=== PATIENT | female | born 1990 | race Caucasian/White ===

== ENCOUNTER 2017-08-14 15:15 | Emergency (ER) | payer OTHER ==
[~2017-08-14] VITALS: Ht 152.4 cm; Wt 95.2 kg
--- OUTSIDE RECORDS SUMMARY | ~2017-08-14 | XMS ---
Demographics + + + | Address | [address] | | | [place] [address] | + + + | Preferred Language | Unknown | + + + | Marital Status | Unknown | + + + | Lutheran Affiliation | Unknown | + + + | Race | Unknown | + + + | Ethnic Group | Unknown | + + + Author + + + | Author | [facility] | + + + | Organization | [facility] | + + + | Address | [address] | | | [place] [address] | + + + | Phone | | + + + Care Team Providers + + + + | Care Printing And Stamping Supervisor Name | Role | Phone | + + + + Unavailable | Unavailable | + + + + PROBLEMS +---------+ + + +--------+ + + | Type | Condition | ICD9-CM | [id number] | Onset | Condition | SNOMED | | | | Code | Code | Dates | Status | Code | +---------+ + + +--------+ + + | Problem | Loss of | R40.20 | | | Active | [id number] | | | consciousn | | | | | | | | ess | | | | | | +---------+ + + +--------+ + + | Problem | Injury of | S59.901A | | | Active | | | | right | | | | | | | | elbow | | | | | | +---------+ + + +--------+ + + ALLERGIES Unknown Allergies SOCIAL HISTORY No smoking Hx information available PLAN OF CARE + +---------+ | Activity | Details | + +---------+ +---+ | | +---+ + + + | Follow Up | prn Reason:null | + + + VITAL SIGNS MEDICATIONS + + +--------+ +--------+ + +--------+ | Medicati | Instruct | Dosage | Frequenc | Start | End Date | Duration | Status | | on | ions | | y | Date | | | | + + +--------+ +--------+ + +--------+ | Depo | | | | | | | Active | | Provera | | | | | | | | | IM | | | | | | | | + + +--------+ +--------+ + +--------+ RESULTS No Results PROCEDURES + + + + + | Procedure | Date Ordered | Related Diagnosis | Body Site | + + + + + | missed apptointment | April 13, 2017 | | | | charge | | | | + + + + + IMMUNIZATIONS No Known Immunizations"
--- OUTSIDE RECORDS SUMMARY | ~2017-08-14 | XMS ---
Demographics + + + | Address | [address] | | | [place] [address] | + + + | Preferred Language | Unknown | + + + | Marital Status | Unknown | + + + | Orthodoxy Affiliation | Unknown | + + + | Race | Unknown | + + + | Ethnic Group | Unknown | + + + Author + + + | Author | [facility] | + + + | Organization | [facility] | + + + | Address | [address] | | | [place] [address] | + + + | Phone | | + + + Care Team Providers + + + + | Care Sheet Rock Installation Helper Name | Role | Phone | + + + + Unavailable | Unavailable | + + + + PROBLEMS +---------+ + + +--------+ + + | Type | Condition | ICD9-CM | [id number] | Onset | Condition | SNOMED | | | | Code | Code | Dates | Status | Code | +---------+ + + +--------+ + + | Problem | Loss of | R40.20 | | | Active | [id number] | | | consciousn | | | [...] smoking Hx information available PLAN OF CARE VITAL SIGNS MEDICATIONS Unknown Medications RESULTS No Results PROCEDURES No Known procedures IMMUNIZATIONS No Known Immunizations"
--- OUTSIDE RECORDS SUMMARY | ~2017-08-14 | XMS ---
Demographics + + + | Address | [address] | | | [place] [address] | + + + | Preferred Language | Unknown | + + + | Marital Status | Unknown | + + + | Advent Affiliation | Unknown | + + + | Race | Unknown | + + + | Ethnic Group | Unknown | + + + Author + + + | Author | [facility] | + + + | Organization | [facility] | + + + | Address | [address] | | | [place] [address] | + + + | Phone | | + + + Care Team Providers + + + + | Care Photoengraving Finisher Name | Role | Phone | + + + + Unavailable | Unavailable | + + + + PROBLEMS + + + + + + + + | Type | Condition | ICD9-CM | [id number] | Onset | Condition | SNOMED | | | | Code | Code | Dates | Status | Code | + + + + + + + + | Problem | Loss of | R40.20 | | | Active | [id number] | | | consciousn | | | | | | | | ess | | | | | | + + + + + + + + | Problem | Injury of | S59.901A | | | Active | | | | right | | | | | | | | elbow | | | | | | + + + + + + + + | Assessment | Contact | | Z77.21 | 18 March, | Active | [phone] | | | with and | | | 2016 | | [address] | | | (suspected | | | | | | | | ) exposure | | | | | | | | to | | | | | | | | potentiall | | | | | | | | y | | | | | | | | hazardous | | | | | | | | body | | | | | | | | fluids | | | | | | + + + + + + + + | Assessment | History of | Z77.21 | | March, | Active | [id number] | | | exposure | | | 2016 | | [id number] | | | to | | | | | | | | hazardous | | | | | | | | bodily | | | | | | | | fluids | | | | | | + + + + + + + + ALLERGIES + + + + +---------+ | Substance | Reaction | Event Type | Date | Status | + + + + +---------+ | N.K.D.A. | Unknown | Non Drug | March, | Unknown | | | | Allergy | | | + + + + +---------+ SOCIAL HISTORY No smoking Hx information available PLAN OF CARE + +---------+ | Activity | Details | + +---------+ +---+ | | +---+ + + + | Pending Test | HIV screen | + + + | Pending Test | Hepatitis A,B,C Panel | + + + | | prn,Reason: | + + + VITAL SIGNS + + + + | Height | 61 in | 2017-03-31 | + + + + | Weight | 221.6 lbs | 2017-03-31 | + + + + | BMI | 41.87 kg/m2 | 2017-03-31 | + + + + | Temperature | 97.9 degrees Fahrenheit | 2017-03-31 | + + + + | Heart Rate | 80 /min | 2017-03-31 | + + + + | Blood pressure systolic | 126 mm Hg | 2017-03-31 | + + + + | Blood pressure diastolic | 69 mm Hg | 2017-03-31 | + + + + MEDICATIONS + [...] | + + + + + | Est Level II | March 31, 2017 | | | | Limited | | | | + + + + + IMMUNIZATIONS No Known Immunizations"
[~2017-08-14 15:15] MED LIST: ALKA-SELTZER P1 EAC4 PO; AMOXICILLIN500 M1 PO; AMOXICILLIN500 MG PO; AUGMENTIN 500-500 MG PO; AZITHROMYCIN250 MG PO; CILOXAN5 ML OD; CYCLOBENZAPRINE5 MG PO; DEPO-PROVE400 MG/1 M IM; FLONASE ALLERG9.9 ML NS; GUAIATUSSIN AC10 ML PO; MELOXICAM15 MG PO; NORCO 5-325 TA1 EACH PO; ONDANSETRON HCL4 MG PO; PEPCID COMPLET1 EACH PO; PHENERGAN25 MG/1 M1 PR; PREDNISONE20 MG PO; PRENACARE TABL1 EACH PO; PROMETHAZINE HC25 M1 PO; PROMETHAZINE HC25 MG PR; ROBITUSSIN COU118 ML PO; SUDOGEST30 MG PO; ZITHROMAX250 MG PO
[2017-08-14] MEDS ORDERED: CYCLOBENZAPRINE10 MG PO (18:22)
== END 2017-08-14 18:40 | disposition home or self-care (01) ==
LOC: ED 15:15
DX: S73.102A Unspecified sprain of left hip, initial encounter (principal); W01.0XXA Fall on same level from slipping, tripping and stumbling without subsequent striking against object, initial encounter
CPT/HCPCS: 72170; 99283

== ENCOUNTER 2018-08-05 00:53 | Emergency (ER) | payer OTHER ==
[~2018-08-05] VITALS: Ht 152.4 cm; Wt 95.2 kg
--- OUTSIDE RECORDS SUMMARY | ~2018-08-05 | XMS ---
Demographics + + + | Address | [address] | | | [place] [address] | + + + | Preferred Language | Unknown | + + + | Marital Status | Unknown | + + + | Mu-Ism Affiliation | Unknown | + + + | Race | Unknown | + + + | Ethnic Group | Unknown | + + + Author + + + | Author | [facility] | + + + | Organization | [facility] | + + + | Address | [address] | | | [place] [address] | + + + | Phone | | + + + Care Team Providers + + + + | Care Telecommunications Linesworker Name | Role | Phone | + + + + Unavailable | Unavailable | + + + + PROBLEMS +---------+ + + +--------+ + + | Type | Condition | ICD9-CM | [id number] | Onset | Condition | SNOMED | | | | Code | Code | Dates | Status | Code | +---------+ + + +--------+ + + | Problem | Loss of | R40.20 | | | Active | [id number] | | | consciousn | | | | | | | | ess | | | | | | +---------+ + + +--------+ + + | Problem | Injury of | S59.901A | | | Active | | | | right | | | | | | | | elbow | | | | | | +---------+ + + +--------+ + + ALLERGIES No Known Allergies SOCIAL HISTORY Never Assessed PLAN OF CARE + +---------+ | Activity | Details | + +---------+ +---+ | | +---+ + + + | Follow Up | prn Reason:null | + + + VITAL SIGNS + + + + | Height | 61 in | 2017-07-13 | + + + + | Weight | 217 lbs | 2017-07-13 | + + + + | BMI | 41.00 kg/m2 | 2017-07-13 | + + + + | Temperature | 98.2 degrees Fahrenheit | 2017-07-13 | + + + + | Heart Rate | 72 /min | 2017-07-13 | + + + + | Blood pressure systolic | 119 mm Hg | 2017-07-13 | + + + + | Blood pressure diastolic | 85 mm Hg | 2017-07-13 | + + + + MEDICATIONS + + +--------+ +--------+ + +--------+ [...] +--------+ RESULTS No Results PROCEDURES + + +--------+ + | Procedure | Date Ordered | Result | Body Site | + + +--------+ + | SHAVE TRUNK, ARMS, | Jul 13, 2017 | | | | LEGS <0.5 CM | | | | + + +--------+ + IMMUNIZATIONS No Known Immunizations MEDICAL (GENERAL) HISTORY + + +------+ | Type | Description | Date | + + +------+ | Medical History | lactose intolerant | | + + +------+ | Medical History | intestinal pocketing (seeds | | | | & nuts) | | + + +------+ | Medical History | dysmenorrhea | | + + +------+"
--- OUTSIDE RECORDS SUMMARY | ~2018-08-05 | XMS | Clinical Summary ---
Demographics + + + | Address | [address] | | | [place] [address] | + + + | Home Phone | | + + + | Preferred Language | Unknown | + + + | Marital Status | Single | + + + | Muslim Affiliation | Unknown | + + + | Race | Unknown | + + + | Ethnic Group | Unknown | + + + Author + + + | Author | [facility] | | | and [place] | + + + | Organization | [facility] | | | and [place] [...] Team Providers + +------+ + | Care Trauma Nurse Name | Role | Phone | [...] + + | MODA | MODA | [id number] | PPO | [phone] [address] [address] | | | [place] | | | [phone] | [place] [address] | | | [place] | | | [...] | 1989 | [phone] | [place] [address] | | | de[place]a | | | [phone] | | + +--------+ +--------+ + +"
--- OUTSIDE RECORDS SUMMARY | ~2018-08-05 | XMS | Clinical Summary ---
Demographics + + + | Address | [address] | | | [place] [address] | + + + | Home Phone | | + + + | Preferred Language | Unknown | + + + | Marital Status | Single | + + + | Gnosticist Affiliation | Unknown | + + + | Race | Unknown | + + + | Ethnic Group | Unknown | + + + Author + + + | Author | [facility] | | | and [place] | + + + | Organization | [facility] | | | and [place] | [...] Team Providers + +------+ + | Care Passenger Service Agent Name | Role | Phone | + [...] + + | MODA | MODA | [id number] | PPO | [phone] [address] [address] | | | [place] | | | [phone] | [place] [address] | | | [place] | | | [...] | 1989 | [phone] | [place] [address] | | | debora | | | [phone] | | + +--------+ +--------+ + +"
[~2018-08-05 00:53] MED LIST changes: +CYCLOBENZAPRINE10 MG PO
[2018-08-05] MEDS ORDERED: BACTRIM DS TAB1 EACH PO (01:24)
[2018-08-05] MEDS ORDERED: SUDOGEST60 MG PO (01:26)
[2018-08-05] MEDS ORDERED: DEXAMETHASONE4 MG PO (01:26)
[2018-08-05] MEDS ORDERED: BUSPIRONE HCL5 MG PO (01:27)
[2018-08-05] MEDS ORDERED: BUSPIRONE HCL7.5 MG PO (01:27)
[2018-08-05] MEDS ORDERED: ZOFRAN ODT4 MG PO (02:14)
[2018-08-05] MEDS ORDERED: PERCOCET 5-3251 EACH PO (02:14)
== END 2018-08-05 03:15 | disposition home or self-care (01) ==
LOC: ED 00:53
DX: G89.18 Other acute postprocedural pain (principal); Z79.899 Other long term (current) drug therapy
CPT/HCPCS: 96372; 99283; J1170; J3410

== ENCOUNTER 2018-08-13 21:22 | Emergency (ER) | payer OTHER ==
[~2018-08-13] VITALS: Ht 152.4 cm; Wt 97.1 kg
--- OUTSIDE RECORDS SUMMARY | ~2018-08-13 | XMS | Clinical Summary ---
Demographics + + + | Address | [address] | | | [place] [address] | + + + | Home Phone | | + + + | Preferred Language | Unknown | + + + | Marital Status | Single | + + + | Congregation Affiliation | Unknown | + + + | Race | Unknown | + + + | Ethnic Group | Unknown | + + + Author + + + | Author | [facility] | | | and [place] | + + + | Organization | [facility] [place] | | | and [place] | + + + | Address | Unknown | + + + | Phone | Unavailable | + + + Support + + +---------+ + | Name | Relationship | Address | Phone | + + +---------+ + | Darien Chin ECON | Unknown | | + + +---------+ + Care Team Providers + +------+ + | Care Label Cutter Name | Role | Phone | + +------+ + | No, Physician | PP | Unavailable | + +------+ + Allergies No Known Allergies Current Medications + + +--------+---------+------+------+-------+ | Prescription | Sig. | Disp. | Refills | Star | End | Statu | | | | | | t | Date | s | | | | | | Date | | | + + +--------+---------+------+------+-------+ | | One tablet twice | 20 | 0 | 02/0 | | Activ | | amoxicillin-clavulan | daily for 10 days | tablet | | 6/20 | | e | | ate (AUGMENTIN) | | | | 16 | | | | 875-125 mg per | | | | | | | | tabletIndications: | | | | | | | | Purulent rhinitis | | | | | | | + + +--------+---------+------+------+-------+ Active Problems No known active problems Social History + +-------+ +--------+------+ | Tobacco Use | Types | Packs/Day | Years | Date | | | | | Used | | + +-------+ +--------+------+ | Never Smoker | | | | | + +-------+ +--------+------+ + + + | Sex Assigned at | Date Recorded | | | | + + + | Not on file | | + + + Last Filed Vital Signs + + + + | Vital Sign | Reading | Time Taken | + + + + | Blood Pressure | 132/70 | 12/20/20151528 PST | + + + + | Pulse | 88 | 12/20/20151528 PST | + + + + | Temperature | 36.3 C (97.4 F) | 12/20/20151528 PST | + + + + | Respiratory Rate | 18 | 12/20/20151528 PST | + + + + | Oxygen Saturation | 98% | 12/20/20151528 PST | + + + + | Inhaled Oxygen | - | - | | Concentration | | | + + + + | Weight | 95.8 kg (211 lb 3.2 | 12/20/20151528 PST | | | oz) | | + + + + | Height | 152.4 cm (5') | 12/20/20151528 PST | + + + + | Body Mass Index | 41.25 | 12/20/20151528 PST | + + + + Plan of Treatment + + + + + | Health Maintenance | Due Date | Last Done | Comments | + + + + + | Vaccine: HPV (1 of 3 | | | | | - Female 3-dose | 3 | | | | series) | | | | + + + + + | Vaccine: | | | | | Dtap/Tdap/Td (1 - | 1 | | | | Tdap) | | | | + + + + + | Cervical Cancer | | | | | Screening (Pap) | 3 | | | + + + + + | Vaccine: Influenza | | | | | (#1) | 8 | | | + + + + + Results Not on filefrom Last 3 Months Insurance +-------+--------+ +------+ + + | Payer | Benefi | Subscriber | Type | Phone | Address | | | t Plan | ID | | | | | | / | | | | | | | Group | | | | | +-------+--------+ +------+ + + | MODA | MODA | [id number] | PPO | [phone] | [address] [address] | | | [place] | | | [phone] | [place] [address] | | | [place] | | | | | | | [place] | | | | | +-------+--------+ +------+ + + + +--------+ +--------+ + + | Guarantor Name | Accoun | Relation to | Date | Phone | Billing Address | | | t Type | Patient | of | | | | | | | | | | + +--------+ +--------+ + + | JACKI MOLINA | Person | Self | [birth year] | Home: | [address] | | | al/Fam | | 1989 | [phone] | [place] [address] | | | debora | | | [phone] | | + +--------+ +--------+ + +"
--- OUTSIDE RECORDS SUMMARY | ~2018-08-13 | XMS | Clinical Summary ---
Demographics + + + | Address | [address] | | | [place] [address] | + + + | Home Phone [...] | [facility] | | | and [place] [...] Team Providers + +------+ + | Care Real Time Trader Name | Role | Phone | + [...] + + | MODA | MODA | [id number] | PPO | [phone] | [address] [address] | | | [place] | | | [phone] | [place] [address] | | | [place] | | | [...] | 1989 | [phone] | [place] [address] | | | debora | | | [phone] | | + +--------+ +--------+ + +"
[~2018-08-13 21:22] MED LIST changes: +BACTRIM DS TAB1 EACH PO; +BUSPIRONE HCL5 MG PO; +BUSPIRONE HCL7.5 MG PO; +DEXAMETHASONE4 MG PO; +PERCOCET 5-3251 EACH PO; +SUDOGEST60 MG PO; +ZOFRAN ODT4 MG PO
--- OUTSIDE RECORDS SUMMARY | 2018-08-13 21:26 | XMS ---
PreManage Notification: GERI BLAKE Security Synthetic Staple Extruder Events No recent Security Events currently on file CRITERIA MET - [facility] - 2 Visits in 30 Days CARE PROVIDERS There are no care providers on record at this time. Abdelrahman has no Care Guidelines for this patient. Chanda VISIT COUNT (12 MO.) [address] [facility] [address] TOTAL 3 NOTE: Visits indicate total known visits. ED/C VISIT TRACKING (12 MO.) 08/13/2018 21:22 [facility] [address] TYPE: Emergency COMPLAINT: - MEDICATION REACTION 08/05/2018 00:53 [facility] [place] TYPE: Emergency COMPLAINT: - POST OP ISSUE/PAIN DIAGNOSES: - Other acute postprocedural pain - Other terminal superintendent (current) drug therapy 08/14/2017 15:17 [facility] [place] TYPE: Emergency COMPLAINT: - FALL/L HIP/LOW BACK PAIN DIAGNOSES: - Unspecified sprain of left hip, initial encounter - Fall on same level from slipping, tripping and stumbling without subsequent striking against object, initial encounter - Pain in left hip INPATIENT VISIT TRACKING (12 MO.) No inpatient visits to display in this time frame [id number]
[2018-08-13] MEDS ORDERED: BENADRYL25 MG PO (21:35)
== END 2018-08-13 21:50 | disposition home or self-care (01) ==
LOC: ED 21:22
DX: L27.0 Generalized skin eruption due to drugs and medicaments taken internally (principal); T37.0X5A Adverse effect of sulfonamides, initial encounter; Z79.899 Other long term (current) drug therapy
CPT/HCPCS: 99282; J7512

== ENCOUNTER 2019-07-30 22:14 | Emergency (ER) | payer OTHER ==
[~2019-07-30] VITALS: Ht 152.4 cm; Wt 208.0 kg
[~2019-07-30 22:14] MED LIST changes: +ALLEGRA ALLERG180 MG PO; +BENADRYL25 MG PO; +CYMBALTA30 MG PO; +DOXYCYCLINE HY100 MG PO; +EPIN0.3P IM; +GUAIFEN-CODEINE10 ML PO; +PAXIL10 MG PO
--- OUTSIDE RECORDS SUMMARY | 2019-07-30 22:16 | XMS ---
PreManage Notification: GERI BLAKE Security Refractory Products Supervisor Events No recent Security Events currently on file CRITERIA MET - [facility] - 2 Visits in 30 Days CARE PROVIDERS NATALYA FLETCHER MD Otolaryngology 08/14/2018-Current PHONE: Unknown Abdelrahman has no Care Guidelines for this patient. Chanda VISIT COUNT (12 MO.) 5 [facility] TOTAL 5 NOTE: Visits indicate total known visits. ED/C VISIT TRACKING (12 MO.) 07/30/2019 22:15 [facility] [place] TYPE: Emergency COMPLAINT: - ALLERGIC REACTION 07/09/2019 13:33 [facility] [place] TYPE: Emergency COMPLAINT: - SORE THROAT DIAGNOSES: - Acute pharyngitis, unspecified - Other penitentiary (current) drug therapy - Allergy status to sulfonamides status - Personal history of nicotine dependence - Acute upper respiratory infection, unspecified 10/27/2018 12:37 [facility] [place] TYPE: Emergency COMPLAINT: - SINUS INFECTION DIAGNOSES: - Other penitentiary (current) drug therapy - Cough - Acute pharyngitis, unspecified - Personal history of nicotine dependence - Chronic sinusitis, unspecified - Allergy status to sulfonamides status 08/13/2018 21:22 [facility] [place] TYPE: Emergency COMPLAINT: - MEDICATION REACTION DIAGNOSES: - Adverse effect of sulfonamides, initial encounter - Other 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
== END 2019-07-31 00:22 | disposition home or self-care (01) ==
LOC: ED 22:14
DX: T65.891A Toxic effect of other specified substances, accidental (unintentional), initial encounter (principal); Z87.891 Personal history of nicotine dependence; Z88.2 Allergy status to sulfonamides; Z79.899 Other long term (current) drug therapy
CPT/HCPCS: 94640; 96361; 96374; 99283-25; J1200; J7030

== ENCOUNTER 2019-09-18 13:00 | Emergency (ER) | payer OTHER ==
[~2019-09-18] VITALS: Ht 152.4 cm; Wt 94.3 kg
--- OUTSIDE RECORDS SUMMARY | ~2019-09-18 | XMS | Clinical Summary ---
Demographics + + + | Address | [address] | | | [place] [address] | + + + | Home Phone | | + + + | Preferred Language | Unknown | + + + | Marital Status | Single | + + + | Yazidi Affiliation | Unknown | + + + | Race | Unknown | + + + | Ethnic Group | Unknown | + + + Author + + + | Author | [facility] [place] | | | and [place] | + + + | Organization | [facility] [place] | | | and [place] | [...] Team Providers + +------+ + | Care Finishing Supervisor Plastic Sheets Name | Role | Phone | + +------+ + | No, Physician | PCP | Unavailable | + +------+ + Allergies No Known Allergies Medications + + + +---------+------+------+-------+ | Medication | Sig | Dispensed | Refills | Star | End | Statu | | | | | | t | Date | s | | | | | | Date | | | + + + +---------+------+------+-------+ | | One tablet twice | 20 [...] | | | | + + + +---------+------+------+-------+ Active Problems No known active problems Social [...] on file | | + + + + + + + | Job Start Date | Occupation | Industry | + + + + | Not on file | Not on file | Not on file | + + + + + + + + | Travel History | Travel Start | Travel End | + + + + + + | No recent travel history available. | + + Last Filed Vital Signs + + + + | Vital Sign | Reading | Time Taken | + + + + | Blood Pressure | 132/70 | 12/20/2015 1529 PST | + + + + | [...] | Height | 152.4 cm (5') | 12/20/20159 PST | + + + + | [...] | | | | | (#1) | 9 | | | + + + + + Results Not on filefrom Last 3 Months Insurance +-------+--------+ +--------+ + +------+ | Payer | Benefi | Subscriber | Effect | Phone | Address | Type | | | t Plan | ID | lorna | | | | | | / | | Dates | | | | | | Group | | | | | | +-------+--------+ +--------+ + +------+ | MODA | MODA | [id number] | 11/14/19 | [phone] | [address] | PPO | | | [place] | | 14-Pre | 9 | [phone] | | | | [place] | | sent | | [place], | | | | [place] | | | | [place] [address] | | +-------+--------+ +--------+ + +------+ + +--------+ +--------+ + + | Guarantor Name | Accoun | Relation to | Date | Phone | Billing Address | | | t Type | Patient | of | | | | | | | | | | + +--------+ +--------+ + + | Jacki Molina | Person | Self | [birth year] | [address] | | | al/Renan | | 1990 | [phone] | [place] [address] | | | debora | | | 7 (Home) | | + +--------+ +--------+ + + Advance Directives Patient has advance care planning documents on file. For more information, please contact:[facility] [place] [address]"
--- OUTSIDE RECORDS SUMMARY | ~2019-09-18 | XMS | Clinical Summary ---
Demographics + + + | Address | [address] | | | [place] [address] | + + + | Home Phone | | + + + | Preferred Language | Unknown | + + + | Marital Status | Single | + + + | Rastafari Affiliation | Unknown | + + + | Race | Unknown | + + + | Ethnic Group | Unknown | + + + Author + + + | Author | [facility] | | | and [place] | + + + | Organization | [facility] | | | and [...] Team Providers + +------+ + | Care Customer Service Advisor Name | Role | Phone | + [...] + +------+ | MODA | MODA | [id number] | 11/14/19 | [phone] | [address] | PPO | | | [place] | | 14-Pre | 9 | [address] | | | | [place] | | sent | | [place], | | | | [place] | | | | [place] [address] | | +-------+--------+ +--------+ + +------+ + [...] | | al/Renan | | 1990 | [phone] | [place] [address] | | | debora | | | 7 (Home) | | + +--------+ +--------+ + + Advance Directives Patient has advance care planning documents on file. For more information, please contact:[facility] [place] [address]"
[2019-09-18] MEDS ORDERED: MONTELUKAST SOD10 MG PO (13:15)
[2019-09-18] MEDS ORDERED: DULOXETINE HCL60 MG PO (13:16)
--- NOTE | 2019-09-18 20:24 | EKG ---
[facility] [address] [place], [place] [address] Signed Normal sinus rhythm with sinus arrhythmia Normal ECG No previous ECGs available Confirmed by KALEN BECERRA DO ([id number]) on 09/18/2019 8:24:28 PM Electronically Signed By: KALEN BECERRA DO 09/18/192023 PATIENT NAME: GERI BLAKE Electrocardiogram DATE OF : [birth year] PHYSICIAN: KALEN BECERRA DO REPORT #: [id number] REPORT IS CONFIDENTIAL AND NOT TO BE RELEASED WITHOUT AUTHORIZATION
== END 2019-09-18 16:25 | disposition home or self-care (01) ==
LOC: ED 13:00
DX: R55 Syncope and collapse (principal); F32.9 Major depressive disorder, single episode, unspecified; F41.9 Anxiety disorder, unspecified; Z87.891 Personal history of nicotine dependence; Z88.2 Allergy status to sulfonamides; Z79.899 Other long term (current) drug therapy
CPT/HCPCS: 36415; 71045; 80053; 83735; 84484; 84703; 85025; 93005; 93010; 99284-25

== ENCOUNTER 2019-09-22 18:06 | Emergency (ER) | payer OTHER ==
[~2019-09-22] VITALS: Ht 152.4 cm; Wt 93.4 kg
--- OUTSIDE RECORDS SUMMARY | ~2019-09-22 | XMS | Clinical Summary ---
Demographics + + + | Address | [address] | | | [place] [address] | + + + | Home Phone | | + + + | Preferred Language | Unknown | + + + | Marital Status | Single | + + + | Presybeterian Affiliation | Unknown | + + + | Race | Unknown | + + + | Ethnic Group | Unknown | + + + Author + + + | Author | [facility] | | | and [place] | + + + | Organization | [facility] | | | and [place] [...] Team Providers + +------+ + | Care Building Rental Superintendent Name | Role | Phone | + [...] + +------+ | MODA | MODA | [id number] | 11/14/19 | [phone] | [address] | [address] | | | [employer] | | 14-Pre | 9 | [phone] | | | | [place] | | sent | | [place], | | | | [place] | | | | [place] [address] | | +-------+--------+ +--------+ + +------+ + [...] | | al/Renan | | 1990 | [phone] | [place] [address] | | | debora | | | 7 (Home) | | + +--------+ +--------+ + + Advance Directives Patient has advance care planning documents on file. For more information, please contact:Melissa [facility] [place] [address]"
--- OUTSIDE RECORDS SUMMARY | ~2019-09-22 | XMS | Clinical Summary ---
Demographics + + + | Address | [address] | | | [place] [address] | + + + | Home Phone | | + + + | Preferred Language | Unknown | + + + | Marital Status | Single | + + + | Hinduism Affiliation | Unknown | + + + | Race | Unknown | + + + | Ethnic Group | Unknown | + + + Author + + + | Author | [facility] | | | and [place] | + + + | Organization | [facility] | | | and [place] [...] + +------+ + | Care Lay Out Worker Name | Role | Phone | + [...] + +------+ | MODA | MODA | [id number] | 11/14/19 | [phone] | [address] | PPO | | | [employer] | | 14-Pre | 9 | [phone] | | | | [place] | | sent | | [place], | | | | [place] | | | | [place] [address] | | +-------+--------+ +--------+ + +------+ + [...] | | al/Renan | | 1990 | [phone] | [place] [address] | | | debora | | | 7 (Home) | | + +--------+ +--------+ + + Advance Directives Patient has advance care planning documents on file. For more information, please contact:Melissa [facility] [place] [address]"
[~2019-09-22 18:06] MED LIST changes: +DULOXETINE HCL60 MG PO; +MONTELUKAST SOD10 MG PO
--- OUTSIDE RECORDS SUMMARY | 2019-09-22 18:10 | XMS ---
PreManage Notification: GERI BLAKE Security Education And Training Manager Events No recent Security Events currently on file CRITERIA MET - [facility] - 2 Visits in 30 Days CARE PROVIDERS NATALYA FLETCHER MD Otolaryngology 08/14/2018-Current PHONE: Unknown Abdelrahman has no Care Guidelines for this patient. Chanda VISIT COUNT (12 MO.) 5 [facility] TOTAL 5 NOTE: Visits indicate total known visits. ED/UCC VISIT TRACKING (12 MO.) 09/22/2019 18:07 [facility] [place] TYPE: Emergency COMPLAINT: - LOSS OF CONSCIOUSNESS 09/18/2019 13:01 [facility] [place] TYPE: Emergency COMPLAINT: - ALOC,FATIGUE DIAGNOSES: - Personal history of nicotine dependence - Syncope and collapse - Major depressive disorder, single episode, unspecified - Anxiety disorder, unspecified - Other terminal superintendent (current) drug therapy - Other fatigue - Allergy status to sulfonamides status 07/30/2019 22:15 [facility] [place] TYPE: Emergency COMPLAINT: - ALLERGIC REACTION DIAGNOSES: - Ot adverse food reactions, not elsewhere classified, init - Personal history of nicotine dependence - Other fdc (current) drug therapy - Toxic effect of substances, accidental (unintentional), init - Allergy status to sulfonamides status 07/09/2019 13:33 [facility] [place] TYPE: Emergency COMPLAINT: - SORE THROAT DIAGNOSES: - Acute pharyngitis, unspecified - Other terminal superintendent (current) drug therapy - Allergy status to sulfonamides status - Personal history of nicotine dependence - Acute upper respiratory infection, unspecified 10/27/2018 12:37 [facility] [place] TYPE: Emergency COMPLAINT: - SINUS INFECTION DIAGNOSES: - Other fdc (current) drug therapy - Cough - Acute pharyngitis, unspecified - Personal history of nicotine dependence - Chronic sinusitis, unspecified - Allergy status to sulfonamides status INPATIENT VISIT TRACKING (12 MO.) No inpatient visits to display in this time frame [id number]
--- NOTE | 2019-09-23 07:54 | EKG ---
[facility] [address] [place] [address] Signed Normal sinus rhythm Normal ECG When compared with ECG of 18-SEP-2019 13:17, No significant change was found Confirmed by MARY CAIN MD ([id number]) on 09/23/2019 7:54:33 AM Electronically Signed By: MARY CAIN MD 09/23/19 0754 PATIENT NAME: GERI BLAKE KATELINSelvin Electrocardiogram DATE OF : [birth year] PHYSICIAN: MARY CAIN MD REPORT #: [id number] REPORT IS CONFIDENTIAL AND NOT TO BE RELEASED WITHOUT AUTHORIZATION
== END 2019-09-22 23:54 | disposition home or self-care (01) ==
LOC: ED 18:06
DX: R55 Syncope and collapse (principal); R51 Headache; F32.9 Major depressive disorder, single episode, unspecified; Z88.2 Allergy status to sulfonamides; Z79.899 Other long term (current) drug therapy
CPT/HCPCS: 62270; 70450; 80053; 82945; 83735; 84157; 84484; 84703; 85025; 85032; 89051; 93005; 93010; 99284-25

== ENCOUNTER 2020-06-07 03:25 | Emergency (ER) | payer OTHER ==
[~2020-06-07] VITALS: Ht 152.4 cm; Wt 99.8 kg
--- OUTSIDE RECORDS SUMMARY | ~2020-06-07 | XMS | Encounter Summary ---
Demographics + + + | Address | [address] | | | [place] [address] | + + + | Home Phone | | + + + | Preferred Language | Unknown | + + + | Marital Status | Single | + + + | Baptism Affiliation | Unknown | + + + | Race | Unknown | + + + | Ethnic Group | Unknown | + + + Author + + + | Author | [facility] | | | and [place] | + + + | Organization | [facility] | | | and [place] | + + + | Address | Unknown | + + + | Phone | Unavailable | + + + Support + + +---------+ + | Name | Relationship | Address | Phone | + + +---------+ + | Darien Giuseppe | ECON | Unknown | | + + +---------+ + Care Team Providers + +------+ + | Care Rotoformer Backtender Name | Role | Phone | + +------+ + | Boni Rosales | PCP | | + +------+ + Encounter Details +--------+ + + + + | Date | Type | Department | Care Team | Description | +--------+ + + + + | 02/06/ | Hospital | [facility] | Pam Kidd | Recurrent syncope; | | 2019 | Encounter | HOSPITAL RES[facility]IRATORY | MD [address] | Seizure disorder | | | | THERAPY [address] | [place]GELIC [place]CK[place] | ([facility]) | | | | [address] [place], [place] | [place], [place] [address] | | | | | [address] | [phone] | | | | | [phone] | | | +--------+ + + + [...] + + documented as of this encounter Medications at Time of Discharge [...] + + | busPIRone (BUSPAR) | Take 15 mg by mouth | | 0 | 10/27/20 | | | 7.5 MG tablet | Twice daily as | | | 19 | 0 | | | needed. | | | | | + + + +---------+ + + | DULoxetine | Take 60 mg by mouth | | 0 | 11/23/19 | | | (CYMBALTA) [address] | Daily. | | | 20 | 0 | | capsule | | | | | | + + + +---------+ + + | levETIRAcetam | Take 500 mg by mouth | | 0 | 01/17/20 | | | (KEPPRA) 500 mg | 2 times daily. | | | 20 | 0 | | tablet | | | | | | + + + +---------+ + + documented as of this encounter Progress Notes Eric Mckenzie RRT - 02/07/2020 10:30 AM PDTAwake and drowsy EEG performed, patient kimberly ated study well. docum ented in this encounter Procedure Notes Pam Kidd MD - 02/07/2020 10:30 AM PDTAssociated Order(s): EEG AWAKE OR DROWSY R OUTINEPre-Procedure Diagnose(s): Recurrent syncope; Seizure disorder (HCC)Name:Jacki avitia :1990 DATE OF SERVICE: 02/07/2020 STUDY: ELECTROENCEPHALOGRAM INTRODUCTION: This is a digital EEG recording with a record length of 20 minutes. The pat ieelías is a 29 y.o. year-old female with recurrent syncope. BACKGROUND RHYTHM: The patient has a well defined background pattern of 10-11 hz. This ac tivity is more prominent posteriorly, symmetrical, and synchronous. It attenuates with eye opening and returns with eye closing. Drowsiness is appreciated by the attenuation and slow ing of the patient's background activities. ABNORMAL POTENTIALS: No focal slow waves or epileptiform discharges are seen. HYPERVENTILATION/PHOTIC STIMULATION: Hyperventilation and photic stimulation were without significant effect. IMPRESSION: Normal awake and drowsy EEG. However, if seizures are strongly suspected clin ically, a repeat EEG with prolonged sleep recording is recommended. Thank you for the opportunity to participate in the care of this patient. Pam Kidd MD02/07/202011:21 AM documented in thi s encounter Plan of Treatment +--------+---------+ + + + | Date | Type | Specialty | Care Team | Description | +--------+---------+ + + + | 11/11/ | Office | Neurology | Dixie Lockhart NP | | 2019 | Visit | | [address] | | | | | | [place] | | | | | | [address] | | | | | | [phone] | | | | | | | | +--------+---------+ + + + documented as of this encounter Procedures + +--------+ + + + | Procedure Name | Priori | Date/Time | Associated Diagnosis | Comments | | | ty | | | | + +--------+ + + + | EEG AWAKE OR DROWSY | Routin | 02/07/2020 | Recurrent syncope | Results for this | | ROUTINE | e | 10:30 AM | Seizure disorder | procedure are in the | | | | PDT | ([facility]) | results section. | + +--------+ + + + documented in this encounter Results EEG awake or drowsy routine (02/07/2020 10:30 AM PDT) + + + | Narrative | Performed At | + + + | Pam Kidd MD 02/07/2020 11:22 AM Name:Jacki Alba | | | Jesse :1990 DATE OF SERVICE: 02/07/2020 | | | STUDY: ELECTROENCEPHALOGRAM INTRODUCTION: This is a | | | digital EEG recording with a record length of 20 minutes. The | | | patient is a 29 y.o. year-old female with recurrent syncope. | | | BACKGROUND RHYTHM: The patient has a well defined background | | | pattern of 10-11 hz. This activity is more prominent posteriorly, | | | symmetrical, and synchronous. It attenuates with eye opening and | | | returns with eye closing. Drowsiness is appreciated by the | | | attenuation and slowing of the patient's background activities. | | | ABNORMAL POTENTIALS: No focal slow waves or epileptiform | | | discharges are seen. HYPERVENTILATION/PHOTIC STIMULATION: | | | Hyperventilation and photic stimulation were without significant | | | effect. IMPRESSION: Normal awake and drowsy EEG. However, if | | | seizures are strongly suspected clinically, a repeat EEG with | | | prolonged sleep recording is recommended. Thank you for the | | | opportunity to participate in the care of this patient. | | | Pam Kidd, 311:21 AM Electronically signed | | + + + documented in this encounter Visit Diagnoses + + | Diagnosis | + + | Recurrent syncope | + + | Seizure disorder (HCC) Unspecified epilepsy without mention of intractable epilepsy | + + documented in this encounter"
--- OUTSIDE RECORDS SUMMARY | ~2020-06-07 | XMS | Encounter Summary ---
Demographics + + + | Address | [address] | | | [place] [address] | + + + | Home Phone | | + + + | Preferred Language | Unknown | + + + | Marital Status | Single | + + + | Taoist Affiliation | Unknown | + + + | Race | Unknown | + + + | Ethnic Group | Unknown | + + + Author + + + | Author | [facility] | | | and [place] | + + + | Organization | [facility] | | | [...] Team Providers + +------+ + | Care Paraplanner Name | Role | Phone | + +------+ + | Boni Rosales | PCP | | + +------+ + Reason for Visit + + + | Reason | Comments | + + + | Follow-up | seizures | + + + Encounter Details +--------+---------+ + + + | Date | Type | Department | Care Team | Description | +--------+---------+ + + + | 05/07/ | Office | [facility] | Dixie Lockhart NP | Seizure disorder | | 2020 | Visit | HOSPITAL NEUROLOGY | [address] | (HCC) (Primary Dx); | | | | CLINIC [address] | [place] | ESR raised; Right | | | | DR [address] [place], | [address] | hip pain | | | | [place] [address] | [phone] | | | | | [phone] | | | +--------+---------+ + + + [...] + + + | Blood Pressure | 110/72 | 05/07/2020 10:39 AM | | | | | PDT | | + + + + + | Pulse | 91 | 05/07/2020 10:39 AM | | | | | PDT | | + + + + + | Temperature | 37.1 C (98.8 F) | 05/07/2020 10:39 AM | | | | | PDT | | + + + + + | Respiratory Rate | 16 | 05/07/2020 10:39 AM | | | | | PDT | | + + + + + | Oxygen Saturation | 98% | 05/07/2020 10:39 AM | | | | | PDT | | + + + + + | Inhaled Oxygen | - | - | | | Concentration | | | | + + + + + | Weight | 99.3 kg (219 lb) | 05/07/2020 10:39 AM | | | | | PDT | | + + + + + | Height | 152.4 cm (5') | 05/07/2020 10:39 AM | | | | | PDT | | + + + + + | Body Mass Index | 42.77 | 05/07/2020 10:39 AM | | | | | PDT | | + + + + + documented in this encounter Patient Instructions Patient Instructions Dixie Lockhart NP - 05/07/2020 10:[address] days after y our last seizure. We will call with your Keppra levels. We will call to schedule your 6 month follow-up. Call if you have a seizure prior to your follow-up. documented in this encounter Progress Notes Dixie Lockhart NP - 05/07/2020 10:30 AM PDTFormatting of this note might be different from th e original. NEUROLOGY FOLLOW UP OFFICE VISIT Patient: Jacki Molina Medical Record: [id number] Date of Services: 05/07/2020 Referring Doctor: Boni Rosales HISTORY Chief Complaint: Seizure disorder. History of Present Illness: Jacki Molina is a 30 y.o. patient presenting to our neurology clinic today for follow up of seizure. The patient is an established patient of Maynor Kidd and new to myself. The patient was last seen in our office on 02/28/2020 at which time she had reported a seizu re while at work occurring on 02/17/2020. At the visit her Keppra was increased to 750 mg twi ce daily. She had had a routine and 24-hour EEG completed which were both normal. She had yet to complete her MRI of the brain. 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 Today, the patient reports she has remained seizure-free. She had her MRI of the brain com pleted which was normal. She has continued on Keppra 700 mg twice daily. Her last Keppra l evel was completed on the lower dose on 02/01/2020 and was at the low end of normal at 12.9. 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 She s tates she is currently out on FMLA. She is also dealing with chronic anxiety and right hip and foot pain. She has a history of elevated ESR and CRP and will be transitioning care to rheumatology in [place]. She is also being seen by orthopedics regarding her hip pain. Encounter Problem List: Patient Active Problem List Diagnosis Recurrent syncope Seizure disorder Past Surgical History: Procedure Laterality Date SINUS SURGERY Allergies Allergen Reactions Narcotic Pain Medications [Morphine And Related] Nausea And Vomiting Oleoresin Capsicum [Capsicum] Swelling Sulfa Antibiotics Hives Current Outpatient Medications Medication Sig Dispense Refill albuterol 90 mcg/puff inhaler Inhale 2 puffs into the lungs every 6 hours as needed for Wheezing. busPIRone (BUSPAR) 7.5 MG tablet Take 2 tablets (15 mg total) by mouth 3 times daily 60 tablet 0 dexamethasone (DECADRON) 4 mg tablet Take 4 mg by mouth Daily as needed. DULoxetine (CYMBALTA) [address] capsule Take 3 capsules (90 mg total) by mouth Daily 90 capsule EPINEPHrine auto-injector 0.3 mg/0.3 mL injection Inject 0.3 mg into the muscle as need ed for Anaphylaxis. fexofenadine (JOSE D ALLERGY) 180 mg tablet Take 180 mg by mouth Daily. levETIRAcetam (KEPPRA) 750 MG tablet Take 1 tablet by mouth 2 times daily. 60 tablet 5 medroxyPROGESTERone (DEPO-PROVERA) 150 mg/mL injection (vial) No current facility-administered medications for this visit. Review of Symptoms: CONSTITUTIONAL: No weight loss, fever, chills. HEENT: Eyes:+ vision change. SKIN: No rash or itching. CARDIOVASCULAR: No chest pain, palpitations, or edema. RESPIRATORY: No shortness of breath, cough or sputum. GASTROINTESTINAL: No nausea, vomiting or diarrhea. NEUROLOGICAL: No headache, dizziness, syncope. MUSCULOSKELETAL: + right hip and foot pain. PSYCHIATRIC: + anxiety. EXAMINATION Examination: Vitals: 05/07/20 1039 BP: 110/72 Pulse: 91 Resp: 16 Temp: 37.1 C (98.8 F) PainSc: 6 PainLoc: Hip General Appearance: The patient is alert and in no acute distress. Mental status: The patient is alert, attentive, and oriented. Speech is clear and fluent with good repetit ion, comprehension, and naming. Cranial nerves: CN II: Visual jeffries are full to confrontation. Fundoscopic exam is normal with sharp discs and no vascular changes. Pupils are 4 mm and briskly reactive to light with accomodation. CN III, IV, : Gaze in conjugate. No blurred or double vision. No visual field cuts. EOM intact. CN V: Facial sensation is intact. CN VII: Face is symmetric with normal eye closure and smile. CN VII: Hearing is normal to rubbing fingers CN IX, X: Palate elevates symmetrically. Phonation is normal. CN XI: Head turning and shoulder shrug are intact CN XII: Tongue is midline with normal movements and no atrophy. Motor: There is no pronator drift of out-stretched arms. Muscle bulk and tone are normal. Strength is 5/5 bilaterally. Sensory: Light touch, position sense, and vibration sense are intact in fingers and toes. Coordination: Rapid alternating movements and fine finger movements are intact. There is no dysmetria on [id number]. There are no abnormal or extraneous movements. Romberg is absent. Reflexes: Reflexes are 2+ at the knees. Ambulation/Gait/Stance: Posture is normal. Gait is antalgic. ASSESSMENT AND PLAN Clinical Impression: ICD-10-CM ICD-9-CM 1. Seizure disorder (HCC) G40.909 345.90 Levetiracetam Level 2. ESR raised R70.0 790.1 3. Right hip pain M25.551 719.45 Plan: The patient has remained seizure free since her last seizure occurring on 02/17/2020. The pa oly will remain on Keppra 750 mg twice daily. We will recheck her Keppra level today. Angel ted has instructed she can begin to drive again 90 days after her last seizure which would be 05/18/2020. She has an upcoming visit scheduled with rheumatology due to chronic elevated inf lammatory markers. She also has an upcoming visit with orthopedics due to right hip and rig ht foot pain. We will plan to follow-up via telephone with her Keppra levels and in the off ice in 6 months. She will contact our clinic if any seizure like activity occurs prior to h er next visit. This note was transcribed using voice recognition software. There may be speech recognitio n errors which escaped detection during review.Electronically signed by Dixie Lockhart NP at 11:56 AM PDTdocumented in this encounter Plan of Treatment +--------+---------+ + + + | Date | Type | Specialty | Care Team | Description | +--------+---------+ + + + | 11/11/ | Office | Neurology | Dixie Lockhart NP | | | 2019 | Visit | | [address] | | | | | | [place] | | | | | | [address] | | | | | | [phone] | | | | | | | | +--------+---------+ + + + + +------+--------+ + + | Name | Type | Priori | Associated Diagnoses | Order Schedule | | | | ty | | | + +------+--------+ + + | Levetiracetam Level | Lab | Routin | Seizure disorder | 1 Occurrences | | | | e | ([facility]) | starting 05/07/2020 | | | | | | until 05/07/2021 | + +------+--------+ + + documented as of this encounter Procedures + +--------+ + + + | Procedure Name | Priori | Date/Time | Associated Diagnosis | Comments | | | ty | | | | + +--------+ + + + | LEVETIRACETAM LEVEL | Routin | 05/21/2020 | | Results for this | | | e | 11:59 AM | | procedure are in the | | | | PDT | | results section. | + +--------+ + + + documented in this encounter Results Levetiracetam Level (05/21/2020 11:59 AM PDT) + + + + + + | Component | Value | Ref Range | Performed | Pathologist | | | | | At | Signature | + + + + + + | LEVETIRACET | 29Comment: Reference | | REFERENCE | | | AM | Range for LEVETIRACETAM | | LAB | | | | 12-46 ug/mLNotes below | | [facility] - | | | | apply to: | | [facility] | | | | LEVETIRACETAMINTERPRETIV | | | | | | E INFORMATION: Keppra | | | | | | (Levetiracetam) | | | | | | Therapeutic Range: | | | | | | 12-46 ug/mL | | | | | | Toxic: Not | | | | | | well Established | | | | | | Pharmacokinetics of | | | | | | levetiracetam are | | | | | | affected by renal | | | | | | function. Adverse | | | | | | effects may include | | | | | | somnolence, weakness, | | | | | | headache and vomiting. | | | | | | This levetiracetam | | | | | | (Keppra) immunoassay | | | | | | uses the [employer] | | | | | | reagents, which has | | | | | | known cross-reactivity | | | | | | with the drug | | | | | | brivaracetam (Briviact) | | | | | | and may report | | | | | | inaccurate results. | | | | | | Patients transitioning | | | | | | from levetiracetam to | | | | | | brivaracetam or those | | | | | | who are using both | | | | | | medications should not | | | | | | monitor drug | | | | | | concentrations with the | | | | | | [employer] assay. | | | | | | These patients should be | | | | | | monitored using a | | | | | | validated | | | | | | chromatographic | | | | | | methodology that | | | | | | distinguishes between | | | | | | drugs to determine drug | | | | | | concentrations.Performed | | | | | | By: [facility] | | | | | | [email or web address] | | | | | | [place], [place] | | | | | | [id number] | | | | | | Director: Nitish Wesley | | | | | | MD [place], [place] | | | | + + + + + + + + | Specimen | + + | | + + + + + | Narrative | Performed At | + + + | Testing Performed at: [email or web address] CLIA: [id number] - 500 | REFERENCE LAB | | [place] [address] | [facility] - | | | [facility] | + + + + + + + + | Performing | Address | City/State/Zipcode | Phone Number | | Organization | | | | + + + + + | REFERENCE LAB | [address] | [place], [place] | [phone] | | [facility] | | [address] | | + + + + + documented in this encounter Visit Diagnoses + + | Diagnosis | + + | Seizure disorder (HCC) - Primary Unspecified epilepsy without mention of intractable | | epilepsy | + + | ESR raised Elevated sedimentation rate | + + | Right hip pain Pain in joint, pelvic region and thigh | + + documented in this encounter"
--- OUTSIDE RECORDS SUMMARY | ~2020-06-07 | XMS | Encounter Summary ---
Demographics + + + | Address | [address] | | | [place] [address] | + + + | Home Phone | | + + + | Preferred Language | Unknown | + + + | Marital Status | Single | + + + | Druze Affiliation | Unknown | + + + | Race | Unknown | + + + | Ethnic Group | Unknown | + + + Author + + + | Author | [facility] | | | and [place] | + + + | Organization | [facility] | | | and [place] | + + + | Address | Unknown | + + + | Phone | Unavailable | + + + Support + + +---------+ + | Name | Relationship | Address | Phone | + + +---------+ + | Darien Chin | ECON | Unknown | | + + +---------+ + Care Team Providers + +------+ + | Care Audio Production Instructor Name | Role | Phone | + +------+ + | Boni Rosales | PCP | | + +------+ + Reason for Visit + +--------+ + | Reason | Onset | Comments | | | Date | | + +--------+ + | Lab Results | 05/26/ | | | | 2020 | | + +--------+ + Encounter Details +--------+ + + + + | Date | Type | Department | Care Team | Description | +--------+ + + + + | 05/26/ | Telephone | [facility] | Dixie Lockhart NP | Lab Results | | 2019 | | HOSPITAL NEUROLOGY | [address] | | | | | CLINIC [address] | [place] | | | | | DR [address] [place], | [address] | | | | | [place] [address] | [phone] | | | | | [phone] | | | +--------+ + + + [...] this encounter Miscellaneous Notes Telephone Encounter - Riana Carrasco RN - 06/03/2020 8:19 AM PDTLeft message on Jacki slater stating that Keisha level was WNL. I stated that if she needed further information, fe el free to call back to the Neurology Clinic. Riana L Carrasco, RN elephone Encounter - Ivett Bains - 06/02/2020 11:12 AM PDTPatient called back for results. She said it is OK to leave a detailed voice message with lab results if you don't reach her again. Please call pt at: [phone] signed by Ivett Bains at 06/02/2020 11:13 AM PDTTelephone EncRina Smith LPN - 05/29/2020 2:48 PM PDTCalled and left message again for Ra an[place] regarding lab results. 2 :48 PM PDTTelephone Rina Garcia LPN - 05/28/2020 4:14 PM PDTCalled and l eft message for Jacki. regarding her Keppra lab level that is WNL elephone Ivett Griffin - 05/14 11:12 AM PDTPatient called back for her results. Please call pt at: [phone] signed by Ivett Bains at 05/28/2020 11:13 AM PDTTelephone Rina Walker LPN - 05/26/2020 9:53 AM PDTCalled and left message for Jacki regarding Keppra level. A M PDTdocumented in this encounter Plan of Treatment +--------+---------+ + + + | Date | Type | Specialty | Care Team | Description | +--------+---------+ + + + | 11/11/ | Office | Neurology | Dixie Lockhart NP | | | 2019 | Visit | | [address] | | | | | | [place] | | | | | | [address] | | | | | | [phone] | | | | | | | | +--------+---------+ + + + documented as of this encounter Visit Diagnoses Not on filedocumented in this encounter"
--- OUTSIDE RECORDS SUMMARY | ~2020-06-07 | XMS | Encounter Summary ---
Demographics + + + | Address | [address] | | | [place] [address] | + + + | Home Phone | | + + + | Preferred Language | Unknown | + + + | Marital Status | Single | + + + | Adventist Affiliation [...] Team Providers + +------+ + | Care Bellman Name | Role | Phone | + +------+ + | Boni Rosales | PCP | | + +------+ + Encounter Details +--------+ + + + + | Date | Type | Department | Care Team | Description | +--------+ + + + + | 02/10/ | Hospital | [facility] | Pam Kidd | Recurrent syncope; | | 2019 | Encounter | HOSP[facility] | MD Micha[address] | Seizure disorder | | | | THERAPY [address] | ANGELIC MCKENZIE | ([facility]) | | | | [address] [place], [place] | [place], [place] [address] | | | | | [address] | [phone] | | | | | [phone] | | | +--------+ + + + [...] encounter Progress Notes Eric Mckenzie RRT - 02/11/2020 1:00 PM PDTDownload Ambulatory EEG for neurologist to in [facility]. Diagnostic video hours were 22:18 out of 23:30 hours EEG recording time minus imped ance setup time. Patient had 89% video time during EEG. ric Mckenzie R RT - 02/11/2020 1:00 PM PDT Setup Ambulatory EEG with video. Explain use of equipment to th e patient. Jacki will return EEG equipment tomorrow and staff will download study. Electr onically signed by Eric Mckenzie RRT at 02/11/2020 2:24 PM PDTdocumented in this encounte r Procedure Notes Pam Kidd MD - 02/11/2020 1:00 PM PDTAssociated Order(s): EEG AMBULATORY MONITO RINGPre-Procedure Diagnose(s): Recurrent syncope; Seizure disorder (HCC)Name:Jacki Nash :1990 DATE OF SERVICE: 02/11/2020 24 HOUR ELECTROENCEPHALOGRAM INTRODUCTION: This a digital ambulatory video EEG recording of a 29 y.o. year-old female with recurrent s yncope. This study was performed to further ascertain the nature of the patient's spells. This study utilized 20 channels of EEG derived from 21 scalp electrodes placed over the fro ntal, temporal, parietal, occipital, and central regions. The International 10 20 system of electrode placement was used. The recording was started at 2:06 PM on 02/11/2020 and ended at 12:27 PM on 02/12/2020 for a total record duration of approximately 22.5 hours. More than 80% of the study included marlo rded video. RESULTS: The study was reviewed using the Humble Bundle EEG digital system. During the awake portion s of the recording, a normal background pattern consisting of 10-11 hz was noted. The patie nt was asleep between 5:01 PM and 7:56 PM, and between 11:48 PM and 9:37 AM. ABNORMAL POTENTIALS: No focal slow waves or epileptiform discharges were seen. PUSH BUTTON/VOICE ENTRY EVENTS: There were none IMPRESSION: Normal video ambulatory EEG study. There was no electrographic evidence of a seizure disor aron during the 22.5 hour duration of this recording. Thank you for the opportunity to participate in the care of this patient. Pam Kidd MD02/12/20201:45 PM documented in thi s encounter Plan of Treatment +--------+---------+ + + + | Date | Type | Specialty | Care Team | Description | +--------+---------+ + + + | 11/11/ | Office | Neurology | Dixie Lockhart NP | | 2019 | Visit | | [place] | | | | | | [place], [place] | | | | | | [address] | | | | | | [phone] | | | | | | | | +--------+---------+ + + + documented as of this encounter Procedures + +--------+ + + + | Procedure Name | Priori | Date/Time | Associated Diagnosis | Comments | | | ty | | | | + +--------+ + + + | *TERMED* PA EEG | Routin | 02/11/2020 | Recurrent syncope | Results for this | | MONITORING/VIDEORECO | e | 1:00 PM | Seizure disorder | procedure are in the | | RD | | PDT | ([facility]) | results section. | + +--------+ + + + documented in this encounter Results EEG 24 HR AMBULATORY MONITORING (02/11/2020 1:00 PM PDT) + + + | Narrative | Performed At | + + + | Pam Kidd MD 02/12/2020 1:47 PM Name:Jacki | | | Dona Molina :1990 DATE OF SERVICE: | | | 02/11/2020 24 HOUR ELECTROENCEPHALOGRAM INTRODUCTION: This a | | | digital ambulatory video EEG recording of a 29 y.o. year-old female | | | with recurrent syncope. This study was performed to further | | | ascertain the nature of the patient's spells. This study utilized | | | 20 channels of EEG derived from 21 scalp electrodes placed over the | | | frontal, temporal, parietal, occipital, and central regions. The | | | International 10 | | | | | | 20 system of electrode placement was used. The recording was | | | started at 2:06 PM on 02/11/2020 and ended at 12:27 PM on 02/12/2020 | | | for a total record duration of approximately 22.5 hours. More than | | | 80% of the study included recorded video. RESULTS: The study | | | was reviewed using the Humble Bundle EEG digital system. During the | | | awake portions of the recording, a normal background pattern | | | consisting of 10-11 hz was noted. The patient was asleep between | | | 5:01 PM and 7:56 PM, and between 11:48 PM and 9:37 AM. ABNORMAL | | | POTENTIALS: No focal slow waves or epileptiform discharges were seen. | | | PUSH BUTTON/VOICE ENTRY EVENTS: There were none IMPRESSION: | | | Normal video ambulatory EEG study. There was no electrographic | | | evidence of a seizure disorder during the 22.5 hour duration of this | | | recording. Thank you for the opportunity to participate in the | | | care of this patient. Pam Kidd MD02/12/20201:45 PM | | | Electronically signed | | + + + documented in this encounter Visit Diagnoses + + | Diagnosis | + + | Recurrent syncope | + + | Seizure disorder (HCC) Unspecified epilepsy without mention of intractable epilepsy | + + documented in this encounter"
--- OUTSIDE RECORDS SUMMARY | ~2020-06-07 | XMS | Encounter Summary ---
Demographics + + + | Address | [address] | | | [place] [address] | + + + | Home Phone | | + + + | Preferred Language | Unknown | + + + | Marital Status | Single | + + + | Christianity Affiliation | Unknown | + + + | Race | Unknown | + + + | Ethnic Group | Unknown | + + + Author + + + | Author | [facility] | | | and [place] | + + + | Organization | [facility] | | [...] Team Providers + +------+ + | Care Vice President Fixed Income Name | Role | Phone | + [...] Gongora RN | Other (Employee | | 2019 | | [facility] | | Status Report) | | | | CLIN[facility] [address] | | | | | | [address] [place], | | | | | | [place] [address] | | | | | | [phone] | | | +--------+ + + + [...] form be filled out and faxed to [phone]. Faxed as requested. elephone Encounter - Nerissa [...] | [address] [place] | | | | | | [place] | | | | | | [address] | | | | | | [phone] | | | | | | | | +--------+---------+ + + + documented as of this encounter Visit Diagnoses Not on filedocumented in this encounter"
--- OUTSIDE RECORDS SUMMARY | ~2020-06-07 | XMS | Encounter Summary ---
Demographics + + + | Address | [address] | | | [place] [address] | + + + | Home Phone | | + + + | Preferred Language | Unknown | + + + | Marital Status | Single | + + + | Samaritan Affiliation | Unknown | + + + | Race | Unknown | + + + | Ethnic Group | Unknown | + + + Author + + + | Author | [facility] | | | and [place] | + + + | Organization | [facility] | | | [...] Team Providers + +------+ + | Care Deli Cook Name | Role | Phone | + [...] | | | | | | [place] [address] | | | | | | [phone] | | | +--------+ + + + [...] normal. No change to her medication dosage.Elec dannynically signed by Nerissa Gongora RN at 02/12/2020 2:18 PM PDTdocumented in this encounte r Plan of Treatment +--------+---------+ + + + | Date | Type | Specialty | Care Team | Description | +--------+---------+ + + + | 11/11/ | Office | Neurology | Dixie Lockhart NP | | 2019 | Visit | | [address] | | | | | | [place], [place] | | | | | | [address] | | | | | | [phone] | | | | | | | | +--------+---------+ + + + documented as of this encounter Visit Diagnoses Not on filedocumented in this encounter"
--- OUTSIDE RECORDS SUMMARY | ~2020-06-07 | XMS | Encounter Summary ---
Demographics + + + | Address | [address] [facility] | | | [place] [address] | + + + | Home Phone | | + + + | Preferred Language | Unknown | + + + | Marital Status | Single | + + + | Latter-Day Affiliation | Unknown | + + + | Race | Unknown | + + + | Ethnic Group | Unknown | + + + Author + + + | Author | [facility] | | | and [place] | + + + | Organization | [facility] | | | and [place] | + + + | Address | Unknown | + + + | Phone | Unavailable | + + + Support + + +---------+ + | Name | Relationship | Address | Phone | + + +---------+ + | Darienandrew Chin | ECON | Unknown | | + + +---------+ + Care Team Providers + +------+ + | Care Office Messenger Name | Role | Phone | + +------+ + | Boni Rosales | PCP | | + +------+ + Reason for Referral Diagnostic/Screening (Routine) +--------+--------+ + + + + | Status | Reason | Specialty | Diagnoses / | Referred By | Referred To | | | | | Procedures | Contact | Contact | +--------+--------+ + + + + | Closed | | Radiology | Diagnoses | Marti, | [facility] | | | | | Recurrent | [place], | HOSPITAL | | | | | syncope | MD [address] | | | | | Seizure | [address] | | | | | disorder | [address], [address] | [place], [place] | | | | | ([facility]) | [place], | [address] | | | | | Procedures | [place] [address] | Phone: | | | | | MRI Brain w | Phone: | [phone] | | | | | wo Contrast | [phone] | Fax: | | | | | | Fax: | [phone] | | | | | | [phone] | | +--------+--------+ + + + + Reason for Visit + + + | Reason | Comments | + + + | Establish Care | Syncope | + + + Evaluate & Treat (Routine) +--------+--------+ + + + + | Status | Reason | Specialty | Diagnoses / | Referred By | Referred To | | | | | Procedures | Contact | Contact | +--------+--------+ + + + + | Closed | | Neurology | Diagnoses | Bobby, | Marti, | | | | | Syncope and | Boni Hutson | [place], | | | | | collapse | [address] | | | | | | [address] | [address], | | | | | | [place], | [place] | | | | | | [place] [address] | [place], [place] | | | | | | Phone: | [phone] Phone: | | | | | | [phone] | [phone] | | | | | | Fax: | Fax: | | | | | | [phone] | [phone] | +--------+--------+ + + + + Encounter Details +--------+---------+ + + + | Date | Type | Department | Care Team | Description | +--------+---------+ + + + | 01/31/ | Office | [place] [facility] | Pam Kidd | Recurrent syncope; | | 2020 | Visit | HOSPITAL NEUROLOGY | MD [address]aelle [address] | Seizure disorder | | | | CLINIC [address] | [address] | ([facility]) | | | | DR [address] EU[address], | [place] [address] | | | | | [place] [address] | [phone] | | | | | [phone] | | | +--------+---------+ + + + [...] + + + | Blood Pressure | 113/80 | 02/01/2020 10:00 AM | | | | | PDT | | + + + + + | Pulse | 84 | 02/01/2020 10:00 AM | | | | | PDT | | + + + + + | Temperature | - | - | | + + + + + | Respiratory Rate | 16 | 02/01/2020 10:00 AM | | | | | PDT | | + + + + + | Oxygen Saturation | 99% | 02/01/2020 10:00 AM | | | | | PDT | | + + + + + | Inhaled Oxygen | - | - | | | Concentration | | | | + + + + + | Weight | 99.4 kg (219 lb 1.6 | 02/01/2020 10:00 AM | | | | oz) | PDT | | + + + + + | Height | 152.4 cm (5') | 02/01/2020 10:00 AM | | | | | PDT | | + + + + + | Body Mass Index | 42.79 | 02/01/2020 10:00 AM | | | | | PDT | | + + + + + documented in this encounter Patient Instructions Patient Instructions Pam Kidd MD - 02/01/2020 10:00 AM PDTFormatting of this no te might be different from the original. You have the following tests/procedures ordered. At [facility]: Brain MRI with and without contrast At [facility] EEG routine and 24 hour Blood work at [facility]: [facility] level *Any questions, please call Dr. Kidd's office at Patient advised of their right to have diagnostic testing, health care treatment, and/or se rvices at a facility other than [facility]. Living Well with Epilepsy People with epilepsycan lead healthy, productive lives. Life with epilepsy can be challen ging, but there are things you can do to make it easier.For example, you can pay attention to your emotions. If you feel down, upset, or scared, talk with your healthcare provider. A nd be open with the people in your life. Talking about epilepsy can help them understand. It can also help you feel better. Coping with emotions You may be scared to go out in public for fear of having a seizure.Or you may just get fr ustrated with having epilepsy. Such feelings are normal. But they can lead to anxiety and de pression. Treatment is available for these conditions, so talk with your healthcare provider . Discuss what can help you, such as the following: Support groups. These groups let you talk with other people who have epilepsy. Counseling. Talking with a counselor can help you learn to cope with your emotions and h ealth problems. Medicine. This can help if you have a mood disorder. Recognizing signs of depression Depression is an illness that affects your thoughts and feelings. It can be caused by troub le coping with epilepsy, and sometimes it may be caused by the medicines used to treat it. D epression can be serious. If you have any of the following, call your healthcare provider: Feeling down most of the time Feeling hopeless or helpless Losing pleasure in things you used to enjoy Sleeping less or more than usual Having a big change in appetite or weight Having trouble focusing, remembering, or making decisions Staying away from friends or family Coping at home Epilepsy affects those around you, too. Talk with your loved ones and learn their concerns. For instance, your children may be afraid for your safety. Reassure them that you can live a long, healthy life with epilepsy. Your partner may wonder if a normal sex life is possible . Let him or her know that epilepsy doesn t have to affect your love life. If loved ones h ave questions, you can always arrange a talk with your healthcare provider. Epilepsy and your job Epilepsy doesn t have to keep you from working. In fact, people with epilepsy hold many k inds of jobs. But there are some issues you should consider, such as: What kind of work can I do?This depends on several things, such as how well controlled your seizures are. Also think about whether the job involves tasks that may not be safe for you. These include driving or operating heavy machinery. Should I tell my boss or coworkers about my epilepsy?This is your personal choice. But you may be safer if people at your workplace are prepared to respond to a seizure. If you a re concerned about losing your job, know your rights. The Americans with Disabilities Act pr ovides work-related protections for people with epilepsy. Date Last Reviewed: 09/14/201719993642-0531 [place]. [address] [place] [address]. All righ ts reserved. This information is not intended as a substitute for professional medical care. Always follow your healthcare professional's instructions. Self-Care for Epilepsy You can do many things to help control your seizures. First, follow your treatment plan. If yourhealthcare providerhas prescribed medicines, take them as directed. Keep your appoi ntments with your primary care nurse, healthcare provider, or neurologist. Also, take the fo llowing steps. Track and stay away from triggers Triggersare things that seem to cause (provoke) seizures. Keep track of your triggers and try to prevent them or stay away from them. Here are 2 common triggers and ways to cope wit h them: Too little sleep.Get enough sleep. If you have trouble sleeping, talk with your health care provider. Alcohol and drugs.Don t drink alcohol. Never take any illegal drugs. If you do have substance abuse issues, talk with your healthcare provider about the safest way to become fr ee of alcohol and drugs. Keep a healthy lifestyle A healthy lifestyle can help you feel goodand cope better with epilepsy. Exercise often. Frequent exercise can help keep you healthy. Try to exercise ybr83co nutes most days of the week. Yoga is a good choice. Eat well and regularly. Good nutrition can give you energy and make you feel better. Eat lotsof fruits, vegetables, and whole grains. Don't skip meals, because seizures are more likely if you have low blood sugar. Control stress. Keeping stress levels low can help you cope better with epilepsy. To man age stress, try an exercise program. Manage illness. Get proper treatment when you re sick. Check with [facility] about the risk of seizures with medicines you take for illnesses. If y our healthcare provider has prescribed antiepileptic medicines, take them even when you re ill. Date Last Reviewed: 09/14/201719998685-9532 [employer]. [address] [place] [address], [place] [address]. All righ ts reserved. This information is not intended as a substitute for professional medical care. Always follow your healthcare professional's instructions. Epilepsy: Safety During a Seizure Safety during a seizure Let family and friends know what to expect and how to react when youhave a seizure. This helps keep them calm and you safe. All seizures should be treated with care. But seizures th at cause you to lose consciousness (tonic-clonic seizures) require more attention. Think abo ut wearing a medical alert bracelet in case you are not around family members. This can aler t other people to your condition. Here are some tips for loved ones. What to know Seizures typically last less than 3 minutes, but it will feel like it is longer.People re cover safely from most seizures. During a tonic-clonic seizure, the person may appear to sto p breathing or turn slightly blue. This may be scary for you, but try to stay calm. Afterwar d, the person may be tired, confused, and achy. He or she may need to sleep for several hour s to fully recover. What to do During any seizure, stay with the personuntil it is over. Note the time when the seizure starts and ends.Don t try to stop the seizure. During a tonic-clonic seizure, also do th e following: Move hard or sharp objects out of the way. Lay the person on a flat surface and turn them on their side. Place a flat, soft object under their head. Don t try to restrain the person. Both of you could get hurt. Don t put anything in the person s mouth. The person can t swallow their tongue, a nd you risk breaking their teeth or being bitten. Don t give the person medicines during a seizure, unless you ve been trained by a [facility] provider. Speak quietly to the person as they recover. There is no need to call 911 if the person has a well-known cause of the seizures (such as epilepsy) and the seizure is very typical.If you are not sure or the person's condition is not known, call 911. Call 911 if any of the following occur: The seizure lasts longer than 5 minutes The person is not conscious between 2 seizures Several seizures happen in a row These things could mean the person has status epilepticus. This is a medical emergency. Hos pital treatment for this condition includes benzodiazepine medicines given by IV (intravenou s). A form of this medicine (a rectal diazepam gel) may be prescribed for at-home use. Other causes of seizures and situations that need immediate medical care include: The person has diabetes The person has a braininfection The person has heat exhaustion The person is Poisoning is known or suspected The person has low blood sugar A seizure happens after or during a high fever A head injury immediately after or within a few days after the injury happened Multiple seizures happen in a short period of time The person stops breathing A seizure that happens in water The person hit their head during a seizure and becomes difficult to wake up, is vomiting ,or complains of blurry vision It is the first time a seizure happens It is differentthan the typical seizuresfor that person The person is difficult to arouse after the seizure Alcohol or drug abuse Alcohol or drug withdrawal Date Last Reviewed: 09/14/201719994501-6520 [employer]. [address] [place] [address]. All righ ts reserved. This information is not intended as a substitute for professional medical care. Always follow your healthcare professional's instructions. documented in this encounter Progress Notes Pam Kidd MD - 02/01/2020 10:00 AM PDT Patient: Jacki Molina Medical Record: [id number] Date of Services: 02/01/2020 Referring Doctor: Boni Rosales Chief Complaint Patient presents with [facility] Care Syncope HISTORY OF PRESENT ILLNESS: The patient is a 29-year-old female who is referred to me because of recurrent syncope, pos sibly seizures. She came to this visit accompanied by her mother [place]. The first episode happened on 09/18/2019. The patient was taking a shower when she suddenly passed out. She woke up because the water was cold. She had no idea how long she was out. There was no tongue biting or incontinence. She called a friend and was brought to the [facility]. The head CT there was negative. A few days later, on 09/22/2019, she again passed out at work. She was again brought to the ER. She had a head CT, spinal tap, and 48-hour Holter monitor all of which were negative. Echo worker eventually told her that she had jerking like movements of her limbs. She has had 6 more episodes since then. After each episode of passing out, she would be co nfused and has no recollection of the next 30 minutes or so. He would also feel very tired and will have a headache. During one episode, her boyfriend claimed she was not responding to him and he noted her eyes rolled backwards. The last episode occurred on 01/17/2020. Again she was brought to the ER. The ER physician called me and we decided to start her on Keppra. She has not had any episodes since then. She does have a strong family history of seizures on her father's side. She has had a cardiology evaluation which was negative. REVIEW OF SYSTEMS: General: Positive for weight [...] 180 mg by mouth Daily. levETIRAcetam (KEPPRA) 500 mg tablet Take 500 mg by mouth 2 times daily. No current facility-administered medications for this visit. [...] Used Substance and Sexual Activity Alcohol use: Yes Alcohol/week: 2.0 standard drinks Types: 2 Glasses of wine per week Drug use: Not Currently Sexual activity: Not on file Lifestyle Physical activity: Days per week: Not on file Minutes per session: Not on file Stress: Not on file Relationships Social connections: Talks on phone: Not on file Gets together: Not on file Attends pentecostal service: Not on file Active member of [...] Maternal Grandmother Hypotension Maternal Grandfather PHYSICAL EXAMINATION: BP 113/80 | Pulse 84 | Resp 16 | Ht 1.524 m (5') | Wt 99.4 kg (219 lb 1.6 oz) | SpO2 9 9% | BMI 42.79 kg/m General appearance: Well kept, well nourished, in no acute distress Neck is supple. Lungs are clear. Heart sounds are within normal limits. Abdomen is soft and non-tender, There is no extremity cyanosis or edema. NEUROLOGIC EXAMINATION: MENTAL STATUS: The patient is awake, alert, and oriented to time, place, and person. [facility] fluent. Memory, attention, comprehension, and general [...] CEREBELLAR EXAMINATION: There is no dysmetria on rnosis-uo-lsgr test. IMPRESSION: 1. Episodes of recurrent syncope, likely seizures PLAN AND RECOMMENDATIONS: I was able to review notes from the patient's 2 ER visits at [facility] in [place]. At this point, I think she is having seizures as she has no recollection of the events. Th ey are likely generalized in nature. She will remain on Keppra. I will check a level today. I am also ordering a brain MRI with and without contrast to be done at [facility] in [place]. She will also have routine entered her EEGs. I advised her that she cannot drive until she is seizure-free for 90 days as per [place] law . She has stopped driving in September. She was also advised to avoid common seizure triggers such as sleep deprivation and photic stimulation. We will continue to follow her patient is to come back in 3 months to see ARTHUR Mathis. More than 50% of this 45-minute visit was spent on drkx-[id number]-vuoh with the patient, kayla hutson her diagnosis and educating her on the symptoms and self-care for seizures Thank you for the opportunity to participate in the care of this patient. Pam Kidd MD 02/01/2020 10:30 AM Electronically signed This note was transcribed [...] [place] | | | | | | [address] | | | | | | [phone] | | | | | | | | +--------+---------+ + + + + +---------+--------+ + + | Name | Type | Priori | Associated Diagnoses | Order Schedule | | | | ty | | | + +---------+--------+ + + | MRI Brain w wo | Imaging | Routin | Recurrent syncope | Expected: | | Contrast | | e | Seizure disorder | 02/01/2020, Expires: | | | | | (HCC) | 01/31/2021 | + +---------+--------+ + + documented as of this encounter Results EEG 24 HR AMBULATORY [...] | | | was reviewed using the Truli EEG digital system. During the | | [...] Electronically signed | | + + + EEG awake or drowsy routine (02/07/2020 10:30 [...] Electronically signed | | + + + Levetiracetam Level (02/01/2020 10:57 AM PDT) + + + + + + | Component | Value | Ref Range | Performed | Pathologist | | | | | At | Signature | + + + + + + | LEVETIRACET | 12.9Comment: Toxic | 12.0 - 46.0 | REFERENCE | | | AM | level is not well | mcg/mL | [facility] | | | | established. | | [facility] | | | | Interpretation should | | - [place] | | | | include a clinical | | [place] | | | | evaluation. For | | | | | | additional information, | | | | | | please refer to | | | | | | [email or web address].[facility] | | | | | | Reniac/faq/YVM999 | | | | | | (This link is being | | | | | | provided for | | | | | | informational/educationa | | | | | | l purposes only.) This | | | | | | test was developed and | | | | | | its analytical | | | | | | performance | | | | | | characteristics have | | | | | | been determined by [facility] | | | | | | [facility] | | | | | | [place] | | | | | | [place]. It has not | | | | | | been cleared or approved | | | | | | by the USFood and Drug | | | | | | Administration. This | | | | | | assay has been validated | | | | | | pursuant to the CLIA | | | | | | regulations and is used | | | | | | for clinical purposes. | | | | | | @ Test Performed By: | | | | | | [facility] | | | | | | [facility] | | | | | | Steve Ryan M.D., | | | | | | Ph.D., Laboratory | | | | | | Director [id number] | | | | | | [facility] | | | | | | [place] [address] | | | | | | CLIA #[id number] | | | | + + + + + + + + | Specimen | + + | Blood | + + + + + + + | Performing | Address | City/State/Zipcode | Phone Number | | Organization | | | | + + + + + | REFERENCE LAB | [address] [facility] | [place] | | | [facility] - | | [phone] | | | [place] | | | | + + + + + documented in this encounter Visit Diagnoses + + | Diagnosis | + + | Recurrent syncope | + + | Seizure disorder (HCC) Unspecified epilepsy without mention of intractable epilepsy | + + documented in this encounter"
--- OUTSIDE RECORDS SUMMARY | ~2020-06-07 | XMS | Encounter Summary ---
Demographics + + + | Address | [address] | | | [place] [address] | + + + | Home Phone [...] Team Providers + +------+ + | Care Camp Nurse Name | Role | Phone | + [...] | Results | | 2020 | | HOSPITAL NEUROLOGY | MD [address] | | | | | CLINIC [address] | [address] | | | | | DR [address]PHANIE EU[address]KS, | [place] [address] | | | | | [place] [address] | [phone] | | | | | [phone] | | | +--------+ + + + [...] Nerissa Gongora RN - 03/10/2020 2:40 PM PDTPatient completed the MRI ordered at [place] on 03/05/20. Please call [facility] to obtain the brain MRI report. Thank you! elephone En counter - Ute Sanchez - 03/10/2020 2:12 PM PDTPatient called to see if her MRI resul ts are in? [phone] signed by Uet Sanchez at 03/10/2020 2:13 PM PDT documented in this encounter Plan of Treatment +--------+---------+ + + + | Date | Type | Specialty | Care Team | Description | +--------+---------+ + + + | 11/11/ | Office | Neurology | Dixie Lockhart NP | | 2019 | Visit | | [address] [place] | | | | | | [place] | | | | | | [address] | | | | | | [phone] | | | | | | | | +--------+---------+ + + + documented as of this encounter Visit Diagnoses Not on filedocumented in this encounter"
--- OUTSIDE RECORDS SUMMARY | ~2020-06-07 | XMS | Encounter Summary ---
Demographics + + + | Address | [address] | | | [place] [address] | + + + | Home Phone | | + + + | Preferred Language | Unknown | + + + | Marital Status | Single | + + + | Denominational Affiliation | Unknown | + + + | Race | Unknown | + + + | Ethnic Group | Unknown | + + + Author + + + | Author | [facility] | | | and [place] | + + + | Organization | [facility] | | | [...] Team Providers + +------+ + | Care Virtual Reality Specialist Name | Role | Phone | [...] | | | | | | [place] [address] | | | | | | [phone] | | | +--------+ + + + [...] notified, stephane polanco. ele phone Encounter - Nerissa Gongora RN - 02/05/2020 12:51 PM PDT----- [...] | | 2019 | Visit | | [address] [place] [address] | | | | | | [place] | | | | | | [address] | | | | | | [phone] | | | | | | | | +--------+---------+ + + + documented as of this encounter Visit Diagnoses Not on filedocumented in this encounter"
--- OUTSIDE RECORDS SUMMARY | ~2020-06-07 | XMS | Encounter Summary ---
Demographics + + + | Address | [address] [facility] [address] | | | [place] [address] | + + + | Home Phone | | + + + | Preferred Language | Unknown | + + + | Marital Status | Single | + + + | Tenriism Affiliation | Unknown | + + + | Race | Unknown | + + + | Ethnic Group | Unknown | + + + Author + + + | Author | [facility] | | | and [place] | + + + | Organization | [facility] | | | [...] Team Providers + +------+ + | Care Clinical Project Manager Name | Role | Phone | [...] | | | | | | [place] [address] | | | | | | [phone] | | | +--------+ + + + [...] | 2019 | Visit | | [address] [place] | | | | | | [place] | | | | | | [address] | | | | | | [phone] | | | | | | | | +--------+---------+ + + + documented as of this encounter Visit Diagnoses Not on filedocumented in this encounter"
--- OUTSIDE RECORDS SUMMARY | ~2020-06-07 | XMS | Encounter Summary ---
Demographics + + + | Address | [address] | | | [place] [address] | + + + | Home Phone | | + + + | Preferred Language | Unknown | + + + | Marital Status | Single | + + + | Mormon Affiliation | Unknown | + + + | Race | Unknown | + + + | Ethnic Group | Unknown | + + + Author + + + | Author | [facility] | | | and [place] | + + + | Organization | [facility] | | | [...] Team Providers + +------+ + | Care Paper Tester Name | Role | Phone | + [...] NEUROLOGY | MD Micha[address] | ([facility]) (Primary Dx) | | | | CLINIC [address] | [place] | | | | | DR [address]PH[address]IE EU[address], | [place] [address] | | | | | [place] [address] | [phone] | | | | | [phone] | | | +--------+---------+ + + + [...] AM PDT Patient: Jacki Molina Medical Record: [id number] Date of Services: 02/28/2020 Referring Doctor: Boni [...] her. 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 She came today with an FMLA form [...] file Gets together: Not on file Attends tenriism service: Not on file Active member of [...] and oriented to time, place, and person. [facility] is fluent. Memory, attention, comprehension, and general [...] CEREBELLAR EXAMINATION: There is no dysmetria on japqar-rk-wlku test. IMPRESSION: 1. Episodes of recurrent syncope, possibly seizures PLAN AND RECOMMENDATIONS: I filled out the patient's [facility] paperwork today and gave it back to her. At this point, she may go back to work and resume her previous responsibilities and duties. She was encouraged to call [facility] to schedule her brain MRI. I will [...] episodes, I will consider referring her to [facility] for long -term video EEG monitoring. We will see her back in April. She has an appointment to see ARTHUR Mathis. More than 50% of this 30 -minute visit was spent on sphb-zx-ysep with the patient, discussi ng her diagnosis [...] | | 2019 | Visit | | [address] [place] [address] | | | | | | [place] | | | | | | [address] | | | | | | [phone] | | | | | | | | +--------+---------+ + + + documented as of this encounter Visit Diagnoses + + | Diagnosis | + + | Seizure disorder (HCC) - Primary Unspecified epilepsy without mention of intractable | | epilepsy | + + documented in this encounter"
--- OUTSIDE RECORDS SUMMARY | ~2020-06-07 | XMS | Encounter Summary ---
Demographics + + + | Address | [address] | | | [place] [address] | + + + | Home Phone | | + + + | Preferred Language | Unknown | + + + | Marital Status | Single | + + + | Caodaism Affiliation | Unknown | + + + [...] Team Providers + +------+ + | Care Ticker Wirer Name | Role | Phone | + +------+ + | Boni Rosales | PCP | | + +------+ + Reason for Visit + +--------+ + | Reason | Onset | Comments | | | Date | | + +--------+ + | Paperwork | 03/11/ | Jem RODRIGUEZ's Release | | | 2020 | | + [...] | DR [address]PHANIE EUBANKS, | [place] [address] | | | | | [place] [address] | [phone] | | | | | [phone] | | | +--------+ + + + [...] [place] | | | | | | [address] | | | | | | [phone] | | | | | | | | +--------+---------+ + + + documented as of this encounter Visit Diagnoses Not on filedocumented in this encounter"
--- OUTSIDE RECORDS SUMMARY | ~2020-06-07 | XMS | Encounter Summary ---
Demographics + + + | Address | [address] [facility] [address] | | | [place] [address] | + + + | Home Phone | | + + + | Preferred Language | Unknown | + + + | Marital Status | Single | + + + | Yazidi Affiliation | Unknown | + + + | Race | Unknown | + + + | Ethnic Group | Unknown | + + + Author + + + | Author | [facility] | | | and [place] | + + + | Organization | [facility] | | | [...] Team Providers + +------+ + | Care Transmission Builder Name | Role | Phone | + [...] + | 02/26/ | Telephone | [place] [facility] | Pam Kidd | Other | | 2020 | | HOSPITAL NEUROLOGY | MD [address]aelle [address] | | | | | CLIN[address] | [place] | | | | | DR [address] EU[address]ANKS, | [place] [address] | | | | | [place] [address] | [phone] | | | | | [phone] | | | +--------+ + + + [...] she needs a work release callher at [phone] tronically signed by Ute Sanchez at 02/27/2020 1:00 PM PDTdocumented in this encounte r Plan of Treatment +--------+---------+ + + + | Date | Type | Specialty | Care Team | Description | +--------+---------+ + + + | 11/11/ | Office | Neurology | Dixie Lockhart NP | | 2019 | Visit | | [address] | | | | | | [place] | | | | | | [address] | | | | | | [phone] | | | | | | | | +--------+---------+ + + + documented as of this encounter Visit Diagnoses Not on filedocumented in this encounter"
--- OUTSIDE RECORDS SUMMARY | ~2020-06-07 | XMS | Encounter Summary ---
Demographics + + + | Address | [address] | | | [place] [address] | + + + | Home Phone | | + + + | Preferred Language | Unknown | + + + | Marital Status | Single | + + + | Islam Affiliation | Unknown | + + + | Race | Unknown | + + + | Ethnic Group | Unknown | + + + Author + + + | Author | [facility] | | | and [place] | + + + | Organization | [facility] | | [...] Team Providers + +------+ + | Care Police Radio Dispatcher Name | Role | Phone | + +------+ + PCP | Unavailable | + +------+ + Encounter Details +--------+ + + + + | Date | Type | Department | Care Team | Description | +--------+ + + + + | 01/01/ | Hospital | [facility] | | | | 1994 | Encounter | [facility] | | | | | | CENTER [address] | | | | | | [place] | | | | | | [address] | | | | | | [phone] | | | +--------+ + + + + Social History + +-------+ +--------+------+ | Tobacco Use | Types | Packs/Day | Years | Date | | | | | Used | | + +-------+ +--------+------+ | Never Assessed | | | | | + +-------+ +--------+------+ + + + | Sex Assigned at | Date Recorded | | | | + + + | Not on file | | + + + documented as of this encounter Plan of Treatment +--------+---------+ + + + | Date | Type | Specialty | Care Team | Description | +--------+---------+ + + + | 11/11/ | Office | Neurology | Dixie Lockhart NP | | | 2019 | Visit | | [address] | | | | | | [place] | | | | | | [address] | | | | | | [phone] | | | | | | | | +--------+---------+ + + + documented as of this encounter Visit Diagnoses Not on filedocumented in this encounter"
--- OUTSIDE RECORDS SUMMARY | ~2020-06-07 | XMS | Encounter Summary ---
Demographics + + + | Address | [address] | | | [place] [address] | + + + | Home Phone | | + + + | Preferred Language | Unknown | + + + | Marital Status | Single | + + + | Rastafari Affiliation | Unknown | + + + | Race | Unknown | + + + | Ethnic Group | Unknown | + + + Author + + + | Author | [facility] | | | and [place] | + + + | Organization | [facility] | | | and [...] Team Providers + +------+ + | Care Head Bander And Liner Operator Name | Role | Phone | + +------+ + | Boni Rosales | PCP | | + +------+ + Reason for Visit + + + | Reason | Comments | + + + | Loss of | | | Consciousness | | + + + Evaluate & Treat (Routine) +--------+--------+ + + + + | Status | Reason | Specialty | Diagnoses / | Referred By | Referred To | | | | | Procedures | Contact | Contact | +--------+--------+ + + + + | Closed | | Cardiology | Diagnoses | Bobby, | Caren, | | | | | Syncope and | Boni Rios | MD Bree | | | | | collapse | [address] | [address] | | | | | Procedures | [place]ach[place] | [place]EL[place] | | | | | Consult | [place], | [place] | | | | | | [place] [address] | [address] Phone: | | | | | | Phone: | [phone] | | | | | | [phone] | Fax: | | | | | | Fax: | [phone] | | | | | | [phone] | | +--------+--------+ + + + + Encounter Details +--------+---------+ + + + | Date | Type | Department | Care Team | Description | +--------+---------+ + + + | 12/11/ | Office | [facility] | Bree George, | Vasovagal syncope | | 2020 | Visit | CARDIOLOGY [place] | [address] | | | | | [address] | [facility] [place] | | | | | [place] | [address] | | | | | [address] | | | | | | [phone] | | | +--------+---------+ + + + Social History + +-------+ +--------+------+ | Tobacco Use | Types | Packs/Day | Years | Date | | | | | Used | | + +-------+ +--------+------+ | Never Smoker | | | | | + +-------+ +--------+------+ + +---+---+---+ | Smokeless Tobacco: | | | | | Never Used | | | | + +---+---+---+ + + +---------+ + | Alcohol Use | Drinks/Week | oz/Week | Comments | + + +---------+ + | Yes | 0 Standard drinks | 2.0 | | | | or equivalent 2 | | | | | Glasses of wine | | | + + +---------+ + [...] + + + | Blood Pressure | 120/92 | 12/11/2019 9:26 AM | LEFT: 124/84 | | | | PST | | + + + + + | Pulse | 90 | 12/11/2019 9:26 AM | | | | | PST | | + + + + + | Temperature | - | - | | + + + + + | Respiratory Rate | - | - | | + + + + + | Oxygen Saturation | 98% | 12/11/2019 9:26 AM | | | | | PST | | + + + + + | Inhaled Oxygen | - | - | | | Concentration | | | | + + + + + | Weight | 99.3 kg (219 lb) | 12/11/2019 9:26 AM | | | | | PST | | + + + + + | Height | 152.4 cm (5') | 12/11/2019 9:26 AM | | | | | PST | | + + + + + | Body Mass Index | 42.77 | 12/11/2019 9:26 AM | | | | | PST | | + + + + + documented in this encounter Progress Notes Bree George MD - 12/11/2019 10:00 AM PSTFormatting of this note might be different f rom the original. Date of visit: 12/11/2019 Primary Care Physician: No Physician on file CHIEF COMPLAINT: Chief Complaint Patient presents with Loss of Consciousness HISTORY OF PRESENT ILLNESS: Jacki is 29 y.o. here for evaluation of syncopal episode. Multiple episodes. 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 Patient had a total of 3 events of unconcisousness, second 1 was the only witnessed 1. Patient was at work, standing after walking for 200 feet, her coworker was looking at her, she was told she became pale, started talking to her she could not respond, then he helped h er down to the floor. No evidence of loss of pulse, was taken to the medic clinical officer , no EKG was done she was told she had tachycardia. Evaluated in [facility], wi th EKG blood work, was hemodynamically stable and no abnormalities were found. Doesn't mabel mber any symptoms prior. Post episodes: Mostly remembers being on the floor, significant headache, wakes up dizziness, definite con fusion, tired. No loss of urine of stool. The third time was at home, doesn't recall what happen. Called [employer] architect physician. Followed with her primary next day. Past medical history, SH, FH, and medications were reviewed in the chart. Medications: Outpatient Encounter Medications as of 12/11/2019 Medication Sig Dispense Refill [DISCONTINUED] amoxicillin-clavulanate (AUGMENTIN) 875-125 mg per tablet One tablet twi ce daily for 10 days 20 tablet 0 busPIRone (BUSPAR) 7.5 MG tablet Take 15 [...] tablet Take 180 mg by mouth Daily. No facility-administered encounter medications on file as of 12/11/2019. Allergies Allergies Allergen Reactions Narcotic Pain Medications [Morphine And Related] Nausea And Vomiting Oleoresin Capsicum [Capsicum] Swelling Sulfa Antibiotics Hives REVIEW OF SYSTEMS: Constitutional: negative for fatigue. No fever, chills, and rigors. No report of weight ch roberto. HEENT: Negative for nosebleeds, ear discharge, nasal congestion or soar throat. Eyes: Negative for visual disturbance, redness, or secretion. Respiratory: Negative for cough, sputum production, hemoptysis, wheezing. Cardiovascular: As HPI. Gastrointestinal: Negative for nausea, vomiting, diarrhea, abdominal pain and blood in stoo l. Genitourinary: Negative for dysuria or hematuria. Musculoskeletal: Negative for myalgias, back pain or arthralgia. Skin: Negative for rash. Neurological: recurrent syncopal episodes. Hematological: No significant bruising. Psychiatric/Behavioral: No depression or anxiety. PHYSICAL EXAM Vital Signs: BP (!) 120/92 Comment: LEFT: 124/84 | Pulse 90 | Ht 1.524 m (5') | Wt 99.3 kg (219 lb) | SpO2 98% | BMI 42.77 kg/m GENERAL APPEARANCE: Alert, oriented, cooperative, no distress, appears stated age. HEENT: Extraocular movements were intact. No jaundice. Pupiles round and reactive. NECK: No JVD, lymphadenopathy. Carotid upstrokes normal. No carotid bruit heard. CARDIAC: Regular rhythm and rate. There is normal S1 and S2. No galop. No murmur. CHEST: Normal bilateral symmetrical chest excursion.ackles or wheezing. No evidence of dull ness. ABDOMEN: Soft.No tenderness or guarding. No palpable organs. Active bowel sounds. EXTREMITIES: No lower extremities edema, cyanosis or clubbing. NEURO: Alert and oriented times three with no focal deficit. Cranial nerves are grossly no rmal. SKIN: Warm and dry. No rash. Psych: Normal affect and mood. DATA No results found for: NA, K, CO2, BUN, CREA, CALCIUM, MG No results found for: WBC, HGB, HCT, MCV, LABPLAT No results found for: ALT, CHOL, TRIG, HDL, LDLEX, GLUF, TSH EC12/11/2018 Ordered and reviewed by myself showed normal sinus rhythm, premature atrial contraction. N ormal QT interval, no evidence of preexcitation, Brugada, or AV block. Last Echo: 10/18/2019 Normal left ventricular size, wall thickness and systolic function. Normal right ventricula r size and function. No evidence of valvular pathology. Last Stress test: Last Cath: Last US carotid: Holter Monitor 09/27/2019 48 hour, sinus rhythm average HR was 78 bpm, min 55 bpm. Rare PACS, PVCs, Short SVT 7 beats . ASSESSMENT: Patient is 29 y.o. with 1. Syncopal episodes, likely neurologic etiology. Patient wakes up with significant headac he and confusion. 2. Morbid obesity. 3. Possible autoimmune inflammatory process. Plan: Reviewed patient's symptoms in details. No prodrome symptoms, wakes up with significant headache and confusion pointing to neuro et iology. Recommend EEG patient has upcoming appointment with neurology. Reviewed Holter monitor and also echocardiogram. No arrhythmia was detected and no evidence of structural or valvular heart disease. EKG shows normal sinus rhythm with no evidence of preexcitation, long QT, or Brugada varian ce. Patient has rheumatology as well evaluation upcoming due to elevated ESR and CRP also compl aining of generalized joint pain and tiredness. At this time no further cardiac testing is indicated. Patient will call with any recurrent symptoms. Thank you for allowing us the chance to participate in the care of this patient. *This report has been prepared using a voice recognition system. The report was reviewed fo r accuracy, however, sound-alike word errors, addition and/or deletions may occur. If there is any question about this report please contact me. Bree George MD, MPH P M PSTdocumented in this encounter Plan of Treatment +--------+---------+ + + + | Date | Type | Specialty | Care Team | Description | +--------+---------+ + + + | 11/11/ | Office | Neurology | Dixie Lockhart NP | | 2019 | Visit | | [address] | | | | | | [place] | | | | | | [address] | | | | | | [phone] | | | | | | | | +--------+---------+ + + + documented as of this encounter Procedures + +--------+ + + + | Procedure Name | Priori | Date/Time | Associated Diagnosis | Comments | | | ty | | | | + +--------+ + + + | ECG 12 LEAD | Routin | 12/11/2019 | Vasovagal syncope | Results for this | | | e | 9:33 AM | | procedure are in the | | | | PST | | results section. | + +--------+ + + + documented in this encounter Results ECG 12 lead (12/11/2019 9:33 AM PST) + + + + + + | Component | Value | Ref Range | Performed | Pathologist | | | | | At | Signature | + + + + + + | VENTRICULAR | 82 | BPM | [facility] | | | RATE EKG | | | | | + + + + + + | ATRIAL RATE | 82 | BPM | [facility] | | + + + + + + | P-R | 132 | ms | [facility] | | | INTERVAL | | | | | + + + + + + | QRS | 74 | ms | [facility] | | | DURATION | | | | | + + + + + + | Q-T | 354 | ms | [facility] | | | INTERVAL | | | | | + + + + + + | Q-T | 413 | ms | [facility] | | | INTERVAL | | | | | | (CORRECTED) | | | | | + + + + + + | P WAVE AXIS | 59 | degrees | [facility] | | + + + + + + | QRS AXIS | 75 | degrees | [facility] | | + + + + + + | T AXIS | 35 | degrees | [facility] | | + + + + + + | INTERPRETAT | Normal sinus rhythm with | | [facility] | | | ION TEXT | sinus arrhythmiaNormal | | | | | | ECGNo previous ECGs | | | | | | availableConfirmed by | | | | | | Bree George MD | | | | | | ([id number]) on 12/11/2019 | | | | | | 5:31:24 PM | | | | + + + + + + + + | Specimen | + + | | + + + + + | Narrative | Performed At | + + + | | | + + + + +---------+ + + | Performing | Address | City/State/Zipcode | Phone Number | | Organization | | | | + +---------+ + + | [facility] | | | | + +---------+ + + documented in this encounter Visit Diagnoses + + | Diagnosis | + + | Vasovagal syncope Syncope and collapse | + + documented in this encounter"
--- OUTSIDE RECORDS SUMMARY | ~2020-06-07 | XMS | Encounter Summary ---
Demographics + + + | Address | [address] | | | [place] [address] | + + + | Home Phone | | + + + | Preferred Language | Unknown | + + + | Marital Status | Single | + + + | Gnosticist Affiliation | Unknown | + + + | Race | Unknown | + + + | Ethnic Group | Unknown | + + + Author + + + | Author | [facility] | | | and [place] | + + + | Organization | [facility] | | [...] Team Providers + +------+ + | Care Dental Director Name | Role | Phone | + [...] | (Primary Dx) | | | | [place], [place] | [place], [place] | | | | | [address] | [address] | | | | | [phone] | | | +--------+---------+ + + + [...] and promote drainage fro m the sinuses. Fipk-euf-stqtqxgbzzaufxspjvogxvf be used unless a similar medicine was [...] use decongestants. They can raise blood pressure.) Uzzg-jng-xkhigdqiqulukmqjmtmapdzy help if allergies contributed to your sinusitis. [...] problems Symptoms not resolving within 10 days 2910-1808 [facility]. [address] [place] [address], [place] [address]. All [facility] ts reserved. This information is not intended as a substitute for professional medical care. Always follow your healthcare professional's instructions. ROBITUSSIN-DM IS A GOOD FVSV-ZWN-BLLLFUH COUGH MEDICINE documented in this encounter Progress [...] poor progress. This note was dictated using Telik voice recognition software. Occasional wrong- word or sound-alike substitutions may have occurred due to the inherent limitations of voice recogni tion software. Please read the chart carefully and recognize, using context, where these brown bstitutions have occurred. documented in this enc ounter Plan of Treatment +--------+---------+ + + + | Date | Type | Specialty | Care Team | Description | +--------+---------+ + + + | 11/11/ | Office | Neurology | Dixie Lockhart NP | | | 2019 | Visit | | [address] [place] [address] | | | | | | [place] | | | | | | [address] | | | | | | [phone] | | | | | | | | +--------+---------+ + + + documented as of this encounter Visit Diagnoses + + | Diagnosis | + + | Purulent rhinitis - Primary Chronic rhinitis | + + documented in this encounter"
--- OUTSIDE RECORDS SUMMARY | ~2020-06-07 | XMS | Clinical Summary ---
Demographics + + + | Address | [address] | | | [place] [address] | + + + | Home Phone | | + + + | Preferred Language | Unknown | + + + | Marital Status | Single | + + + | Anabaptism Affiliation | Unknown | + + + | Race | Unknown | + + + | Ethnic Group | Unknown | + + + Author + + + | Author | [facility] | | | and [place] | + + + | Organization | [facility] | | [...] Providers + +------+ + | Care Manager Hvac Name | Role | Phone | + [...] + + + + | Capsicum | Swelling | High | 12/11/19 | | | | | | 20 | | + + + + + + | Sulfa Antibiotics | Hives | Medium | 12/11/19 | | | | | [...] Take 1 tablet by | 60 | 5 | 04/1 | | Activ | | (KEPPRA) 750 MG | mouth 2 times daily. | tablet | | 6/20 | | e | | tablet | [...] capsules (90 | 90 | 0 | 06/ | | Activ | | (CYMBALTA) [address] | mg total) by mouth | capsule | | 03/03 | | e | | capsule | Daily | | | 20 | | | + + + +---------+------+------+-------+ Active Problems + + + | Problem | Noted Date | + + + | Recurrent syncope | 02/01/2020 | + + + | Seizure disorder | 02/01/2020 | + + + + + | Overview: Formatting of this note might be different from the | | original.Current tx: Adi tx:02.07.20 EEG IMPRESSION: | | Normal awake and drowsy EEG. However, if seizures are strongly | | suspected clinically, a repeat EEG with prolonged sleep recording | | is recommended.02.01.20 EEG Ambulatory IMPRESSION: Normal video | | ambulatory EEG study. There was no electrographic evidence of a | | seizure disorder during the 22.5 hour duration of this | | recording. 02.01.20 MRI [id number] Levetriracetam Lab: | | LEVETIRACETAM 12.0 - [...] | +--------+ + + + + | 07/13/ | Telephone | Neurology | Dixie Lockhart NP | Lab Results | 2019 | | | | | +--------+ + + + + | 05/07/ | Office | Neurology | Dixie Lockhart NP | Seizure disorder | 2019 | Visit | | | ([facility]) (Primary Dx); | | | | | | ESR raised; Right | | | | | | hip pain | +--------+ + + + + | 03/14/ | Telephone | Neurology | Nerissa Gongora RN | Other (Employee | 2019 | | | | Status Report) | +--------+ + + + + | 03/11/ | Telephone | Neurology | Pam Kidd | Paperwork (FMLA, | 2019 | | | MD Michaelle | Worker's Release) | +--------+ + + + + | 03/10/ | Telephone | Neurology | Pam Kidd | Results | 2019 | | | J, MD | | +--------+ + + + [...] + +---------+--------+ + | Maternal Grandmother | Lni | Alive | | + +---------+--------+ + | Mother | Darien | Alive | | + +---------+--------+ + | Paternal Aunt | Radha | Alive | | + +---------+--------+ + Social History + + + +--------+------+ [...] [place] | | | | | | [address] | | | | | | [phone] | | | | | | | [...] | | + + + + + Procedures + +--------+ + + + | [...] + + from Last 3 Months Results Levetiracetam Level (05/21/2020 11:59 AM PDT) [...] | | | | | | By: [facility] | | | | | | [id number] | | | | | | [place], [place] | | | | | | [id number] | | | | | | Director: Nitish Wesley | | | | | | MD [place], [place] | | | | + + + + + + + + | Specimen | + + | | + + + + + | Narrative | Performed At | + + + | Testing Performed at: [facility] CLIA: [id number] - 500 | REFERENCE LAB | | [place] [address] | [facility] | | | [place] | + + + + + + + + | Performing | Address | City/State/Zipcode | Phone Number | | Organization | | | | + + + + + | REFERENCE LAB | [address] | [place] | [phone] | | [facility] | | [address] | | + + + + + from Last 3 Months Insurance [...] + +------+ | MODA | MODA | [id number] | 11/14/19 | [phone] | [address] | PPO | | | [place] | | 19-Pre | 9 | [phone] | | | | Y PPO | | sent | | [place], | | | | | | | | [place] [address] | | +-------+--------+ +--------+ + +------+ | MODA | MODA | [id number] | 11/14/19 | [phone] | [address] | PPO | | | [place] | | 19-Pre | 9 | [address] | | | | | | sent | | [place], | | | | [place] | | | | [place] [address] | | | | Y PPO | | | | | | +-------+--------+ +--------+ + +------+ | MODA | MODA | [id number] | 11/14/19 | [phone] | [address] | PPO | | | [place] | | 19-Pre | 9 | [address] | | | | [place] | | sent | | [place], | | | | Y PPO | | | | [place] [address] | | +-------+--------+ +--------+ + +------+ | MODA | MODA | [id number] | 11/14/19 | [phone] | [address] | PPO | | | [employer] | | 14-Pre | 9 | [phone] | | | | [place] | | sent | | [place], | | | | [place] | | | | [place] [address] | | +-------+--------+ +--------+ + +------+ + +--------+ +--------+ + + | Guarantor Name | Accoun | Relation to | Date | Phone | Billing Address | | | t Type | Patient | of | | | | | | | | | | + +--------+ +--------+ + + | Jacki Molina | Person | Self | [birth year] | [address] | | Nychole | al/Fam | | 1989 | | [place], [place] | | | debora | | | 7 (Home) | [address] | + +--------+ +--------+ + + | Jacki Molina | Person | Self [birth year] | [address] | | Nychole | al/Fam | | 1989 | [address] | [place] | | | debora | | | 7 (Home) | [address] | + +--------+ +--------+ + + | Jacki Molina | Person | Self [birth year] | [address] | | Nyerie | al/Fam | | 1990 | [phone] | [place] | | | de[place]a | | | 7 ([place]) | [phone] | + +--------+ +--------+ + + Advance Directives + + + + + | Type | Date Recorded | Patient | Explanation | | | | 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
[~2020-06-07 03:25] MED LIST changes: +KEPPRA500 MG PO
[2020-06-07] MEDS ORDERED: CYMBALTA30 MG PO (03:40)
[2020-06-07] MEDS ORDERED: KEPPRA750 MG PO (03:40)
[2020-06-07] MEDS ORDERED: NORCO 5-325 TA1 EACH PO (04:03)
== END 2020-06-07 04:21 | disposition home or self-care (01) ==
LOC: ED 03:25
DX: M25.551 Pain in right hip (principal); F41.9 Anxiety disorder, unspecified; F32.9 Major depressive disorder, single episode, unspecified; Z87.891 Personal history of nicotine dependence; Z88.2 Allergy status to sulfonamides; Z79.899 Other long term (current) drug therapy
CPT/HCPCS: 99283

== ENCOUNTER 2020-08-30 20:49 | Emergency (ER) | payer OTHER ==
[~2020-08-30] VITALS: Ht 152.4 cm; Wt 99.8 kg
--- OUTSIDE RECORDS SUMMARY | ~2020-08-30 | XMS | Encounter Summary ---
Demographics + + + | Address | [address] | | | [place] [address] | + + + | Home Phone | | + + + | Preferred Language | Unknown | + + + | Marital Status | | + + + | Confucianist Affiliation | Unknown | + + + | Race | White | + + + | Ethnic Group | Not or | + + + Author + + + | Author | [facility] | | | and [place] | + + + | Organization | [facility] | | | and [place] | + + + | Address | Unknown | + + + | Phone | Unavailable | + + + Support + + +---------+ + | Name | Relationship | Address | Phone | + + +---------+ + | Gilmar Pineda | ECON | Unknown | | + + +---------+ + Care Team Providers + +------+ + | Care Bookkeeping Machine Operator Name | Role | Phone | + +------+ + | Boni Rosales | PCP | | + +------+ + Reason for Visit +---------+--------+ + | Reason | Onset | Comments | | | Date | | +---------+--------+ + | Results | 02/11/ | 24 hour EEG | | | 2020 | | +---------+--------+ + Encounter Details +--------+ + + + + | Date | Type | Department | Care Team | Description | +--------+ + + + + | 02/11/ | Telephone | [facility] | Nerissa Gongora RN | Results (24 hour | | 2020 | | [facility] | | EEG) | | | | CLINIC [address] | | | | | | [address] [place], | | | | | | [place] [address] | | | | | | [phone] | | | +--------+ + + + + Social History + + + +--------+------+ | Tobacco Use | Types | Packs/Day | Years | Date | | | | | Used | | + + + +--------+------+ | Former Smoker | Cigarettes | 0.1 | 1 | | + + + +--------+------+ + +---+---+---+ | Smokeless Tobacco: | | | | | Never Used | | | | + +---+---+---+ + + +---------+ + | Alcohol Use | Drinks/Week | oz/Week | Comments | + + +---------+ + | Yes | 2 Glasses of wine | 2.0 | | | | 0 Standard drinks | | | | | or equivalent | | | + + +---------+ + + + + | Sex Assigned at | Date Recorded | | | | + + + | Not on file | | + + + documented as of this encounter Miscellaneous Notes Telephone Encounter - Nerissa Gongora RN - 02/12/2020 4:06 PM PDTNotified patient of kris l 24 hour EEG, verbalized understanding. Requests refill of Keisha. Appointment with Dixie on 05/07/20. elephone E ncounter - Nerissa Gongora RN - 02/12/2020 4:06 PM PDT----- Message from Pam Kidd MD sent at 02/12/2020 1:52 PM PDT ----- Please let patient know her 24-hour EEG is normal. No change to her medication dosage.Elec tronically signed by Nerissa Gongora RN at 02/12/2020 4:06 PM PDTTelephone Encounter - Nerissa Gongora RN - 02/12/2020 2:19 PM PDTUnable to leave a message to call back. elephone Encounter - Nerissa Gongora RN - 02/12/2020 2:18 PM PDT----- Message from Pam Kidd MD sent at 02/12/2020 1: 52 PM PDT ----- Please let patient know her 24-hour EEG is normal. No change to her medication dosage.Elec tronically signed by Nerissa Gongora RN at 02/12/2020 2:18 PM PDTdocumented in this encounte r Plan of Treatment +--------+---------+ + + + | Date | Type | Specialty | Care Team | Description | +--------+---------+ + + + | 09/23/ | Office | Orthopedic Surgery | Warner Coats, | | | 2019 | Visit | | [address] | | | | | | [place] [address] | | | | | | [phone] | | | | | | | | +--------+---------+ + + + | 11/11/ | Office | Neurology | Dixie Lockhart NP | | | 2020 | Visit | | [address] | | | | | | [place] | | | | | | [address] | | | | | | [phone] | | | | | | | | +--------+---------+ + + + documented as of this encounter Visit Diagnoses Not on filedocumented in this encounter"
--- OUTSIDE RECORDS SUMMARY | ~2020-08-30 | XMS | Encounter Summary ---
Demographics + + + | Address | [address] | | | [place] [address] | + + + | Home Phone | | + + + | Preferred Language | Unknown | + + + | Marital Status | | + + + | Restorationism Affiliation | Unknown | + + + | Race | White | + + + | Ethnic Group | Not or | + + + Author + + + | Author | [facility] | | | and [place] | + + + | Organization | [facility] | | | and [...] Team Providers + +------+ + | Care Pet Technologist Name | Role | Phone | + +------+ + | Boni Rosales | PCP | | + +------+ + Reason for Visit + +--------+ + | Reason | Onset | Comments | | | Date | | + +--------+ + | Medication Refill | 07/22/ | | | | 2020 | | + +--------+ + Encounter Details +--------+--------+ + + + | Date | Type | Department | Care Team | Description | +--------+--------+ + + + | 07/22/ | Refill | [facility] | Pam Kidd | Medication Refill | | 2019 | | [facility] | MD Michaelle [address] | | | | | CL[address] | [address] | | | | | [address] [place], | [place] [address] | | | | | [place] [address] | [phone] | | | | | [phone] | | | +--------+--------+ + + + Social History + + [...] Comments | + + +---------+ + | Not Currently | 0 Standard drinks | 0.0 | | | | or equivalent | | | + + +---------+ + + + + | Sex Assigned at | Date Recorded | | | | + + + | Not on file | | + + + documented as of this encounter Miscellaneous Notes Telephone Encounter - Nerissa Gongora RN - 07/22/2020 4:21 PM PDTFormatting of this note m ight be different from the original. Last Office Visit 05/07/2020 Seizure disorder ([facility]) [facility] Dixie Lockhart NP Office Visit 02/28/2020 Seizure disorder ([facility]) [facility] Pam Kidd MD Office Visit 02/01/2020 Recurrent syncope [facility] Pam Kidd MD Office Visit Next appointment: 11/11/20 Carly elephone Encounter - Letitia Ramires - 07/22/2020 11:49 AM PDTRefill request for Levetiracetam Oral Tablet 750 MG. Last refill on 07/18/20. Pharmacy is [facility] [place]. 11:5 6 AM PDTdocumented in this encounter Plan of Treatment +--------+---------+ + + + | Date | Type | Specialty | Care Team | Description | +--------+---------+ + + + | 09/23/ | Office | Orthopedic Surgery | Warner Coats, | | | 2019 | Visit | | [address] | | | | | | [place] [address] | | | | | | [phone] | | | | | | | | +--------+---------+ + + + | 11/11/ | Office | Neurology | Dixie Lockhart NP | | | 2020 | Visit | | [address] | | | | | | [place] | | | | | | [address] | | | | | | [phone] | | | | | | | | +--------+---------+ + + + documented as of this encounter Visit Diagnoses Not on filedocumented in this encounter"
--- OUTSIDE RECORDS SUMMARY | ~2020-08-30 | XMS | Encounter Summary ---
Demographics + + + | Address | [address] | | | [place] [address] | + + + | Home Phone | | + + + | Preferred Language | Unknown | + + + | Marital Status | | + + + | Sabianist Affiliation | Unknown | + + + | Race | White | + + + | Ethnic Group | Not or | + + + Author + + + | Author | [facility] | | | and [place] | + + + | Organization | [facility] | | | and [place] | + + + | Address | Unknown | + + + | Phone | Unavailable | + + + Support + + +---------+ + | Name | Relationship | Address | Phone | + + +---------+ + | Gilmarvonda Pineda | ECON | Unknown | | + + +---------+ + Care Team Providers + +------+ + | Care Lay Out Maker Name | Role | Phone | + +------+ + | Boni Rosales | PCP | | + +------+ + Reason for Visit Auth/Cert +--------+--------+ + + + + | Status | Reason | Specialty | Diagnoses / | Referred By | Referred To | | | | | Procedures | Contact | Contact | +--------+--------+ + + + + | | | | Diagnoses | | | | | | | Tear of | | | | | | | right | | | | | | | acetabular | | | | | | | labrum, | | | | | | | subsequent | | | | | | | encounter | | | | | | | Procedures | | | | | | | TX | | | | | | | ARTHROSCOPY | | | | | | | HIP W/LABRAL | | | | | | | REPAIR TX | | | | | | | ARTHROSCOPY | | | | | | | HIP | | | | | | | W/FEMOROPLAS | | | | | | | TY RIGHT | | | | | | | HIP LABRAL | | | | | | | REPAIR, | | | | | | | FEMOROPLASTY | | | +--------+--------+ + + + + Encounter Details +--------+ + + + + | Date | Type | Department | Care Team | Description | +--------+ + + + + | 08/15/ | Hospital | [facility] | Warner Coats, | Status post hip | | 2019 | Encounter | [facility] | MD Saravanan PFEIFFER | surgery (Primary | | | | CARE [address]LO[address] | [place] [address] | Dx); Tear of right | | | | [address] | [phone] | acetabular labrum, | | | | [place], [place] | | subsequent encounter | | | | [id number] | | | | | | [phone] | | | +--------+ + + + + Social History + + + +--------+ + | Tobacco Use | Types | Packs/Day | Years | Date | | | | | Used | | + + + +--------+ + | Former Smoker | Cigarettes | 0.1 | 1 | Quit: 2012 | + + + +--------+ + + +---+---+---+ | Smokeless Tobacco: | | | | | Never Used | | | | + +---+---+---+ + + +---------+ + | Alcohol Use | Drinks/Week | oz/Week | Comments | + + +---------+ + | Yes | 0 Standard drinks | 0.0 | a glass of wine or | | | or equivalent | | beer a night | + + +---------+ + + + + | Sex Assigned at | Date Recorded | | | | + + + | Not on file | | + + + documented as of this encounter Last Filed Vital Signs + + + + + | Vital Sign | Reading | Time Taken | Comments | + + + + + | Blood Pressure | 135/85 | 08/15/2020 11:26 PM | | | | | PDT | | + + + + + | Pulse | 113 | 08/15/2020 11:26 PM | | | | | PDT | | + + + + + | Temperature | 36.5 C (97.7 F) | 08/15/2020 11:26 PM | | | | | PDT | | + + + + + | Respiratory Rate | 16 | 08/15/2020 11:26 PM | | | | | PDT | | + + + + + | Oxygen Saturation | 97% | 08/15/2020 11:26 PM | | | | | PDT | | + + + + + | Inhaled Oxygen | - | - | | | Concentration | | | | + + + + + | Weight | 99.8 kg (220 lb 0.3 | 08/15/2020 3:23 PM | | | | oz) | PDT | | + + + + + | Height | 152.4 cm (5') | 08/15/2020 3:23 PM | | | | | PDT | | + + + + + | Body Mass Index | 42.97 | 08/15/2020 3:23 PM | | | | | PDT | | + + + + + documented in this encounter Discharge Summaries Hong Trammell PA - 08/15/2020 5:27 PM PDTFormatting of this note might be differen t from the original. Service: Orthopedic Surgery Brief Post-op Discharge Note DISCHARGE DIAGNOSES: @HPROBLR@ Procedures: Procedure(s): RIGHT HIP LABRAL REPAIR, FEMOROPLASTY This patient was transferred to the recovery area post-operatively and has experienced no d ifficulties at the time of my assessment. The patient is anticipated to continue to meet di scharge criteria per protocol as assessed by nursing and may be discharged at that time with designated caregiver. Disposition: home Condition: Stable Code Status: No Order No discharge procedures on file. Follow up: Warner Coats MD [address] [place] [address] [phone] Schedule an appointment as soon as possible for a visit in 1 week For suture removal, For wound re-check Discharge Medications New Medications Details ondansetron 4 mg disintegrating tablet Take 1 tablet by mouth 3 (three) times daily as needed for Nausea for up to 7 days.. aka: ANITA ODT Changed Medications Details HYDROcodone-acetaminophen 5-325 mg per tablet TAKE 1 TO 2 TABLETS BY MOUTH EVERY 4 TO 6 HOURS NEEDED FOR PAIN What changed: Another medication with the same name was added. Make sure you understand how and when to take each. aka: NORCO HYDROcodone-acetaminophen 5-325 mg per tablet Take 1 tablet by mouth every 4 hours as needed for Pain. What changed: You were already taking a medication with the same name, and this prescriptio n was added. Make sure you understand how and when to take each. aka: NORCO Unchanged Medications Details albuterol 90 mcg/puff inhaler Inhale 2 puffs into the lungs every 6 hours as needed for Wheezing. JOSE D ALLERGY 180 mg tablet Generic drug: fexofenadine Take 180 mg by mouth Daily. busPIRone 7.5 MG tablet Take 2 tablets (15 mg total) by mouth 3 times daily aka: BUSPAR dexamethasone 4 mg tablet Take 4 mg by mouth Daily as needed. aka: DECADRON diphenhydrAMINE 25 mg tablet Take 25 mg by mouth every 6 hours as needed for Itching. aka: BENADRYL DULoxetine [address] capsule Take 3 capsules (90 mg total) by mouth Daily aka: CYMBALTA EPINEPHrine auto-injector 0.3 mg/0.3 mL injection Inject 0.3 mg into the muscle as needed for Anaphylaxis. levETIRAcetam 750 MG tablet Take 1 tablet by mouth 2 times daily. aka: KEPPRA medroxyPROGESTERone 150 mg/mL injection (vial) aka: DEPO-PROVERA JORDAN Lopez 08/15/2020 documented in th is encounter Discharge Instructions Instructions Ragini Pearson RN - 08/15/2020Formatting of this note might be different fr om the original. Hip Arthroscopy POSTOPERATIVE INSTRUCTIONS Activity ? You may not walk on the operated leg as you can tolerate unless instructed otherwise by Maynor Coats. ? Crutches should be used for assistance for two weeks with touch down weight bearing on th e operative side ? You can begin range of motion exercises following surgery ? You should not drive or operate any machinery while taking any narcotic pain medication. Pain Management/Medications ? We would recommend taking the pain medication provided as prescribed for the first 48 yomi rs (2 pills every 4 hours). o Following the first couple days, use pain medication only as needed o Most people remain on pain medication between 3-21 days o Avoid Tylenol (Acetaminophen) when taking the pain mediation as it is contained within th e the pain medication o You may use NSAIDs (i.e. ibuprofen, alieve, advil, motrin, etc) for additional pain contr ol. ? Nausea may be a side effect of the pain medication o A prescription for an anti-nausea medication will be provided within your surgical packet . o If you experience nausea you may also call our office and we can provide a prescription f or a different pain medication. ? Constipation is also a common side effect of the pain medication and may be treated with either Milk of Magnesia or Dulcolax pills or suppository, both of which can be obtained with out a prescription at a local pharmacy or most [facility]. ? If you received an anesthetic nerve block, anticipate a significant increase in pain 6-18 hours following surgery as the block wears off. Antibiotics ? Antibiotics will be given during surgery ? Typically no antibiotics are necessary following your surgery Diet ? There are no restrictions however we recommend starting with clear liquids and gradually advancing to solid foods. Remember to drink plenty of fluids. ? No alcohol for at least 24 hours after surgery. Dressing/Wound Care ? It is not uncommon to have a small amount of bloody drainage on the dressing within the f irst 48 hours after surgery. This typically does not require treatment and should not cause concern unless it is expanding. ? Keep your dressings clean and dry. ? You may remove your dressings the third day after surgery and cover with band-aids ? You may shower the fourth day after surgery ? Do not submerge underwater (i.e. bath, pool, hot tub) for 2 weeks after surgery. ? We would recommend icing the hip regularly following surgery for 20 minutes at a time. ? Some bruising and swelling in the hip and even down into the thigh, leg and ankle is norm al (due to gravity), the amount of which is highly variable. Swelling can be decreased by e levating the knee above the level of the heart. Swelling often can persist for several week s after surgery, particularly after exercise. Follow-up ? You should plan to return for your first postoperative visit within 7-10 after surgery. You should have been given an appointment prior to surgery however if not, please call Dr. Cora miller s office at to schedule an appointment. Emergency Care ? Contact Dr. Coats s office if you develop: o severe pain o a large amount of bleeding o cloudy or persistent drainage o significant calf or thigh pain o a fever over 101.5 F o numbness and/or tingling in your foot or leg that does not subside with dressing removal. If you are unable to contact our office and have significant concerns, please go to a hospi joseph. Provision for after-hours and emergency care: If you have an emergency such as chest pain or shortness of breath please call [phone]. If you need the doctor after hours or on the weekends, please refer to the phone number bel ow. For [facility] offices located on [facility] and on [address] [place] [address] please call . This will take you to an answering service, who will then get you in contact with a medical professional. After Your Surgery You ve just had surgery. During surgery, you received medication called anesthesia to jose p you comfortable and pain-free. After surgery, you may experience some pain or nausea. This is common. Going Home Have an adult family member or friend drive you home. For the first 24 hours after your felicity arun: ? Do not drive or use heavy equipment. ? Do not make important decisions or sign legal documents. ? Avoid alcohol. ? Have someone stay with you, if needed. He or she can watch for problems and help keep you safe. Be sure to keep all follow-up appointments with your doctor. And rest after your procedure for as long as your doctor tells you to. Coping with Pain If you have pain after surgery, pain medication will help you feel better. Take your medica tion as directed, before pain becomes severe. Consider other ways to control pain, such as with heat, ice, and relaxation. To get the best relief possible, remember these points: ? Pain medications can upset your stomach. Taking them with a little food may help. ? Most pain relievers taken by mouth need at least 20 to 30 minutes to take effect. ? Taking medication on a schedule can help you remember to take it. Try to time your medica tion so that you can take it before beginning an activity, such as dressing, walking, or sit ting down for dinner. ? Don t drink alcohol while taking pain medication. ? Don t drive or operate machinery while taking pain medications as they can slow your re flexes. If your health care provider tells you to take acetaminophen or ibuprofen to help relieve y our pain, ask him or her how much you are supposed to take each day. Constipation ? Constipation is a common side effect of pain medications and anesthetics. Contact your do ctor before taking any medications like laxatives or stool softeners to help relieve constip ation, unless they have been prescribed for you. ? Drinking lots of non-alcoholic fluids and eating foods like fruits and vegetables that ar e high in fiber can also help. Managing Nausea Some people have an upset stomach after surgery. This is often due to anesthesia, pain, sukhdeep n medications, or the stress of surgery. If you were on a special diet before surgery, ask your doctor if you should follow it during recovery. These tips may help: ? Don t push yourself to eat. Your body will tell you when to eat and how much. ? Start off with clear liquids and soup. They are easier to digest. Slowly move to solid f oods. Don t eat fatty, rich, or spicy foods at first. ? Don t force yourself to have three large meals a day. Instead, eat smaller amounts more often. Blood Clot Prevention Deep vein thrombosis (DVT) is a clot that forms in your deep veins usually in the leg o r thigh. A pulmonary embolism (PE) occurs when a clot in the bloodstream travels through th e heart and into the lungs. If the clot becomes stuck in a blood vessel in the lungs, blood flow can be blocked which causes life-threatening heart and lung problems. The following are prevention tips: ? Elevate your legs whenever they feel swollen or heavy ? Maintain a healthy weight ? Quit smoking ? Avoid sitting, standing, or lying down for long periods without moving your legs and feet . o When traveling by car, make frequent stops to get out and move around. o On long airplane, train, or bus rides, get up and move around when possible. o If you can t get up, wiggle your toes and tighten your calves to keep your blood moving . If you have any of these symptoms of DVT or PE, call your doctor: ? Swelling, pain, or both, often in one limb ? Redness or warmth, often in one limb ? Sudden, continuous pain deep in your muscle ? Worsening ache when you are active or when you stand still for a long time ? Rapid, pounding, or unusual heartbeat ? Sweating more than usual. ? Chest pain, trouble breathing, coughing up blood, skin turning blue, or fainting Call 911. Acetaminophen; Hydrocodone tablets or capsules Brand Names: Anexsia, Lorcet, Lorcet HD, Lorcet Plus, Lortab, Grenora, Verdrocet, Vicodin, Vi codin ES, Vicodin HP, Xodol What is this medicine? ACETAMINOPHEN; HYDROCODONE (a set a JACQUE татьяна fen; nicki droe KOE done) is a pain reliever. It is used to treat moderate to severe pain. How should I use this medicine? Take this medicine by mouth with a glass of water. Follow the directions on the prescriptio n label. You can take it with or without food. If it upsets your stomach, take it with food. Do not take your medicine more often than directed. A special MedGuide will be given to you by the pharmacist with each prescription and refill . Be sure to read this information carefully each time. Talk to your hazmat tanker driver regarding the use of this medicine in children. Special care may be needed. What side effects may I notice from receiving this medicine? Side effects that you should report to your doctor or health director of primary care as soon as p ossible: allergic reactions like skin rash, itching or hives, swelling of the face, lips, or tongue breathing problems confusion redness, blistering, peeling or loosening of the skin, including inside the mouth signs and symptoms of low blood pressure like dizziness; feeling faint or lightheaded, fall s; unusually weak or tired trouble passing urine or change in the amount of urine yellowing of the eyes or skin Side effects that usually do not require medical attention (report to your doctor or health director of primary care if they continue or are bothersome): constipation dry mouth nausea, vomiting tiredness What may interact with this medicine? This medicine may interact with the following medications: alcohol antiviral medicines for HIV or AIDS atropine antihistamines for allergy, cough and cold certain antibiotics like erythromycin, clarithromycin certain medicines for anxiety or sleep certain medicines for bladder problems like oxybutynin, tolterodine certain medicines for depression like amitriptyline, fluoxetine, sertraline certain medicines for fungal infections like ketoconazole and itraconazole certain medicines for Parkinson's disease like benztropine, trihexyphenidyl certain medicines for seizures like carbamazepine, phenobarbital, phenytoin, primidone certain medicines for stomach problems like dicyclomine, hyoscyamine certain medicines for travel sickness like scopolamine general anesthetics like halothane, isoflurane, methoxyflurane, propofol ipratropium local anesthetics like lidocaine, pramoxine, tetracaine MAOIs like Carbex, Eldepryl, Marplan, Nardil, and Parnate medicines that relax muscles for surgery other medicines with acetaminophen other narcotic medicines for pain or cough phenothiazines like chlorpromazine, mesoridazine, prochlorperazine, thioridazine rifampin What if I miss a dose? If you miss a dose, take it as soon as you can. If it is almost time for your next dose, ta ke only that dose. Do not take double or extra doses. Where should I keep my medicine? Keep out of the reach of children. This medicine can be abused. Keep your medicine in a saf e place to protect it from theft. Do not share this medicine with anyone. Selling or giving away this medicine is dangerous and against the law. Store at room temperature between 15 and 30 degrees C (59 and 86 degrees F). This medicine may cause harm and if it is taken by other adults, children, or pets. R eturn medicine that has not been used to an official disposal site. Contact the [facility] at [phone] or your [facility] government to find a site. If you cannot return the medicine, flush it down the toilet. Do not use the medicine after the expiration date. What should I tell my health care provider before I take this medicine? They need to know if you have any of these conditions: brain tumor Crohn's disease, inflammatory bowel disease, or ulcerative colitis drug abuse or addiction head injury heart or circulation problems if you often drink alcohol kidney disease or problems going to the bathroom liver disease lung disease, asthma, or breathing problems an unusual or allergic reaction to acetaminophen, hydrocodone, other opioid analgesics, oth er medicines, foods, dyes, or preservatives or trying to get breast-feeding What should I watch for while using this medicine? Tell your doctor or health director of primary care if your pain does not go away, if it gets wors e, or if you have new or a different type of pain. You may develop tolerance to the medicine . Tolerance means that you will need a higher dose of the medicine for pain relief. Toleranc e is normal and is expected if you take the medicine for a long time. Do not suddenly stop taking your medicine because you may develop a severe reaction. Your b aileen becomes used to the medicine. This does NOT mean you are addicted. Addiction is a behavi or related to getting and using a drug for a non-medical reason. If you have pain, you have a medical reason to take pain medicine. Your doctor will tell you how much medicine to take. If your doctor wants you to stop the medicine, the dose will be slowly lowered over time to avoid any side effects. There are different types of narcotic medicines (opiates). If you take more than one type a t the same time or if you are taking another medicine that also causes drowsiness, you may h ave more side effects. Give your health care provider a list of all medicines you use. Your doctor will tell you how much medicine to take. Do not take more medicine than directed. Zeyad l emergency for help if you have problems breathing or unusual sleepiness. Do not take other medicines that contain acetaminophen with this medicine. Always read ike baez carefully. If you have questions, ask your doctor or pharmacist. If you take too much acetaminophen get medical help right away. Too much acetaminophen can be very dangerous and cause liver damage. Even if you do not have symptoms, it is important to get help right away. You may get drowsy or dizzy. Do not drive, use machinery, or do anything that needs mental alertness until you know how this medicine affects you. Do not stand or sit up quickly, kal cially if you are an older patient. This reduces the risk of dizzy or fainting spells. Alcoh ol may interfere with the effect of this medicine. Avoid alcoholic drinks. The medicine will cause constipation. Try to have a bowel movement at least every 2 to 3 da ys. If you do not have a bowel movement for 3 days, call your doctor or health care professi onal. Your mouth may get dry. Chewing sugarless gum or sucking hard candy, and drinking plenty of water may help. Contact your doctor if the problem does not go away or is severe. NOTE:This sheet is a summary. It may not cover all possible information. If you have questi ons about this medicine, talk to your doctor, pharmacist, or health care provider. Copyright 2020 [employer] Ondansetron oral dissolving tablet Brand Name: Teresitaaby ODEstefany What is this medicine? ONDANSETRON (on GI se jennifer) is used to treat nausea and vomiting caused by chemotherapy. I t is also used to prevent or treat nausea and vomiting after surgery. How should I use this medicine? These tablets are made to dissolve in the mouth. Do not try to push the tablet through the foil backing. With dry hands, peel away the foil backing and gently remove the tablet. Place the tablet in the mouth and allow it to dissolve, then swallow. While you may take these ta blets with water, it is not necessary to do so. Talk to your hazmat tanker driver regarding the use of this medicine in children. Special care may be needed. What side effects may I notice from receiving this medicine? Side effects that you should report to your doctor or health director of primary care as soon as p ossible: allergic reactions like skin rash, itching or hives, swelling of the face, lips, or tong ue breathing problems confusion dizziness fast or irregular heartbeat feeling faint or lightheaded, falls fever and chills loss of balance or coordination seizures sweating swelling of the hands and feet tightness in the chest tremors unusually weak or tired Side effects that usually do not require medical attention (report to your doctor or health director of primary care if they continue or are bothersome): constipation or diarrhea headache What may interact with this medicine? Do not take this medicine with any of the following medications: apomorphine certain medicines for fungal infections like fluconazole, itraconazole, ketoconazole, po saconazole, voriconazole cisapride dofetilide dronedarone pimozide thioridazine ziprasidone This medicine may also interact with the following medications: carbamazepine certain medicines for depression, anxiety, or psychotic disturbances fentanyl linezolid MAOIs like Carbex, Eldepryl, Marplan, Nardil, and Parnate methylene blue (injected into a vein) other medicines that prolong the QT interval (cause an abnormal heart rhythm) phenytoin rifampicin tramadol What if I miss a dose? If you miss a dose, take it as soon as you can. If it is almost time for your next dose, ta ke only that dose. Do not take double or extra doses. Where should I keep my medicine? Keep out of the reach of children. Store between 2 and 30 degrees C (36 and 86 degrees F). Throw away any unused medicine afte r the expiration date. What should I tell my health care provider before I take this medicine? They need to know if you have any of these conditions: heart disease history of irregular heartbeat liver disease low levels of magnesium or potassium in the blood an unusual or allergic reaction to ondansetron, granisetron, other medicines, foods, dye s, or preservatives or trying to get breast-feeding What should I watch for while using this medicine? Check with your doctor or health director of primary care as soon as you can if you have any sign of an allergic reaction. NOTE:This sheet is a summary. It may not cover all possible information. If you have questi ons about this medicine, talk to your doctor, pharmacist, or health care provider. Copyright 2020 [employer] [facility] Locations, Pain Management and Opioids: Pain Management, Prescription Opioids: Opioid medications can be addictive and anyone is at risk for developing an opioid use disorder. Keep yourself and others safe by limiting usage , disposing of all unused medications, and knowing how to recognize the signs of opioid use disorder. Be informed of the options available to help manage and treat your pain. Review t he pain management plan of care with your provider. ? What is an Opioid? Opioids are a class of drugs that include pain relievers available leg [facility] by prescription. Opioid pain relievers can be effective in treatment for relieving pain , however, regular use can lead to dependence, and misuse of opioid pain relievers. ? What are the risks? Opioid use disorder, physical dependence, falls and accidents, increa sed sensitivity to pain and overdose. Talk to your physician before combining medication. ? Safe storage: Never share or sell your opioid medications, keep opioid medications locked or in a safe location, keep out of reach of children and out of sight from others. Leave in the original bottle with the label attached. ? Possible side effects: Nausea, vomiting, and dry mouth, constipation, sleepiness and dizz iness, confusion, respiratory depression, withdrawal. ? Proper disposal: You are not required to use all of your opioid medication. To find your nearest take-back location for proper disposal of unused medications, please visit: http://www.[email or web address]/, https://[email or web address].Kanari.gov/pubdispsea [email or web address]/main?execution=[email or web address] ? Activities of daily living (ADL) are routine activities people do every day without terri tance. Non-pharmacological interventions can be useful and incorporated to help with activit ies of daily living. These include, but are not limited to: Repositioning, cold/warm karla ses, massage, decreasing environmental stimulation (decrease lighting, decrease noise), musi c, aromatherapy. AUGUST 2018 | [facility] Pub [phone] Location Address Phone # Take Back Hours Accepts Does NOT Accept [facility] [address] [place] [address] [phone] Lobby hours: M-F: 8am-5pm Sat-Sun: See their Facebook page for dates (every few weeks) - Pills: tablets, capsules (in cluding controlled substances) - Liquids - Topical lotions, gels, creams, ointments - Sharps, syringes (including insulin) - Inhalers [facility] [address] [place] [address] [phone] Lobby hours: M-F: 8am-12pm, 1pm-5pm (closed 12-1pm) Sat-Sun: CLOSED - Pills: tablets, capsules (including controlled substances) - Liquids - Topical lotions, gels, creams, ointments - Sharps, syringes (including insulin) - Inhalers [place] [employer] [facility] [address] [place] [address] [phone] Lobby hours: M-F: 8:30am-4:30pm Sat-Sun: CLOSED - Pills: tablets, capsules (including controlled substances) - Patches - Liquids - Topical lotions, gels, creams, ointments - Sharps, syringes (including insulin) - Inhalers [employer] [facility] [address] [place] [address] [phone] Lobby hours: M-F: 8am-5pm Sat-Sun: CLOSED - Pills: tablets, capsules (including controlled substances) - Liquids - Topical lotions, gels, creams, ointments - Sharps, syringes (including insulin) - Inhalers [facility] ([id number]) [address] [place] [address] [phone] Pharmacy hours: M-F: 9am-9pm Sat: 8am-9pm Sun: 9am-9pm - Pills: tablets, capsules (including controlled substances) - Liquids - Topical lotions, gels, creams, ointments - Sharps, syringes (including insulin) - Inhalers [employer] [employer] (local branch of [facility] [address] 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 | | | | | + + + +---------+ + + | busPIRone (BUSPAR) | Take 2 tablets (15 | 60 | 0 | 05/07/20 | | | 7.5 MG tablet | mg total) by mouth 3 | tablet | | 20 | | | | times daily | | | | | + + + +---------+ + + | dexamethasone | Take 4 mg by mouth | | 0 | | | | (DECADRON) 4 mg | Daily as needed. | | | | | | tablet | | | | | | + + + +---------+ + + | diphenhydrAMINE | Take 25 mg by mouth | | 0 | | | | (BENADRYL) 25 mg | every 6 hours as | | | | | | tablet | needed for Itching. | | | | | + + + +---------+ + + | DULoxetine | Take 3 capsules (90 | 90 | 0 | 05/07/20 | | | (CYMBALTA) [address] | mg total) by mouth | capsule | | 20 | | | capsule | Daily | | | | | + + + +---------+ + + | EPINEPHrine | Inject 0.3 mg into | | 0 | | | | auto-injector 0.3 | the muscle as needed | | | | | | mg/0.3 mL injection | for Anaphylaxis. | | | | | + + + +---------+ + + | fexofenadine | Take 180 mg by mouth | | 0 | | | | (JOSE D ALLERGY) | Daily. | | | | | | 180 mg tablet | | | | | | + + + +---------+ + + | | Take 1 tablet by | 30 | 0 | 08/15/20 | | | HYDROcodone-acetamin | mouth every 4 hours | tablet | | 20 | | | ophen (NORCO) 5-325 | as needed for Pain. | | | | | | mg per | | | | | | | tabletIndications: | | | | | | | Status post hip | | | | | | | surgery | | | | | | + + + +---------+ + + | | TAKE 1 TO 2 TABLETS | | 0 | 06/07/20 | | | HYDROcodone-acetamin | BY MOUTH EVERY 4 TO | | | 20 | | | ophen (NORCO) 5-325 | 6 HOURS NEEDED | | | | | | mg per tablet | FOR PAIN | | | | | + + + +---------+ + + | levETIRAcetam | Take 1 tablet by | 60 | 3 | 09/08/20 | | | (KEPPRA) 750 MG | mouth 2 times daily. | tablet | | 20 | | | tablet | | | | | | + + + +---------+ + + | | | | 0 | 03/24/20 | | | medroxyPROGESTERone | | | | 20 | | | (DEPO-PROVERA) 150 | | | | | | | mg/mL injection | | | | | | | (vial) | | | | | | + + + +---------+ + + | ondansetron | Take 1 tablet by | 20 | 0 | 08/15/20 | | | (ZOFRAN ODT) 4 mg | mouth 3 (three) | tablet | | 20 | | | disintegrating | times daily as | | | | | | tablet | needed for Nausea | | | | | | | for up to 7 days.. | | | | | + + + +---------+ + + documented as of this encounter H&P Notes Warner Coats MD - 08/15/2020 3:24 PM PDTFormatting of this note might be different luis ramires the original. [facility] Service: Orthopedic Surgery History and Physical Exam Chief complaint:Right hip pain Subjective: Jacki Molina is a pleasant 30 y.o. year old female who presents comp laining of right hip pain which has persisted for several years. The pain is gotten progres sively worse since September when she was diagnosed with a seizure disorder and has had sever al falls. She states her pain is in a C sign distribution and is a pulsing and aching which is typically a 5 out of 10 but fluctuates in severity. The pain is constant and is worse w ith stairs as well as running. She states that it has significantly limited her activity. She reports a loss of motion as well as some numbness throughout the right upper extremity w ith prolonged sitting. She is previously tried physical therapy as well as anti-inflammator ies which provided no relief.. Past Medical History: Past Medical History: Diagnosis Date Anemia Anxiety Arthritis hands and right foot Claustrophobia Depression Environmental allergies Irritable bowel syndrome Panic attacks Seasonal allergies Seizures (HCC) 01/2020 Past Surgical History: Past Surgical History: Procedure Laterality Date SINUS SURGERY Medications: Current Facility-Administered Medications: electrolyte-A (PLASMALYTE-A) infusion, , Intravenous, Continuous, Warner Coats MD, Last Rate: 30 mL/hr at 08/15/20 1514 Allergies: Allergies Allergen Reactions Narcotic Pain Medications [Morphine And Related] Nausea And Vomiting Oleoresin Capsicum [Capsicum] Anaphylaxis Sulfa Antibiotics Hives Review of Systems: Review of Systems Constitutional: Positive for activity change. Eyes: Positive for visual disturbance. Musculoskeletal: Positive for arthralgias and gait problem. Allergic/Immunologic: Positive for environmental allergies. Neurological: Positive for seizures. Psychiatric/Behavioral: Positive for decreased concentration and sleep disturbance. The pat ient is nervous/anxious. All other systems reviewed and are negative. Objective: Vital Signs: There were no vitals filed for this visit. Exam: Gen: No acute distress, pleasant and cooperative with examination. Alert and oriented. Head: Normocephalic, conjugate gaze Neck: Supple Resp: Clear unlabored breathing Cardiac: Palpable peripheral pulses Gait: Normal Righthip Skin is intact without erythema, ecchymosis, edema Anterior, posterior and lateraltenderness to palpation Hip flexion 90 degrees with pain Internal rotation 20 degrees with pain External rotation 20 degrees with pain Abduction 30 degrees with pain 5 out of 5 strength with range of motion [facility] withPatrick's test Palpable dorsalis pedis pulse Sensation is intact to light touch Imaging: Right hip MR arthrogram performed at [facility] on 05-26-20 reports b ilateral femoral head a sphericity which may predispose to impingement. Non-detached right acetabular labral tear 2:00 with normal articular cartilage. Assessment: Right hip acetabular labral tear with cam lesion Plan: I previously reviewed the diagnosis with the patient and again discussed her imaging results. She did have a labral tear noted on her previous imaging with a possible cam lesi on. We discussed treatment options for this particular given that she had excellent relief from the diagnostic injection. At this time she would like to proceed with surgical managem ent. We discussed arthroscopic right hip labral repair with possible femoroplasty. We discu ssed the details of surgery, and the perioperative and postoperative course including the de tails of postoperative rehabilitation and recovery. Risks and benefits were also discussed, including but not limited to, infection, bleeding, damage to surrounding tissue including n eurovascular injury,fracture, or damage to cartilage or bone, leading to decreased sensation or function, continued or increased pain, hardware failure, instability,stiffness, weakness , failure of the repair to heal or reinjury, need for future procedure, DVT, PE, cardiac arr est, stroke, loss of life or limb. We also discussed that her risks for a less favorable ou tcome are somewhat increased given her increased BMI. She expressed understanding, all ques tions were satisfactorily addressed, and she wished to proceed. Consent was obtained. Warner Coats MD has created this entry using [employer] Voice Recognition software a [employer] macros. The entry has been reviewed and there may still exist sound alike word err ors. documented in this en counter Miscellaneous Notes Plan of Care - Kelley Garcia RN - 08/15/2020 11:34 PM PDTPatient adequate for discharge . Dressing clean, dry and intact. Pt ate, voided, and ambulated. Pain and nausea well contro lled. Discharge instructions reviewed and given to pt. All questions answered. Discharged vi a private vehicle.PIV removed. Kelley Garcia RN p Note - Do tyler Coats MD - 08/15/2020 5:[address] [facility] Service: Orthopedic Surgery Operative Note Pre-operative Diagnosis: Right hip labral tear Post-operative Diagnosis: Same Procedure(s): Right hip arthroscopic labral repair Surgeon: Warner Coats MD Qualitative Researcher: Eric Trammell PA-C Anesthesia: General endotrachial anesthesia Estimated Blood Loss: Less Than 10 ml (Minimal) Indications: See pre-operative history and physical. Findings: Right hip superior labral tear with fraying and chondral delamination Complications: none Description of Procedure: Right lower extremity was marked preoperatively by me. The patien estefany was then taken to the operating room, where she was placed under anesthesia by the anesthe jam service. Both legs were then placed in boots and he was transferred to the traction tabl e. Both legs were well secured in the holders. All bony prominences were well-padded and she was securely fastened to the table. The right hip was then viewed under fluoroscopy and tra ction was applied to insure that appropriate distraction could be achieved. Following this, all traction was removed and the right lower extremity was then prepped and draped in the no rmal sterile fashion. A time out was performed, confirming the correct site, surgeon and pro cedure identified. Antibiotics were given preoperatively and this was verified. Traction was again applied through the right hip and viewed under fluoroscopy. Distraction of the right hip joint was achieved. A spinal needle was then inserted under fluoroscopic im aging into the hip joint, just anterior to the tip of the greater trochanter and the needle was advanced into the joint in the distal third of the hip joint opening. A nitinol wire was then passed through the needle and an incision was made. This was bluntly dilated followed by careful insertion of a cannula over the nitinol wire. The camera was then inserted and a standard anterior arthroscopic portal was then made. This was done under direct visualizat ion with insertion first of an 18 gauge needle lateral to the line from the ASIS to the guerra lla to avoid nerve injury. Following insertion of the needle, a nitinol wire was passed, aga in under direct visualization, followed by incision and insertion of a blunt trocar, followe d by a cannula. The banana blade was then inserted and a capsulotomy was performed connecting the two erika ls. Exam of the hip joint was performed. The probe was inserted and the labrum was evaluat ed. There was significant tearing and fraying of the superior labrum with chondral delamina tion. This was debrided with a shaver and electrocautery and did not appear repairable alth ough the superior labrum was in fairly poor condition. The anterior and posterior labrum we re intact. The femoral head was in good condition, as was the rest of the acetabulum cartila ge. The ligamentum was intact as well. Following exam, we then proceeded with preparation for the repair. First a shaver and elect rocautery used to debride the area of synovitis and soft tissue along the edge of the superi or and anterior acetabulum. A banana blade and liberator wereused to free the labrum fro m the acetabular rim and a shaver and electrocautery were used to debride the labrum and rim . Following this, a drill guide was inserted and a drill hole was placed. Care was taken t o visualize the acetabulum during drilling ot ensure no penetration into the joint. Followin g this, a labral tapewas then passed through the labrum using a bird beak. This was passed through a 2.9 mm pushlock anchorand the anchor was then inserted and properly tightened w ith excellent reduction of the labrum to the acetabular rim. A second and third anchor were then placed in a similar fashion more posteriorto the initially placed anchor in a simila r fashion with drilling followed by passage ofsuture tape and insertion of the anchor. The repair was viewed and found to be appropriately placed with excellent reduction of the labrum back to the acetabular rim. The probe was reinserted and the repair was found to be s table. In placement of all of these anchors, the acetabulum was visualized to insure that th benigno did not penetrate the joint. Following this, all excess suture was removed and traction was taken off of the leg and visualized as the head was reduced into the acetabulum. The lab rum created a nice seal without impingement through a full range of motion. Following this, all instrumentation was removed. The portals were closed with nylon and injected with local anesthetic, dressed with xeroform, 4x4 and tegaderm. The patient was then reversed on anesth esia, transferred back to the hospital bed and returned to the recovery room in stable condi tion. All counts were correct. Condition: Stable Warner Coats MD 08/15/2020 5:08 PM PDT Warner Coats MD has created this entry using [employer] Voice Recognition software a [employer]. The entry has been reviewed and there may still exist sound alike word err ors. documented in this en counter Plan of Treatment +--------+---------+ + + + | Date | Type | Specialty | Care Team | Description | +--------+---------+ + + + | 09/23/ | Office | Orthopedic Surgery | Warner Coats, | | 2019 | Visit | | [address] | | | | | | [place] [address] | | | | | | [phone] | | | | | | | | +--------+---------+ + + + | 11/11/ | Office | Neurology | Dixie Lockhart NP | 2019 | Visit | | [address] [place] [address] [place] | | | | | | [place] | | | | | | [address] | | | | | | [phone] | | | | | | | | +--------+---------+ + + + documented as of this encounter Procedures + +--------+ + + + | Procedure Name | Priori | Date/Time | Associated Diagnosis | Comments | | | ty | | | | + +--------+ + + + | STORED IMAGE | Routin | 08/28/2020 | | Results for this | | ORTHOPEDIC | e | 3:31 PM | | procedure are in the | | | | PDT | | results section. | + +--------+ + + + | ISABEL Triplett ARM | Routin | 08/15/2020 | | Results for this | | | e | 5:28 PM | | procedure are in the | | | | PDT | | results section. | + +--------+ + + + | ARTHROSCOPY HIP | | 08/15/2020 | Tear of right | | | | | 3:10 PM | acetabular labrum, | | | | | PDT | subsequent encounter | | + +--------+ + + + +---+--------+ | | | | | Specia | | | l | | | Needs | | | | | | Crutch | | | es | +---+--------+ + +--------+ +---+ + | TYPE AND SCREEN | STAT | 08/15/2020 | | Results for this | | | | 3:06 PM | | procedure are in the | | | | PDT | | results section. | + +--------+ +---+ + | POCT TEST, | Routin | 08/15/2020 | | Results for this | | URINE, QUAL | e | 2:47 PM | | procedure are in the | | | | PDT | | results section. | + +--------+ +---+ + documented in this encounter Results STORED IMAGE ORTHOPEDIC (08/28/2020 3:31 PM PDT) + + | Specimen | + + | | + + + + + | Narrative | Performed At | + + + | Stored images were created by an independent practitioner and were | [facility] | | not interpreted by a radiologist. Please refer to the procedural | | | note for any report or interpretation of these images done by the | | | ordering physician. | | + + + + +---------+ + + | Performing | Address | City/State/Zipcode | Phone Number | | Organization | | | | + +---------+ + + | [facility] | | | | + +---------+ + + [place] (08/15/2020 5:28 PM PDT) + + | Specimen | + + | | + + + + + | Impressions | Performed At | + + + | Fluoroscopic service for procedure. Right hip labral repair, | [facility] | | femoroplasty Final Report Signed by: Adelaida Malhotra, | | | Luisa Moses Date/Time: 08/18/2020 8:06 AM | | + + + + + + | Narrative | Performed At | + + + | FLUOROSCOPY C ARM CLINICAL INFORMATION: Right hip labral | [facility] | | repair., Femoroplasty FINDINGS: Fluoro Time: 2.25 minute(s). | | | Number of images: 2 Air Kerma: 68.52 mGy | | + + + + + | Procedure Note | + + | Rafat, [id number] - 08/18/2020 8:09 AM PDT | | FLUOROSCOPY C ARM | | | | CLINICAL INFORMATION: | | Right hip labral repair., Femoroplasty | | | | FINDINGS: | | Fluoro Time: 2.25 minute(s). Number of images: 2 Air Kerma: 68.52 mGy | | | | | | IMPRESSION: | | Fluoroscopic service for procedure. Right hip labral repair, | | femoroplasty | | | | | | | | Final Report Signed by: Adelaida Malhotra Stephanie | | Sign Date/Time: 08/18/2020 8:06 AM | + + + +---------+ + + | Performing | Address | City[facility] | Phone Number | | Organization | | | | + +---------+ + + | [facility] | | | | + +---------+ + + Type and Screen (08/15/2020 3:06 PM PDT) + + + + + + | Component | Value | Ref Range | Performed | Pathologist | | | | | At | Signature | + + + + + + | ABO Rh | B POSITIVE | | [facility] | | | | | | LABORATORY | | + + + + + + | Antibody | NEGATIVE | | [facility] | | | Screen | | | LABORATORY | | + + + + + + | BB BAND | [id number] | | [facility] | | | | | | LABORATORY | | + + + + + + | BB BAND | Testing performed at | | [facility] | | | | [facility] | LAB[address]AT[address] | | | | [address];[place] [address] | | | | + + + + + + + + | Specimen | + + | Blood | + + + + + + + | Performing | Address | City/State/Zipcode | Phone Number | | Organization | | | | + + + + + | [facility] | [address] | [place] [address] | [phone] | + + + + + POCT Test, Urine, Qual (08/15/2020 2:47 PM PDT) + + + + + + | Component | Value | Ref Range | Performed | Pathologist | | | | | At | Signature | + + + + + + | POC HCG | NEGATIVEComment: Testing | NEG | [facility] | | | Qualitative | performed at [facility];[address] | [address]AT[address] | | | | [address];[place] | | | | | | [address] | | | | + + + + + + + + | Specimen | + + | | + + + + + + + | Performing | Address | City/State/Zipcode | Phone Number | | Organization | | | | + + + + + | [facility] | [address] | [place] [address] | [phone] | + + + + + documented in this encounter Visit Diagnoses + + | Diagnosis | + + | Tear of right acetabular labrum, subsequent encounter - Primary | + + | Status post hip surgery | + + documented in this encounter Admitting Diagnoses + + | Diagnosis | + + | Tear of right acetabular labrum, subsequent encounter | + + documented in this encounter Administered Medications + +--------+ + +------+------+ | Medication Order | MAR | Action | Dose | Rate | Site | | | Action | Date | | | | + +--------+ + +------+------+ | acetaminophen (TYLENOL) tablet | Given | 08/15/20 | 1,000 mg | | | | 1,000 mg 1,000 mg, Oral, ONCE, | | 20 3:12 | | | | | 08/15/20 at 1515, For 1 dose, | | PM PDT | | | | | To be given in pre-op upon | | | | | | | arrival with small sip of water | | | | | | | prior to procedure, Pre-op | | | | | | + +--------+ + +------+------+ +---+---+ | | | +---+---+ + +---------+ +--------+ +---+ | electrolyte-A (PLASMALYTE-A) | New Bag | 08/15/20 | 1,000 | 30 mL/hr | | | infusion at 30 mL/hr, | | 20 5:45 | mLs | | | | Intravenous, CONTINUOUS, Starting | | PM PDT | | | | | 08/15/20 at 1515, Pre-op | | | | | | + +---------+ +--------+ +---+ +---------+ +---------+ +---+ | Given | 08/15/20 | 750 mLs | | | | | 20 5:22 | | | | | | PM PDT | | | | +---------+ +---------+ +---+ | New Bag | 08/15/20 | | 30 mL/hr | | | | 20 3:14 | | | | | | PM PDT | | | | +---------+ +---------+ +---+ +---+---+ | | | +---+---+ + +-------+ +--------+---+---+ | fentaNYL (PF) injection 25-50 | Given | 08/15/20 | 25 mcg | | | | mcg 25-50 mcg, Intravenous, | | 20 6:05 | | | | | EVERY 5 MIN PRN, Pain, Initial | | PM PDT | | | | | postop medication for URGENT PAIN | | | | | | | OR ESCALATING PAIN, Starting Fri | | | | | | | 08/15/20 at 1712, For 4 doses, | | | | | | | First dose must be lowest dose. | | | | | | | Use Pasero Sedation Scale. | | | | | | | [Opioid tolerant = One week or | | | | | | | longer, qpquoh-bgn-awljp use of | | | | | | | at least the following DAILY | | | | | | | dose: 60mg oral morphine, 60mg | | | | | | | oral hydrocodone, 30mg oral | | | | | | | oxycodone, 8mg oral | | | | | | | hydromorphone, fentanyl patch | | | | | | | 25mcg/hr, or equivalent dose of | | | | | | | another opioid], Recovery/Phase I | | | | | | + +-------+ +--------+---+---+ +-------+ +--------+---+---+ | Given | 08/15/20 | 25 mcg | | | | | 20 5:58 | | | | | | PM PDT | | | | +-------+ +--------+---+---+ +---+---+ | | | +---+---+ + +-------+ +--------+---+---+ | gabapentin (NEURONTIN) capsule | Given | 08/15/20 | 300 mg | | | | 300 mg 300 mg, Oral, ONCE, Tue | | 20 3:13 | | | | | 08/15/20 at 1515, For 1 dose, To | | PM PDT | | | | | be given in pre-op after arrival | | | | | | | with small sip of water prior to | | | | | | | procedure., Pre-op | | | | | | + +-------+ +--------+---+---+ +---+---+ | | | +---+---+ + +-------+ +--------+---+---+ | HYDROmorphone (DILAUDID) | Given | 08/15/20 | 0.4 mg | | | | injection 0.2-0.6 mg 0.2-0.6 mg, | | 20 6:50 | | | | | Intravenous, EVERY 5 MIN PRN, | | PM PDT | | | | | Pain, Starting 08/15/20 at | | | | | | | 1712, First dose must be lowest | | | | | | | dose, can increase subsequent | | | | | | | doses by 0.2mg within dosing | | | | | | | range. If patient meets opioid | | | | | | | tolerant definition, can start | | | | | | | with 0.4mg dose. [Maximum total | | | | | | | PACU dose 2 mg] Use Pasero | | | | | | | Sedation Scale. [Opioid tolerant | | | | | | | = One week or longer, | | | | | | | ueubyd-dch-fjahm use of at least | | | | | | | the following DAILY dose: 60mg | | | | | | | oral morphine, 60mg oral | | | | | | | hydrocodone, 30mg oral oxycodone, | | | | | | | 8mg oral hydromorphone, fentanyl | | | | | | | patch 25mcg/hr, or equivalent | | | | | | | dose of another opioid], | | | | | | | Recovery/Phase I | | | | | | + +-------+ +--------+---+---+ +-------+ +--------+---+---+ | Given | 08/15/20 | 0.2 mg | | | | | 20 6:45 | | | | | | PM PDT | | | | +-------+ +--------+---+---+ + +---+ | | | + +---+ | HYDROmorphone (DILAUDID) | | | injection 0.25-1 mg 0.25-1 mg, | | | Intravenous, EVERY 2 HOURS PRN, | | | Pain, Starting 08/15/20 at | | | 2102, If oral route not an | | | option. Slow IV push, not faster | | | than 0.3mg/minute. First dose | | | must be lowest dose, titrate to | | | effective dose by repeat of | | | lowest dose every 30 minutes prn | | | pain, may not exceed maximum dose | | | ordered per interval. Use Pasero | | | Sedation Scale., Post-op/Phase | | | II | | + +---+ | | | + +---+ + +-------+ +---------+---+---+ | meperidine (DEMEROL) injection | Given | 08/15/20 | 12.5 mg | | | | 12.5 mg 12.5 mg, Intravenous, | | 20 6:46 | | | | | PRN, Shivering, Starting Fri | | PM PDT | | | | | 08/15/20 at 1712, For 2 doses, May | | | | | | | Repeat once in 5 min., | | | | | | | Recovery/Phase I | | | | | | + +-------+ +---------+---+---+ +-------+ +---------+---+---+ | Given | 08/15/20 | 12.5 mg | | | | | 20 6:43 | | | | | | PM PDT | | | | +-------+ +---------+---+---+ + +---+ | | | + +---+ | ondansetron (ZOFRAN ODT) | | | disintegrating tablet 4 mg 4 mg, | | | Oral, EVERY 6 HOURS PRN, Nausea, | | | Vomiting, Starting 08/15/20 | | | at 2102, First line agent, | | | Post-op/Phase II | | + +---+ | | | + +---+ + +-------+ +------+---+---+ | ondansetron (ZOFRAN) injection | Given | 08/15/20 | 4 mg | | | | 4 mg 4 mg, Intravenous, EVERY 4 | | 20 5:52 | | | | | HOURS PRN, Nausea, Vomiting, | | PM PDT | | | | | Starting 08/15/20 at 1712, | | | | | | | Recovery/Phase I | | | | | | + +-------+ +------+---+---+ + +---+ | | | + +---+ | ondansetron (ZOFRAN) injection | | | 4 mg 4 mg, Intravenous, EVERY 6 | | | HOURS PRN, Nausea, Vomiting, | | | Starting 08/15/20 at 2102, | | | First line agent. Use PO option | | | unless NPO status or unable to | | | tolerate., Post-op/Phase II | | + +---+ | | | + +---+ + +-------+ +---------+---+ + | promethazine (PHENERGAN) (IM | Given | 08/15/20 | 6.25 mg | | Deltoid- | | ONLY) injection 6.25 mg 6.25 mg, | | 20 6:15 | | | Left | | Intramuscular, EVERY 15 MIN PRN, | | PM PDT | | | | | Nausea, Vomiting, Starting Fri | | | | | | | 08/15/20 at 1817, For 4 doses, | | | | | | | Vesicant. Give by deep IM | | | | | | | injection into a large muscle., | | | | | | | Recovery/Phase I | | | | | | + +-------+ +---------+---+ + +---+---+ | | | +---+---+ documented in this encounter"
--- OUTSIDE RECORDS SUMMARY | ~2020-08-30 | XMS | Encounter Summary ---
Demographics + + + | Address | [address] | | | [place] [address] | + + + | Home Phone | | + + + | Preferred Language | Unknown | + + + | Marital Status | | + + + | Sikhism Affiliation | Unknown | + + + | Race | White | + + + | Ethnic Group | Not or | + + + Author + + + | Author | [facility] | | | and [place] | + + + | Organization | [facility] | | | and [...] Team Providers + +------+ + | Care Senior Program Analyst Name | Role | Phone | + +------+ + | Boni Rosales | PCP | | + +------+ + Reason for Visit + +--------+ + | Reason | Onset | Comments | | | Date | | + +--------+ + | Paperwork | 03/11/ | Jem RODRIGUEZ's Release | | | 2019 | | + +--------+ + Encounter Details +--------+ + + + + | Date | Type | Department | Care Team | Description | +--------+ + + + + | 03/11/ | Telephone | [facility] | Pam Kidd | Paperwork ([place], | | 2019 | | [facility] | MD [address] | Worker's Release) | | | | CLINIC [address] | ANGELIC MCKENZIE | | | | | DR STEPHANIE EUBANKS, | [facility] [place] [address] | | | | | [place] [address] | [phone] | | | | | [phone] | | | +--------+ + + + [...] Telephone Encounter - Nerissa Gongora RN - 03/11/2020 1:10 PM PDTNotified of normal MRI, v erbalized understanding. TTelephone Encounter - Pam Kidd MD - 03/11/2020 11:44 AM PDTPlease let patient glen now her brain MRI is normal. 11 :44 AM PDTTelephone Encounter - Mikayla Garrett - 03/11/2020 11:24 AM PDTThe patient kristy led back. Her work is now sending a new FMLA form. She said to keep original dates on e top of the form, put the current date of when Dr. Kidd signs it and pay particular atten tion to Section 3. Patient states work is trying to get her to resign instead of firing her and facing a lawsu it from her. elephone Encounter - Mikayla Garrett - 03/11/2020 9:53 AM PDTThe patient is requesting her FMLA paperwork and her work release document be sent to her PCP because she is filing a grievanc e at work. Is this ok to send? 9: 59 AM PDTdocumented in this encounter Plan of Treatment +--------+---------+ + + + | Date | Type | Specialty | Care Team | Description | +--------+---------+ + + + | 09/23/ | Office | Orthopedic Surgery | Warner Coats, | | | 2019 | Visit | | [address] | | | | | | [place] [address] | | | | | | [phone] | | | | | | | | +--------+---------+ + + + | 11/11/ | Office | Neurology | Diixe Lockhart NP | | | 2019 | Visit | | [address] | | | | | | [place] | | | | | | [address] | | | | | | [phone] | | | | | | | | +--------+---------+ + + + documented as of this encounter Visit Diagnoses Not on filedocumented in this encounter"
--- OUTSIDE RECORDS SUMMARY | ~2020-08-30 | XMS | Encounter Summary ---
Demographics + + + | Address | [address] | | | [place] [address] | + + + | Home Phone | | + + + | Preferred Language | Unknown | + + + | Marital Status | | + + + | Rastafari Affiliation | Unknown | + + + | Race | White | + + + | Ethnic Group | Not or | + + + Author + + + | Author | [facility] | | | and [place] | + + + | Organization | [facility] | | | [...] Team Providers + +------+ + | Care Glove Cuffer Name | Role | Phone | + [...] | | | | | | | CA | | | | | | | ARTHROSCOPY | | | | | | | HIP W/LABRAL | | | | | | | REPAIR CA | | | | | | | [...] +--------+--------+ + + + + Encounter Details +--------+---------+ + + + | Date | Type | Department | Care Team | Description | +--------+---------+ + + + | 08/15/ | Surgery | [facility] | Warner Coats, | RIGHT HIP LABRAL | | 2019 | | [facility] | MD [address] | REPAIR, FEMOROPLASTY | | | | OPERATING RO[address] | [place] [address] | | | | | [facility] | [phone] | | | | | [place], [place] | | | | | | [address] | | | | | | [phone] | | | +--------+---------+ + + + Social History + + [...] + + + | Blood Pressure | 119/81 | 08/15/2020 3:23 PM | | | | | PDT | | + + + + + | Pulse | 88 | 08/15/2020 3:23 PM | | | | | PDT | | + + + + + | Temperature | 36.4 C (97.5 F) | 08/15/2020 3:23 PM | | | | | PDT | | + + + + + | Respiratory Rate | 18 | 08/15/2020 3:23 PM | | | | | PDT | | + + + + + | Oxygen Saturation | 97% | 08/15/2020 3:23 PM | | | [...] on file. Follow up: Warner Coats MD [address] [facility] [id number] Schedule an appointment as soon as possible [...] prescription at a local pharmacy or most [facility]. ? If you received an anesthetic [...] surgery however if not, please call Dr. Ike miller s office at to schedule an [...] weekends, please refer to the phone number shc vw. For [facility] offices located on [address] [place] [address] and on [address] [place] [address] please call . This will take you [...] Anexsia, Lorcet, Lorcet HD, Lorcet Plus, Lortab, Mohnton, Verdrocet, Vicodin, Vi codin ES, Vicodin HP, [...] information carefully each time. Talk to your watch case polisher regarding the use of this medicine in children. Special care may be needed. What side effects may I notice from receiving this medicine? Side effects that you should report to your doctor or health healthcare liaison as soon as p ossible: allergic reactions [...] attention (report to your doctor or health healthcare liaison if they continue or are bothersome): constipation [...] to an official disposal site. Contact the [facility] at [phone] or your [facility] government to find a site. If you [...] this medicine? Tell your doctor or health healthcare liaison if your pain does not go away, [...] days, call your doctor or health care profcarlai patricio. Your mouth may get dry. Chewing sugarless gum or sucking hard candy, and drinking plenty of water may help. Contact your doctor if the problem does not go away or is severe. NOTE:This sheet is a summary. It may not cover all possible information. If you have questi ons about this medicine, talk to your doctor, pharmacist, or health care provider. Copyright 2020 [employer] Ondansetron oral dissolving tablet Brand Name: Zoaby ODT What is this medicine? ONDANSETRON (on GI [...] necessary to do so. Talk to your watch case polisher regarding the use of this medicine in children. Special care may be needed. What side effects may I notice from receiving this medicine? Side effects that you should report to your doctor or health healthcare liaison as soon as p ossible: allergic reactions [...] attention (report to your doctor or health healthcare liaison if they continue or are bothersome): constipation [...] medicine? Check with your doctor or health healthcare liaison as soon as you can if you have any sign of an allergic reaction. NOTE:This sheet is a summary. It may not cover all possible information. If you have questi ons about this medicine, talk to your doctor, pharmacist, or health care provider. Copyright 2020 [employer] Local Drug Take Back Locations, Pain Management [...] drugs that include pain relievers available leg ally by prescription. Opioid pain relievers can be [...] proper disposal of unused medications, please visit: http://www.takePCH Internationalurmeds.org/, https://apps.Tephaion.Biogazelle.gov/pubdispsea [facility]/spring/main?execution=e1s3 ? Activities of daily living (ADL) are routine activities people do every day without terri tance. Non-pharmacological interventions can be useful and incorporated to help with activit ies of daily living. These include, but are not limited to: Repositioning, cold/warm karla ses, massage, decreasing environmental stimulation (decrease lighting, decrease noise), musi c, aromatherapy. AUGUST 2018 | [facility] Pub [phone] Location Address Phone # Take Back Hours Accepts Does NOT Accept [facility] [address] [place] [address] [phone] Lobby hours: M-F: 8am-5pm Sat-Sun: See their Facebook page for dates (every few weeks) - Pills: tablets, capsules (in cluding controlled substances) - Liquids - Topical lotions, gels, creams, ointments - Sharps, syringes (including insulin) - Inhalers [employer] [address] [place] [address] [phone] Lobby hours: M-F: 8am-12pm, 1pm-5pm (closed 12-1pm) Sat-Sun: CLOSED - Pills: tablets, capsules (including controlled substances) - Liquids - Topical lotions, gels, creams, ointments - Sharps, syringes (including insulin) - Inhalers [employer] [address] [place] [address] [phone] Lobby hours: M-F: 8:30am-4:30pm Sat-Sun: CLOSED - Pills: tablets, capsules (including controlled substances) - Patches - Liquids - Topical lotions, gels, creams, ointments - Sharps, syringes (including insulin) - Inhalers [employer] [address] [place] [address] [phone] Lobby hours: M-F: 8am-5pm Sat-Sun: CLOSED - Pills: tablets, capsules (including controlled substances) - Liquids - Topical lotions, gels, creams, ointments - Sharps, syringes (including insulin) - Inhalers [facility] ([id number]) [address] [place] [address] [phone] Pharmacy hours: M-F: 9am-9pm Sat: 8am-9pm Sun: 9am-9pm - Pills: tablets, capsules (including controlled substances) - Liquids - Topical lotions, gels, creams, ointments - Sharps, syringes (including insulin) - Inhalers [facility] [employer] (local branch of [facility] [address] [place] [address] [phone] Call to schedule clam picker; only for current residential customers - Sharps, [...] tablets (15 | 60 | 0 | 05/07/ | | | 7.5 MG tablet | [...] tablet by | 60 | 3 | 07/22/20 | | | (KEPPRA) 750 MG | [...] PDTFormatting of this note might be different fro ike the original. [facility] Service: Orthopedic Surgery [...] 5 strength with range of motion Pain withStinchfield Pain withPatrick's test Palpable dorsalis pedis pulse Sensation is intact to light touch Imaging: Right hip MR arthrogram performed at [facility] on 05-26-20 reports b ilateral femoral [...] Coats MD has created this entry using Kozio Voice Recognition software a [employer] macros. The entry has been reviewed and [...] tyler Coats MD - 08/15/2020 5:08 PM [facility] Service: Orthopedic Surgery Operative Note Pre-operative Diagnosis: Right hip labral tear Post-operative Diagnosis: Same Procedure(s): Right hip arthroscopic labral repair Surgeon: Warner Coats MD Chemical Project Engineer: Eric Trammell PA-C Anesthesia: General endotrachial anesthesia [...] tion. All counts were correct. Condition: Stable Hylton J Coats, MD 08/15/2020 5:08 PM PDT Warner Coats MD has created this entry using Kozio Voice Recognition software a [employer]. The entry has been reviewed and there [...] [address] | | | | | | [place] [address] | | | | | | [phone] | | | | | | | | +--------+---------+ + + + | 11/11/ | Office | Neurology | Dixie Lockhart NP | | 2019 | Visit | | [address] [place] [address] [address] | | | | | | [place] | | | | | | [address] | | | | | | [phone] | | | | | | | [...] | + +--------+ + + + | FL C ARM | Routin | 08/15/2020 | | [...] | | + +---------+ + + FL C-Arm (08/15/2020 5:28 PM PDT) + + | [...] Procedure Note | + + | Rafat, [id number] - 08/18/2020 8:09 AM PDT | | [...] + + | Performing | Address | City/State/[facility] | Phone Number | | Organization | [...] + + + | [facility] | [id number] | | [facility] | | | | | | LABORATORY | | + + + + + + | [facility] | Testing performed at | | [facility] | | | | [facility];[address] | | LABORATORY | | | | [address];[place] [address] | | | | + + + + + + + + | Specimen | + + | Blood | + + + + + + + | Performing | Address | City/State/Zipcode | Phone Number | | Organization | | | | + + + + + | [facility] | [address] | [place] [address] | [phone] | + + + + + POCT Test, Urine, Qual (08/15/2020 2:47 PM PDT) + + + + + + | Component | Value | Ref Range | Performed | Pathologist | | | | | At | Signature | + + + + + + | POC HCG | NEGATIVEComment: Testing | NEG | [facility] | | | Qualitative | performed at [facility] | | LABORATORY | | | | [address];[place] | | | | | | [address] | | | | + + + + + + + + | Specimen | + + | | + + + + + + + | Performing | Address | City/State/Zipcode | Phone Number | | Organization | | | | + + + + + | [facility] | [address] | [place] [address] | [phone] | + + + + + documented [...] +------+------+ +---+---+ | | | +---+---+ + +-------+ +--------+---+ + | bupivacaine (PF) (MARCAINE) | Given | 08/15/20 | 20 mLs | | Surgical | | 0.5% injection PRN, Starting Fri | | 20 5:08 | | | Site | | 08/15/20 at 1708, Intra-op | | PM PDT | | | | + +-------+ +--------+---+ + +---+---+ | | | +---+---+ + +---------+ [...] | | +---+---+ + +-------+ +--------+---+---+ | EPINEPHrine 1 mg/mL 1 mg in | Given | 08/15/20 | 3,001 | | | | sodium chloride for irrigation | | 20 4:53 | mLs | | | | 0.9% 3,000 mL Optesia Mixture | | PM PDT | | | | | PRN, Starting 08/15/20 at | | | | | | | 1613, Intra-op | | | | | | + +-------+ +--------+---+---+ +-------+ +--------+---+---+ | Given | 08/15/20 | 3,001 | | | | | 20 4:39 | mLs | | | | | PM PDT | | | | +-------+ +--------+---+---+ | Given | 08/15/20 | 3,001 | | | | | 20 4:26 | mLs | | | | | PM PDT [...] | | | | | | longer, dfvfow-cvw-obotp use of | | | | | [...] | 300 mg 300 mg, Oral, ONCE, Fri | | 20 3:13 | | | [...] | | | | | | | vfypdi-vcp-ammly use of at least | | | [...]
--- OUTSIDE RECORDS SUMMARY | ~2020-08-30 | XMS | Encounter Summary ---
Demographics + + + | Address | [address] | | | [place] [address] | + + + | Home Phone | | + + + | Preferred Language | Unknown | + + + | Marital Status | | + + + | Quaker Affiliation | Unknown | + + + | Race | White | + + + | Ethnic Group | Not or | + + + Author + + + | Author | [facility] | | | and [place] | + + + | Organization | [facility] | | | [...] Team Providers + +------+ + | Care Skin Piler Name | Role | Phone | + [...] | | | | | | | DE | | | | | | | ARTHROSCOPY | | | | | | | HIP W/LABRAL | | | | | | | REPAIR DE | | | | | | | [...] + + + + | 08/15/ | Anesthesia | [facility] | Alec Modi, | | | 2019 | [facility] | SPECIAL AGENT [address] | | | | | OPER[address] | [place] [address] | | | | | [address] | [phone] | | | | | [place], [place] | | | | | | [address] | Dinesh Flores | | | | | [phone] | MD [address] | | | | | | [address] | | | | | | [place] [address] | | | | | | [phone] | | | | | | | | +--------+ + + + + Anesthesia Record + + + + + | Procedure Name | Responsible | Anesthesia Start | Anesthesia Stop Time | | | Anesthesiologist | Time | | + + + + + | RIGHT HIP LABRAL | Alec Modi CRNA | 08/15/20 1525 | 08/15/20 1722 | | REPAIR, FEMOROPLASTY | | | | | (Right Hip) | | | | + + + + + +----+---+ + + | Da | T | Event | Comment | | te | i | | | | | m | | | | | e | | | +----+---+ + + | 10 | 1 | | | | /0 | 5 | | | | 2/ | 2 | | | | 20 | 1 | | | | 20 | | | | +----+---+ + + | | 1 | An Start | Reassessment prior to anesthesia induction/procedure. | | | 5 | | | | | 2 | | | | | 5 | | | +----+---+ + + | | 1 | Antibiotic | | | | 5 | Given | | | | 3 | | | | | 0 | | | +----+---+ + + | | 1 | An | | | | 5 | Induction | | | | 3 | | | | | 0 | | | +----+---+ + + | | 1 | An | | | | 5 | Intubation | | | | 3 | | | | | 1 | | | +----+---+ + + | | 1 | Anesthesia | | | | 5 | Ready | | | | 3 | | | | | 7 | | | +----+---+ + + | | 1 | Pre-Procedu | | | | 5 | ral Timeout | | | | 5 | Completed | | | | 2 | | | +----+---+ + + | | 1 | First | | | | 5 | Inc/Proc St | | | | 5 | | | | | 2 | | | +----+---+ + + | | 1 | Extubation/ | | | | 7 | Airway LDA | | | | 1 | Removal | | | | 6 | | | +----+---+ + + | | 1 | an stop | | | | 7 | data | | | | 1 | | | | | 8 | | | +----+---+ + + | | 1 | An Stop | Patient handed off to recovery nurse. | | | 2 | | | | | 2 | | | +----+---+ + + +------+ | Meds | +------+ + + + | Name | Total | + + + | midazolam 2 mg/mL | 2 mg | + + + | fentaNYL | 100 mcg | + + + | lidocaine 2% | 100 mg | + + + | propofol | 200 mg | + + + | rocuronium | 10 mg | + + + | succinylcholine | 120 mg | + + + | dexamethasone | 8 mg | + + + | ondansetron | 4 mg | + + + | phenylephrine | 500 mcg | + + + | propofol infusion | 561.38 mg | + + + | ketamine | 20 mg | + + + | ketamine | 27.45 mg | + + + | electrolyte-A (PLASMALYTE-A) | 750 mL | | infusion | | + + + | ceFAZolin | 2 g | + + + | metoclopramide | 10 mg | + + + + + | Name | + + | N2O Flow Rate (L/Min) | + + | O2 Flow Rate (L/Min) | + + | Insp O2 | + + | Exp N2O | + + | Exp SEV | + + | Air Flow Rate (L/Min) | + + + + | No blood administrations on file. | + + +--------+ + + + | Type | Details | Placement | Removal | +--------+ + + + | Wound | 08/15/20; 1600; Incision; Right; | 08/15/20 1600 by | | | | carly | Jennifer Garcia, | | | | | RN | | +--------+ + + + | Periph | 08/15/20; 151; Left; Hand; 20 | 08/15/201510 by | 08/15/202308 by | | eral | gauge; 08/15/20; 2308 | Kristi Carrasco RN | Kelley Garcia RN | | IV | | | | +--------+ + + + documented in this encounter Social History + + + +--------+ + [...] + + documented as of this encounter OR Notes Anesthesia Postprocedure Evaluation - Alec Modi CRNA - 08/15/2020 5:27 PM PDTFormatt ing of this note might be different from the original. ANESTHESIA POSTANESTHESIA EVALUATION Jacki Molina 30 y.o. female 1990 [id number] Procedure(s) RIGHT HIP LABRAL REPAIR, FEMOROPLASTY (Right Hip) Cooperates? Yes Mental Status Performs simple tasks. Respiratory Satisfactory - Airway patent (self maintained). Cardiovascular Satisfactory - Blood pressure and heart rate acceptable Temperature Satisfactory Pain Satisfactory N/V Control Satisfactory Hydration Satisfactory - No signs of dehydration Adverse Events ADVERSE EVENTS: No adverse events Vitals Value Taken Time Temp 35.9 C (96.7 F) 08/15/20 1720 Pulse 87 08/15/20 1726 Resp 31 08/15/20 1726 BP 130/79 08/15/20 1725 Arterial Line BP Arterial Line BP 2 SpO2 100 % 08/15/20 1726 Vitals shown include unvalidated device data. Electronically signed by Alec Modi CRNA 08/15/2020 5:[address] [facility] signed by Alec Modi CRNA at 0 5:27 PM PDTAnesthesia Preprocedure Evaluation - Alec Modi CRNA - 08/12/2020 1:03 P M PDT ANESTHESIA PREANESTHESIA EVALUATION Jacki Molina 30 y.o. female 1990 [id number] Procedure(s): RIGHT HIP LABRAL REPAIR, FEMOROPLASTY (Right Hip) Medical,anesthesia, drug, allergy histories reviewed, NPO status verified. ECG reviewed. (-) perioperative beta-ricardo/statin not given/taken, reason: not applicable /Not taking Beta-Ricardo. Review of Systems / Med History Anesthesia History (+) previous surgery or anesthesia. Family Anesthesia History Family Anesthesia Negative except where noted below. Cardiovascular Exercise tolerance >4 METS. Pulmonary Albuterol PRN for wheezing .(+) tobacco use.(+) ex-smoker. Gastrointestinal/Hepatic IBS . Endocrine (+) obesity: morbid BMI 40+ Hematology/Other Negative except where noted below. Neuromuscular (+) arthritis. (+) seizures (Last seizures was in january): Psychology (+) psychiatric history of (managed with buspirone) anxiety and depression. Physical Exam Airway MP III, TM >3 FB, Mouth opening >2 FB. Neck: full ROM, extends >30 degrees. Jaw protru kayce normal. Facial hair present: No Dental grossly normal except where noted below. CV cardiovascular normal Pulm Clear to auscultation bilaterally. Neuro grossly normal. Other No new labs Anesthesia Plan ASA: 3 Type: General. Pre-op meds (tylenol, gabapentin, celebrex), given history of PONV with mor phine. Induction: Intravenous. Potential problems: None anticipated. Monitors: Standard ASA monitors. Consent statement: Anesthetic plan, alternatives, risks and benefits discussed with patient. discussed risks t o teeth, drug reaction, nausea, pain, respiratory events, sore throat documented in this e ncounter Miscellaneous Notes Anesthesia Post-op Handoff - Alec Modi CRNA - 08/15/2020 5:22 PM PDTFormatting of th is note might be different from the original. ANESTHESIA HANDOFF NOTE Jacki Molina 30 y.o. female 1990 [id number] RIGHT HIP LABRAL REPAIR, FEMOROPLASTY (Right Hip) HANDOFF NOTE Handoff Protocol Used: post-procedure handoff checklist completed The following were completed during the transfer of care: 1. Identification of patient 2. Identification of responsible practitioner (primary service) 3. Discussion of pertinent medical history 4. Discussion of the surgical/procedure course (procedure, reason for surgery, procedure pe rformed) 5. Intraoperative anesthetic management and issues/concerns 6. Expectations/plans for the early post-procedure period 7. Opportunity for questions and acknowledgement of understanding of report from receiving team Patient Location: Phase I Condition: awake and responds to stimuli Airway/O2: face mask with O2 Multimodal analgesia: multimodal analgesia used between 6 hours prior to anesthesia start t o PACU discharge The significant anesthesia concerns and VS in Epic were reviewed with the receiving team. Alec Modi CRNA 08/15/2020 5:[address] [facility] signed by Alec Modi CRNA at 0 5:22 PM PDTdocumented in this encounter Plan of Treatment +--------+---------+ + + + | Date | Type | Specialty | Care Team | Description | +--------+---------+ + + + | 09/23/ | Office | Orthopedic Surgery | Warner Coats, | | | 2019 | Visit | | [address] | | | | | | [place] [address] | | | | | | [phone] | | | | | | | | +--------+---------+ + + + | 11/11/ | Office | Neurology | Dixie Lockhart NP | | 2019 | Visit | | [address] [place] | | | | | | [place] | | | | | | [address] | | | | | | [phone] | | | | | | | | +--------+---------+ + + + documented as of this encounter Visit Diagnoses Not on filedocumented in this encounter Administered Medications + +--------+ +------+------+------+ | Medication Order | MAR | Action | Dose | Rate | Site | | | Action | Date | | | | + +--------+ +------+------+------+ | ceFAZolin (ANCEF, KEFZOL) | Given | 08/15/20 | 2 g | | | | injection Intravenous, PRN, | | 20 3:42 | | | | | Starting Tue08/15/20 at 1542, | | PM PDT | | | | | Anesthesia Intra-op | | | | | | + +--------+ +------+------+------+ +---+---+ | | | +---+---+ + +-------+ +------+---+---+ | dexamethasone (DECADRON) 4 | Given | 08/15/20 | 8 mg | | | | mg/mL injection Intravenous, | | 20 3:38 | | | | | PRN, Starting Tue08/15/20 at | | PM PDT | | | | | 1538, Anesthesia Intra-op | | | | | | + +-------+ +------+---+---+ +---+---+ | | | +---+---+ + +---------+ [...] + +-------+ +--------+---+---+ | fentaNYL (PF) injection | Given | 08/15/20 | 25 mcg | | | | Intravenous, PRN, Starting Fri | | 20 5:06 | | | | | 08/15/20 at 1529, Anesthesia | | PM PDT | | | | | Intra-op | | | | | | + +-------+ +--------+---+---+ +-------+ +--------+---+---+ | Given | 08/15/20 | 50 mcg | | | | | 20 4:12 | | | | | | PM PDT | | | | +-------+ +--------+---+---+ | Given | 08/15/20 | 25 mcg | | | | | 20 3:29 | | | | | | PM PDT | | | | +-------+ +--------+---+---+ +---+---+ | | | +---+---+ + + + + +-------+---+ | ketamine 100 mg/mL injection | Rate/Dos | 08/15/20 | 3 | 0.2 | | | Intravenous, CONTINUOUS PRN, | e Change | 20 3:47 | mcg/kg/m | mL/hr | | | Starting 08/15/20 at 1531, | | PM PDT | in | | | | Anesthesia Intra-op | | | | | | + + + + +-------+---+ +---------+ + +-------+---+ | New Bag | 08/15/20 | 5 | 0.3 | | | | 20 3:31 | mcg/kg/m | mL/hr | | | | PM PDT | in | | | +---------+ + +-------+---+ +---+---+ | | | +---+---+ + +-------+ +-------+---+---+ | ketamine 100 mg/mL injection | Given | 08/15/20 | 20 mg | | | | Intravenous, PRN, Starting Fri | | 20 3:31 | | | | | 08/15/20 at 1531, Anesthesia | | PM PDT | | | | | Intra-op | | | | | | + +-------+ +-------+---+---+ +---+---+ | | | +---+---+ + +-------+ +--------+---+---+ | lidocaine (PF) 2% injection | Given | 08/15/20 | 100 mg | | | | Intravenous, PRN, Starting Fri | | 20 3:29 | | | | | 08/15/20 at 1529, Anesthesia | | PM PDT | | | | | Intra-op | | | | | | + +-------+ +--------+---+---+ +---+---+ | | | +---+---+ + +-------+ +-------+---+---+ | metoclopramide (REGLAN) 5 mg/mL | Given | 08/15/20 | 10 mg | | | | injection Intravenous, PRN, | | 20 3:53 | | | | | Starting 08/15/20 at 1553, | | PM PDT | | | | | Anesthesia Intra-op | | | | | | + +-------+ +-------+---+---+ +---+---+ | | | +---+---+ + +-------+ +------+---+---+ | midazolam (VERSED) 1 mg/mL | Given | 08/15/20 | 2 mg | | | | injection Intravenous, PRN, | | 20 3:23 | | | | | Starting 08/15/20 at 1523, | | PM PDT | | | | | Anesthesia Intra-op | | | | | | + +-------+ +------+---+---+ +---+---+ | | | +---+---+ + +-------+ +------+---+---+ | ondansetron (ZOFRAN) injection | Given | 08/15/20 | 4 mg | | | | Intravenous, PRN, Starting Fri | | 20 3:38 | | | | | 08/15/20 at 1538, Anesthesia | | PM PDT | | | | | Intra-op | | | | | | + +-------+ +------+---+---+ +---+---+ | | | +---+---+ + +-------+ +---------+---+---+ | phenylephrine (GABRIELLA-SYNEPHRINE, | Given | 08/15/20 | 100 mcg | | | | VAZCULEP) 10 mg per mL injection | | 20 4:48 | | | | | Intravenous, PRN, Starting Fri | | PM PDT | | | | | 08/15/20 at 1559, Anesthesia | | | | | | | Intra-op | | | | | | + +-------+ +---------+---+---+ +-------+ +---------+---+---+ | Given | 08/15/20 | 100 mcg | | | | | 20 4:39 | | | | | | PM PDT | | | | +-------+ +---------+---+---+ | Given | 08/15/20 | 100 mcg | | | | | 20 4:20 | | | | | | PM PDT | | | | +-------+ +---------+---+---+ +---+---+ | | | +---+---+ + +-------+ +--------+---+---+ | propofol (DIPRIVAN) injection | Given | 08/15/20 | 200 mg | | | | Intravenous, PRN, Starting Fri | | 20 3:30 | | | | | 08/15/20 at 1530, Anesthesia | | PM PDT | | | | | Intra-op | | | | | | + +-------+ +--------+---+---+ +---+---+ | | | +---+---+ + + + + +-------+---+ | propofol infusion (DIPRIVAN) 10 | Rate/Dos | 08/15/20 | 50 | 29.9 | | | mg/mL infusion Intravenous, | e Change | 20 4:02 | mcg/kg/m | mL/hr | | | CONTINUOUS PRN, Starting Fri | | PM PDT | in | | | | 08/15/20 at 1531, Anesthesia | | | | | | | Intra-op | | | | | | + + + + +-------+---+ +---------+ + +-------+---+ | New Bag | 08/15/20 | 75 | 44.9 | | | | 20 3:31 | mcg/kg/m | mL/hr | | | | PM PDT | in | | | +---------+ + +-------+---+ +---+---+ | | | +---+---+ + +-------+ +-------+---+---+ | rocuronium (ZEMURON) injection | Given | 08/15/20 | 10 mg | | | | Intravenous, PRN, Starting Fri | | 20 3:30 | | | | | 08/15/20 at 1530, Anesthesia | | PM PDT | | | | | Intra-op | | | | | | + +-------+ +-------+---+---+ +---+---+ | | | +---+---+ + +-------+ +--------+---+---+ | succinylcholine (ANECTINE) | Given | 08/15/20 | 120 mg | | | | injection Intravenous, PRN, | | 20 3:30 | | | | | Starting 08/15/20 at 1530, | | PM PDT | | | | | Anesthesia Intra-op | | | | | | + +-------+ +--------+---+---+ +---+---+ | | | +---+---+ documented in this encounter"
--- OUTSIDE RECORDS SUMMARY | ~2020-08-30 | XMS | Encounter Summary ---
Demographics + + + | Address | [address] | | | [place] [address] | + + + | Home Phone | | + + + | Preferred Language | Unknown | + + + | Marital Status | | + + + | Hoahaoism Affiliation | Unknown | + + + | Race | White | + + + | Ethnic Group | Not or | + + + Author + + + | Author | [facility] | | | and [place] | + + + | Organization | [facility] | | | and [...] Team Providers + +------+ + | Care Front End Manager Name | Role | Phone | + +------+ + | Boni Rosales | PCP | | + +------+ + Reason for Visit + +--------+ + | Reason | Onset | Comments | | | Date | | + +--------+ + | Lab Results | 02/04/ | | | | 2020 | | + +--------+ + Encounter Details +--------+ + + + + | Date | Type | Department | Care Team | Description | +--------+ + + + + | 02/04/ | Telephone | [facility] | Nerissa Gongora RN | Lab Results | | 2019 | | [facility]OSPITAL [facility] | | | | | | CLINIC [address] | | | | | | [address] [place], | | | | | | [place] [address] | | | | | | [phone] | | | +--------+ + + + [...] Telephone Encounter - Nerissa Gongora RN - 02/05/2020 12:51 PM PDTPatient notified, stephane polanco. ele phone Encounter - eNrissa Gongora RN - 02/05/2020 12:51 PM PDT----- Message from Pam Kidd MD sent at 02/02/2020 3:56 PM PDT ----- Please let pt know her Keppra level is therapeutic and no dosage change is needed.Viktor gallego signed by Nerissa Gongora RN at 02/05/2020 12:51 PM PDTdocumented in this encounter Plan of Treatment +--------+---------+ + + + | Date | Type | Specialty | Care Team | Description | +--------+---------+ + + + | 09/23/ | Office | Orthopedic Surgery | Warner Coats, | | | 2019 | Visit | | [address] | | | | | | [place] [address] | | | | | | [phone] | | | | | | | | +--------+---------+ + + + | 11/11/ | Office | Neurology | Dixie Lockhart NP | | 2019 | Visit | | [address] | | | | | | [place] | | | | | | [address] | | | | | | [phone] | | | | | | | | +--------+---------+ + + + documented as of this encounter Visit Diagnoses Not on filedocumented in this encounter"
--- OUTSIDE RECORDS SUMMARY | ~2020-08-30 | XMS | Encounter Summary ---
Demographics + + + | Address | [address] | | | [place] [address] | + + + | Home Phone | | + + + | Preferred Language | Unknown | + + + | Marital Status | | + + + | Buddhist Affiliation | Unknown | + + + | Race | White | + + + | Ethnic Group | Not or | + + + Author + + + | Author | [facility] | | | and [place] | + + + | Organization | [facility] | | | [...] Team Providers + +------+ + | Care Patient Service Associate Name | Role | Phone | + +------+ + | Boni Rosales | PCP | | + +------+ + Reason for Visit +---------+--------+ + | Reason | Onset | Comments | | | Date | | +---------+--------+ + | Results | 02/06/ | EEG | | | 2020 | | +---------+--------+ + Encounter Details +--------+ + + + + | Date | Type | Department | Care Team | Description | +--------+ + + + + | 02/06/ | Telephone | [facility] | Nerissa Gongora RN | Results (EEG) | | 2019 | | HOSPITAL NEUR[facility]Y | | | | | | CLINIC [address] | | | | | | [address] [place], | | | | | | [place] [address] | | | | | | [phone] | | | +--------+ + + + [...] Telephone Encounter - Nerissa Gongora RN - 02/07/2020 12:15 PM PDTReviewed normal routine E EG findings, verbalized understanding. elephone Encounter - Nerissa Gongora RN - 02/07/2020 12:14 PM PDT----- Ashok martin from Pam Kidd MD sent at 02/07/2020 11:23 AM PDT ----- Please let patient know her routine EEG is normal. Her 24-hour EEG is pending.Electronical ly signed by Nerissa Gongora RN at 02/07/2020 12:14 PM PDTdocumented in this encounter Plan of Treatment +--------+---------+ + + + | Date | Type | Specialty | Care Team | Description | +--------+---------+ + + + | 09/23/ | Office | Orthopedic Surgery | Warner Coats, | | | 2019 | Visit | | [address] | | | | | | [place] [address] | | | | | | [phone] | | | | | | | | +--------+---------+ + + + | 11/11/ | Office | Neurology | Dixie Lockhart NP | | 2019 | Visit | | [address] | | | | | | [place] | | | | | | [address] | | | | | | [phone] | | | | | | | | +--------+---------+ + + + documented as of this encounter Visit Diagnoses Not on filedocumented in this encounter"
--- OUTSIDE RECORDS SUMMARY | ~2020-08-30 | XMS | Encounter Summary ---
Demographics + + + | Address | [address] | | | [place] [address] | + + + | Home Phone | | + + + | Preferred Language | Unknown | + + + | Marital Status | | + + + | Bahai Affiliation | Unknown | + + + | Race | White | + + + | Ethnic Group | Not or | + + + Author + + + | Author | [facility] | | | and [place] | + + + | Organization | [facility] | | | [...] Team Providers + +------+ + | Care Portfolio Consultant Name | Role | Phone | + [...] | | | [address] [place] [place], | [address] | hip pain | | | | [place] [address] | [phone] | | | | | [phone] | | | +--------+---------+ + + + [...] OFFICE VISIT Patient: Jacki Molina Medical Record: [id number] Date of Services: 05/07/2020 Referring Doctor: Boni [...] 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 Today, the patient reports she has remained seizure-free. She had her MRI of the brain com pleted which was normal. She has continued on Keppra 700 mg twice daily. Her last Keppra l evel was completed on the lower dose on 02/01/2020 and was at the low end of normal at 12.9. 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 She s tates she is currently out on FMLA. She is also dealing with chronic anxiety and right hip and foot pain. She has a history of elevated ESR and CRP and will be transitioning care to rheumatology in [place]. She is also being seen by orthopedics [...] are intact. There is no dysmetria on [id number]. There are no abnormal or extraneous movements. [...] | | | | | [place] [address] | | | | | | [phone] | | | | | | | | +--------+---------+ + + + | 11/11/ | Office | Neurology | Dixie Lockhart NP | | | 2019 | Visit | | [address] | | | | | | [place] | | | | | | [address] | | | | | | [phone] | | | | | | | | +--------+---------+ + + + + +------+--------+ + + | Name | Type | Priori | Associated Diagnoses | Order Schedule | | | | ty | | | + +------+--------+ + + | Levetiracetam Level | Lab | Routin | Seizure disorder | 1 Occurrences | | | | e | ([facility]) | starting 05/07/2020 | | | | [...] | | | | | uses the [employer] | | | | | | [...] the | | | | | | [employer] assay. | | | | | [...] | | | | | | By: ABIMBOLA | | | | | | [id number] | | | | | | [place], [place] | | | | | | [id number] | | | | | | Director: Nitish Wesley | | | | | | [place], [place] | | | | + + + + + + + + | Specimen | + + | | + + + + + | Narrative | Performed At | + + + | Testing Performed at: [facility]: [id number] [address] | REFERENCE LAB | | [place] [address] | [facility] | | | [place] | + + + + + + + + | Performing | Address | City/State/Zipcode | Phone Number | | Organization | | | | + + + + + | REFERENCE LAB | [address] | [place] | [phone] | | [facility] | | [address] | | + + + + + [...]
--- OUTSIDE RECORDS SUMMARY | ~2020-08-30 | XMS | Encounter Summary ---
Demographics + + + | Address | [address] | | | [place] [address] | + + + | Home Phone | | + + + | Preferred Language | Unknown | + + + | Marital Status | | + + + | Druze Affiliation | Unknown | + + + | Race | White | + + + | Ethnic Group | Not or | + + + Author + + + | Author | [facility] | | | and [place] | + + + | Organization | [facility] | | | [...] Team Providers + +------+ + | Care Hvac Estimator Name | Role | Phone | + +------+ + | Boni Rosales | PCP | | + +------+ + Reason for Visit + + + | Reason | Comments | + + + | Hip Pain | right hip pain | + + + Self-referral (Routine) + +--------+ + + + + | Status | Reason | Specialty | Diagnoses / | Referred By | Referred To | | | | | Procedures | Contact | Contact | + +--------+ + + + + | Pending | | Orthopedic | Diagnoses | | Jorge L, | | Review | | Surgery | Right Hip | | Warner Braswell MD | | | | | IMAGING | | [address] | | | | | RESULTS; no | | [address] [place], | | | | | visitors/mas | | [place] [address] | | | | | k wearing | | Phone: | | | | | informed | | [phone] | | | | | 07/02sc | | Fax: | | | | | Procedures | | [phone] | | | | | OFFICE VISIT | | | | | | | REGULAR | | | + +--------+ + + + + Encounter Details +--------+---------+ + + + | Date | Type | Department | Care Team | Description | +--------+---------+ + + + | 07/10/ | Office | [facility] | Warner Coats, | Tear of right | | 2019 | Visit | OR[facility]O [facility]TS | [address] | [place], | | | | MEDICINE [place] | [place] [address] | subsequent encounter | | | | [address] | [phone] | (Primary Dx) | | | | [place], [place] | | | | | | [address] | | | | | | [phone] | | | +--------+---------+ + + + [...] + + + | Blood Pressure | 116/74 | 07/10/2020 9:01 AM | | | | | PDT | | + + + + + | Pulse | 88 | 07/10/2020 9:01 AM | | | | | PDT | | + + + + + | Temperature | - | - | | + + + + + | Respiratory Rate | - | - | | + + + + + | Oxygen Saturation | 99% | 07/10/2020 9:01 AM | | | | | PDT | | + + + + + | Inhaled Oxygen | - | - | | | Concentration | | | | + + + + + | Weight | 101.7 kg (224 lb 3.2 | 07/10/2020 9:01 AM | | | | oz) | PDT | | + + + + + | Height | 152.4 cm (5') | 07/10/2020 9:01 AM | | | | | PDT | | + + + + + | Body Mass Index | 43.79 | 07/10/2020 9:01 AM | | | | | PDT | | + + + + + documented in this encounter Progress Notes Warner Coats MD - 07/10/2020 9:10 AM PDTFormatting of this note might be different fro m the original. [facility] Service: Orthopedic Surgery Clinic Note History: Jacki Molina is a 30 y.o. female presenting follow-up for her right hip . She continues to complain of pain in the hip unchanged from previous exam. She did have a recent diagnostic injection and see states for several hours she had complete resolution o f her pain and was able to go for a walk without any pain at all. Review of Systems: Review of Systems Constitutional: Positive for activity change. Eyes: Positive for visual disturbance. Musculoskeletal: Positive for arthralgias and gait problem. Allergic/Immunologic: Positive for environmental allergies. Neurological: Positive for seizures. Psychiatric/Behavioral: Positive for decreased concentration and sleep disturbance. The pat ient is nervous/anxious. All other systems reviewed and are negative. OBJECTIVE Vital Signs: Vitals: 07/10/20 0901 BP: 116/74 Pulse: 88 PainSc: 7 Exam: Right hip Skin is intact without erythema, ecchymosis, edema Anterior, posterior and lateral tenderness to palpation Hip flexion 90 degrees with pain Internal rotation 20 degrees with pain External rotation 20 degrees with pain Abduction 30 degrees with pain 5 out of 5 strength with range of motion Pain with Stinchfield Pain with Sacha's test Palpable dorsalis pedis pulse Sensation is intact to light touch Right hip MR arthrogram performed at [facility] on 05-26-20 reports bilateral femoral head a sphericity which may predispose to impingement. Non-detached right acetabula r labral tear 2:00 with normal articular cartilage. ASSESSMENT Right hip acetabular labral tear with cam lesion PLAN I reviewed the diagnosis with the patient and again discussed her imaging results. She did have a labral tear noted on her previous imaging with a possible cam lesion. We discussed treatment options for this particular given that she had excellent relief from the diagnosti c injection. At this time she would like to proceed with surgical management. We discussed arthroscopic right hip labral repair with possible femoroplasty. We discussed the details o f surgery, and the perioperative and postoperative course including the details of postopera tive rehabilitation and recovery. Risks and benefits were also discussed, including but not limited to, infection, bleeding, damage to surrounding tissue including neurovascular injur y,fracture, or damage to cartilage or bone, leading to decreased sensation or function, cont inued or increased pain, hardware failure, instability,stiffness, weakness, failure of the r epair to heal or reinjury, need for future procedure, DVT, PE, cardiac arrest, stroke, loss of life or limb. We also discussed that her risks for a less favorable outcome are somewhat increased given her increased BMI. She expressed understanding, all questions were satisfa ctorily addressed, and she wished to proceed. Consent was obtained. Warner Coats MD has created this entry using [employer] Voice Recognition software a [employer]. The entry has been reviewed and there may still exist sound alike word err ors. documented in this encounter Plan of Treatment +--------+---------+ + + + | Date | Type | Specialty | Care Team | Description | +--------+---------+ + + + | 09/23/ | Office | Orthopedic Surgery | Warner Coats, | | 2019 | Visit | | [address] | | | | | | [place] [address] | | | | | | [phone] | | | | | | | | +--------+---------+ + + + | 11/11/ | Office | Neurology | Dixie Lockhart NP | | 2019 | Visit | | [address] [place] | | | | | | [place] | | | | | | [address] | | | | | | [phone] | | | | | | | | +--------+---------+ + + + documented as of this encounter Visit Diagnoses + + | Diagnosis | + + | Tear of right acetabular labrum, subsequent encounter - Primary | + + documented in this encounter"
--- OUTSIDE RECORDS SUMMARY | ~2020-08-30 | XMS | Encounter Summary ---
Demographics + + + | Address | [address] | | | [place] [address] | + + + | Home Phone | | + + + | Preferred Language | Unknown | + + + | Marital Status | | + + + | Adventist Affiliation | Unknown | + + + | Race | White | + + + | Ethnic Group | Not or | + + + Author + + + | Author | [facility] | | | and [place] | + + + | Organization | [facility] | | | [...] Team Providers + +------+ + | Care Supervisor Receiving And Processing Name | Role | Phone | + +------+ + | Boni Rosales | PCP | | + +------+ + Reason for Visit +--------+--------+ + | Reason | Onset | Comments | | | Date | | +--------+--------+ + | Other | 03/14/ | Employee Status Report | | | 2020 | | +--------+--------+ + Encounter Details +--------+ + + + + | Date | Type | Department | Care Team | Description | +--------+ + + + + | 03/14/ | Telephone | [facility] | Nerissa Gongora RN | Other (Employee | | 2020 | | HOSPITAL NEUROLOGY | | Status Report) | | | | CLINIC [address] | | | | | | [address] [place], | | | | | | [place] [address] | | | | | | [phone] | | | +--------+ + + + [...] Telephone Encounter - Nerissa Gongora RN - 03/14/2020 12:18 PM PDTPatient requests that the form be filled out and faxed to [phone]. Faxed as requested. elephone Encounter - Nerissa Gongora RN - 03/14 11:38 AM PDTLeft a message to call back. documented in this encounter Plan of Treatment +--------+---------+ + + + | Date | Type | Specialty | Care Team | Description | +--------+---------+ + + + | 09/23/ | Office | Orthopedic Surgery | Warner Coats, | | 2019 | Visit | | [address] | | | | | | [place] [address] | | | | | | [phone] | | | | | | | | +--------+---------+ + + + | 11/11/ | Office | Neurology | Dixie Lockhart NP | | 2019 | Visit | | [address] [place] | | | | | | [place] | | | | | | [address] | | | | | | [phone] | | | | | | | | +--------+---------+ + + + documented as of this encounter Visit Diagnoses Not on filedocumented in this encounter"
--- OUTSIDE RECORDS SUMMARY | ~2020-08-30 | XMS | Encounter Summary ---
Demographics + + + | Address | [address] | | | [place] [address] | + + + | Home Phone | | + + + | Preferred Language | Unknown | + + + | Marital Status | | + + + | Judaism Affiliation | Unknown | + + + | Race | White | + + + | Ethnic Group | Not or | + + + Author + + + | Author | [facility] | | | and [place] | + + + | Organization | [facility] | | | [...] Team Providers + +------+ + | Care Gear And Spline Grinder Name | Role | Phone | + +------+ + | Boni Rosales | PCP | | + +------+ + Reason for Visit +--------+--------+ + | Reason | Onset | Comments | | | Date | | +--------+--------+ + | Other | 06/30/ | | | | 2020 | | +--------+--------+ + Encounter Details +--------+ + + + + | Date | Type | Department | Care Team | Description | +--------+ + + + + | 06/30/ | Telephone | [facility] | Warner Coats, | Other | | 2019 | | [facility] | MD [address] | | | | | MEDICINE [place] | [place] [address] | | | | | [address] | [phone] | | | | | [place], [place] | | | | | | [address] | | | | | | [phone] | | | +--------+ + + + [...] this encounter Miscellaneous Notes Telephone Encounter - Tiny Arizmendi Laminating Machine Operator - 06/30/2020 12:41 PM PDTScreening N ot Done Called patient twice LMElectronically signed by Tiny Arizmendi Laminating Machine Operator at 0 06/30/2020 12:43 PM PDTdocumented in this encounter Plan of Treatment +--------+---------+ + + + | Date | Type | Specialty | Care Team | Description | +--------+---------+ + + + | 09/23/ | Office | Orthopedic Surgery | Warner Coats, | | | 2019 | Visit | | [address] | | | | | | [place] [address] | | | | | | [phone] | | | | | | | | +--------+---------+ + + + | 11/11/ | Office | Neurology | Dixie Lockhart NP | | | 2019 | Visit | | [address] | | | | | | [place] | | | | | | [address] | | | | | | [phone] | | | | | | | | +--------+---------+ + + + documented as of this encounter Visit Diagnoses Not on filedocumented in this encounter"
--- OUTSIDE RECORDS SUMMARY | ~2020-08-30 | XMS | Encounter Summary ---
Demographics + + + | Address | [address] | | | [place] [address] | + + + | Home Phone | | + + + | Preferred Language | Unknown | + + + | Marital Status | | + + + | Buddhism Affiliation | Unknown | + + + | Race | White | + + + | Ethnic Group | Not or | + + + Author + + + | Author | [facility] | | | and [place] | + + + | Organization | [facility] | | [...] Team Providers + +------+ + | Care Checker Cashier Name | Role | Phone | + +------+ + | Boni Rosales | PCP | | + +------+ + Encounter Details +--------+ + + + + | Date | Type | Department | Care Team | Description | +--------+ + + + + | 02/06/ | Hospital | [facility] | Pam Kidd | Recurrent syncope; | | 2020 | Encounter | HOSPITAL RESPIRATORY | MD [address] | Seizure disorder | | | | THERAPY [address] | [place] | ([facility]) | | | | [address] [place], [place] | [place], [place] [address] | | | | | [address] | [phone] | | | | | [phone] | | | +--------+ + + + [...] record length of 20 minutes. The pat juan luis is a 29 y.o. year-old female with [...] | | 2019 | Visit | | MD [address] | | | | | | [place] [address] | | | | | | [phone] | | | | | | | | +--------+---------+ + + + | 11/11/ | Office | Neurology | Dixie Lockhart NP | | | 2019 | Visit | | [address] [place] | | | | | | [place] | | | | | | [address] | | | | | | [phone] | | | | | | | [...] the | | | | PDT | ([facility]) | results section. | + +--------+ + [...] of this patient. | | | Pam Kidd MD02/07/202011:21 AM Electronically signed | | + + + documented in this encounter Visit Diagnoses + + | Diagnosis | + + | Recurrent syncope | + + | Seizure disorder (HCC) Unspecified epilepsy without mention of intractable epilepsy | + + documented in this encounter"
--- OUTSIDE RECORDS SUMMARY | ~2020-08-30 | XMS | Encounter Summary ---
Demographics + + + | Address | [address] | | | [place] [address] | + + + | Home Phone | | + + + | Preferred Language | Unknown | + + + | Marital Status | | + + + | Jainism Affiliation | Unknown | + + + | Race | White | + + + | Ethnic Group | Not or | + + + Author + + + | Author | [facility] | | | and [place] | + + + | Organization | [facility] | | [...] Team Providers + +------+ + | Care Slab Lifting Engineer Name | Role | Phone | + +------+ + | Boni Rosales | PCP | | + +------+ + Reason for Visit + + + | Reason | Comments | + + + | Follow-up | Recurrent syncope | + + + Encounter Details +--------+---------+ + + + | Date | Type | Department | Care Team | Description | +--------+---------+ + + + | 02/27/ | Office | [facility] | Pam Kidd | Seizure disorder | | 2020 | Visit | HOSPITAL NEUROLOGY | MD [address] | ([facility]) (Primary Dx) | | | | CLINIC [address] | [place] | | | | | [address] [place], | [place] [address] | | | | | [place] [address] | [phone] | | | | | [phone] | | | +--------+---------+ + + + [...] + + + | Blood Pressure | - | - | | + + + + + | Pulse | 102 | 02/28/2020 9:44 AM | | | | | PDT | | + + + + + | Temperature | - | - | | + + + + + | Respiratory Rate | 16 | 02/28/2020 9:44 AM | | | | | PDT | | + + + + + | Oxygen Saturation | 98% | 02/28/2020 9:44 AM | | | | | PDT | | + + + + + | Inhaled Oxygen | - | - | | | Concentration | | | | + + + + + | Weight | 97.8 kg (215 lb 9.6 | 02/28/2020 9:44 AM | | | | oz) | PDT | | + + + + + | Height | 152.4 cm (5') | 02/28/2020 9:44 AM | | | | | PDT | | + + + + + | Body Mass Index | 42.11 | 02/28/2020 9:44 AM | | | | | PDT | | + + + + + documented in this encounter Progress Notes Pam Kidd MD - 02/28/2020 10:00 AM PDT Patient: Jacki Molina Medical Record: [id number] Date of Services: 02/28/2020 Referring Doctor: Boni Rosales Chief Complaint Patient presents with Follow-up Recurrent syncope HISTORY OF PRESENT ILLNESS: The patient is a 29-year-old female who comes back to the neurology clinic today for a foll ow-up regarding her episodes of syncope which may be seizures. I first met her on 02/01/2020. She has had routine and 24-hour EEGs which were normal. She has not had her brain MRI as yet. She is currently on Keppra 500 mg twice daily. She did have a level after her initial visi t which was in the low therapeutic range. She is here today as yesterday, she had an episode at work. She apparently fell and starte d shaking. She also bit the inside of her cheek. However, she was somewhat aware during th e episode and was able to discern the voices around her. 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 She came today with an FMLA form that I had to fill out so she could go back to work. REVIEW OF SYSTEMS: General: Positive for weight loss HEENT: Positive for vision changes and tinnitus Cardiovascular: Positive for dizziness Respiratory: No shortness of breath Gastrointestinal: Possible heartburn Musculoskeletal: Positive for joint pains and stiffness Skin: Positive for dryness and itchiness Hematologic: No bruising Neurologic: Positive for headaches Psychiatric: Positive for anxiety Genitourinary: Positive for nocturia Past Medical History: Diagnosis Date Anxiety Depression Irritable bowel syndrome Past Surgical History: Procedure Laterality Date SINUS SURGERY Current Outpatient Medications Medication Sig Dispense Refill albuterol 90 mcg/puff inhaler Inhale 2 puffs into the lungs every 6 hours as needed for Wheezing. busPIRone (BUSPAR) 7.5 MG tablet Take 15 mg by mouth Twice daily as needed. dexamethasone (DECADRON) 4 mg tablet Take 4 mg by mouth Daily as needed. DULoxetine (CYMBALTA) [address] capsule Take 60 mg by mouth Daily. EPINEPHrine auto-injector 0.3 mg/0.3 mL injection Inject 0.3 mg into the muscle as need ed for Anaphylaxis. fexofenadine (JOSE D ALLERGY) 180 mg tablet Take 180 mg by mouth Daily. levETIRAcetam (KEPPRA) 750 MG tablet Take 1 tablet by mouth 2 times daily. 60 tablet 5 No current facility-administered medications for this visit. Allergies Allergen Reactions Narcotic Pain Medications [Morphine And Related] Nausea And Vomiting Oleoresin Capsicum [Capsicum] Swelling Sulfa Antibiotics Hives Social History Socioeconomic History Marital status: Single Spouse name: Not on file Number of children: Not on file Years of education: Not on file Highest education level: Not on file Occupational History Not on file Social Needs Financial resource strain: Not on file Food insecurity: Worry: Not on file Inability: Not on file Transportation needs: Medical: Not on file Non-medical: Not on file Tobacco Use Smoking status: Former Smoker Packs/day: 0.10 Years: 1.00 Pack years: 0.10 Types: Cigarettes Smokeless tobacco: Never Used Substance and Sexual Activity Alcohol use: Not Currently Alcohol/week: 0.0 standard drinks Drug use: Not Currently Sexual activity: Not on file Lifestyle Physical activity: Days per week: Not on file Minutes per session: Not on file Stress: Not on file Relationships Social connections: Talks on phone: Not on file Gets together: Not on file Attends latter day service: Not on file Active member of club or organization: Not on file Attends meetings of clubs or organizations: Not on file Relationship status: Not on file Intimate partner violence: Fear of current or ex partner: Not on file Emotionally abused: Not on file Physically abused: Not on file Forced sexual activity: Not on file Other Topics Concern Not on file Social History Narrative Not on file Family History Problem Relation Age of Onset Anemia Mother Other (see comment) Mother ChronicDVT, PE's Other (see comment) Father WPW Other (see comment) Paternal Aunt WPW Hypertension Maternal Grandmother Hypotension Maternal Grandfather PHYSICAL EXAMINATION: Pulse 102 | Resp 16 | Ht 1.524 m (5') | Wt 97.8 kg (215 lb 9.6 oz) | SpO2 98% | BMI 42 .11 kg/m General appearance: Well kept, well nourished, in no acute distress Neck is supple. Lungs are clear. Heart sounds are within normal limits. Abdomen is soft and non-tender, There is no extremity cyanosis or edema. NEUROLOGIC EXAMINATION: MENTAL STATUS: The patient is awake, alert, and oriented to time, place, and person. [facility] is fluent. Memory, attention, comprehension, and general fund of knowledge are intact. CRANIAL NERVES: Funduscopy revealed distinct disc margins. There are no exudates or hemor rhages noted. Pupils are 3-4 mm, equal and reactive to light and accommodation. Extraocular muscle movements are intact. There are no visual field cuts. There is no nystagmus. There is no facial asymmetry. Facial sensation is intact. Palate elevates symmetrically. Streng th in the trapezius and sternocleidomastoid muscles is normal. Tongue is midline on protrusi on. MOTOR EXAMINATION: Strength is 5/5 throughout. Tone is normal. SENSORY EXAMINATION: Intact to light touch and pinprick. DEEP TENDON REFLEXES: 2+ and symmetric. PLANTAR RESPONSES: Downgoing bilaterally GAIT: Gait and station are normal. CEREBELLAR EXAMINATION: There is no dysmetria on [id number] test. IMPRESSION: 1. Episodes of recurrent syncope, possibly seizures PLAN AND RECOMMENDATIONS: I filled out the patient's [place] paperwork today and gave it back to her. At this point, she may go back to work and resume her previous responsibilities and duties. She was encouraged to call [facility] to schedule her brain MRI. I will now increase her Keppra dose to 750 mg twice daily. I still am not convinced that these are real seizures. I told the patient that patients ty pically bite her tongue's and not the cheeks during seizure and if tongue biting occurs, it would be the sides of the tongue and not the tip. The patient was again reminded that she will be unable to drive a motor vehicle for 90 days , starting from 02/27/2020. She was also told that she should not operate heavy machinery. If she continues to have recurrent episodes, I will consider referring her to [facility] for long -term video EEG monitoring. We will see her back in April. She has an appointment to see ARTHUR Mathis. More than 50% of this 30 -minute visit was spent on [id number] with the patient, discussi ng her diagnosis and educating her on the symptoms and self-care for seizures Thank you for the opportunity to participate in the care of this patient. Pam Kidd MD 02/28/2020 10:05 AM Electronically signed This note was transcribed using voice recognition software. There may be speech recognitio n errors which escaped detection during review. documented in thi s encounter Plan of Treatment +--------+---------+ + + + | Date | Type | Specialty | Care Team | Description | +--------+---------+ + + + | 09/23/ | Office | Orthopedic Surgery | Warner Coats, | | 2019 | Visit | | [address] | | | | | | [place] [address] | | | | | | [phone] | | | | | | | | +--------+---------+ + + + | 11/11/ | Office | Neurology | Dixie Lockhart NP | | 2019 | Visit | | [address] | | | | | | [place] | | | | | | [address] | | | | | | [phone] | | | | | | | | +--------+---------+ + + + documented as of this encounter Visit Diagnoses + + | Diagnosis | + + | Seizure disorder (HCC) - Primary Unspecified epilepsy without mention of intractable | | epilepsy | + + documented in this encounter"
--- OUTSIDE RECORDS SUMMARY | ~2020-08-30 | XMS | Encounter Summary ---
Demographics + + + | Address | [address] | | | [place] [address] | + + + | Home Phone | | + + + | Preferred Language | Unknown | + + + | Marital Status | | + + + | Faith Affiliation | Unknown | + + + | Race | White | + + + | Ethnic Group | Not or | + + + Author + + + | Author | [facility] | | | and [place] | + + + | Organization | [facility] | | | [...] Team Providers + +------+ + | Care Instrument Man Name | Role | Phone | + +------+ + | Boni Rosales | PCP | | + +------+ + Reason for Referral Evaluate & Treat (Routine) + + + + + + + | Status | Reason | Specialty | Diagnoses / | Referred By | Referred To | | | | | Procedures | Contact | Contact | + + + + + + + | Authorized | Specialty | Physical | Diagnoses | Jonas Trammell | | | Services | Therapy | Tear of | Hong | [place] | | | Required | | right | JORDAN Bermudez | PHYSICAL | | | | | acetabular | [address] | THERAPY - | | | | | labrum, | ST | [place] | | | | | subsequent | [place], [place] | [address] | | | | | encounter | [address] | ANDREZ ANGELIC | | | | | | Phone: | 15 | | | | | | [phone] | [place], [place] | | | | | | Fax: | [address] | | | | | | [phone] | Phone: | | | | | | | [phone] | | | | | | | Fax: | | | | | | | [phone] | + + + + + + + Reason for Visit + + + | Reason | Comments | + + + | Post-op Exam | Tear of right acetabular labrum, | + + + Self-referral (Routine) + [...] | | RESULTS; no | | [address] [place], | | | | | visitors/mas | | [place] [address] | | | | | k wearing | | Phone: | | | | | informed | | [phone] | | | | | 07/02sc | | Fax: | | | | | Procedures | | [phone] | | | | | OFFICE VISIT | | | | | | | REGULAR | | | + +--------+ + + + + Encounter Details +--------+---------+ + + + | Date | Type | Department | Care Team | Description | +--------+---------+ + + + | 08/26/ | Office | [facility] | Warner Coats, | Tear of right | | 2019 | Visit | [facility] | [address] | acetabular labrum, | | | | MEDICINE [facility]HELE | [place] [address] | subsequent encounter | | | | [address] | [phone] | (Primary Dx); | | | | [place], [place] | | Status post hip | | | | [address] | | surgery | | | | [phone] | | | +--------+---------+ + + + [...] + + + | Blood Pressure | 122/70 | 08/26/2020 2:02 PM | | | | | PDT | | + + + + + | Pulse | 102 | 08/26/2020 2:02 PM | | | | | PDT | | + + + + + | Temperature | - | - | | + + + + + | Respiratory Rate | 20 | 08/26/2020 2:02 PM | | | | | PDT | | + + + + + | Oxygen Saturation | 94% | 08/26/2020 2:02 PM | | | | | PDT | | + + + + + | Inhaled Oxygen | - | - | | | Concentration | | | | + + + + + | Weight | 101.2 kg (223 lb) | 08/26/2020 2:02 PM | | | | | PDT | | + + + + + | Height | - | - | | + + + + + | Body Mass Index | 43.55 | 08/15/2020 3:23 PM | | | | | PDT | | + + + + + documented in this encounter Progress Notes Hong Trammell PA - 08/26/2020 1:35 PM PDTFormatting of this note might be differen t from the original. [facility] Service: Orthopedic Surgery Post Op Note Procedure: Right hip arthroscopic labral repair Date of Procedure: 08/15/2020 Subjective: Jacki Molina is seen today for their post operative followup visit.. She states she is still having postoperative pain but she says it is different than prior t o surgery. She is happy with her early progress and that the pain prior to surgery is no lo nger there. She states she has crutches but has rarely use them as she feels good. She is having some numbness over the anterolateral aspect of her thigh but does not interfere with any motor control. She has no concerns. Objective: Wt Readings from Last 1 Encounters: 08/15/20 99.8 kg (220 lb 0.3 oz) Temp Readings from Last 1 Encounters: 08/15/20 36.5 C (97.7 F) (Oral) BP Readings from Last 1 Encounters: 08/15/20 135/85 Pulse Readings from Last 1 Encounters: 08/15/20 113 Exam: Right hip Incisions are healing well without signs of infection. Sutures were removed and Steri-Strip dressing applied Palpable radial pulse Sensation intact to light touch Assessment & Plan: Dr. Coats and I have seen the patient. I discussed the details and images of the surgery w ith the patient. We discussed with her that she should remain touchdown weightbearing for an other week and then can slowly begin to advance her weightbearing 25 percent every 3-5 days. We have provided her a prescription for physical therapy today. We also discussed pain susan gempraneeth. We will plan to see her back in 4 weeks. All questions were answered and they unders tood this plan. Hnog Trammell PA-C has created this entry using [employer] Voice Recognition software and [employer] macros. The entry has been reviewed and there may still exist sound alike word e rrors. documented in this encounter Plan of Treatment +--------+---------+ + + + | Date | Type | Specialty | Care Team | Description | +--------+---------+ + + + | 09/23/ | Office | Orthopedic Surgery | Warner Coats, | | | 2019 | Visit | | [address] | | | | | | [place] [address] | | | | | | [phone] | | | | | | | | +--------+---------+ + + + | 11/11/ | Office | Neurology | Dixie Lockhart NP | | | 2019 | Visit | | [address] [place] | | | | | | [place] | | | | | | [address] | | | | | | [phone] | | | | | | | | +--------+---------+ + + + + + +--------+ + + | Name | Type | Priori | Associated Diagnoses | Order Schedule | | | | ty | | | + + +--------+ + + | Ambulatory Referral | Outpatient | Routin | Tear of right | Ordered: 08/26/2020 | | to [facility] | Referral | e | acetabular labrum, | | | Therapy | | | subsequent encounter | | + + +--------+ + + documented as of this encounter Visit Diagnoses + + | Diagnosis | + + | Tear of right acetabular labrum, subsequent encounter - Primary | + + | Status post hip surgery | + + documented in this encounter"
--- OUTSIDE RECORDS SUMMARY | ~2020-08-30 | XMS | Encounter Summary ---
Demographics + + + | Address | [address] | | | [place] [address] | + + + | Home Phone | | + + + | Preferred Language | Unknown | + + + | Marital Status | | + + + | Zoroastrian Affiliation | Unknown | + + + | Race | White | + + + | Ethnic Group | Not or | + + + Author + + + | Author | [facility] | | | and [place] | + + + | Organization | [facility] | | | [...] Team Providers + +------+ + | Care Cosmetology Instructor Name | Role | Phone | + +------+ + | Boni Rosales | PCP | | + +------+ + Reason for Visit + +--------+ + | Reason | Onset | Comments | | | Date | | + +--------+ + | Screening For | 07/09/ | | | Communicable Disease | 2020 | | + +--------+ + Encounter Details +--------+ + + + + | Date | Type | Department | Care Team | Description | +--------+ + + + + | 07/09/ | Telephone | [facility] | Warner Coats, | Screening For | | 2019 | | [facility] | [address] | Communicable Disease | | | | MEDICINE [place] | [place] [address] | | | | | [address] | [phone] | | | | | [place], [place] | | | | | | [address] | | | | | | [phone] | | | +--------+ + + + [...] Miscellaneous Notes Telephone Encounter - Tiny Arizmendi Spare Person - 07/09/2020 9:23 AM PDTScreening N ot Done LM Tdocumented in this encounter Plan of Treatment +--------+---------+ + + + | Date | Type | Specialty | Care Team | Description | +--------+---------+ + + + | 09/23/ | Office | Orthopedic Surgery | Warner Coats, | | | 2019 | Visit | | [address] | | | | | | [place] [address] | | | | | | [phone] | | | | | | | | +--------+---------+ + + + | 11/11/ | Office | Neurology | Dixie Lockhart NP | | 2019 | Visit | | [address] | | | | | | [place] | | | | | | [address] | | | | | | [phone] | | | | | | | | +--------+---------+ + + + documented as of this encounter Visit Diagnoses Not on filedocumented in this encounter"
--- OUTSIDE RECORDS SUMMARY | ~2020-08-30 | XMS | Encounter Summary ---
Demographics + + + | Address | [address] | | | [place] [address] | + + + | Home Phone | | + + + | Preferred Language | Unknown | + + + | Marital Status | | + + + | Episcopalian Affiliation | Unknown | + + + | Race | White | + + + | Ethnic Group | Not or | + + + Author + + + | Author | [facility] | | | and [place] | + + + | Organization | [facility] | | | [...] Team Providers + +------+ + | Care Internet Database Specialist Name | Role | Phone | + +------+ + | Boni Rosales | PCP | | + +------+ + Reason for Visit +---------+--------+ + | Reason | Onset | Comments | | | Date | | +---------+--------+ + | Results | 03/10/ | | | | 2020 | | +---------+--------+ + Encounter Details +--------+ + + + + | Date | Type | Department | Care Team | Description | +--------+ + + + + | 03/10/ | Telephone | [place] [facility] | Pam Kidd | Results | | 2020 | | [facility] | MD Michaelle [address] | | | | | CL[address] | [place] | | | | | DR STEPHANIE EUBANKS, | [place] [address] | | | | | [place] [address] | [phone] | | | | | [phone] | | | +--------+ + + + [...] Telephone Encounter - Nerissa Gongora RN - 03/10/2020 2:40 PM PDTJustin completed the MRI ordered at [facility] on 03/05/20. Please call [facility] to obtain the brain MRI report. Thank you! elephone En counter - Ute Sanchez - 03/10/2020 2:12 PM PDTPatient called to see if her MRI resul ts are in? [phone] signed by Ute Sanchez at 03/10/2020 2:13 PM PDT documented in this encounter Plan of Treatment +--------+---------+ + + + | Date | Type | Specialty | Care Team | Description | +--------+---------+ + + + | 09/23/ | Office | Orthopedic Surgery | Warner Coats, | | 2019 | Visit | | [address] | | | | | | [place] [address] | | | | | | [phone] | | | | | | | | +--------+---------+ + + + | 11/11/ | Office | Neurology | Dixie Lockhart NP | | 2019 | Visit | | [address] | | | | | | [place] | | | | | | [address] | | | | | | [phone] | | | | | | | | +--------+---------+ + + + documented as of this encounter Visit Diagnoses Not on filedocumented in this encounter"
--- OUTSIDE RECORDS SUMMARY | ~2020-08-30 | XMS | Encounter Summary ---
Demographics + + + | Address | [address] | | | [place] [address] | + + + | Home Phone | | + + + | Preferred Language | Unknown | + + + | Marital Status | | + + + | Evangelical Affiliation | Unknown | + + + | Race | White | + + + | Ethnic Group | Not or | + + + Author + + + | Author | [facility] | | | and [place] | + + + | Organization | [facility] | | | [...] Team Providers + +------+ + | Care Block Sealer Name | Role | Phone | + [...] Closed | | Radiology | Diagnoses | Jorge L | Thelma Xray | | | | | Acute right | Warner Braswell MD | [address] | | | | | hip pain | [address] | | | | | Procedures | ST | [place], [place] | | | | | FL Asp | [place], [place] | [address] | | | | | and/or Inj | [address] | Phone: | | | | | Major Joint | Phone: | [phone] | | | | | Right | [phone] | Fax: | | | | | | Fax: | [phone] | | | | | | [phone] | | +--------+--------+ + + + + Reason for Visit + + + | Reason | Comments | + + + | Hip Pain | | + + + Surgery OP (Routine) +--------+ + + + + + | Status | Reason | Specialty | Diagnoses / | Referred By | Referred To | | | | | Procedures | Contact | Contact | +--------+ + + + + + | Closed | Second | Orthopedic | Diagnoses | | Medhat [facility] Osm | | | Opinion | Surgery | Other | [place], | [place] [address] | | | | | sprain of | Thao K, | [address] | | | | | right hip, | PA[address]C [address] | [place], [place] | | | | | initial | [address] | [address] | | | | | encounter | Ave | Phone: | | | | | Evaluate for | [place], | [phone] | | | | | possible | [place] | Fax: | | | | | Hip | [address] | [phone] | | | | | Arthroscopy | Phone: | | | | | | procedure | [phone] | | | | | | | Fax: | | | | | | | [phone] | | +--------+ + + + + + Encounter Details +--------+---------+ + + + | Date | Type | Department | Care Team | Description | +--------+---------+ + + + | 07/01/ | Office | [facility] | Warner Coats, | Acute right hip pain | | 2020 | Visit | [facility] | [address] | (Primary Dx) | | | | MEDICINE [facility]LE | [place] [address] | | | | | [address] | [phone] | | | | | [place], [place] | | | | | | [address] | | | | | | [phone] | | | +--------+---------+ + + + [...] + | Blood Pressure | 122/70 | 07/01/2020 8:26 AM | | | | | PDT | | + + + + + | Pulse | 82 | 07/01/2020 8:26 AM | | | | | PDT | | + + + + + | Temperature | 37.1 C (98.7 F) | 07/01/2020 8:26 AM | | | | | PDT | | + + + + + | Respiratory Rate | 20 | 07/01/2020 8:26 AM | | | | | PDT | | + + + + + | Oxygen Saturation | 98% | 07/01/2020 8:26 AM | | | | | PDT | | + + + + + | Inhaled Oxygen | - | - | | | Concentration | | | | + + + + + | Weight | 100.5 kg (221 lb 9.6 | 07/01/2020 8:26 AM | | | | oz) | PDT | | + + + + + | Height | 152.4 cm (5') | 07/01/2020 8:26 AM | | | | | PDT | | + + + + + | Body Mass Index | 43.28 | 07/01/2020 8:26 AM | | | | | PDT | | + + + + + documented in this encounter Progress Notes Warner Coats MD - 07/01/2020 8:20 AM PDTFormatting of this note might be different luis ramires the original. [facility] Service: Orthopedic Surgery History and Physical Exam Chief complaint: Right hip pain Subjective: Jacki Molina is a [...] Medical History: Past Medical History: Diagnosis Date Anxiety Depression Irritable bowel syndrome Past Surgical History: Past Surgical History: Procedure Laterality Date SINUS SURGERY Medications: Current Outpatient Medications: albuterol 90 mcg/puff inhaler, Inhale 2 puffs into the lungs every 6 hours as needed f or Wheezing., Disp: , Rfl: busPIRone (BUSPAR) 7.5 MG tablet, Take 2 tablets (15 mg total) by mouth 3 times daily, Disp: 60 tablet, Rfl: 0 dexamethasone (DECADRON) 4 mg tablet, Take 4 mg by mouth Daily as needed., Disp: , Rfl : DULoxetine (CYMBALTA) [address] capsule, Take 3 capsules (90 mg total) by mouth Daily, Disp: 90 capsule, Rfl: EPINEPHrine auto-injector 0.3 mg/0.3 mL injection, Inject 0.3 mg into the muscle as ne eded for Anaphylaxis., Disp: , Rfl: fexofenadine (JOSE D ALLERGY) 180 mg tablet, Take 180 mg by mouth Daily., Disp: , Rfl : levETIRAcetam (KEPPRA) 750 MG tablet, Take 1 tablet by mouth 2 times daily., Disp: 60 tablet, Rfl: 5 medroxyPROGESTERone (DEPO-PROVERA) 150 mg/mL injection (vial), , Disp: , Rfl: Allergies: Allergies Allergen Reactions Narcotic Pain Medications [Morphine And Related] Nausea And Vomiting Oleoresin Capsicum [Capsicum] Swelling Sulfa Antibiotics Hives Review of Systems: Review of Systems Constitutional: Positive for activity change. Eyes: Positive for visual disturbance. Musculoskeletal: Positive for arthralgias, gait problem and joint swelling. Allergic/Immunologic: Positive for environmental allergies. Neurological: Positive for seizures. Psychiatric/Behavioral: Positive for sleep disturbance. The patient is nervous/anxious. Objective: Vital Signs: BP 122/70 | Pulse 82 | Temp 37.1 C (98.7 F) | Resp 20 | Ht 1.524 m (5') | Wt 100.5 kg (221 lb 9.6 oz) | SpO2 98% | BMI 43.28 kg/m 1.524 m (5') 100.5 kg (221 lb 9.6 oz) Body mass index is 43.28 kg/m. Exam: Gen: No acute distress, pleasant and cooperative with examination. Alert and oriented. Head: Normocephalic, conjugate gaze Neck: Supple Resp: Clear unlabored breathing Cardiac: Palpable peripheral pulses Gait: Normal Right hip Skin is intact without erythema, [...] Imaging: Right hip MR arthrogram performed at [facility] on 05-26-20 reports b ilateral femoral head a sphericity which may predispose to impingement. Non-detached right acetabular labral tear 2:00 with normal articular cartilage. Assessment: Right hip acetabular labral tear Plan: I reviewed the imaging with the patient and discussed her diagnosis. She does appea r to have a possible acetabular labral tear of the right hip. We discussed treatment option s today. She has previously failed conservative management including physical therapy and a nti-inflammatories. Given this I would recommend proceeding with a diagnostic injection. Judy jean discussed that this will help us determine whether the labrum may be the cause of her pain . I would recommend that she record her pain improvement for the first 2 to 12 hours. We d iscussed that this is a diagnostic tool and non-curative. We would plan to see her back fol lowing the injection to discuss treatment options based on the findings. All questions were answered and she understood this plan. Warner Coats MD has created this entry using [employer] Recognition software a [employer]. The entry has been reviewed and there [...] [address] | | | | | | [place] [address] | | | | | | [phone] | | | | | | | | +--------+---------+ + + + | 11/11/ | Office | Neurology | Dixie Lockhart NP | | 2019 | Visit | | [address] [place] | | | | | | [place] | | | | | | [address] | | | | | | [phone] | | | | | | | | +--------+---------+ + + + documented as of this encounter Results FL Asp and/or Inj Major Joint Right (07/08/2020 2:22 PM PDT) + + | Specimen | + + | | + + + + + | Impressions | Performed At | + + + | Successful therapeutic right hip local anesthetic injection with | [facility] | | improvement in pain. Final Report Signed by: Adelaida Zheng, | | | Aarti Sign Date/Time: 07/08/2020 2:47 PM | | + + + + + + | Narrative | Performed At | + + + | FLUOROSCOPICALLY GUIDED RIGHT HIP INJECTION CLINICAL | [facility] | | INFORMATION: Hip pain since childbirth, began having seizures and has | | | had some weight falls onto her right hip also. COMPARISON: | | | None PROCEDURE: The procedure was explained to the patient. All | | | questions answered and written informed consent obtained. A | | | discussion of the risks of the procedure included a discussion of | | | rare joint infection. The patient was advised to seek immediate | | | medical attention if a painful red joint occurred after the injection | | | procedure. A suitable site was marked, prepped and draped in | | | usual sterile manner. A 22 gauge needle was advanced down into the | | | joint and its intraarticular position confirmed with an injection of | | | 2 mL of Omnipaque 300. This was followed by injection of a solution | | | containing 5 mL ropivacaine 0.5%. Fluoro Time: 0.3 minute(s) | | | Number of images: 2 Air Kerma: 1.60 mGy The patient tolerated the | | | procedure well and no immediate complications were evident. | | | Pre-procedure pain level: 5/10 Post-procedure pain level: 0/10 | | + + + + + | Procedure Note | + + | Rafat, [id number] - 07/08/2020 2:50 PM PDT | | FLUOROSCOPICALLY GUIDED RIGHT HIP INJECTION | | | | CLINICAL INFORMATION: | | Hip pain since childbirth, began having seizures and has had some | | weight falls onto her right hip also. | | | | COMPARISON: | | None | | | | PROCEDURE: | | The procedure was explained to the patient. All questions answered and | | written informed consent obtained. A discussion of the risks of the | | procedure included a discussion of rare joint infection. The patient | | was advised to seek immediate medical attention if a painful red joint | | occurred after the injection procedure. | | | | A suitable site was marked, prepped and draped in usual sterile manner. | | A 22 gauge needle was advanced down into the joint and its | | intraarticular position confirmed with an injection of 2 mL of | | Omnipaque 300. This was followed by injection of a solution containing | | 5 mL ropivacaine 0.5%. | | | | Fluoro Time: 0.3 minute(s) Number of images: 2 Air Kerma: 1.60 mGy | | | | The patient tolerated the procedure well and no immediate complications | | were evident. | | | | Pre-procedure pain level: 5/10 | | Post-procedure pain level: 0/10 | | | | | | IMPRESSION: | | Successful therapeutic right hip local anesthetic injection with | | improvement in pain. | | | | | | | | Final Report Signed by: Adelaida Zheng Pushpender | | Sign Date/Time: 07/08/2020 2:47 PM | + + + +---------+ + + | Performing | Address | City/State/Zipcode | Phone Number | | Organization | | | | + +---------+ + + | [facility] | | | | + +---------+ + + documented in this encounter Visit Diagnoses + + | Diagnosis | + + | Acute right hip pain - Primary Pain in joint, pelvic region and thigh | + + documented in this encounter"
--- OUTSIDE RECORDS SUMMARY | ~2020-08-30 | XMS | Clinical Summary ---
Demographics + + + | Address | [address] | | | [place] [address] | + + + | Home Phone [...] Team Providers + +------+ + | Care Compliance Attorney Name | Role | Phone | + +------+ + | Boni Rosales | PCP | | + +------+ + Allergies + + + + + + | Active Allergy | Reactions | Severity | Noted | Comments | | | | | Date | | + + + + + + | Morphine And Related | Nausea And Vomiting | High | 12/11/19 | | | | | | 20 | | + + + + + + | Capsicum | Anaphylaxis | High | 12/11/19 | | | | | | 20 | | + + + + + + | Sulfa Antibiotics | Hives | High | 12/11/19 | | | | | | 20 | | + + + + + + Medications + + + +---------+------+------+-------+ | Medication | Sig | Dispensed | Refills | Star | End | Statu | | | | | | t | Date | s | | | | | | Date | | | + + + +---------+------+------+-------+ | fexofenadine | Take 180 mg by mouth | | 0 | | | Activ | | (JOSE D ALLERGY) | Daily. | | | | | e | | 180 mg tablet | | | | | | | + + + +---------+------+------+-------+ | dexamethasone | Take 4 mg by mouth | | 0 | | | Activ | | (DECADRON) 4 mg | Daily as needed. | | | | | e | | tablet | | | | | | | + + + +---------+------+------+-------+ | EPINEPHrine | Inject 0.3 mg into | | 0 | | | Activ | | auto-injector 0.3 | the muscle as needed | | | | | e | | mg/0.3 mL injection | for Anaphylaxis. | | | | | | + + + +---------+------+------+-------+ | albuterol 90 | Inhale 2 puffs into | | 0 | | | Activ | | mcg/puff inhaler | the lungs every 6 | | | | | e | | | hours as needed for | | | | | | | | Wheezing. | | | | | | + + + +---------+------+------+-------+ | | | | 0 | 05/1 | | Activ | | medroxyPROGESTERone | | | | 1/20 | | e | | (DEPO-PROVERA) 150 | | | | 20 | | | | mg/mL injection | | | | | | | | (vial) | | | | | | | + + + +---------+------+------+-------+ | busPIRone (BUSPAR) | Take 2 tablets (15 | 60 | 0 | 06/2 | | Activ | | 7.5 MG tablet | mg total) by mouth 3 | tablet | | 4/20 | | e | | | times daily | | | 20 | | | + + + +---------+------+------+-------+ | DULoxetine | Take 3 capsules (90 | 90 | 0 | 06/2 | | Activ | | (CYMBALTA) [address] | mg total) by mouth | capsule | | 4/20 | | e | | capsule | Daily | | | 20 | | | + + + +---------+------+------+-------+ | | TAKE 1 TO 2 TABLETS | | 0 | 07/2 | | Activ | | HYDROcodone-acetamin | BY MOUTH EVERY 4 TO | | | 5/20 | | e | | ophen (NORCO) 5-325 | 6 HOURS NEEDED | | | 20 | | | | mg per tablet | FOR PAIN | | | | | | + + + +---------+------+------+-------+ | levETIRAcetam | Take 1 tablet by | 60 | 3 | 09/0 | | Activ | | (KEPPRA) 750 MG | mouth 2 times daily. | tablet | | 8/20 | | e | | tablet | | | | 20 | | | + + + +---------+------+------+-------+ | diphenhydrAMINE | Take 25 mg by mouth | | 0 | | | Activ | | (BENADRYL) 25 mg | every 6 hours as | | | | | e | | tablet | needed for Itching. | | | | | | + + + +---------+------+------+-------+ | | Take 1 tablet by | 30 | 0 | 10/0 | | Activ | | HYDROcodone-acetamin | mouth every 4 hours | tablet | | 2/20 | | e | | ophen (NORCO) 5-325 | as needed for Pain. | | | 20 | | | | mg per | | | | | | | | tabletIndications: | | | | | | | | Status post hip | | | | | | | | surgery | | | | | | | + + + +---------+------+------+-------+ | ondansetron | Take 1 tablet by | 20 | 0 | 10/0 | | Activ | | (ZOFRAN ODT) 4 mg | mouth 3 (three) | tablet | | 2/20 | | e | | disintegrating | times daily as | | | 20 | | | | tablet | needed for Nausea | | | | | | | | for up to 7 days.. | | | | | | + + + +---------+------+------+-------+ | amoxicillin | | | 0 | 07/0 | 10/0 | Disco | | (AMOXIL) 500 MG | | | | 8/20 | 1/20 | ntinu | | capsule | | | | 20 | 20 | ed | | | | | | | | (Ther | | | | | | | | apy | | | | | | | | compl | | | | | | | | eted) | + + + +---------+------+------+-------+ Active Problems + + + | Problem | Noted Date | + + + | Tear of right acetabular labrum, subsequent encounter | 07/14/2020 | + + + + + | Overview: Added automatically from request for surgery | | [id number] | + + + + + | Recurrent syncope | 02/01/2020 | + + + | Seizure disorder | 02/01/2020 | + + + + + | Overview: Formatting of this note might be different from the | | original.Current tx: KeppraFailed tx:02.07.20 EEG IMPRESSION: | | Normal awake and drowsy EEG. However, if seizures are strongly | | suspected clinically, a repeat EEG with prolonged sleep recording | | is recommended.02.01.20 EEG Ambulatory IMPRESSION: Normal video | | ambulatory EEG study. There was no electrographic evidence of a | | seizure disorder during the 22.5 hour duration of this | | recording. 02.01.20 MRI [id number] Levetriracetam Lab: | | LEVETIRACETAM 12.0 - 46.0 mcg/mL 12.9 | |02.01.20 Levetriracetam Lab: | | LEVETIRACETAM 12.0 - 46.0 mcg/mL 12.9 | + + Resolved Problems + + + + | Problem | Noted | Resolved | | | Date | Date | + + + + | Vasovagal syncope | 12/11/19 | | | | 20 | 0 | + + + + Encounters +--------+ + + + + | Date | Type | Specialty | Care Team | Description | +--------+ + + + + | 08/26/ | Office | Orthopedic Surgery | Warner Coats, | Tear of right | | 2019 | Visit | | | acetabular labcatalina, | | | | | | subsequent encounter | | | | | | (Primary Dx); | | | | | | Status post hip | | | | | | surgery | +--------+ + + + + | 08/15/ | Anesthesia | | Alec Modi, | | | 2019 | Event | | Dinesh Petersen | | | | | | MD Tamir | | +--------+ + + + + | 08/15/ | Ancillary | | Warner Coats, | | | 2019 | Procedure | | MD | | +--------+ + + + + | 08/15/ | Surgery | | Warner Coats, | RIGHT HIP LABRAL | | 2019 | | | MD | REPAIR, FEMOROPLASTY | +--------+ + + + + | 08/15/ | Hospital | Internal Medicine | Warner Coats, | Status post hip | | 2019 | Encounter | | MD | surgery (Primary | | | | | | Dx); Tear of right | | | | | | acetabular labrum, | | | | | | subsequent encounter | +--------+ + + + + | 08/14/ | Preadmit | Pre-Admission | Warner Coats, | | | 2019 | Visit | Testing | MD | | +--------+ + + + + | 08/13/ | Clinical | Primary Care | | Exposure to | | 2019 | Support | | | SARS-associated | | | | | | coronavirus (Primary | | | | | | Dx) | +--------+ + + + + | 08/13/ | Telephone | | Unknown, Physician | Other (Pt trying to | | 2019 | | | [place] | get to the clinic | | | | | | for a 1645 appt for | | | | | | her pre op covid | | | | | | test and there is a | | | | | | road block. Please | | | | | | call pt to advise) | +--------+ + + + + | 07/22/ | Refill | Neurology | Pam Kidd | Medication Refill | | 2019 | | | MD Michaelle | | +--------+ + + + + | 07/10/ | Office | Orthopedic Surgery | Warner Coats, | Tear of right | | 2019 | Visit | | MD | acetabular labrum, | | | | | | subsequent encounter | | | | | | (Primary Dx) | +--------+ + + + + | 07/09/ | Telephone | Orthopedic Surgery | Warner Coats, | Screening For | | 2019 | | | MD | Communicable Disease | +--------+ + + + + | 07/08/ | Hospital | Radiology | Warner Coats, | Acute right hip pain | | 2019 | Encounter | | MD Thelma Baca | | | | | | Pro | | +--------+ + + + + | 07/01/ | Office | Orthopedic Surgery | Warner Coats, | Acute right hip pain | 2019 | Visit | | MD | (Primary Dx) | +--------+ + + + + | 06/30/ | Telephone | Orthopedic Surgery | Warner Coats, | Other | | 2020 | | | MD | | +--------+ + + + + from Last 3 Months Family History + + +---------+ + | Medical History | Relation | Name | Comments | + + +---------+ + | Other (see comment) | Father | Andrey | WPW | + + +---------+ + | Hypotension | Maternal | Burt | | | | Grandfath | | | | | er | | | + + +---------+ + | Hypertension | Maternal | Lin | | | | Grandmoth | | | | | er | | | + + +---------+ + | Anemia | Mother | Darien | | + + +---------+ + | Other (see comment) | Mother | Darien | ChronicDVT, PE's | + + +---------+ + | Other (see comment) | Paternal | Radha | WPW | | | Aunt | | | + + +---------+ + | Fatou hypertherm | Neg Hx | | | + + +---------+ + + +---------+--------+ + | Relation | Name | Status | Comments | + +---------+--------+ + | Father | Andrey | Alive | | + +---------+--------+ + | Maternal Grandfather | Burt | Alive | | + +---------+--------+ + | Maternal Grandmother | Lin | Alive | | + +---------+--------+ + | Mother | Darien | Alive | | + +---------+--------+ + | Paternal Aunt | Radha | Alive | | + +---------+--------+ + Social History + + + +--------+ + | Tobacco Use | Types | Packs/Day | Years | Date | | | | | Used | | + + + +--------+ + | Former Smoker | Cigarettes | 0.1 | 1 | Quit: 2013 | + + + +--------+ + + [...] | | + + + + + Plan of Treatment +--------+---------+ + + + | Date | Type | Specialty | Care Team | Description | +--------+---------+ + + + | 09/23/ | Office | Orthopedic Surgery | Warner Coats, | | | 2019 | Visit | | MD [address] | | | | | | [place] [address] | | | | | | [phone] | | | | | | | | +--------+---------+ + + + | 11/11/ | Office | Neurology | Dixie Lockhart NP | | | 2019 | Visit | | [address] [place] [address] [place] | | | | | | [place] | | | | | | [address] | | | | | | [phone] | | | | | | | | +--------+---------+ + + + + + + + + | Health Maintenance | Due Date | Last | Comments | | | | Done | | + + + + + | Hepatitis C | | | | | Screening | 2 | | | + + + + + | Med Mgmt: Cr | | | | | | 2 | | | + + + + + | Med Mgmt: eGFR | | | | | | 2 | | | + + + + + | Medication | | | | | Management | 2 | | | + + + + + | Cervical Cancer | | | | | Screening (Pap) | 3 | | | + + + + + | Vaccine: Influenza | | 12/23/19 | | | (#1) | 0 | 17, | | | | | 10/20/20 | | | | | 15, | | | | | 08/10/20 | | | | | 11, | | | | | Addition | | | | | al | | | | | history | | | | | exists | | + + + + + | Vaccine: | | 09/17/20 | | | Dtap/Tdap/Td (2 - | 6 | 16 | | | Td) | | | | + + + + + Implants + +------+--------+ +--------+--------+--------+ | Implanted | Type | Area | Manufacture | Device | Shelf | Model | | | | | r | | Expira | / | | | | | | Identi | tion | Serial | | | | | | fier | Date | / Lot | + +------+--------+ +--------+--------+--------+ | Anchr Sut Peek Pshlok | | Right: | [employer] | | 03/13/ | AR-292 | | 2.9x12.5 - SnaImplanted: Qty: | | Hip | - ARTX | | 2024 | 3PHS | | 1 on 08/15/2020 by Jorge L, | | | | | | /NA | | Warner Braswell MD at [facility] | | | | | | /[id number] | | [facility] | | | | | | [phone] | + +------+--------+ +--------+--------+--------+ | Anchr Sut Peek Pshlok | | Right: | [employer] | | 05/13/ | AR-292 | | 2.9x12.5 - SnaImplanted: Qty: | | Hip | - ARTX | | 2024 | 3PHS | | 1 on 08/15/2020 by Jorge L, | | | | | | /NA | | Warner Braswell MD at [facility] | | | | | | /[id number] | | [facility] | | | | | | 558 | + +------+--------+ +--------+--------+--------+ | Anchr Sut Peek Pshlok | | Right: | [employer] | | 05/13/ | AR-292 | | 2.9x12.5 - SnaImplanted: Qty: | | Hip | - ARTX | | 2024 | 3PHS | | 1 on 08/15/2020 by Jorge L, | | | | | | /NA | | Warner Braswell MD at [facility] | | | | | | /[id number] | | [facility] | | | | | | 558 | + +------+--------+ +--------+--------+--------+ Procedures + +--------+ + + + | [...] | | es | +---+--------+ + +--------+ + + + | TYPE AND SCREEN | STAT | 08/15/2020 | | Results for this | | | | 3:06 PM | | procedure are in the | | | | PDT | | results section. | + +--------+ + + + | POCT TEST, | Routin | 08/15/2020 | | Results for this | | URINE, QUAL | e | 2:47 PM | | procedure are in the | | | | PDT | | results section. | + +--------+ + + + | POC CORONAVIRUS | Routin | 08/13/2020 | Exposure to | Results for this | | (COVID-19) NAAT | e | 5:11 PM | SARS-associated | procedure are in the | | | | PDT | coronavirus | results section. | + +--------+ + + + | FL ASPIRATION | Routin | 07/08/2020 | Acute right hip | Results for this | | INJECTION MAJOR | e | 2:22 PM | pain | procedure are in the | | JOINT RIGHT | | PDT | | results section. | + +--------+ + + + from Last 3 Months Results STORED IMAGE ORTHOPEDIC (08/28/2020 3:31 PM [...] | | + +---------+ + + FL Meera (08/15/2020 5:28 PM PDT) + + | Specimen | + + | | + + + + + | Impressions | Performed At | + + + | Fluoroscopic service for procedure. Right hip labral repair, | [facility] | | femoroplasty Final Report Signed by: Adeladia Malhotra, | | | Luisa Sign Date/Time: 08/18/2020 8:06 AM | | + [...] Procedure Note | + + | Rafat, [id number] - 08/18/2020 8:09 AM PDT | | [...] + + + | BB BAND | [id number] | | [facility] | | | | | | LABORATORY | | + + + + + + | BB BAND | Testing performed at | | [facility] | | | | [facility] | | | | [address];[place] [address] | | | | + + + + + + + + | Specimen | + + | Blood | + + + + + + + | Performing | Address | City/State/Zipcode | Phone Number | | Organization | | | | + + + + + | [facility] | [address] | [place] [address] | [phone] | + + + + + POCT Test, Urine, Qual (08/15/2020 2:47 PM PDT) + + + + + + | Component | Value | Ref Range | Performed | Pathologist | | | | | At | Signature | + + + + + + | POC HCG | NEGATIVEComment: Testing | NEG | [facility] | | | Qualitative | performed at [facility];[address] | | LABORAT[address] | | | | [address];[place], [place] | | | | | | [address] | | | | + + + + + + + + | Specimen | + + | | + + + + + + + | Performing | Address | City/State/Zipcode | Phone Number | | Organization | | | | + + + + + | [facility] | [address] | [place] [address] | [phone] | + + + + + POC Coronavirus (COVID-19) NAAT (08/13/2020 5:11 PM PDT) + + + + + + | Component | Value | Ref Range | Performed | Pathologist | | | | | At | Signature | + + + + + + | POC SOURCE | [facility] | | | | + + + + + + | SARS | Negative | Negative | | | | coronavirus | | | | | | 2 RNA | | | | | | (POC) | | | | | + + + + + + | Internal QC | Acceptable | Acceptable | | | + + + + + + + + | Specimen | + + | Tissue | + + + + + | Narrative | Performed At | + + + | SARS-CoV-2, RNA (COVID-19) EUA Negative results, using the | | | [place] [employer] NOW Platform, should be treated as presumptive and, if | | | inconsistent with clinical signs and symptoms or necessary for patient | | | management, should be tested with an alternative molecular assay. | | | Please contact the laboratory for assistance as needed. Negative | | | results do not preclude COVID-19 infection and should not be used as | | | the sole basis for patient management decisions. Negative results | | | should be considered in the context of a patient's recent exposures, | | | history, presence of clinical signs and symptoms consistent with | | | COVID-19. This assay has been cleared for use under an FDA | | | Emergency Use Authorization. This test is used for clinical purposes. | | | It should not be regarded as investigational or for research. This | | | laboratory is certified under the Clinical Laboratory Improvement | | | Amendments (CLIA) as qualified to perform high complexity testing. | | | This test has been validated in accordance with the FDA's Guidance | | | Document "Policy for Diagnostics Testing in Laboratories Certified to | | | Perform High Complexity Testing under CLIA prior to Emergency Use | | | Authorization for Coronavirus Disease-2019 during the Public Health | | | Emergency" issued on January 12, 2020. FDA independent review of | | | this validation is pending. This test is only authorized for the | | | duration of time the declaration that circumstances exist justifying | | | the authorization of the emergency use of in vitro diagnostic tests | | | for detection of SARS-CoV-2 virus and/or diagnosis of COVID-19 | | | infection under section 564(b)(1) of the Act, 21 U.S.C. | | | 360bbb-3(b)(1), unless the authorization is terminated or revoked | | | sooner. | | + + + FL Asp and/or Inj Major Joint Right (07/08/2020 2:22 PM PDT) + + | Specimen | + + | | + + + + + | Impressions | Performed At | + + + | Successful therapeutic right hip local anesthetic injection with | [facility] | | improvement in pain. Final Report Signed by: Adelaida Zheng, | | | Aarti Moses Date/Time: 07/08/2020 2:47 PM | | + [...] | Procedure Note | + + | [facility], [id number] - 07/08/2020 2:50 PM PDT | | [...] | | Final Report Signed by: Adelaida Zheng, Aarti | | Sign Date/Time: 07/08/2020 2:47 PM | + + + +---------+ + + | Performing | Address | City/State/Zipcode | Phone Number | | Organization | | | | + +---------+ + + | [facility] | | | | + +---------+ + + from Last 3 Months Insurance +-------+--------+ +--------+ + +------+ | Payer | Benefi | Subscriber | Effect | Phone | Address | Type | | | t Plan | ID | lorna | | | | | | / | | Dates | | | | | | Group | | | | | | +-------+--------+ +--------+ + +------+ | MODA | MODA | [id number] | 11/14/19 | [phone] | [address] | PPO | | | [place] | | 19-Pre | 9 | [id number] | | | | Y PPO | | sent | | [place], | | | | | | | | [place] [address] | | +-------+--------+ +--------+ + +------+ | MODA | MODA | [id number] | 11/14/19 | [phone] | [address] | PPO | | | [place] | | 19-Pre | 9 | [id number] | | | | | | sent | | [place], | | | | [place] | | | | [place] [address] | | | | Y PPO | | | | | | +-------+--------+ +--------+ + +------+ | MODA | MODA | [id number] | 11/14/19 | [phone] | [address] | PPO | | | [employer] | | 14-Pre | 9 | [id number] | | | | [place] | | sent | | [place], | | | | [place] | | | | [place] [address] | | +-------+--------+ +--------+ + +------+ + +--------+ +--------+ + + | Guarantor Name | Accoun | Relation to | Date | Phone | Billing Address | | | t Type | Patient | of | | | | | | | | | | + +--------+ +--------+ + + | Jacki Molina | Person | Self | [birth year] | [address] | | [place] | al/Fam | | 1989 | -87 | 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 [place], [place] | | | debora | | | [address] ([place]) | [address] | + +--------+ +--------+ + + | Jacki Molina | Person | Self | [birth year] | [address] | | [place] | al/Fam | | 1989 | | 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 [place], [place] | | | [place] | | | 7 ([place]) | [address] | + +--------+ +--------+ + + | Jacki Molina | Person | Self | [birth year] | [address] | | [place] | al/Fam | | 1989 | [phone] | 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 [place], [place] | | | [place] | | | 7 (Home) | [address] | + +--------+ +--------+ + + | Jacki Molina | Person | Self | [birth year] | [address] | | [place] | al/Fam | | 1989 | [phone] | 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 [place] | | | [place]a | | | 7 ([place]) | [address] | + +--------+ +--------+ + + Advance Directives + + + + + | Type | Date Recorded | Patient | Explanation | | | | 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
--- OUTSIDE RECORDS SUMMARY | ~2020-08-30 | XMS | Encounter Summary ---
Demographics + + + | Address | [address] [address] | | | [place] [address] | + + + | Home Phone [...] + + + | Author | [facility] | | | and [place] | + + + | Organization | [facility] | | | [...] Team Providers + +------+ + | Care Fashion Buyer Name | Role | Phone | + +------+ + | Boni Rosales | PCP | | + +------+ + Reason for Visit +--------+--------+ + | Reason | Onset | Comments | | | Date | | +--------+--------+ + | Other | 02/26/ | | | | 2020 | | +--------+--------+ + Encounter Details +--------+ + + + + | Date | Type | Department | Care Team | Description | +--------+ + + + + | 02/26/ | Telephone | [facility] | Pam Kidd | Other | | 2020 | | [facility] | MD Michaelle [address] | | | | | CLIN[address] | [address] | | | | | DR [address]PH[address]IE [address], | [place] [address] | | | | | [place] [address] | [phone] | | | | | [phone] | | | +--------+ + + + [...] Telephone Encounter - Nerissa Gongora RN - 02/27/2020 1:31 PM PDTReviewed patient's concer ns - an appointment was scheduled for 02/28/20. elephone Encounter - Ute Sanchez - 02/27/2020 12:58 PM PDTPat juan luis had a seizure today and she stated she needs a work release callher at [phone] tronically signed by Ute Sanchez at 02/27/2020 1:00 PM PDTdocumented in this encounte r Plan of Treatment +--------+---------+ + + + | Date | Type | Specialty | Care Team | Description | +--------+---------+ + + + | 09/23/ | Office | Orthopedic Surgery | Warner Coats, | | | 2019 | Visit | | [address] | | | | | | [place] [address] | | | | | | [phone] | | | | | | | | +--------+---------+ + + + | 11/11/ | Office | Neurology | Dixie Lockhart NP | | 2019 | Visit | | [address] | | | | | | [place] | | | | | | [address] | | | | | | [phone] | | | | | | | | +--------+---------+ + + + documented as of this encounter Visit Diagnoses Not on filedocumented in this encounter"
--- OUTSIDE RECORDS SUMMARY | ~2020-08-30 | XMS | Encounter Summary ---
Demographics + + + | Address | [address] | | | [place] [address] | + + + | Home Phone | | + + + | Preferred Language | Unknown | + + + | Marital Status | | + + + | Anglican Affiliation | Unknown | + + + | Race | White | + + + | Ethnic Group | Not or | + + + Author + + + | Author | [facility] | | | and [place] | + + + | Organization | [facility] | | | and [...] Team Providers + +------+ + | Care Quantitative Strategy Analyst Name | Role | Phone | + +------+ + | No, Physician | PCP | Unavailable | + +------+ + Reason for Visit +--------+ + | Reason | Comments | +--------+ + | URI | RM 4 | +--------+ + Encounter Details +--------+---------+ + + + | Date | Type | Department | Care Team | Description | +--------+---------+ + + + | 12/20/ | Office | [facility] | Jeremy Carballo MD | Purulent rhinitis | | 2016 | Visit | CARE [address] | [address] | (Primary Dx) | | | | [place] | [place] | | | | | [address] | [id number] | | | | | [phone] | | | +--------+---------+ + + + Social History + +-------+ +--------+------+ | Tobacco Use | Types | Packs/Day | Years | Date | | | | | Used | | + +-------+ +--------+------+ | Never Smoker | | | | | + +-------+ +--------+------+ + + +---------+ + | Alcohol Use | Drinks/Week | oz/Week | Comments | + + +---------+ + | Not Asked | 0 Standard drinks | 0.0 | [...] | Blood Pressure | 132/70 | 12/20/2015 3:29 PM | | | | | PST | | + + + + + | Pulse | 88 | 12/20/2015 3:29 PM | | | | | PST | | + + + + + | Temperature | 36.3 C (97.4 F) | 12/20/2015 3:29 PM | | | | | PST | | + + + + + | Respiratory Rate | 18 | 12/20/2015 3:29 PM | | | | | PST | | + + + + + | Oxygen Saturation | 98% | 12/20/2015 3:29 PM | | | | | PST | | + + + + + | Inhaled Oxygen | - | - | | | Concentration | | | | + + + + + | Weight | 95.8 kg (211 lb 3.2 | 12/20/2015 3:29 PM | | | | oz) | PST | | + + + + + | Height | 152.4 cm (5') | 12/20/2015 3:29 PM | | | | | PST | | + + + + + | Body Mass Index | 41.25 | 12/20/2015 3:29 PM | | | | | PST | | + + + + + documented in this encounter Patient Instructions Patient Instructions Jeremy Carballo MD - 12/20/2015 3:47 PM PST Sinusitis (Antibiotic Treatment) The sinuses are air-filled spaces within the bones of the face. They connect to the inside of the nose.Sinusitisis an inflammation of the tissue lining the sinus cavity. Sinus inf lammation can occur during a cold. It can also be due to allergies to pollens and other part icles in the air. Sinusitis can cause symptoms of sinus congestion and fullness. A sinus inf ection causes fever, headache and facial pain. There is often green or yellow drainage from the nose or into the back of the throat (post-nasal drip). You have been given antibiotics t o treat this condition. Home care: Take the full course of antibiotics as instructed. Do not stop taking them, even if you feel better. Drink plenty of water, hot tea, and other liquids. This may help thin mucus. It also may promote sinus drainage. Heat may help soothe painful areas of the face. Use a towel soaked in hot water. Or, sta nd in the shower and direct the hot spray onto your face. Using a vaporizer along with a men thol rub at night may also help. Anexpectorantcontaining guaifenesin may help thin the mucus and promote drainage fro m the sinuses. Sueh-hsh-nzfysttdgufaitvksolbwdd be used unless a similar medicine was prescribed. N loretta sprays work the fastest. Use one that contains phenylephrine or oxymetazoline. First bl ow the nose gently. Then use the spray. Do not use these medicines more often than directed on the label or symptoms may get worse. You may also use tablets containing pseudoephedrine. Avoid products that combine ingredients, because side effects may be increased. Read labels . You can also ask the pharmacist for help. (NOTE:Persons with high blood pressure should not use decongestants. They can raise blood pressure.) Abgr-zbe-uqwgjzvbfkjcnrkidimvnqof help if allergies contributed to your sinusitis. Do not use nasal rinses or irrigation during an acute sinus infection, unless told to by your health care provider. Rinsing may spread the infection to other sinuses. Use acetaminophen or ibuprofen to control pain, unless another pain medicine was prescri bed. (If you have chronic liver or kidney disease or ever had a stomach ulcer, talk with you r doctor before using these medicines. Aspirin should never be used in anyone under 18 years of age who is ill with a fever. It may cause severe liver damage.) Don't smoke. This can worsen symptoms. Follow-up care Follow up with your healthcare provider or our staff if you are not improving within the ne xt week. When to seek medical advice Call your healthcare provider if any of these occur: Facial pain or headache becoming more severe Stiff neck Unusual drowsiness or confusion Swelling of the forehead or eyelids Vision problems, including blurred or double vision Fever of100.4F (38C)or higher, or as directed by your healthcare provider Seizure Breathing problems Symptoms not resolving within 10 days 6764-1635 [employer]. [address] [place] [address], [place] [address]. All righ ts reserved. This information is not intended as a substitute for professional medical care. Always follow your healthcare professional's instructions. ROBITUSSIN-DM IS A GOOD DCXX-CZJ-XNDBSNE COUGH MEDICINE documented in this encounter Progress Notes Jeremy Carballo MD - 12/20/2015 3:37 PM PST Subjective: Patient ID: Jacki Molina is a 25 y.o. female. Patient has had nasal and sinus problem s since childhood, including recurrent otitis media, recurrent sinus infections. She has pe rennial allergies, denies asthma history although she has wheezed on occasion with exertion. Recently she's congested again with nasal stuffiness, purulent nasal drainage. 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 She's tried Flonase, second-generation antihist amines, all to no avail. HPI Patient's medications, allergies, past medical, surgical, social and family histories were obtained and reviewed as appropriate. Review of Systems no GI or symptoms. Objective: Physical Exam Constitutional: Normally developed, adequately nourished, and not in acute distress. Does not appear acute ly ill. HENT: Right Ear: Tympanic membrane normal. Left Ear: Tympanic membrane normal. Nose: Mucosal edema and rhinorrhea (Purulent) present. Right sinus exhibits maxillary sinus tenderness. Right sinus exhibits no frontal sinus tenderness. Left sinus exhibits maxillary sinus tenderness. Left sinus exhibits no frontal sinus tenderness. Mouth/Throat: Posterior oropharyngeal erythema (moderate postnasal drainage) present. Cardiovascular: Cardiac rhythm is regular, and rate is within normal limits. Heart sounds are of good qual ity. No murmur or gallop heard. Pulmonary/Chest: Effort normal and breath sounds normal. Lymphadenopathy: She has no cervical adenopathy. Assessment: Acute and recurrent sinusitis Plan: Discussed nasal rinses, plans to reduce allergic load. Augmentin 875 mg twice a day 10 d ays. Follow-up when necessary poor progress. This note was dictated using [employer] voice recognition software. Occasional wrong- word or sound-alike substitutions may have occurred due to the inherent limitations of [employer] software. Please read the chart carefully and recognize, using context, where these brown bstitutions have occurred. documented in this enc ounter Plan of Treatment +--------+---------+ + + + | Date | Type | Specialty | Care Team | Description | +--------+---------+ + + + | 09/23/ | Office | Orthopedic Surgery | Warner Coats, | | | 2019 | Visit | | [address] | | | | | | [place] [address] | | | | | | [phone] | | | | | | | | +--------+---------+ + + + | 11/11/ | Office | Neurology | Dixie Lockhart NP | | 2019 | Visit | | [address] | | | | | | [place] | | | | | | [address] | | | | | | [phone] | | | | | | | | +--------+---------+ + + + documented as of this encounter Visit Diagnoses + + | Diagnosis | + + | Purulent rhinitis - Primary Chronic rhinitis | + + documented in this encounter"
--- OUTSIDE RECORDS SUMMARY | ~2020-08-30 | XMS | Encounter Summary ---
Demographics + + + | Address | [address] | | | [place] [address] | + + + | Home Phone | | + + + | Preferred Language | Unknown | + + + | Marital Status | | + + + | Anabaptist Affiliation | Unknown | + + + | Race | White | + + + | Ethnic Group | Not or | + + + Author + + + | Author | [facility] | | | and [place] | + + + | Organization | [facility] | | [...] Team Providers + +------+ + | Care Director Of Revenue Cycle Management Name | Role | Phone | + +------+ + | Boni Rosales | PCP | | + +------+ + Reason for Visit +--------+--------+ + | Reason | Onset | Comments | | | Date | | +--------+--------+ + | Other | 08/13/ | Pt trying to get to the clinic for a 1645 appt for her | | | 2020 | pre op covid test and there is a road block. Please call | | | | pt to advise | +--------+--------+ + Encounter Details +--------+ + + + + | Date | Type | Department | Care Team | Description | +--------+ + + + + | 08/13/ | Telephone | PATIENT ENGAGEMENT | Unknown, Physician | Other (Pt trying to | | 2020 | | [facility] [address] | [place] [phone] | get to the clinic | | | | [address] | (Fax) | for a 6304 appt for | | | | [place] | | her pre op covid | | | | [address] | | test and there is a | | | | [phone] | | road block. Please | | | | | | call pt to advise) | +--------+ + + + + Social [...] this encounter Miscellaneous Notes Telephone Encounter - Herminia Lanier - 08/13/2020 4:59 PM PDTCallback Phone Number: Date they were seen: Has appt @5606 Reason for calling: Pt trying to get to the clinic for a 1645 appt for her pre op covid debra t and there is a road block. Please call pt to advise Is it ok to leave a detailed voice message? Yes Prefer test results via RIVS? na documented in this encount er Plan of Treatment +--------+---------+ + + + | Date | Type | Specialty | Care Team | Description | +--------+---------+ + + + | 09/23/ | Office | Orthopedic Surgery | Warner Coats, | | 2019 | Visit | | [address] | | | | | | [place] [address] | | | | | | [phone] | | | | | | | | +--------+---------+ + + + | 11/11/ | Office | Neurology | Dixie Lockhart NP | | | 2019 | Visit | | [address] | | | | | | [place] | | | | | | [address] | | | | | | [phone] | | | | | | | | +--------+---------+ + + + documented as of this encounter Visit Diagnoses Not on filedocumented in this encounter Additional Health Concerns + + + + + | Infection | Onset Date | Last Indicated | Resolved Time | + + + + + | Rule out COVID-19 | 08/13/2020 | 08/13/2020 | 08/13/2020 5:24 PM | | | | | PDT | + + + + + documented as of this encounter"
--- OUTSIDE RECORDS SUMMARY | ~2020-08-30 | XMS | Encounter Summary ---
Demographics + + + | Address | [address] | | | [place] [address] | + + + | Home Phone | | + + + | Preferred Language | Unknown | + + + | Marital Status | | + + + | Church Affiliation | Unknown | + + + [...] Team Providers + +------+ + | Care General Milling Superintendent Name | Role | Phone | [...] SUNSET | ANGELIC [address]CKENZ[address] | ([facility]) | | | | [address] [place], [place] | [place], [place] [address] | | | | | [address] | [phone] | | | | | [phone] | | | +--------+ + + + [...] PDTDownload Ambulatory EEG for neurologist to in [facility]. Diagnostic video hours were 22:18 out of [...] RESULTS: The study was reviewed using the [employer] EEG digital system. During the awake portion [...] [address] | | | | | | [place] [address] | | | | | | [phone] | | | | | | | | +--------+---------+ + + + | 11/11/ | Office | Neurology | Dixie Lockhart NP | 2019 | Visit | | [facility] [address] | | | | | | [place], [place] | | | | | | [address] | | | | | | [phone] | | | | | | | | +--------+---------+ + + + documented as of this encounter Procedures + +--------+ + + + | Procedure Name | Priori | Date/Time | Associated Diagnosis | Comments | | | ty | | | | + +--------+ + + + | *TERMED* OH EEG | Routin | 02/11/2020 | Recurrent syncope | Results for this | | MONITORING/VIDEORECO | e | 1:00 PM | Seizure disorder | procedure are in the | | RD | | PDT | ([facility]) | results section. | + +--------+ [...] | | | was reviewed using the [employer] EEG digital system. During the | | [...] | | care of this patient. Pam Kidd, :45 PM | | | Electronically signed | | + + + documented in this encounter Visit Diagnoses + + | Diagnosis | + + | Recurrent syncope | + + | Seizure disorder (HCC) Unspecified epilepsy without mention of intractable epilepsy | + + documented in this encounter"
--- OUTSIDE RECORDS SUMMARY | ~2020-08-30 | XMS | Encounter Summary ---
Demographics + + + | Address | [address] | | | [place] [address] | + + + | Home Phone | | + + + | Preferred Language | Unknown | + + + | Marital Status | | + + + | Temple Affiliation | Unknown | + + + | Race | White | + + + | Ethnic Group | Not or | + + + Author + + + | Author | [facility] | | | and [place] | + + + | Organization | [facility] | | | [...] Team Providers + +------+ + | Care Mine Manager Name | Role | Phone | + +------+ + | Boni Rosales | PCP | | + +------+ + Encounter Details +--------+ + + + + | Date | Type | Department | Care Team | Description | +--------+ + + + + | 08/14/ | Preadmit | [facility] | Warner Coats, | | | 2020 | Visit | CENTER [facility] | [address] | | | | | CLINIC [address] | [place] [address] | | | | | BLVD [place], [place] | [phone] | | | | | [address] | | | | | | [phone] | | | +--------+ + + + [...] + + + | Blood Pressure | 137/88 | 08/14/2020 3:34 PM | | | | | PDT | | + + + + + | Pulse | 88 | 08/14/2020 3:34 PM | | | | | PDT | | + + + + + | Temperature | - | - | | + + + + + | Respiratory Rate | - | - | | + + + + + | Oxygen Saturation | 97% | 08/14/2020 3:34 PM | | | | | PDT | | + + + + + | Inhaled Oxygen | - | - | | | Concentration | | | | + + + + + | Weight | 100 kg (220 lb 7.4 | 08/14/2020 3:34 PM | | | | oz) | PDT | | + + + + + | Height | 152.4 cm (5') | 08/14/2020 3:34 PM | | | | | PDT | | + + + + + | Body Mass Index | 43.06 | 08/14/2020 3:34 PM | | | | | PDT | | + + + + + documented in this encounter Patient Instructions Instructions Melody Ward RN - 08/14/2020Formatting of this note might be different fr om the original. After Your Surgery You ve just had surgery. During surgery, you received medication called anesthesia to jose p you comfortable and pain-free. After surgery, you may experience some pain or nausea. This is common. Going Home Have an adult family member or friend drive you home. For the first 24 hours after your fleicity arun: ? Do not drive or use [...] skin turning blue, or fainting Call 911. Outpatient Medications Marked as Taking for the 08/14/20 encounter (Preadmit Visit) with [facility] ROOM 5 Medication Sig Instructions albuterol 90 mcg/puff inhaler Inhale 2 puffs into the lungs every 6 hours as needed for Wheezing. TAKE day of procedure, if needed busPIRone (BUSPAR) 7.5 MG tablet Take 2 tablets (15 mg total) by mouth 3 times daily TA KE day of procedure diphenhydrAMINE (BENADRYL) 25 mg tablet Take 25 mg by mouth every 6 hours as needed for Itching. TAKE day of procedure, if needed DULoxetine (CYMBALTA) [address] capsule Take 3 capsules (90 mg total) by mouth Daily CHELSEA E night before procedure fexofenadine (JOSE D ALLERGY) 180 mg tablet Take 180 mg by mouth Daily. DO NOT TAKE da y of procedure levETIRAcetam (KEPPRA) 750 MG tablet Take 1 tablet by mouth 2 times daily. TAKE day of procedure documented in this encounter Plan of Treatment +--------+---------+ + + + | Date | Type | Specialty | Care Team | Description | +--------+---------+ + + + | 09/23/ | Office | Orthopedic Surgery | Warner Coats, | | | 2019 | Visit | | MD [address] | | | | | | [place] [address] | | | | | | [phone] | | | | | | | | +--------+---------+ + + + | 11/11/ | Office | Neurology | Dixie Lockhart NP | | | 2019 | Visit | | [address] [place] | | | | | | [place] | | | | | | [address] | | | | | | [phone] | | | | | | | | +--------+---------+ + + + documented as of this encounter Visit Diagnoses Not on filedocumented in this encounter"
--- OUTSIDE RECORDS SUMMARY | ~2020-08-30 | XMS | Encounter Summary ---
Demographics + + + | Address | [address] | | | [place] [address] | + + + | Home Phone | | + + + | Preferred Language | Unknown | + + + | Marital Status | | + + + | Episcopalian Affiliation | Unknown | + + + | Race | White | + + + | Ethnic Group | Not or | + + + Author + + + | Author | [facility] | | | and [place] | + + + | Organization | [facility] | | [...] Team Providers + +------+ + | Care Manager Mechanical Maintenance Name | Role | Phone | + +------+ + PCP | Unavailable | + +------+ + Encounter Details +--------+ + + + + | Date | Type | Department | Care Team | Description | +--------+ + + + + | 01/01/ | Hospital | [facility] | | | | 1994 | Encounter | [facility] | | | | | | CENTER [address] | | | | | | [place] | | | | | | [address] | | | | | | [phone] | | | +--------+ + + + [...] | | | | | [place] [address] | | | | | | [phone] | | | | | | | | +--------+---------+ + + + | 11/11/ | Office | Neurology | Dixie Lockhart NP | | | 2019 | Visit | | [address] | | | | | | [place] | | | | | | [address] | | | | | | [phone] | | | | | | | | +--------+---------+ + + + documented as of this encounter Visit Diagnoses Not on filedocumented in this encounter"
--- OUTSIDE RECORDS SUMMARY | ~2020-08-30 | XMS | Encounter Summary ---
Demographics + + + | Address | [address] [facility] | | | [place] [address] | + + + | Home Phone | | + + + | Preferred Language | Unknown | + + + | Marital Status | | + + + | Restorationist Affiliation | Unknown | + + + [...] Team Providers + +------+ + | Care Motor Polarizer Name | Role | Phone | + [...] Closed | | Radiology | Diagnoses | Marti | [facility] | | | | | Recurrent | Pam J, | HOSPITAL | | | | | syncope | MD [address] | | | | | Seizure | [address] | [place] | | | | | disorder | [address], [place] | [place], [place] | | | | | ([facility]) | [place], | [address] | | | | | Procedures | [place] [address] | Phone: | | | | | MRI Brain w | Phone: | [phone] | | | | | wo Contrast | [phone] | Fax: | | | | | | Fax: | [phone] | | | | | | [phone] | | +--------+--------+ + + + + [...] | Syncope and | Boni Rios | Pam [place], | | | | | collapse | [address] | [address] | | | | | | Rachna Anderson | [address], | | | | | | [place], | [place] | | | | | | [place] [address] | [place], [place] | | | | | | Phone: | [phone] Phone: | | | | | | [phone] | [phone] | | | | | | Fax: | Fax: | | | | | | [phone] | [phone] | +--------+--------+ + + + + Encounter [...] | CLINIC [address] | [place] | ([facility]) | | | | DR STEPHANIE EUBANKS, | [place] [address] | | | | | [place] [address] | [phone] | | | | | [phone] | | | +--------+---------+ + + + [...] You have the following tests/procedures ordered. At [facility]: Brain MRI with and without contrast At [facility] EEG routine and 24 hour Blood work at [facility]: [facility] level *Any questions, please call Dr. Kidd's office at Patient advised of their right to have diagnostic testing, health care treatment, and/or se rvices at a facility other than [facility]. Living Well with Epilepsy People with epilepsycan [...] for people with epilepsy. Date Last Reviewed: 09/14/201719994245-2321 [employer]. [address] [facility], [place] [address]. All righ ts reserved. This information is [...] help keep you healthy. Try to exercise rdw25wo nutes most days of the week. Yoga [...] treatment when you re sick. Check with [facility] pharmacist about the risk of seizures with medicines you take for illnesses. If y our healthcare provider has prescribed antiepileptic medicines, take them even when you re ill. Date Last Reviewed: 09/14/201719992262-2270 [employer]. [address] [place] [address], [place] [address]. All righ ts reserved. This information is [...] unless you ve been trained by a [facility] provider. Speak quietly to the person [...] Alcohol or drug withdrawal Date Last Reviewed: 09/14/201719998277-[address] [employer] [place] [address]. All [facility] ts reserved. This information is not intended as a substitute for professional medical care. Always follow your healthcare professional's instructions. documented in this encounter Progress Notes Pam Kidd MD - 02/01/2020 10:00 AM PDT Patient: Jacki Molina Medical Record: [id number] Date of Services: 02/01/2020 Referring Doctor: Boni Rosales Chief Complaint Patient presents with [facility] Care Syncope HISTORY OF PRESENT [...] and was brought to the [facility]. The head CT there was negative. A [...] file Gets together: Not on file Attends presybeterian service: Not on file Active member of [...] and oriented to time, place, and person. [facility] is fluent. Memory, attention, comprehension, and general [...] CEREBELLAR EXAMINATION: There is no dysmetria on cvmnlt-pg-iacn test. IMPRESSION: 1. Episodes of recurrent syncope, likely seizures PLAN AND RECOMMENDATIONS: I was able to review notes from the patient's 2 ER visits at [facility] in [place]. At this point, I think she is having seizures as she has no recollection of the events. Th ey are likely generalized in nature. She will remain on Keppra. I will check a level today. I am also ordering a brain MRI with and without contrast to be done at [facility] in [place]. She will also have routine entered her EEGs. I advised her that she cannot drive until she is seizure-free for 90 days as per [place] law . She has stopped driving in September. She was also advised to avoid common seizure triggers such as sleep deprivation and photic stimulation. We will continue to follow her patient is to come back in 3 months to see ARTHUR Mathis. More than 50% of this 45-minute visit was spent on btrh-iu-jrcb with the patient, kayla g her diagnosis and educating her on the [...] | | | | | [place] [address] | | | | | | [phone] | | | | | | | | +--------+---------+ + + + | 11/11/ | Office | Neurology | Dixie Lockhart NP | | | 2019 | Visit | | [address] [place] | | | | | | [place] | | | | | | [address] | | | | | | [phone] | | | | | | | [...] | | | was reviewed using the [employer] EEG digital system. During the | | [...] to | | | | | | http://education.[employer] | | | | | | [employer]/faq/SCU730 | | | | | | (This [...] Diagnostics | | | | | | [facility] | | | | | | [facility]. It has not | | | | [...] Diagnostics | | | | | | [facility] | | | | | | Steve Ryan M.D., | | | | | | Ph.D., Laboratory | | | | | | Director [id number] | | | | | | [facility] | | | | | | [place] [address] | | | | | | CLIA #[id number] | | | | + + + + + + + + | Specimen | + + | Blood | + + + + + + + | Performing | Address | City/State/Zipcode | Phone Number | | Organization | | | | + + + + + | REFERENCE LAB | [address] [facility] | [place], [place] | | | [facility] - | | [address] | | | [place] | | | | + + + + + documented in this encounter Visit Diagnoses + + | Diagnosis | + + | Recurrent syncope | + + | Seizure disorder (HCC) Unspecified epilepsy without mention of intractable epilepsy | + + documented in this encounter"
--- OUTSIDE RECORDS SUMMARY | ~2020-08-30 | XMS | Encounter Summary ---
Demographics + + + | Address | [address] [facility] | | | [place] [address] | + + + | Home Phone | | + + + | Preferred Language | Unknown | + + + | Marital Status | | + + + | Congregational Affiliation | Unknown | + + + | Race | White | + + + | Ethnic Group | Not or | + + + Author + + + | Author | [facility] | | | and [place] | + + + | Organization | [facility] | | [...] Team Providers + +------+ + | Care Concrete Buster Operator Name | Role | Phone | [...] | | | | | | | HI | | | | | | | ARTHROSCOPY | | | | | | | HIP W/LABRAL | | | | | | | REPAIR HI | | | | | | | [...] + + | 08/15/ | Ancillary | [facility] | Warner Coats, | | | 2020 | Procedure | [facility] | [address] | | | | | [address]PER[address] | [place] [address] | | | | | [place] | [phone] | | | | | [place], [place] | | | | | | [address] | | | | | | [phone] | | | +--------+ + + + [...] | 2019 | Visit | | MD [address] | | | | | | [place] [address] | | | | | | [phone] | | | | | | | | +--------+---------+ + + + | 11/11/ | Office | Neurology | Dixie Lockhart NP | | | 2019 | Visit | | [address] | | | | | | [place] | | | | | | [address] | | | | | | [phone] | | | | | | | [...] + + documented in this encounter Results STORED [...] + documented in this encounter Visit Diagnoses Not on filedocumented in this encounter"
--- OUTSIDE RECORDS SUMMARY | ~2020-08-30 | XMS | Encounter Summary ---
Demographics + + + | Address | [address] [facility] | | | [place] [address] | + + + | Home Phone | | + + + | Preferred Language | Unknown | + + + | Marital Status | | + + + | Mandaeism Affiliation | Unknown | + + + | Race | White | + + + | Ethnic Group | Not or | + + + Author + + + | Author | [facility] | | | and [place] | + + + | Organization | [facility] | | | [...] Team Providers + +------+ + | Care Shuttle Final Inspector Name | Role | Phone | + +------+ + | Boni Rosales | PCP | | + +------+ + Reason for Visit + + + | Reason | Comments | + + + | Screening For | | | Communicable Disease | | + + + Encounter Details +--------+ + + + + | Date | Type | Department | Care Team | Description | +--------+ + + + + | 08/13/ | Clinical | [facility] | | Exposure to | | 2019 | Support | [facility] | | SARS-associated | | | | [address] [place] | | coronavirus (Primary | | | | [address] [place] | | Dx) | | | | [address] | | | | | | [phone] | | | +--------+ + + + [...] + + + + | Pulse | 94 | 08/13/2020 5:11 PM | | | | | PDT | | + + + + + | Temperature | 36.4 C (97.6 F) | 08/13/2020 5:11 PM | | | | | PDT | | + + + + + | Respiratory Rate | - | - | | + + + + + | Oxygen Saturation | 98% | 08/13/2020 5:11 PM | | | | | PDT | | + + + + + | Inhaled Oxygen | - | - | | | Concentration | | | | + + + + + | Weight | - | - | | + + + + + | Height | - | - | | + + + + + | Body Mass Index | - | - | | + + + + + documented in this encounter Progress Notes Ethan Low, Manager Gift - 08/13/2020 4:45 PM PDTPatient presents to the clini c today for a COVID-19 clearance test for surgery. Patient collected their own specimen whil e being observed and instructed by clinic staff member with both verbal and written instruct ions. Patient was also given a ID NOW Test Fact Sheet. Patient was given results in person o r by telephone call. Results given in person are given with a result specific discharge john mosley Negative Patients: Advised to self-quarantine until surgery. Postive Patients: Advised to contact their Surgeon's office for further instructions.Electr onically signed by Ethan Low, Manager Gift at 08/13/2020 5:24 PM PDTdocumented in this encounter Plan of Treatment +--------+---------+ + + + | Date | Type | Specialty | Care Team | Description | +--------+---------+ + + + | 09/23/ | Office | Orthopedic Surgery | aWrner Coats, | | 2019 | Visit | | [address] | | | | | | [place] [address] | | | | | | [phone] | | | | | | | | +--------+---------+ + + + | 11/11/ | Office | Neurology | Dixie Lockhart NP | | 2019 | Visit | | [address] [place] | | | | | | [place] | | | | | | [address] | | | | | | [phone] | | | | | | | [...] + + documented in this encounter Results POC Coronavirus (COVID-19) NAAT (08/13/2020 5:11 PM [...] Negative results, using the | | | [employer] ID NOW Platform, should be treated as [...] | sooner. | | + + + documented in this encounter Visit Diagnoses + + | Diagnosis | + + | Exposure to SARS-associated coronavirus - Primary | + + documented in this encounter Additional Health Concerns + [...]
--- OUTSIDE RECORDS SUMMARY | ~2020-08-30 | XMS | Encounter Summary ---
Demographics + + + | Address | [address] [facility] | | | [place] [address] | + + + | Home Phone | | + + + | Preferred Language | Unknown | + + + | Marital Status | | + + + | Confucianism Affiliation | Unknown | + + + | Race | White | + + + | Ethnic Group | Not or | + + + Author + + + | Author | [facility] | | | and [place] | + + + | Organization | [facility] | | | [...] Team Providers + +------+ + | Care Apparel Patternmaker Name | Role | Phone | + [...] | HOSPITAL NEUROLOGY | [address] | | | | | CLINIC [address] | [place] | | | | | DR STEPHANIE EUBANKS, | [address] | | | | | [place] [address] | [phone] | | | | | [phone] | | | +--------+ + + + [...] PDTLeft message on Jacki slater stating that Santanara level was WNL. I stated that if she needed further information, bonnie wright free to call back to the Neurology Clinic. Riana L Carrasco, RN elephone Encounter - Ivett Bains - 06/02/2020 11:12 AM PDTPatient called back for results. She said it is OK to leave a detailed voice message with lab results if you don't reach her again. Please call pt at: [phone] signed by Ivett Bains at 06/02/2020 11:13 AM PDTTelephone Rina Walker LPN - 05/29/2020 2:48 PM PDTCalled and left message again for Ra anton regarding lab results. 2 :48 PM PDTTelephone Rina Garcia LPN - 05/28/2020 4:14 PM PDTCalled and l eft message for Jacki. regarding her Keppra lab level that is WNL elephone Abad - Ivett Bains - 05/14 11:12 AM PDTPatient called back for her results. Please call pt at: [phone] signed by Ivett Bains at 05/28/2020 11:13 [...] | | | | | [place] [address] | | | | | | [phone] | | | | | | | | +--------+---------+ + + + | 11/11/ | Office | Neurology | Dixie Lockhart NP | | | 2019 | Visit | | [address] [place] | | | | | | [place] | | | | | | [address] | | | | | | [phone] | | | | | | | | +--------+---------+ + + + documented as of this encounter Visit Diagnoses Not on filedocumented in this encounter"
--- OUTSIDE RECORDS SUMMARY | ~2020-08-30 | XMS | Encounter Summary ---
Demographics + + + | Address | [address] [facility] | | | [place] [address] | + + + | Home Phone | | + + + | Preferred Language | Unknown | + + + | Marital Status | | + + + | Quaker Affiliation | Unknown | + + + | Race | White | + + + | Ethnic Group | Not or | + + + Author + + + | Author | [facility] | | | and [place] | + + + | Organization | [facility] | | [...] Team Providers + +------+ + | Care Shoe Maker Name | Role | Phone | [...] | Cardiology | Diagnoses | Bobby, | [place], | | | | | Syncope and | Boni G | MD Bree | | | | | collapse | [address] | [address] | | | | | Procedures | [address] | [place] | | | | | Consult | [place], | [place], [place] | | | | | | [place] [address] | [address] Phone: | | | | | | Phone: | [phone] | | | | | | [phone] | Fax: | | | | | | Fax: | [phone] | | | | | | [phone] | | +--------+--------+ + + + + Encounter Details +--------+---------+ + + + | Date | Type | Department | Care Team | Description | +--------+---------+ + + + | 12/11/ | Office | [facility] | Bree George, | Vasovagal syncope | | 2020 | Visit | CARDIOLOGY [place] | [address] | | | | | [address] | [place], [place] | | | | | [place] | [address] | | | | | [address] | | | | | | [phone] | | | +--------+---------+ + + + [...] episode. Multiple episodes. 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 Patient had a total of 3 events [...] was told she had tachycardia. Evaluated in [facility], wi th EKG blood work, was hemodynamically stable and no abnormalities were found. Doesn't mabel mber any symptoms prior. Post episodes: Mostly remembers being on the floor, significant headache, wakes up dizziness, definite con fusion, tired. No loss of urine of stool. The third time was at home, doesn't recall what happen. Called licensing registration examiner physician. Followed with her primary next day. [...] [address] | | | | | | [place] [address] | | | | | | [phone] | | | | | | | | +--------+---------+ + + + | 11/11/ | Office | Neurology | Dixie Lockhart NP | | | 2019 | Visit | | [address] | | | | | | [place] | | | | | | [address] | | | | | | [phone] | | | | | | | [...] MD | | | | | | (127) on 12/11/2019 | | | | | [...]
--- OUTSIDE RECORDS SUMMARY | ~2020-08-30 | XMS | Encounter Summary ---
Demographics + + + | Address | [address] [facility] | | | [place] [address] | + + + | Home Phone [...] + | Organization | [facility] | [...] Team Providers + +------+ + | Care Occupational Health Coordinator Name | Role | Phone | + [...] | | | Procedures | ST | [place], [place] | | | | | [place] [address] | [place], [place] | [address] | | | | | and/or Inj | [address] | Phone: | | | | | Major Joint | Phone: | [phone] | | | | | Right | [phone] | Fax: | | | | | | Fax: | [phone] | | | | | | [phone] | | +--------+--------+ + + + + Reason for Visit Diagnostic/Screening (Routine) +--------+--------+ + + + + | Status | Reason | Specialty | Diagnoses / | Referred By | Referred To | | | | | Procedures | Contact | Contact | +--------+--------+ + + + + | Closed | | Radiology | Diagnoses | Coats, | [facility] | | | | | Acute right | Warner Braswell MD | [address] | | | | | hip pain | [address] | | | | | Procedures | ST | [place], [place] | | | | | [place] [address] | [place], [place] | [address] | | | | | and/or Inj | [address] | Phone: | | | | | Major Joint | Phone: | [phone] | | | | | Right | [phone] | Fax: | | | | | | Fax: | [phone] | | | | | | [phone] | | +--------+--------+ + + + + Encounter Details +--------+ + + + + | Date | Type | Department | Care Team | Description | +--------+ + + + + | 07/08/ | Hospital | [facility] | Warner Coats, | Acute right hip pain | | 2019 | Encounter | [facility] | [address] | | | | | [address] | [place] [address] | | | | | [address] [place], [place] | [phone] | | | | | [address] | | | | | | [phone] | [facility] Op[facility] Pro | | +--------+ + + + [...] + | | | | 0 | /10/03 | | | medroxyPROGESTERone | | | | 20 | | | (DEPO-PROVERA) 150 | | | | | | | mg/mL injection | | | | | | | (vial) | | | | | | + + + +---------+ + + | amoxicillin | | | 0 | 05/21/20 | | | (AMOXIL) 500 MG | | | | 20 | 0 | | capsule | | | | | | + + + +---------+ + + | levETIRAcetam | Take 1 tablet by | 60 | 5 | 02/28/20 | | | (KEPPRA) 750 MG | mouth 2 times daily. | tablet | | 20 | 0 | | [...] [address] | | | | | | [facility] [address] | | | | | | [phone] | | | | | | | | +--------+---------+ + + + | 11/11/ | Office | Neurology | Dixie Lockhart NP | | | 2019 | Visit | | [address] [place] | | | | | | [place] | | | | | | [address] | | | | | | [phone] | | | | | | | [...] + + documented in this encounter Results [place] Asp and/or Inj [...] Procedure Note | + + | Rafat, [id number] - 07/08/2020 2:50 PM PDT | | [...] + + | Acute right hip pain Pain in joint, pelvic region and thigh | + + documented in this encounter Administered Medications + +--------+ +-------+------+------+ | Medication Order | MAR | Action | Dose | Rate | Site | | | Action | Date | | | | + +--------+ +-------+------+------+ | iopamidol (ISOVUE-300) 300 | Given | 07/08/ | 3 mLs | | | | mg/mL injection 3 mL 3 mL, | | 20 1:40 | | | | | Intra-articular, ONCE, Tue | | PM PDT | | | | | 07/08/ at 1330, For 1 dose, | | | | | | | Radiology | | | | | | + +--------+ +-------+------+------+ +---+---+ | | | +---+---+ + +-------+ +-------+---+---+ | lidocaine 1% injection 3 mL 3 | Given | 07/08/20 | 3 mLs | | | | mL, Intra-articular, ONCE, Tue | | 20 1:40 | | | | | 07/08/20 at 1330, For 1 dose, | | PM PDT | | | | | Radiology | | | | | | + +-------+ +-------+---+---+ +---+---+ | | | +---+---+ + +-------+ +-------+---+---+ | ropivacaine (NAROPIN) 5 mg/mL | Given | 07/08/20 | 5 mLs | | | | (0.5%) injection 3 mL 3 mL, | | 20 1:40 | | | | | Intra-articular, ONCE, Tue | | PM PDT | | | | | //20 at 1330, For 1 dose, | | | | | | | Radiology | | | | | | + +-------+ +-------+---+---+ +---+---+ | | | +---+---+ documented in this encounter"
[~2020-08-30 20:49] MED LIST changes: +KEPPRA750 MG PO
[2020-08-30] MEDS ORDERED: PERCOCET 5-3251 EACH PO (23:29)
== END 2020-08-31 | disposition home or self-care (01) ==
LOC: ED 20:49
DX: G89.18 Other acute postprocedural pain (principal); M25.551 Pain in right hip; F32.9 Major depressive disorder, single episode, unspecified; F41.9 Anxiety disorder, unspecified; Z88.5 Allergy status to narcotic agent; Z88.2 Allergy status to sulfonamides; Z79.899 Other long term (current) drug therapy
CPT/HCPCS: 73502; 85025; 85651; 96372; 99283-25; J1170

== ENCOUNTER 2020-09-27 14:16 | Observation (INO) | payer OTHER ==
[~2020-09-27] VITALS: Ht 152.4 cm; Wt 100.8 kg
--- OUTSIDE RECORDS SUMMARY | 2020-09-27 14:18 | XMS ---
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 09/24/2019-Current PHONE: [phone] NATALYA FLETCHER MD Otolaryngology 08/14/2018-Current PHONE: Unknown Abdelrahman has no Care Guidelines for this patient. [facility] VISIT COUNT (12 MO.) [address] [place] [address] TOTAL 4 NOTE: Visits indicate total known visits. 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 - Allergy status to sulfonamides - Anxiety disorder, unspecified - Major depressive disorder, single episode, unspecified - Other acute postprocedural pain 06/07/2020 03:26 [place] [place] TYPE: Emergency COMPLAINT: - RT LEG PAIN DIAGNOSES: - Anxiety disorder, unspecified - Pain in right hip - Major depressive disorder, single episode, unspecified - Personal history of nicotine dependence - Allergy status to sulfonamides - 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
--- NOTE | 2020-09-27 20:15 | NUR ---
PT ADMITTED FOR COVID, HAS BEEN SICK FOR A WEEK WITH INCREASING SOB CAME TO ER. ARRIVES ON ROOM AIR WITH SPO2 99% ALTHOUGH PT DOES APPEAR SOB WITH ACTIVITY. ASSESSMENT DONE, PT CONCERNED ABOUT HER HS MEDS.
--- NOTE | 2020-09-27 22:15 | NUR ---
HS MEDS GIVEN WITH ROCEPHIN AND ZITHROMAX, PT READY TO TRY TO SLEEP FOR THE NIGHT. CONT TO SAT HIGH NINETIES, SOB WITH MOVEMENT.
--- NOTE | 2020-09-28 01:54 | NUR ---
PT RESTING WITH EYES CLOSED, RESP EVEN AND UNLABORED.
--- NOTE | 2020-09-28 04:45 | NUR ---
IN TO CHECK ON PT, DO ASSESSMENT. PT STATES SHE HAS BEEN ABLE TO SLEEP AND COUGHING HAS BEEN UNDER CONTROL. PT HAS BEEN PRONING AND LYING ON HER SIDES. UP TO VOID ETHAN URINE THEN BACK TO BED, WATER GIVEN, NO OTHER REQUESTSS.
--- NOTE | 2020-09-28 05:15 | NUR ---
IN TO CHECK ON PT, DO ASSESSMENT. AWAKENS EASILY. DENIES NEEDS.
[2020-09-28] MEDS ORDERED: MEDROXYPRO150 MG/1 M IM ×2 (08:24)
[2020-09-28] MEDS ORDERED: DULOXETINE HCL60 MG PO ×2 (08:26)
--- NOTE | 2020-09-28 08:36 | NUR ---
ASSESSMENT COMPLETED, VITALS DONE AND STABLE. PT BREATHING SHALLOW, COUGH INSIGATED BY DEEP BREATHING, NO SPUTUM PRESENT, COUGH IS DRY AND HARSH. LUNGS CLEAR AND DIM. NO CRACKLES HEARD. HEART SOUNDS REGULAR. BOWEL TONES ACTIVE. PT ON RA. BREAKFAST ORDERED. CALL LIGHT IN REACH. DENIES NEEDS.
--- NOTE | 2020-09-28 09:15 | NUR ---
THIS RN IN WITH PATIENT. NEW LEADS PLACED ON PATIENT. VITALS DONE. BREAKFAST AT THE BEDSIDE. PATIENT LIGHT ON AND PATIENT EDUCATED HE COULD GET UP AND MOVE AROUND IN THE ROOM HE CAN TOLERATE. NO OTHER NEEDS AT THIS TIME. WILL CONTINUE TO CLOSELY MONITOR.
--- NOTE | 2020-09-28 11:30 | NUR ---
REMDESIVIR COMPLETED. SALINE LOCKED. ENCOURAGED TO DRINK MORE WATER PT IS WITHOUT VOID IN 6 HOURS. PT UP TO BATHROOM TO ATTEMPT TO VOID. PT ABLE TO VOID 200ML. PT DRANK 200 ML OF FLUID. PT PLACED IN PRONE POSITION. DENEIS ANY PROBLEMS BREATHING WHILE PRONING. PLAN T O STAY IN THIS POSITION FOR 2 HOURS. PILLOWS PLACED UNDER HEAD, HIPS AND CALVES.
--- NOTE | 2020-09-28 12:27 | NUR ---
DR BECERRA NOTIFIED OF LOW URINE OUTPUT. NO NEW ORDERS. WILL ENCOURAGE TO DRINK MO PO FLUIDS.
--- NOTE | 2020-09-28 13:56 | NUR ---
PT PRONING AND EXPREIENED COUGHING EPISODE WHERE SHE COULDN'T CATCH HER BREATH. TURNED PT OVER AND SAT UP IN BED. 2L NC PLACED. PT STARTED TO CALM DOWN AND WAS ABLE TO BREATH BETTER. PT REPORTS HAVING BAD DREAM AND WAKING UP COUGHING. ROBITUSSIN ADMINISTERED. LUNCH ORDERED. ENCOURAGED WATER INTAKE. PT DOES NOT FEEL URGE TO VOID.
--- NOTE | 2020-09-28 15:48 | NUR ---
IN TO ROUND ON PT. BATTERY FOR TELE CHANGED. STICKERS REPLACED. PT DENEIS NEED FOR TYLNOL RIGHT NOW. REPROTS BREATHING SHALLOW BUT NO SOB UNLESS ACTIVE. ON RA WITH SPO2 AT 94%. ATE 90% OF LUNCH. VOIDED ANOTHER 400ML. DRINKING BETTER NOW. CALL LIGHT IN REACH, DENEIS NEEDS.
--- NOTE | 2020-09-28 18:29 | NUR ---
THIS RN IN THE ROOM TO BRING PATIENT HER DINNER AND GET VITALS. PATIENT IS VERY SOFT SPOKEN BUT STATES "IM DOING OKAY, IM STILL BREATHING SO THATS GOOD". INTAKE AND OUTPUT RECORDED. MEDICATIONS GIVEN. PATIENT DENIES ANY OTHER NEEDS AT THIS TIME. WILL OCNTINUE TO CLOSELY MONITOR.
--- NOTE | 2020-09-28 19:32 | NUR ---
REPORT RECEIVED FORM DAY SHIFT RN. PT IN BED ON RIGHT SIDE, SPO2 97% ON ROOM AIR, HR 98. PT DENIES FEELING SOB OR NEEDING ANY COUGH MEDICINE AT THIS TIME.
--- NOTE | 2020-09-28 20:15 | NUR ---
IN TO DO ASSESSMENT AND HS MEDS. PT DENIES NEEDS AT THIS TIME. RESP EVEN AND UNLABORED, SPO2 97% ON ROOM AIR. ASKED HOW SHE IS FEELING TODAY SHE STATES "ABOUT THE SAME".
--- NOTE | 2020-09-28 21:40 | NUR ---
IN TO CHECK ON PT- PT AWAKE IN BED STATES SHE IS FEELING CHILLED. ORAL TEMP TAKEN IS 99.0. PRN TYLENOL GIVEN. SPO2 95% ON ROOM AIR AND HR 70'S. DENIES FEELING SOB, HAS BEEN LYING IN BED, RESP EVEN AND UNLABORED.
--- NOTE | 2020-09-28 23:07 | NUR ---
IN TO FIX FINGER PROBE, WOKE PT UP, NO REQUESTS AT THIS TIME. WILL TRY TO GO BACK TO SLEEP.
--- NOTE | 2020-09-29 | NUR ---
TOOK OVER CARE OF THIS pt. MOVED TO MED/SURG ROOM 115. pt WOKE TO VOICE ON ROOM AIR. ASSISTED TO REPOSITION. PRONING AT THIS TIME. CALL LIGHT AND POSSESSIONS WITHIN REACH.
--- NOTE | 2020-09-29 00:08 | NUR ---
PT TRANSFERRED TO ROOM 115, REPORT GIVEN TO ALINA LANE.
--- NOTE | 2020-09-29 02:00 | NUR ---
ROUNDED ON pt. RESTING IN BED WITH EYES CLOSED, PRONING. CALL LIGHT WITHIN REACH.
--- NOTE | 2020-09-29 04:00 | NUR ---
ROUNDED ON pt. RESTING IN BED WITH EYES CLOSED, PRONING. CALL LIGHT WITHIN REACH.
--- NOTE | 2020-09-29 05:51 | NUR ---
IN TO DO LAB DRAW AND ASSESSMENT. pt RESTING IN BED. WOKE TO VOICE. REPORTED "I SLEPT BETTER TONIGHT THAN THE FIRST NIGHT." PRONED MOST OF THE SHIFT. LABS DRAWN. VITALS AND I&O RECORDED. UP TO VOID SBA. BACK TO BED. NO REQUESTS AT THIS TIME. CALL LIGHT WITHIN REACH.
--- NOTE | 2020-09-29 07:27 | NUR ---
REPORT RECIEVED. PT ON TELE 1. HR 72 OXYGEN 96% ON RA.
--- NOTE | 2020-09-29 09:52 | NUR ---
ASSESSMENT COMPLETED. PT MORE TALKATIVE TODAY. STILL WITH SOME SOB WITH TALKING AND EXERTION BUT MUCH IMPROVED FROM YESTERDAY. VITALS DONE AND STABLE. LUNGS CLEAT THROUGHOUT. COUGH MEDICATION GIVEN. REMDESIVIR STARTED. IV FLUSHES WELL. PT DRINKING WELL AND REPORTS HER TASTE IS BACK. ATE 100% OF BREAKFAST. PT IS ALERT AND ORIENTED. TELE [address] PT TACHY WITH ACTIVITY HR INCREASING TO 115. CALL LIGHT IN REACH. PT DENIES FURTHER NEEDS.
--- NOTE | 2020-09-29 10:37 | NUR ---
PATIENT RESTING IN BED. [facility] NO FURTHER NEEDS AT THIS TIME
--- NOTE | 2020-09-29 10:52 | NUR ---
medications reconciled
--- NOTE | 2020-09-29 12:09 | NUR ---
PT PRONING IN BED. TOLERATING WELL. O2 96% ON RA.
--- NOTE | 2020-09-29 12:37 | NUR ---
DR BECERRA IN TO ROUND ON PT.
[2020-09-29] MEDS ORDERED: DOXYCYCLINE HY100 MG PO ×2 (12:54)
[2020-09-29] MEDS ORDERED: DECADRON6 MG PO ×2 (12:54)
--- NOTE | 2020-09-29 13:10 | EKG ---
[facility] [address] [facility] [place], [place] [address] Signed Normal sinus rhythm Nonspecific T wave abnormality Abnormal ECG Confirmed by KALEN BECERRA DO ([id number]) on 09/29/2020 1:10:42 PM Electronically Signed By: KALEN BECERRA DO 09/29/20 1310 PATIENT NAME: GERI LAUREN Electrocardiogram DATE OF : [birth year] PHYSICIAN: KALEN BECERRA DO REPORT #: [id number] REPORT IS CONFIDENTIAL AND NOT TO BE RELEASED WITHOUT AUTHORIZATION
--- NOTE | 2020-09-29 13:41 | NUR ---
DISCHARGE INSTRUCTIONS PROVIDED. NO QUESTIONS. VITALS TAKEN AND STABLE. IV CATH INTACT.
--- NOTE | 2020-09-30 18:32 | PATH ---
[facility] [address] [place], [place] [address] Signed ORDERING PHYSICIAN: Dinesh Valladares MD PATIENT NAME: GERI LAUREN GENDER: F : 1990 Prior History: DATE CASE NUM ADEQUACY DIAGNOSIS HPV RESULTS PHYSICIAN 03/25/20 [id number] Satisfactory/ N NIL Varsha Antonio MD 01/31/19 [id number] Satisfactory NIL Varsha Antonio MD 02/21/18 [id number] Satisfactory ASCUS Positive Varsha Antonio MD The 5 most recent reports are included. This history does not include results of pap smears performed at another laboratory. SPECIMEN(S): No Source Given MOLECULAR PATHOLOGY RESULTS: SARS-CoV-2 DETECTED ADDITIONAL NOTES.: The [place] Fusion SARS-CoV-2 Assay is a multiplex real-time PCR (RT-PCR) in vitro diagnostic test intended for the qualitative detection of RNA from SARS-CoV-2 from individuals who meet COVID-19 clinical and/or epidemiological criteria. In general, SARS-CoV-2 RNA can be detected during the acute phase of infection. Positive results indicate the presence of SARS-CoV-2 RNA. Clinical correlation with patient history and other diagnostic information is necessary to determine patient infection status. Positive results do not rule out bacterial infection or co-infection with other viruses. Negative results do not preclude SARS-CoV-2 infection and should not be used as the sole basis for patient management decisions. Negative results must be combined with other clinical observations, patient history, and epidemiological information. The [place] Fusion SARS-CoV-2 Assay is not yet approved or cleared by the [place] FDA. When there are no FDA-approved or cleared tests available, and other criteria are met, FDA can make tests available under an emergency access mechanism called an Emergency Use Authorization (EUA). The EUA for this test is supported by the Senior Corporate Accountant of Health and Human Service's (HHS's) declaration that circumstances exist to justify the emergency use of in vitro diagnostics for PATIENT NAME: GERI LAUREN PATHOLOGY DATE OF : [birth year] REPORT #: [id number] PHYSICIAN: BAHMAN VILLAGRAN PCP: BERONICA BRAVO MD REPORT IS CONFIDENTIAL AND NOT TO BE RELEASED WITHOUT AUTHORIZATION [facility] [address] [place], [place] [address] Signed the detection and/or diagnosis of the virus that causes COVID-19. This EUA will remain in effect for the duration of the COVID-19 declaration justifying emergency of IVDs, unless it is terminated or revoked by FDA, after which the test may no longer be used. The [place] Fusion SARS-CoV-2 Assay is for use only under EUA in US laboratories certified under the Clinical Laboratory Improvement Amendments of 1988 (CLIA) to perform high complexity tests. [facility] is certified under CLIA to perform high complexity clinical laboratory testing. Sabino Pepe PERFORMING LABORATORY.: Molecular testing was performed by [facility] [address] [place] [address] (Wafer Polishing Worker: Barak Camarillo D.O.; CLIA#: [id number]) Diagnostician: System Interface Pathologist Electronically Signed 09/30/2020 Copies: ~ PATIENT NAME: GERI LAUREN PATHOLOGY DATE OF : [birth year] REPORT #: [id number] PHYSICIAN: BAHMAN PATHOLOGY PCP: BERONICA BRAVO MD REPORT IS CONFIDENTIAL AND NOT TO BE RELEASED WITHOUT AUTHORIZATION
== END 2020-09-29 13:37 | disposition home or self-care (01) ==
LOC: ED 14:16 → CCU 14:18 → MS 14:18
PROVIDERS: ADMIT Student in an Organized Health Care Education/Training Program; ATTEND Student in an Organized Health Care Education/Training Program
DX: U07.1 COVID-19 (principal); J12.89 Other viral pneumonia; J96.01 Acute respiratory failure with hypoxia; F41.9 Anxiety disorder, unspecified; F32.9 Major depressive disorder, single episode, unspecified; G40.909 Epilepsy, unspecified, not intractable, without status epilepticus; T78.40XA Allergy, unspecified, initial encounter; Z88.5 Allergy status to narcotic agent; Z88.2 Allergy status to sulfonamides; Z88.0 Allergy status to penicillin; Z88.8 Allergy status to other drugs, medicaments and biological substances; Z91.048 Other nonmedicinal substance allergy status; Z87.891 Personal history of nicotine dependence; Z79.3 Long term (current) use of hormonal contraceptives; Z79.899 Other long term (current) drug therapy
CPT/HCPCS: 71045; 71260; 80053; 83605; 83735; 84484; 85025; 85379; 87040; 93005; 93010; 94762; 96372; 96374; 96375; 96376; 99285-25; C9803; G0378; J0696; J1100; J1650; J7050; Q9967; U0003

== ENCOUNTER 2020-10-04 19:04 | Emergency (ER) | payer OTHER ==
[~2020-10-04] VITALS: Ht 152.4 cm; Wt 100.7 kg
[~2020-10-04 19:04] MED LIST changes: +DECADRON6 MG PO; +MEDROXYPRO150 MG/1 M IM
--- OUTSIDE RECORDS SUMMARY | 2020-10-04 19:06 | XMS ---
PreManage Notification: GERI LAUREN Security Jelly Filter Tender Events No recent Security Events currently on file CRITERIA MET - [facility] - 2 Visits in 30 Days CARE PROVIDERS SHELLY [facility] 09/24/2019-Current PHONE: [phone] NATALYA FLETCHER MD Otolaryngology 08/14/2018-Current PHONE: Unknown Abdelrahman has no Care Guidelines for this patient. EGini VISIT COUNT (12 MO.) [address] [place] [address] TOTAL 5 NOTE: Visits indicate total known visits. ED/UCC VISIT TRACKING (12 MO.) 10/04/2020 19:05 [facility] [place] TYPE: Emergency COMPLAINT: - SOB 09/27/2020 14:17 [facility] [place] TYPE: Emergency COMPLAINT: - FLU SYMPTOMS 08/30/2020 20:49 [facility] [place] TYPE: Emergency COMPLAINT: - POST OP PAIN DIAGNOSES: - Allergy status to narcotic agent - Pain in right hip - Other shelter (current) drug therapy - Allergy status to [...] - Allergy status to sulfonamides - Other shelter (current) drug therapy 01/17/2020 12:03 [facility] [place] TYPE: Emergency COMPLAINT: - LOC, SEIZURE DIAGNOSES: - Major depressive disorder, single episode, unspecified - Anxiety disorder, unspecified - Allergy status to sulfonamides - Syncope and collapse - Other intermediate card tender (current) drug therapy INPATIENT VISIT TRACKING (12 MO.) 09/27/2020 14:[address] [facility] [place] TYPE: Observation COMPLAINT: - BILATERAL PNEUMONIA COVID R/O DIAGNOSES: - Other intermediate card tender (current) drug therapy - Allergy status to narcotic agent - Allergy status to sulfonamides - Allergy, unspecified, initial encounter - Personal history of nicotine dependence - Other nonmedicinal substance allergy status - Allergy status to other drugs, medicaments and biological substances - oil heaterman (current) use of hormonal contraceptives - Allergy status to penicillin - Major depressive disorder, single episode, unspecified - COVID-19 - Acute respiratory failure with hypoxia - Epilepsy, unspecified, not intractable, without status epilepticus - Shortness of breath - Other viral pneumonia - Anxiety disorder, unspecified [email or web address]
[2020-10-04] MEDS ORDERED: ZOFRAN4 MG PO (19:43)
== END 2020-10-04 20:00 | disposition home or self-care (01) ==
LOC: ED 19:04
DX: U07.1 COVID-19 (principal); J12.89 Other viral pneumonia; F41.9 Anxiety disorder, unspecified; F32.9 Major depressive disorder, single episode, unspecified; Z87.891 Personal history of nicotine dependence; Z88.5 Allergy status to narcotic agent; Z88.0 Allergy status to penicillin; Z88.8 Allergy status to other drugs, medicaments and biological substances; Z88.1 Allergy status to other antibiotic agents; Z88.2 Allergy status to sulfonamides; Z79.899 Other long term (current) drug therapy
CPT/HCPCS: 99284

== ENCOUNTER 2020-11-10 11:53 | Emergency (ER) | payer OTHER ==
[~2020-11-10] VITALS: Ht 152.4 cm; Wt 99.8 kg
[~2020-11-10 11:53] MED LIST changes: +ZOFRAN4 MG PO
== END 2020-11-10 14:08 | disposition left against medical advice (07) ==
LOC: ED 11:53
DX: Z53.21 Procedure and treatment not carried out due to patient leaving prior to being seen by health care provider (principal)

== ENCOUNTER 2021-03-25 15:18 | Emergency (ER) | payer OTHER ==
[~2021-03-25] VITALS: Ht 152.4 cm; Wt 99.8 kg
[2021-03-25] MEDS ORDERED: KEPPRA1000 MG PO (17:01)
== END 2021-03-25 17:10 | disposition home or self-care (01) ==
LOC: ED 15:18
DX: G40.909 Epilepsy, unspecified, not intractable, without status epilepticus (principal); Z88.5 Allergy status to narcotic agent; Z88.0 Allergy status to penicillin; Z88.8 Allergy status to other drugs, medicaments and biological substances; Z88.1 Allergy status to other antibiotic agents; Z88.2 Allergy status to sulfonamides; Z79.899 Other long term (current) drug therapy
CPT/HCPCS: 80053; 84703; 85025; 96374; 99284-25; J2405

== ENCOUNTER 2021-10-03 08:10 | Emergency (ER) | payer OTHER ==
[~2021-10-03] VITALS: Ht 152.4 cm; Wt 104.3 kg
[~2021-10-03 08:10] MED LIST changes: +KEPPRA1000 MG PO
--- OUTSIDE RECORDS SUMMARY | 2021-10-03 08:18 | XMS ---
PreManage Notification: GERI LAUREN Security Adolescent Psychiatrist Events 1 event(s) in the past 18 months Most recent security events: Elopement at [facility] 11/10/2020 11:53 - Other Details: PATIENT LWBS. CRITERIA MET - [place] [facility] - 2 Visits in 30 Days CARE PROVIDERS SHELLY [facility] 09/24/2019-Current PHONE: [phone] NATALYA FLETCHER MD Otolaryngology 08/14/2018-Current PHONE: Unknown Abdelrahman has no Care Guidelines for this patient. Care History Medical/Surgical 10/06/2020 [facility] CONTACTED PCP OFFICE- DR BRAVO SPOKE WITH MEDICAL EDUCATION COORDINATOR- PATIENT WAS OFFERED CAR CARE VISIT ON 10/01/2020 PATIENT DECLINED SERVICE AT THE TIME STATED SHE WAS FEELING BETTER. - PATIENT APT WAS CANCELLED BECAUSE PATIENT CANT BE SEEN IN THE CLINIC WHILE POSITIVE FOR COVID. PATIENT CAN EITHER BE SEEN IN HER CAR AND OR TELEHEALTH VISIT WHILE COVID POSITIVE PER CLINIC POLICY. - RN ON STAFF WILL CONTACT PATIENT TODAY FOR A FOLLOW UP VISIT. E.D. VISIT COUNT (12 MO.) 1 [facility] 4 [facility] TOTAL 5 NOTE: Visits indicate total known visits. ED/UCC VISIT TRACKING (12 MO.) 10/03/2021 08:10 [facility] [place] TYPE: Emergency COMPLAINT: - VOMITING,9 WEEKS PREG 09/28/2021 11:06 [facility] [place] TYPE: Emergency DIAGNOSES: - SEIZURE - Unspecified convulsions 03/25/2021 15:19 [facility] [place] TYPE: Emergency COMPLAINT: - POSS SEIZURE DIAGNOSES: - Allergy status to penicillin - Other care home (current) drug therapy - Allergy status to sulfonamides - Allergy status to other antibiotic agents - Allergy status to narcotic agent - Epilepsy, unspecified, not intractable, without status epilepticus - Allergy status to other drugs, medicaments and biological substances 11/10/2020 11:53 [facility] [place] TYPE: Emergency COMPLAINT: - URINE PROBLEM DIAGNOSES: - Procedure and treatment not carried out due to patient leaving prior to being seen by health care provider 10/04/2020 19:05 [facility] [place] TYPE: Emergency COMPLAINT: - SOB DIAGNOSES: - Other viral pneumonia - Allergy status to other drugs, medicaments and biological substances - Allergy status to other drugs, medicaments and biological substances - COVID-19 - Allergy status to sulfonamides - Personal history of nicotine dependence - Major depressive disorder, single episode, unspecified - Shortness of breath - Allergy status to sulfonamides - Other 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
[2021-10-03] MEDS ORDERED: METOCLOPRAMIDE10 MG PO (08:31)
== END 2021-10-03 16:22 | disposition home or self-care (01) ==
LOC: ED 08:10
DX: O21.1 Hyperemesis gravidarum with metabolic disturbance (principal); O99.891 Other specified diseases and conditions complicating pregnancy; R19.7 Diarrhea, unspecified; Z3A.09 9 weeks gestation of pregnancy; Z88.5 Allergy status to narcotic agent; Z88.0 Allergy status to penicillin; Z88.2 Allergy status to sulfonamides; Z91.018 Allergy to other foods; Z79.899 Other long term (current) drug therapy
CPT/HCPCS: 80053; 81001; 85025; 96374; 96376; 99284-25; J2765; J7030; J7121

== ENCOUNTER 2021-11-08 22:59 | Emergency (ER) | payer OTHER ==
[~2021-11-08] VITALS: Ht 152.4 cm; Wt 104.3 kg
[~2021-11-08 22:59] MED LIST changes: +METOCLOPRAMIDE10 MG PO
== END 2021-11-09 01:02 | disposition home or self-care (01) ==
LOC: ED 22:59
DX: O20.0 Threatened abortion (principal); Z3A.14 14 weeks gestation of pregnancy; Z88.5 Allergy status to narcotic agent; Z88.8 Allergy status to other drugs, medicaments and biological substances; Z88.0 Allergy status to penicillin; Z88.2 Allergy status to sulfonamides; Z88.1 Allergy status to other antibiotic agents; Z79.899 Other long term (current) drug therapy
CPT/HCPCS: 76815; 81001; 84702; 85025; 86900; 99284-25

== ENCOUNTER 2022-01-31 03:02 | Emergency (ER) | payer OTHER ==
[~2022-01-31] VITALS: Ht 152.4 cm; Wt 94.3 kg
[2022-01-31] MEDS ORDERED: IMITREX100 MG PO (03:26)
[2022-01-31] MEDS ORDERED: ASPIRIN81 MG PO (03:27)
[2022-01-31] MEDS ORDERED: BUSPIRONE HCL10 MG PO (03:29)
[2022-01-31] MEDS ORDERED: CYMBALTA60 MG PO (03:32)
[2022-01-31] MEDS ORDERED: FA-80.8 MG PO (03:34)
[2022-01-31] MEDS ORDERED: VENTOLIN HFA18 GM INH (03:34)
== END 2022-01-31 06:19 | disposition home or self-care (01) ==
LOC: ED 03:02
DX: O99.352 Diseases of the nervous system complicating pregnancy, second trimester (principal); G40.909 Epilepsy, unspecified, not intractable, without status epilepticus; O9A.212 Injury, poisoning and certain other consequences of external causes complicating pregnancy, second trimester; S56.911A Strain of unspecified muscles, fascia and tendons at forearm level, right arm, initial encounter; Z88.5 Allergy status to narcotic agent; Z88.0 Allergy status to penicillin; Z88.2 Allergy status to sulfonamides; Z91.018 Allergy to other foods; Z79.899 Other long term (current) drug therapy; Z79.82 Long term (current) use of aspirin; Z3A.26 26 weeks gestation of pregnancy
CPT/HCPCS: 73080; 80053; 80177; 81001; 85025; 96374; 99284-25; J1953

== ENCOUNTER 2022-03-24 20:26 | Observation (INO) | payer OTHER ==
[~2022-03-24 20:26] MED LIST changes: +ASPIRIN81 MG PO; +BUSPIRONE HCL10 MG PO; +CYMBALTA60 MG PO; +FA-80.8 MG PO; +IMITREX100 MG PO; +VENTOLIN HFA18 GM INH
--- NOTE | 2022-03-25 08:11 | PR ---
[facility] [address] [place], [place] [address] Signed AP Progress Notes Datetime Report Generated by TARAS: 03/25/2022 08:11 Chief Complaint: Slept all night. EGA: 33.5 PHYSICAL EXAM: [id number] General: Normal Abdomen: Abnormal Genitourinary Exam: Normal Physical Exam Comments: Abdomen is soft, nontender, gravid. Impression: 31 yo now at 34.2 wks seen last night and observed for contractions. She had just returned from [place] after being there for 4 days for similar c/o. She was discharged yesterday after no cervical change. She had received her steroids while in [place]. Discussed with pt that while she is having contractions she is not in labor and that these contractions may go on like this for several wks w/o leading to delivery. It is important she learn how to differentiate her contractions. Also, she was very dehydrated on her admit last pm which did not help with her contractions and she does need to keep up on her fluids. Plan: 60 gm CHO breakfast 10 units NPH with breakfast D/C home to pelvic rest and limited activity Increase po fluids Take 1500 mg Keppra tonight and then back to 1000 mg bid(missed last pm dose) F/U this wk with NST for insulin dependent GDM VITAL SIGNS: [id number] Vital Signs: Reviewed; Within Normal Limits EXAM: [id number] Dilatation: 1.5 Effacement: 50 Station: -4 Contraction Comments: q3" MEMBRANES: [id number] FETUS A: [id number] FHR Baseline: 150 Variability: Moderate 6-25bpm Accelerations: 15X15 Deceleration: None FHR Category: Category I FHR Comments: FHR reassuring for gestational age. No evidence of abruption/ *Electronically Signed* 03/25/22810 VARSHA ANTONIO MD PATIENT NAME: GERI LAUREN PROGRESS NOTE DATE OF : [birth year] PHYSICIAN: VARSHA ANTONIO MD RPT #: [id number] REPORT IS CONFIDENTIAL AND NOT TO BE RELEASED WITHOUT AUTHORIZATION [facility] [address] [place], [place] [address] Signed distress Gestation by US: 33.5 Estimated Weight: 2500 Presentation: Vertex FETUS B: [id number] PROGRESS NOTES: [id number] Signing Physician: Varsha Antonio MD Copies: ~ *Electronically Signed* 03/25/22810 VARSHA ANTONIO MD PATIENT NAME: GERI LAUREN PROGRESS NOTE DATE OF : [birth year] PHYSICIAN: VARSHA ANTONIO MD RPT #: [id number] REPORT IS CONFIDENTIAL AND NOT TO BE RELEASED WITHOUT AUTHORIZATION
== END 2022-03-25 09:20 | disposition home or self-care (01) ==
LOC: FBCO 20:26 → FBC 20:27
PROVIDERS: ADMIT General Practice; ATTEND General Practice
DX: O47.03 False labor before 37 completed weeks of gestation, third trimester (principal); O26.893 Other specified pregnancy related conditions, third trimester; E86.0 Dehydration; Z3A.34 34 weeks gestation of pregnancy
CPT/HCPCS: 96360; J1815; J7121

== ENCOUNTER 2022-04-23 09:26 | Inpatient (IN) | payer OTHER ==
[~2022-04-23] VITALS: Ht 154.9 cm; Wt 93.4 kg
--- NOTE | 2022-04-23 18:26 | PR ---
[facility] [address] [facility] [place], [place] [address] Signed Progress Notes IP Datetime Report Generated by CPN: 04/23/2022 18:26 PROGRESS NOTES: [id number] Impression: Normal Progression of Labor Procedures: Artificial ROM; Sterile Vag Exam Plan: Continue Present Management; Anesthesia Consult VITAL SIGNS: [id number] Vital Signs: Reviewed; Within Normal Limits EXAM: [id number] Dilatation: 3.0 Effacement: 80 Station: -2 Contractions: occ MEMBRANES: [id number] Comments: Progressing well. She desires epidural. Will consult anesthesia and continue. FETUS A: [id number] FHR Baseline: 140 Variability: Moderate 6-25bpm Accelerations: 15X15 Decelerations: None FHR Category: Category I Presentation: Vertex Comments on Fetus A: no evidence of metabolic acidosis FETUS B: [id number] Signing Physician: Varsha Antonio MD Copies: ~ *Electronically Signed* 04/23/22 1826 VARSHA ANTONIO MD PATIENT NAME: GERI LAUREN PROGRESS NOTE DATE OF : [birth year] PHYSICIAN: VARSHA ANTONIO MD RPT #: [id number] REPORT IS CONFIDENTIAL AND NOT TO BE RELEASED WITHOUT AUTHORIZATION
--- NOTE | 2022-04-24 08:10 | PR ---
[facility] [address] [facility] [place], [place] [address] Signed PP Progress Notes Datetime Report Generated by CPAnjali: 04/24/2022 08:10 SUBJECTIVE: [id number] Pain: Within Normal Limits Vital Signs: [id number] Vital Signs: Reviewed; Within Normal Limits Cardiovascular: Not Done Respiratory: Not Done Abdomen/Uterus: Abnormal Lochia: Normal Vulva/Perineum: Not Done Breasts: Not Done CVA Tenderness: Not Done Extremities: Normal Incision: Not Applicable Progress: Normal Exam Comments: Fundus firm, NT @ U-1. H/H 11.5/35.5, WBC 13, plat 173k IMPRESSION/PLAN/PROCEDURES: [id number] Impression: Normal Progression Plan: Continue Present Management Procedures: None Progress Notes: Doing well. Continue present care with probable am discharge. Signing Physician: Varsha Antonio MD Copies: ~ *Electronically Signed* 04/24/22809 VARSHA ANTONIO MD PATIENT NAME: GERI LAUREN JASON PROGRESS NOTE DATE OF : [birth year] PHYSICIAN: VARSHA ANTONIO MD RPT #: [id number] REPORT IS CONFIDENTIAL AND NOT TO BE RELEASED WITHOUT AUTHORIZATION
--- NOTE | 2022-04-25 09:07 | PR ---
[facility] [address] [facility] [place] [address] Signed PP Progress Notes Datetime Report Generated by CPN: 04/25/2022 09:07 SUBJECTIVE: [id number] Pain: Within Normal Limits Vital Signs: [id number] Vital Signs: Reviewed; Within Normal Limits Cardiovascular: Not Done Respiratory: Not Done Abdomen/Uterus: Abnormal Lochia: Normal Vulva/Perineum: Not Done Breasts: Not Done CVA Tenderness: Not Done Extremities: Normal Incision: Not Applicable Progress: Normal Exam Comments: Fundus firm, NT @ U-2 IMPRESSION/PLAN/PROCEDURES: [id number] Impression: Normal Progression Plan: Discharge Procedures: None Progress Notes: Doing well. She is ready for D/C. Signing Physician: Varsha Antonio MD Copies: ~ *Electronically Signed* 04/25/22906 VARSHA ANTONIO MD PATIENT NAME: GERI LAUREN PROGRESS NOTE DATE OF : [birth year] PHYSICIAN: VARSHA ANTONIO MD RPT #: [id number] REPORT IS CONFIDENTIAL AND NOT TO BE RELEASED WITHOUT AUTHORIZATION
== END 2022-04-25 11:35 | disposition home or self-care (01) | DRG 805 ==
LOC: FBC 09:26
PROVIDERS: ADMIT Obstetrics & Gynecology; ATTEND Obstetrics & Gynecology
PROC: 10907ZC Drainage of Amniotic Fluid, Therapeutic from Products of Conception, Via Natural or Artificial Opening (ICD-10-PCS; principal; 2022-04-23)
PROC: 00HU33Z Insertion of Infusion Device into Spinal Canal, Percutaneous Approach (ICD-10-PCS; 2022-04-23)
PROC: 3E0R3BZ Introduction of Anesthetic Agent into Spinal Canal, Percutaneous Approach (ICD-10-PCS; 2022-04-23)
PROC: 0HQ9XZZ Repair Perineum Skin, External Approach (ICD-10-PCS; 2022-04-23)
PROC: 3E0P7VZ Introduction of Hormone into Female Reproductive, Via Natural or Artificial Opening (ICD-10-PCS; 2022-04-23)
PROC: 10E0XZZ Delivery of Products of Conception, External Approach (ICD-10-PCS; 2022-04-23)
DX: O26.62 Liver and biliary tract disorders in childbirth (principal); K83.1 Obstruction of bile duct; Z37.0 Single live birth; O99.354 Diseases of the nervous system complicating childbirth; O99.824 Streptococcus B carrier state complicating childbirth; Z20.822 Contact with and (suspected) exposure to COVID-19; Z3A.38 38 weeks gestation of pregnancy; O70.0 First degree perineal laceration during delivery; Z67.20 Type B blood, Rh positive; O75.89 Other specified complications of labor and delivery; G40.909 Epilepsy, unspecified, not intractable, without status epilepticus; O24.424 Gestational diabetes mellitus in childbirth, insulin controlled; Z79.4 Long term (current) use of insulin
CPT/HCPCS: 01960; 36415; 80053; 85027; 86850; 86900; 86901; 87502; A9270; C9803; J0690; J2210; J2540; J2590; U0003

== ENCOUNTER 2022-10-09 17:50 | Emergency (ER) | payer OTHER ==
[~2022-10-09] VITALS: Ht 154.9 cm; Wt 92.5 kg
[2022-10-09] MEDS ORDERED: BUSPIRONE HCL15 MG PO (18:08)
[2022-10-09] MEDS ORDERED: OSELTAMIVIR PHO75 MG PO (18:09)
== END 2022-10-09 18:44 | disposition other institution, planned readmission (95) ==
LOC: ED 17:50
DX: R56.9 Unspecified convulsions (principal); Z53.21 Procedure and treatment not carried out due to patient leaving prior to being seen by health care provider

== ENCOUNTER 2022-11-02 02:30 | Emergency (ER) | payer OTHER ==
[~2022-11-02] VITALS: Ht 154.9 cm; Wt 94.3 kg
[~2022-11-02 02:30] MED LIST changes: +BUSPIRONE HCL15 MG PO; +OSELTAMIVIR PHO75 MG PO
--- OUTSIDE RECORDS SUMMARY | 2022-11-02 02:39 | XMS ---
PreManage Notification: GERI LAUREN Security [place] Events No recent Security Events currently on file CRITERIA MET - [facility] - 2 Visits in 30 Days CARE PROVIDERS SHELLY [facility] 12/07/2021-Current PHONE: [phone] NATALYA FLETCHER Otolaryngology 08/14/2018-Current PHONE: [phone] Abdelrahman has no Care Guidelines for this patient. Care History Medical/Surgical 10/06/2020 [facility] CONTACTED PCP OFFICE- DR BRAVO SPOKE WITH PHARMACEUTICAL ASSISTANT- PATIENT WAS OFFERED CAR CARE VISIT ON [...] UP VISIT. E.D. VISIT COUNT (12 MO.) [address] [facility] TOTAL 6 NOTE: Visits indicate total known visits. ED/UCC VISIT TRACKING (12 MO.) 11/02/2022 02:30 [facility] [place] TYPE: Emergency COMPLAINT: - BACK AND HIP PAIN 10/09/2022 17:51 [facility] [place] TYPE: Emergency COMPLAINT: - SEIZURE DIAGNOSES: - Procedure and treatment not carried out due to patient leaving prior to being seen by health care provider - Unspecified convulsions 06/23/2022 14:41 [facility] [place] TYPE: Emergency COMPLAINT: - R ARM INJ DIAGNOSES: - Allergy status to other drugs, medicaments and biological substances - Pain in right wrist - correction (current) use of aspirin - Allergy status to penicillin - Striking against other object with subsequent fall, initial encounter - Allergy status to narcotic agent - Sprain of unspecified part of right wrist and hand, initial encounter - Allergy status to sulfonamides - Other longterm (current) drug therapy - Food additives allergy status 01/31/2022 03:02 [facility] [place] TYPE: Emergency COMPLAINT: - SEIZURE DIAGNOSES: - Allergy status to narcotic agent - Epilepsy, unspecified, not intractable, without status epilepticus - Injury, poisoning and certain other consequences of external causes complicating , second trimester - 26 weeks gestation of - Other 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 drier operator (current) drug therapy - Right upper quadrant pain - Allergy status to sulfonamides - Strain of unspecified muscles, fascia and tendons at forearm level, right arm, initial encounter - Allergy status to penicillin - intermediate project manager (current) use of aspirin - Diseases of the nervous system complicating , second trimester - Allergy to other foods 12/04/2021 13:54 [facility] [place] TYPE: Emergency COMPLAINT: - FLU SYMPTOMS DIAGNOSES: - COVID-19 - Allergy status to sulfonamides - Allergy to other foods - Other viral diseases complicating , second trimester - Epilepsy, unspecified, not intractable, without status epilepticus - Allergy status to penicillin - Allergy status to narcotic agent - Diseases of the nervous system complicating , second trimester - Shortness of breath - Allergy status to other drugs, medicaments and biological substances - Other longterm (current) drug therapy - 18 weeks gestation of - Encounter for immunization 11/08/2021 23:00 [facility] [place] TYPE: Emergency COMPLAINT: - 15 WKS , VAGINAL BLEEDING DIAGNOSES: - 14 weeks gestation of - Allergy status to other antibiotic agents - Allergy status to sulfonamides - Other longterm (current) drug therapy - Threatened - Allergy status to other drugs, medicaments and biological substances - Allergy status to narcotic agent - Allergy status to penicillin INPATIENT VISIT TRACKING (12 MO.) 04/23/2022 10:26 [facility] [place] TYPE: [facility] COMPLAINT: - INDUCTION DIAGNOSES: - Single live - Other specified complications of labor and delivery - Encounter for full-term uncomplicated delivery - First degree perineal laceration during delivery - Other specified complications of labor and delivery - Contact with and (suspected) exposure to COVID-19 - Liver and biliary tract disorders in childbirth - correction (current) use of insulin - Single live - Obstruction of bile duct - Type B blood, Rh positive - Streptococcus B carrier state complicating childbirth - Epilepsy, unspecified, not intractable, without status epilepticus - 38 weeks gestation of - Type B blood, Rh positive - Streptococcus B carrier state complicating childbirth - Gestational diabetes mellitus in childbirth, insulin controlled - Diseases of the nervous system complicating childbirth - First degree perineal laceration during delivery - Contact with and (suspected) exposure to COVID-19 - 38 weeks gestation of 03/24/2022 20:27 [facility] [place] TYPE: Observation COMPLAINT: - CONTRACTIONS DIAGNOSES: - 34 weeks gestation of - Other specified related conditions, third trimester - False labor before 37 completed weeks of gestation, third trimester - Dehydration 03/21/2022 08:13 [facility] [place] [facility] DIAGNOSES: - Pre-Term Labor - labor without delivery, unspecified trimester [email or web address]
[2022-11-02] MEDS ORDERED: LEVETIRACETAM1000 MG PO (02:50)
[2022-11-02] MEDS ORDERED: MEDROXYPRO150 MG/1 M IM (02:50)
[2022-11-02] MEDS ORDERED: TAMIFLU75 MG PO (05:30)
== END 2022-11-02 05:47 | disposition home or self-care (01) ==
LOC: ED 02:30
DX: J10.1 Influenza due to other identified influenza virus with other respiratory manifestations (principal); G40.909 Epilepsy, unspecified, not intractable, without status epilepticus; Z20.822 Contact with and (suspected) exposure to COVID-19; Z88.5 Allergy status to narcotic agent; Z88.0 Allergy status to penicillin; Z88.2 Allergy status to sulfonamides; Z88.8 Allergy status to other drugs, medicaments and biological substances; Z91.018 Allergy to other foods; Z79.899 Other long term (current) drug therapy
CPT/HCPCS: 36415; 70450; 72131; 74176; 80053; 81003; 83735; 84443; 84550; 84703; 85025; 85651; 86140; 87502; 96374; 96375; 99284-25; J1885; J3010; J7121; U0003

== ENCOUNTER 2023-05-18 16:32 | Emergency (ER) | payer OTHER ==
[~2023-05-18] VITALS: Ht 152.4 cm; Wt 105.2 kg
--- OUTSIDE RECORDS SUMMARY | ~2023-05-18 | XMS | Continuity of Care Document ---
Demographics + + + | Address | [address] [place], [place] | | | [place] [address] | + + + | Preferred Language | Unknown | + + + | Marital Status | | + + + | [employer]ar[employer] Affiliation | Unknown | + + + | Race | White | + + + | Ethnic Group | Not or | + + + Author + + + | Author | [facility] | + + + | Organization | [facility] | + + + | Address | [address] | | | [place] [address] | + + + | Phone | | + + + Care Team Providers + + + + | Care Facialist Name | Role | Phone | + + + + Unavailable | Unavailable | + + + + Unavailable | Unavailable | + + + + Allergies and Intolerances + + + + + | date | description | facility | type | + + + + + | (no date) | Urticaria | [facility] | | + + + + + | (no date) | Capsaicin | [facility] ([facility] | | + + + + + | (no date) | capsaicin | [facility] ([facility] | | + + + + + | (no date) | Edema of pharynx | [facility] (unknown[facility] | | + + + + + | (no date) | Cinnamon | [facility] ([facility] | | + + + + + | (no date) | Rash | [facility] ([facility] | | + + + + + | (no date) | Morphine | [facility] ([facility] | | + + + + + | (no date) | Capsaicin | [facility] ([facility] | | + + + + + | (no date) | Vomiting | [facility] ([facility] | | + + + + + | (no date) | Cinnamon | [facility] ([facility] | | + + + + + | (no date) | Diarrhea | [facility] ([facility] | | + + + + + | (no date) | Morphine | [facility] ([facility] | | + + + + + | (no date) | morphine | [facility] ([facility] | | + + + + + | (no date) | Penicillin | [facility] ([facility] | | + + + + + | (no date) | Penicillin | [facility] (unknown[facility] | | + + + + + | (no date) | Morphine | [facility] (unknown[facility] | | | | [facility] | | + + + + + | (no date) | Opioids - Morphine | [facility] | (unknown) | | | Analogues | | | + + + + + | (no date) | Penicillins | [facility] | (unknown) | + + + + + | (no date) | Sulfa (Sulfonamide | [facility] | (unknown) | | | Antibiotics) | | | + + + + + | (no date) | morphine | [facility] | (unknown) | + + + + + | (no date) | capsaicin | [facility] | (unknown) | + + + + + | (no date) | cinnamon | [facility] | (unknown) | + + + + + | (no date) | cannabidiol (CBD) | [facility] | (unknown) | | | extract | | | + + + + + | (no date) | Penicillin | [facility] (unknown[facility] | | | [facility] | | + + + + + | (no date) | Penicillin | [facility] (unknown) | | | [facility] | | + + + + + | (no date) | Capsaicin | [facility] (unknown) | | | [facility] | | + + + + + Encounters No information. Functional Status No information. Immunizations + + + + | date | description | facility | + + + + | 2016-09-17 00:00 | Tdap | [facility] | + + + + | 2022-06-30 00:00 | Influenza, Injectable, | [facility] | | | Quadrivalent, Preservative | | + + + + | 2022-10-09 00:00 | Influenza, Injectable, | [facility] | | | Quadrivalent, Preservative | | + + + + | 2022-11-02 00:00 | Influenza, Injectable, | [facility] | | | Quadrivalent, Preservative | | + + + + | 2023-01-21 00:00 | Influenza, Injectable, | [facility] | | | Quadrivalent, Preservative | | + + + + | 2023-05-08 00:00 | Influenza, Injectable, | [facility] | | | Quadrivalent, Preservative | | + + + + Medications + + + + | date | description | facility | + + + + | 2022-06-30 00:00 | MEDROXYPROGESTERONE | [facility] | | | ACETATE | | + + + + | 2022-10-09 00:00 | MEDROXYPROGESTERONE | [facility] | | | ACETATE | | + + + + | 2022-11-02 00:00 | MEDROXYPROGESTERONE | [facility] | | | ACETATE | | + + + + | 2023-01-21 00:00 | MEDROXYPROGESTERONE | [facility] | | | ACETATE | | + + + + | 2023-05-08 00:00 | MEDROXYPROGESTERONE | [facility] | | | ACETATE | | + + + + | 2022-06-30 00:00 | DM | [facility] | | | HB/PE/ACETAMINOPHEN/CHLORPH | | | | | | + + + + | 2022-10-09 00:00 | DM | [facility] | | | HB/PE/ACETAMINOPHEN/CHLORPH | | | | | | + + + + | 2022-11-02 00:00 | DM | [facility] | | | HB/PE/ACETAMINOPHEN/CHLORPH | | | | | | + + + + | 2023-01-21 00:00 | DM | [facility] | | | HB/PE/ACETAMINOPHEN/CHLORPH | | | | | | + + + + | 2023-05-08 00:00 | DM | [facility] | | | HB/PE/ACETAMINOPHEN/CHLORPH | | | | | | + + + + | 2020-10-04 00:00 | ONDANSETRON HCL | [facility] | + + + + | 2022-06-30 00:00 | PSEUDOEPHEDRINE HCL | [facility] | + + + + | 2022-10-09 00:00 | PSEUDOEPHEDRINE HCL | [facility] | + + + + | 2022-11-02 00:00 | PSEUDOEPHEDRINE HCL | [facility] | + + + + | 2023-01-21 00:00 | PSEUDOEPHEDRINE HCL | [facility] | + + + + | 2023-05-08 00:00 | PSEUDOEPHEDRINE HCL | [facility] | + + + + | 2022-06-30 00:00 | PSEUDOEPHEDRINE HCL | [facility] | + + + + | 2022-10-09 00:00 | PSEUDOEPHEDRINE HCL | [facility] | + + + + | 2022-11-02 00:00 | PSEUDOEPHEDRINE HCL | [facility] | + + + + | 2023-01-21 00:00 | PSEUDOEPHEDRINE HCL | [facility] | + + + + | 2023-05-08 00:00 | PSEUDOEPHEDRINE HCL | [facility] | + + + + | 2018-08-05 00:00 | OXYCODONE | [facility] | | | HCL/ACETAMINOPHEN | | + + + + | 2018-08-13 00:00 | DIPHENHYDRAMINE HCL | [facility] | + + + + | 2014-12-14 00:00 | GUAIFENESIN/D-METHORPHAN | [facility] | | | HB/PE | | + + + + | 2017-01-01 00:00 | MELOXICAM | [facility] | + + + + | 2022-06-30 00:00 | MELOXICAM | [facility] | + + + + | 2022-10-09 00:00 | MELOXICAM | [facility] | + + + + | 2022-11-02 00:00 | MELOXICAM | [facility] | + + + + | 2023-01-21 00:00 | MELOXICAM | [facility] | + + + + | 2023-05-08 00:00 | MELOXICAM | [facility] | + + + + | 2018-10-27 00:00 | DOXYCYCLINE HYCLATE | [facility] | + + + + | 2020-09-29 00:00 | DOXYCYCLINE HYCLATE | [facility] | + + + + | 2015-09-23 00:00 | FLUTICASONE PROPIONATE | [facility] | + + + + | 2022-06-30 00:00 | EPINEPHRINE | [facility] | + + + + | 2022-10-09 00:00 | EPINEPHRINE | [facility] | + + + + | 2022-11-02 00:00 | EPINEPHRINE | [facility] | + + + + | 2023-01-21 00:00 | EPINEPHRINE | [facility] | + + + + | 2023-05-08 00:00 | EPINEPHRINE | [facility] | + + + + | 2022-06-30 00:00 | ONDANSETRON HCL | [facility] | + + + + | 2022-10-09 00:00 | ONDANSETRON HCL | [facility] | + + + + | 2022-11-02 00:00 | ONDANSETRON HCL | [facility] | + + + + | 2023-01-21 00:00 | ONDANSETRON HCL | [facility] | + + + + | 2023-05-08 00:00 | ONDANSETRON HCL | [facility] | + + + + | 2022-06-30 00:00 | MONTELUKAST SODIUM | [facility] | + + + + | 2022-10-09 00:00 | MONTELUKAST SODIUM | [facility] | + + + + | 2022-11-02 00:00 | MONTELUKAST SODIUM | [facility] | + + + + | 2023-01-21 00:00 | MONTELUKAST SODIUM | [facility] | + + + + | 2023-05-08 00:00 | MONTELUKAST SODIUM | [facility] | + + + + | 2020-09-29 00:00 | Dexamethasone | [facility] | + + + + | 2022-06-30 00:00 | PAROXETINE HCL | [facility] | + + + + | 2022-10-09 00:00 | PAROXETINE HCL | [facility] | + + + + | 2022-11-02 00:00 | PAROXETINE HCL | [facility] | + + + + | 2023-01-21 00:00 | PAROXETINE HCL | [facility] | + + + + | 2023-05-08 00:00 | PAROXETINE HCL | [facility] | + + + + | 2014-12-14 00:00 | AZITHROMYCIN | [facility] | + + + + | 2015-03-22 00:00 | AZITHROMYCIN | [facility] | + + + + | 2022-06-30 00:00 | FOLIC ACID | [facility] | + + + + | 2022-10-09 00:00 | FOLIC ACID | [facility] | + + + + | 2022-11-02 00:00 | FOLIC ACID | [facility] | + + + + | 2023-01-21 00:00 | FOLIC ACID | [facility] | + + + + | 2023-05-08 00:00 | FOLIC ACID | [facility] | + + + + | 2022-11-02 00:00 | OSELTAMIVIR PHOSPHATE | [facility] | + + + + | 2020-01-17 00:00 | LEVETIRACETAM | [facility] | + + + + | 2022-06-30 00:00 | LEVETIRACETAM | [facility] | + + + + | 2022-10-09 00:00 | LEVETIRACETAM | [facility] | + + + + | 2022-11-02 00:00 | LEVETIRACETAM | [facility] | + + + + | 2023-01-21 00:00 | LEVETIRACETAM | [facility] | + + + + | 2023-05-08 00:00 | LEVETIRACETAM | [facility] | + + + + | 2022-06-30 00:00 | SUMATRIPTAN SUCCINATE | [facility] | + + + + | 2022-10-09 00:00 | SUMATRIPTAN SUCCINATE | [facility] | + + + + | 2022-11-02 00:00 | SUMATRIPTAN SUCCINATE | [facility] | + + + + | 2023-01-21 00:00 | SUMATRIPTAN SUCCINATE | [facility] | + + + + | 2023-05-08 00:00 | SUMATRIPTAN SUCCINATE | [facility] | + + + + | 2022-06-30 00:00 | AMOXICILLIN | [facility] | + + + + | 2022-10-09 00:00 | AMOXICILLIN | [facility] | + + + + | 2022-11-02 00:00 | AMOXICILLIN | [facility] | + + + + | 2023-01-21 00:00 | AMOXICILLIN | [facility] | + + + + | 2023-05-08 00:00 | AMOXICILLIN | [facility] | + + + + | 2022-06-30 00:00 | AMOXICILLIN | [facility] | + + + + | 2022-10-09 00:00 | AMOXICILLIN | [facility] | + + + + | 2022-11-02 00:00 | AMOXICILLIN | [facility] | + + + + | 2023-01-21 00:00 | AMOXICILLIN | [facility] | + + + + | 2023-05-08 00:00 | AMOXICILLIN | [facility] | + + + + | 2022-06-30 00:00 | METOCLOPRAMIDE HCL | [facility] | + + + + | 2022-10-09 00:00 | METOCLOPRAMIDE HCL | [facility] | + + + + | 2022-11-02 00:00 | METOCLOPRAMIDE HCL | [facility] | + + + + | 2023-01-21 00:00 | METOCLOPRAMIDE HCL | [facility] | + + + + | 2023-05-08 00:00 | METOCLOPRAMIDE HCL | [facility] | + + + + | 2022-10-09 00:00 | Oseltamivir Phosphate | [facility] | + + + + | 2015-12-30 00:00 | predniSONE | [facility] | + + + + | 2022-06-30 00:00 | ASPIRIN | [facility] | + + + + | 2022-10-09 00:00 | ASPIRIN | [facility] | + + + + | 2022-11-02 00:00 | ASPIRIN | [facility] | + + + + | 2023-01-21 00:00 | ASPIRIN | [facility] | + + + + | 2023-05-08 00:00 | ASPIRIN | [facility] | + + + + | 2022-11-02 00:00 | LEVETIRACETAM | [facility] | + + + + | 2023-01-21 00:00 | Pregabalin | [facility] | + + + + | 2023-05-08 00:00 | Pregabalin | [facility] | + + + + | 2022-06-30 00:00 | DULOXETINE HCL | [facility] | + + + + | 2022-10-09 00:00 | DULOXETINE HCL | [facility] | + + + + | 2022-11-02 00:00 | DULOXETINE HCL | [facility] | + + + + | 2023-01-21 00:00 | DULOXETINE HCL | [facility] | + + + + | 2023-05-08 00:00 | DULOXETINE HCL | [facility] | + + + + | 2022-06-30 00:00 | DULOXETINE HCL | [facility] | + + + + | 2022-10-09 00:00 | DULOXETINE HCL | [facility] | + + + + | 2022-11-02 00:00 | DULOXETINE HCL | [facility] | + + + + | 2023-01-21 00:00 | DULOXETINE HCL | [facility] | + + + + | 2023-05-08 00:00 | DULOXETINE HCL | [facility] | + + + + | 2022-06-30 00:00 | DULOXETINE HCL | [facility] | + + + + | 2022-10-09 00:00 | DULOXETINE HCL | [facility] | + + + + | 2022-11-02 00:00 | DULOXETINE HCL | [facility] | + + + + | 2023-01-21 00:00 | DULOXETINE HCL | [facility] | + + + + | 2023-05-08 00:00 | DULOXETINE HCL | [facility] | + + + + | 2021-03-25 00:00 | LEVETIRACETAM | [facility] | + + + + | 2015-09-23 00:00 | AZITHROMYCIN | [facility] | + + + + | 2016-06-04 00:00 | CYCLOBENZAPRINE HCL | [facility] | + + + + | 2017-08-14 00:00 | CYCLOBENZAPRINE HCL | [facility] | + + + + | 2023-01-21 00:00 | TRAMADOL HCL | [facility] | + + + + | 2022-06-30 00:00 | | [facility] | | | SULFAMETHOXAZOLE/TRIMETHOPR | | | | IM DS | | + + + + | 2022-10-09 00:00 | | [facility] | | | SULFAMETHOXAZOLE/TRIMETHOPR | | | | IM DS | | + + + + | 2022-11-02 00:00 | | [facility] | | | SULFAMETHOXAZOLE/TRIMETHOPR | | | | IM DS | | + + + + | 2023-01-21 00:00 | | [facility] | | | SULFAMETHOXAZOLE/TRIMETHOPR | | | | IM DS | | + + + + | 2023-05-08 00:00 | | [facility] | | | SULFAMETHOXAZOLE/TRIMETHOPR | | | | IM DS | | + + + + | 2022-06-30 00:00 | ALBUTEROL SULFATE | [facility] | + + + + | 2022-10-09 00:00 | ALBUTEROL SULFATE | [facility] | + + + + | 2022-11-02 00:00 | ALBUTEROL SULFATE | [facility] | + + + + | 2023-01-21 00:00 | ALBUTEROL SULFATE | [facility] | + + + + | 2023-05-08 00:00 | ALBUTEROL SULFATE | [facility] | + + + + | 2022-10-09 00:00 | BUSPIRONE HCL | [facility] | + + + + | 2022-11-02 00:00 | BUSPIRONE HCL | [facility] | + + + + | 2023-01-21 00:00 | BUSPIRONE HCL | [facility] | + + + + | 2023-05-08 00:00 | BUSPIRONE HCL | [facility] | + + + + | 2022-06-30 00:00 | BUSPIRONE HCL | [facility] | + + + + | 2022-10-09 00:00 | BUSPIRONE HCL | [facility] | + + + + | 2022-11-02 00:00 | BUSPIRONE HCL | [facility] | + + + + | 2023-01-21 00:00 | BUSPIRONE HCL | [facility] | + + + + | 2023-05-08 00:00 | BUSPIRONE HCL | [facility] | + + + + | 2022-06-30 00:00 | BUSPIRONE HCL | [facility] | + + + + | 2022-10-09 00:00 | BUSPIRONE HCL | [facility] | + + + + | 2022-11-02 00:00 | BUSPIRONE HCL | [facility] | + + + + | 2023-01-21 00:00 | BUSPIRONE HCL | [facility] | + + + + | 2023-05-08 00:00 | BUSPIRONE HCL | [facility] | + + + + | 2022-06-30 00:00 | BUSPIRONE HCL | [facility] | + + + + | 2022-10-09 00:00 | BUSPIRONE HCL | [facility] | + + + + | 2022-11-02 00:00 | BUSPIRONE HCL | [facility] | + + + + | 2023-01-21 00:00 | BUSPIRONE HCL | [facility] | + + + + | 2023-05-08 00:00 | BUSPIRONE HCL | [facility] | + + + + | 2018-08-05 00:00 | ONDANSETRON | [facility] | + + + + | 2014-01-14 00:00 | PROMETHAZINE HCL | [facility] | + + + + | 2014-01-14 00:00 | PROMETHAZINE HCL | [facility] | + + + + | 2022-06-30 00:00 | PROMETHAZINE HCL | [facility] | + + + + | 2022-10-09 00:00 | PROMETHAZINE HCL | [facility] | + + + + | 2022-11-02 00:00 | PROMETHAZINE HCL | [facility] | + + + + | 2023-01-21 00:00 | PROMETHAZINE HCL | [facility] | + + + + | 2023-05-08 00:00 | PROMETHAZINE HCL | [facility] | + + + + | 2019-07-09 00:00 | Codeine | [facility] | | | Phosphate/Guaifenesin | | + + + + | 2015-03-22 00:00 | GUAIFENESIN/CODEINE | [facility] | | | PHOSPHATE | | + + + + | 2015-12-30 00:00 | GUAIFENESIN/CODEINE | [facility] | | | PHOSPHATE | | + + + + | 2022-06-30 00:00 | FEXOFENADINE HCL | [facility] | + + + + | 2022-10-09 00:00 | FEXOFENADINE HCL | [facility] | + + + + | 2022-11-02 00:00 | FEXOFENADINE HCL | [facility] | + + + + | 2023-01-21 00:00 | FEXOFENADINE HCL | [facility] | + + + + | 2023-05-08 00:00 | FEXOFENADINE HCL | [facility] | + + + + Problems + + + + | date | description | facility | + + + + | 2014-12-14 00:00 | Upper respiratory | [facility] | | | infection | | + + + + | 2014-12-14 00:00 | Sinusitis | [facility] | + + + + | 2015-03-22 00:00 | Acute bronchitis | [facility] | + + + + | 2016-01-13 00:00 | Right elbow pain | [facility] | + + + + | 2016-06-04 00:00 | Spasm of thoracic back | [facility] | | | muscle | | + + + + | 2016-06-04 00:00 | Back strain | [facility] | + + + + | 2016-09-17 00:00 | Laceration | [facility] | + + + + | 2017-01-01 00:00 | Contusion of right foot | [facility] | + + + + | 2017-08-14 00:00 | Sprain of hip | [facility] | + + + + | 2018-08-05 00:00 | Postoperative pain | [facility] | + + + + | 2018-10-27 00:00 | Pharyngitis | [facility] | + + + + | 2019-07-09 00:00 | Viral upper respiratory | [facility] | | | tract infection with cough | | + + + + | 2019-07-31 00:00 | Inhalation of noxious | [facility] | | | fumes | | + + + + | 2019-09-18 00:00 | Syncope | [facility] | + + + + | 2020-06-07 00:00 | Pain of right hip | [facility] | + + + + | 2020-08-31 00:00 | Acute postoperative pain | [facility] | | | of right hip | | + + + + | 2020-09-27 00:00 | Pneumonia due to severe | [facility] | | | acute respiratory syndrome | | | | coronavirus 2 (SARS-CoV-2) | | + + + + | 2020-11-10 00:00 | Patient left without being | [facility] | | | seen | | + + + + | 2021-10-03 00:00 | Hyperemesis gravidarum | [facility] | | | with metabolic disturbance | | + + + + | 2021-11-09 00:00 | Threatened | [facility] | + + + + | 2021-12-04 00:00 | Infection due to severe | [facility] | | | acute respiratory syndrome | | | | coronavirus 2 (SARS-CoV-2) | | + + + + | 2022-01-31 00:00 | Epilepsy affecting | [facility] | | | in second | | | | trimester | | + + + + | 2022-01-31 00:00 | Strain of elbow | [facility] | + + + + | 2022-03-21 [...] 00:00 | Influenza due to influenza | [facility] | | | virus, type A, human [...] + + | 2022-11-02 02:30 | OTHER PENITENTIARY (CURRENT) | [facility] | | | DRUG [...] | 2023-01-21 00:00 | Hip strain | [facility] | + + + + | 2023-01-21 [...] + + | 2023-01-21 20:14 | OTHER LINE ERECTOR (CURRENT) | [facility] | | | DRUG [...] | 2023-05-08 00:00 | Seizure-like activity | [facility] | + + + + | 2023-05-08 17:23 | DEPRESSION, UNSPECIFIED | [facility] | + + + + | 2023-05-08 17:23 | EPILEPSY, UNSP, NOT | [facility] | | | INTRACTABLE, WITHOUT STATUS | | | | EP | | + + + + | 2023-05-08 17:23 | UNSPECIFIED CONVULSIONS | [facility] | + + + + | 2023-05-08 17:23 | OTHER PENITENTIARY (CURRENT) | [facility] | | | DRUG [...] | [facility] | + + + + Procedures + + + + | date | description | facility | + + + + | 2022-04-23 00:00 | INSERTION OF INFUSION DEV | [facility] | | | INTO SPINAL CANAL, PERC | | | | APPROACH | | + + + + | 2022-04-23 00:00 | REPAIR PERINEUM SKIN, | [facility] | | | EXTERNAL APPROACH | | + + + + | 2022-04-23 00:00 | DRAINAGE OF AMNIOTIC FL, | [facility] | | | THERAP FROM POC, VIA | | | | OPENING | | + + + + | 2022-04-23 00:00 | DELIVERY OF PRODUCTS OF | [facility] | | | CONCEPTION, EXTERNAL | | | | APPROACH | | + + + + | 2022-04-23 00:00 | INTRODUCTION OF HORMONE | [facility] | | | INTO FEM REPROD, VIA | | | | OPENING | | + + + + | 2022-04-23 00:00 | INTRODUCTION OF ANESTHETIC | [facility] | | | INTO SPINAL CANAL, PERC | | | | APPROACH | | + + + + | 2022-03-03 00:00 | MONITORING OF POC, CARDIAC | [facility] | | | ELECTR ACTIVITY, WRITING CENTER DIRECTOR | | | | APPROACH | | + + + + | 2022-03-29 00:00 | MONITORING OF POC, CARDIAC | [facility] | | | ELECTR ACTIVITY, WRITING CENTER DIRECTOR | | | | APPROACH | | + + + + | 2022-03-21 00:00 | MONITORING OF POC, CARDIAC | [facility] | | | RATE, WRITING CENTER DIRECTOR APPROACH | | + + + + | 2022-04-07 00:00 | MONITORING OF POC, CARDIAC | [facility] | | | RATE, WRITING CENTER DIRECTOR APPROACH | | + + + + Results/Labs +--------+--------+ + +---------+--------+ + | test | date | author | facility | value | unit | | | | | | | | | interpreta | | | | | | | | tion | +--------+--------+ + +---------+--------+ + + + | Result panel 1 | + + + + + + +---------+ + + | (unknown) | (no date) | (unknown) | [facility] | (no | (units | (unknown) | | | | [facility] | value) | unknown) | | | | | [facility] | | | | + + + + +---------+ + + + + | Result panel 2 | + + + + + + +---------+ + + | (unknown) | (no date) | (unknown) | [facility] | (no | (units | (unknown) | | | | | [facility] | value) | unknown) | | | | | [facility] | | | | + + + + +---------+ + + + + | Result panel 3 | + + + + + + +---------+ + + | (unknown) | (no date) | (unknown) | [facility] | (no | (units | (unknown) | | | | | [facility] | value) | unknown) | | | | | | [facility] | | | | + + + + +---------+ + + + + | Result panel 4 | + + + + + + +---------+ + + | (unknown) | (no date) | (unknown) | [facility] | (no | (units | (unknown) | | | | | [facility] | value) | unknown) | | | | | | [facility] | | | | + + + + +---------+ + + + + | Result panel 5 | + + + + + + +---------+ + + | (unknown) | (no date) | (unknown) | [facility] | (no | (units | (unknown) | | | | | [facility] | value) | unknown) | | [facility] | | | | + + + + +---------+ + + + + | Result panel 6 | + + + + + + +---------+ + + | (unknown) | (no date) | (unknown) | [facility] | (no | (units | (unknown) | | | | [facility] value) | [facility]) | | | [facility] | | | | + + + + +---------+ + + + + | Result panel 7 | + + + + + + +---------+ + + | (unknown) | (no date) | (unknown) | [facility] | (no | (units | (unknown) | | | | [facility] value) | [facility]) | [facility] | | | | + + + + +---------+ + + + + | Result panel 8 | + + + + + + +---------+ + + | (unknown) | (no date) | (unknown) | [facility] | (no | (units | (unknown) | | | | [facility] | [facility] | | | | + + + + +---------+ + + + + | Result panel 9 | + + + + + + +---------+ + + | (unknown) | (no date) | (unknown) | [facility] | (no | (units | (unknown) | | | | [facility] | [facility] | [facility] | | | | + + + + +---------+ + + + + | Result panel 10 | + + + + + + +---------+ + + | (unknown) | (no date) | (unknown) | [facility] | (no | (units | (unknown) | | | | [facility] | [facility] | [facility] | | | | + + + + +---------+ + + + + | Result panel 11 | + + + + + + +---------+ + + | (unknown) | (no date) | (unknown) | [facility] | (no | (units | (unknown) | | | | [facility] | [facility] | | | | + + + + +---------+ + + + + | Result panel 12 | + + + + + + +---------+ + + | (unknown) | (no date) | (unknown) | [facility] | (no | (units | (unknown) | | | | [facility] | [facility] | | | | + + + + +---------+ + + + + | Result panel 13 | + + + + + + +---------+ + + | (unknown) | (no date) | (unknown) | [facility] | (no | (units | (unknown) | | | | [facility] | [facility] | | | | + + + + +---------+ + + + + | Result panel 14 | + + + + + + +---------+ + + | (unknown) | (no date) | (unknown) | [facility] | (no | (units | (unknown) | | | | [facility] | [facility] | | | | + + + + +---------+ + + + + | Result panel 15 | + + + + + + +---------+ + + | (unknown) | (no date) | (unknown) | [facility] | (no | (units | (unknown) | | | | [facility] | [facility] | | | | + + + + +---------+ + + + + | Result panel 16 | + + + + + + +---------+ + + | (unknown) | (no date) | (unknown) | [facility] | (no | (units | (unknown) | | | | [facility]) | [facility] | [facility] | | | | + + + + +---------+ + + + + | Result panel 17 | + + + + + + +---------+ + + | (unknown) | (no date) | (unknown) | [facility] | (no | (units | (unknown) | | | | [facility]) | [facility]) | [facility] | | | | + + + + +---------+ + + + + | Result panel 18 | + + + + + + +---------+ + + | (unknown) | (no date) | (unknown) | [facility] | (no | (units | (unknown) | | | | [facility] value) | [facility]) | | [facility] | | | | + + + + +---------+ + + + + | Result panel 19 | + + + + + + +---------+ + + | (unknown) | (no date) | (unknown) | [facility] | (no | (units | (unknown) | | | | [facility] value) | [facility] | [facility] | | | | + + + + +---------+ + + + + | Result panel 20 | + + + + + + +---------+ + + | (unknown) | (no date) | (unknown) | [facility] | (no | (units | (unknown) | | | | | [facility] value[facility] | [facility] | | [facility] | | | | + + + + +---------+ + + + + | Result panel 21 | + + + + + + +---------+ + + | (unknown) | (no date) | (unknown) | [facility] | (no | (units | (unknown) | | | | [facility]) | [facility]) | [facility] | | | | + + + + +---------+ + + + + | Result panel 22 | + + + + + + +---------+ + + | (unknown) | (no date) | (unknown) | [facility] | (no | (units | (unknown) | | | | [facility]) | [facility] | [facility] | | | | + + + + +---------+ + + + + | Result panel 23 | + + + + + + +---------+ + + | (unknown) | (no date) | (unknown) | [facility] | (no | (units | (unknown) | | | | [facility]) | [facility] | | [facility] | | | | + + + + +---------+ + + + + | Result panel 24 | + + + + + + +---------+ + + | (unknown) | (no date) | (unknown) | [facility] | (no | (units | (unknown) | | | | [facility]) | [facility] | [facility] | | | | + + + + +---------+ + + + + | Result panel 25 | + + + + + + +---------+ + + | (unknown) | (no date) | (unknown) | [facility] | (no | (units | (unknown) | | | | [facility] | [facility] | [facility] | | | | + + + + +---------+ + + + + | Result panel 26 | + + + + + + +---------+ + + | (unknown) | (no date) | (unknown) | [facility] | (no | (units | (unknown) | | | | [facility] | [facility] | [facility] | | | | + + + + +---------+ + + + + | Result panel 27 | + + + + + + +---------+ + + | (unknown) | (no date) | (unknown) | [facility] | (no | (units | (unknown) | | | | | [facility]) | [facility]) | | | [facility] | | | | + + + + +---------+ + + + + | Result panel 28 | + + + + + + +---------+ + + | (unknown) | (no date) | (unknown) | [facility] | (no | (units | (unknown) | | | | [facility] | [facility]) | | [facility] | | | | + + + + +---------+ + + + + | Result panel 29 | + + + + + + +---------+ + + | (unknown) | (no date) | (unknown) | [facility] | (no | (units | (unknown) | | | | [facility] | [facility]) | | [facility] | | | | + + + + +---------+ + + + + | Result panel 30 | + + + + + + +---------+ + + | (unknown) | (no date) | (unknown) | [facility] | (no | (units | (unknown) | | | | [facility]) | [facility]) | | [facility] | | | | + + + + +---------+ + + + + | Result panel 31 | + + + + + + +---------+ + + | (unknown) | (no date) | (unknown) | [facility] | (no | (units | (unknown) | | | | [facility] | [facility]) | [facility] | [facility] | | | | + + + + +---------+ + + + + | Result panel 32 | + + + + + + +---------+ + + | (unknown) | (no date) | (unknown) | [facility] | (no | (units | (unknown) | | | | [facility] value) | [facility]) | | | [facility] | | | | + + + + +---------+ + + + + | Result panel 33 | + + + + + + +---------+ + + | (unknown) | (no date) | (unknown) | [facility] | (no | (units | (unknown) | | | | [facility]) | [facility] | | [facility] | | | | + + + + +---------+ + + + + | Result panel 34 | + + + + + + +---------+ + + | (unknown) | (no date) | (unknown) | [facility] | (no | (units | (unknown) | | | | [facility] value) | [facility]) | | [facility] | | | | + + + + +---------+ + + + + | Result panel 35 | + + + + + + +---------+ + + | (unknown) | (no date) | (unknown) | [facility] | (no | (units | (unknown) | | | | [facility] | [facility] | [facility] | | | | + + + + +---------+ + + + + | Result panel 36 | + + + + + + +---------+ + + | (unknown) | (no date) | (unknown) | [facility] | (no | (units | (unknown) | | | | [facility] | [facility] | [facility] | | | | + + + + +---------+ + + + + | Result panel 37 | + + + + + + +---------+ + + | (unknown) | (no date) | (unknown) | [facility] | (no | (units | (unknown) | | | | [facility] value) | [facility]) | | | [facility] | | | | + + + + +---------+ + + + + | Result panel 38 | + + + + + + +---------+ + + | (unknown) | (no date) | (unknown) | [facility] | (no | (units | (unknown) | | | | [facility]) | [facility]) | | | [facility] | | | | + + + + +---------+ + + + + | Result panel 39 | + + + + + + +---------+ + + | (unknown) | (no date) | (unknown) | [facility] | (no | (units | (unknown) | | | | [facility] value) | [facility]) | [facility] | | | | + + + + +---------+ + + + + | Result panel 40 | + + + + + + +---------+ + + | (unknown) | (no date) | (unknown) | [facility] | (no | (units | (unknown) | | | | [facility] value[facility] | [facility] | [facility] | | | | + + + + +---------+ + + + + | Result panel 41 | + + + + + + +---------+ + + | (unknown) | (no date) | (unknown) | [facility] | (no | (units | (unknown) | | | | [facility] value) | [facility]) | [facility] | | | | + + + + +---------+ + + + + | Result panel 42 | + + + + + + +---------+ + + | (unknown) | (no date) | (unknown) | [facility] | (no | (units | (unknown) | | | | | [facility] value) | [facility]) | [facility] | | | | + + + + +---------+ + + + + | Result panel 43 | + + + + + + +---------+ + + | (unknown) | (no date) | (unknown) | [facility] | (no | (units | (unknown) | | | | [facility]) | [facility] | [facility] | | | | + + + + +---------+ + + + + | Result panel 44 | + + + + + + +---------+ + + | (unknown) | (no date) | (unknown) | [facility] | (no | (units | (unknown) | | | | [facility] value) | [facility]) | | | [facility] | | | | + + + + +---------+ + + + + | Result panel 45 | + + + + + + +---------+ + + | (unknown) | (no date) | (unknown) | [facility] | (no | (units | (unknown) | | | | [facility] | [facility]) | | | [facility] | | | | + + + + +---------+ + + + + | Result panel 46 | + + + + + + +---------+ + + | (unknown) | (no date) | (unknown) | [facility] | (no | (units | (unknown) | | | | [facility] value) | [facility]) | [facility] | [facility] | | | | + + + + +---------+ + + + + | Result panel 47 | + + + + + + +---------+ + + | (unknown) | (no date) | (unknown) | [facility] | (no | (units | (unknown) | | | | | [facility]) | [facility]) | | [facility] | | | | + + + + +---------+ + + + + | Result panel 48 | + + + + + + +---------+ + + | (unknown) | (no date) | (unknown) | [facility] | (no | (units | (unknown) | | | | | [facility] value) | [facility]) | | [facility] | | | | + + + + +---------+ + + + + | Result panel 49 | + + + + + + +---------+ + + | (unknown) | (no date) | (unknown) | [facility] | (no | (units | (unknown) | | | | | [facility] value) | [facility]) | | | [facility] | | | | + + + + +---------+ + + + + | Result panel 50 | + + + + + + +---------+ + + | (unknown) | (no date) | (unknown) | [facility] | (no | (units | (unknown) | | | | | [facility]) | [facility]) | | | [facility] | | | | + + + + +---------+ + + + + | Result panel 51 | + + + + + + +---------+ + + | (unknown) | (no date) | (unknown) | [facility] | (no | (units | (unknown) | | | | [facility] value) | [facility]) | | | [facility] | | | | + + + + +---------+ + + + + | Result panel 52 | + + + + + + +---------+ + + | (unknown) | (no date) | (unknown) | [facility] | (no | (units | (unknown) | | | | [facility] value) | [facility]) | | | [facility] | | | | + + + + +---------+ + + + + | Result panel 53 | + + + + + + +---------+ + + | (unknown) | (no date) | (unknown) | [facility] | (no | (units | (unknown) | | | | [facility] value[facility] | [facility]) | | | [facility] | | | | + + + + +---------+ + + + + | Result panel 54 | + + + + + + +---------+ + + | (unknown) | (no date) | (unknown) | [facility] | (no | (units | (unknown) | | | | [facility] value) | [facility]) | | | [facility] | | | | + + + + +---------+ + + + + | Result panel 55 | + + + + + + +---------+ + + | (unknown) | (no date) | (unknown) | [facility] | (no | (units | (unknown) | | | | [facility] | [facility]) | | [facility] | | | | + + + + +---------+ + + + + | Result panel 56 | + + + + + + +---------+ + + | (unknown) | (no date) | (unknown) | [facility] | (no | (units | (unknown) | | | | [facility] | [facility]) | [facility] | [facility] | | | | + + + + +---------+ + + + + | Result panel 57 | + + + + + + +---------+ + + | (unknown) | (no date) | (unknown) | [facility] | (no | (units | (unknown) | | | | [facility] | [facility]) | | | [facility] | | | | + + + + +---------+ + + + + | Result panel 58 | + + + + + + +---------+ + + | (unknown) | (no date) | (unknown) | [facility] | (no | (units | (unknown) | | | | [facility] value[facility] | [facility]) | | | [facility] | | | | + + + + +---------+ + + + + | Result panel 59 | + + + + + + +---------+ + + | (unknown) | (no date) | (unknown) | [facility] | (no | (units | (unknown) | | | | [facility] | [facility]) | [facility] | | | | + + + + +---------+ + + + + | Result panel 60 | + + + + + + +---------+ + + | (unknown) | (no date) | (unknown) | [facility] | (no | (units | (unknown) | | | | [facility] | [facility]) | [facility] | [facility] | | | | + + + + +---------+ + + + + | Result panel 61 | + + + + + + +---------+ + + | (unknown) | (no date) | (unknown) | [facility] | (no | (units | (unknown) | | | | [facility] | [facility]) | | [facility] | | | | + + + + +---------+ + + + + | Result panel 62 | + + + + + + +---------+ + + | (unknown) | (no date) | (unknown) | [facility] | (no | (units | (unknown) | | | | [facility] | [facility]) | [facility] | [facility] | | | | + + + + +---------+ + + + + | Result panel 63 | + + + + + + +---------+ + + | (unknown) | (no date) | (unknown) | [facility] | (no | (units | (unknown) | | | | [facility] | [facility]) | | | [facility] | | | | + + + + +---------+ + + + + | Result panel 64 | + + + + + + +---------+ + + | (unknown) | (no date) | (unknown) | [facility] | (no | (units | (unknown) | | | | [facility] | [facility] | | | [facility] | | | | + + + + +---------+ + + + + | Result panel 65 | + + + + + + +---------+ + + | (unknown) | (no date) | (unknown) | [facility] | (no | (units | (unknown) | | | | [facility] value[facility] | [facility]) | | | [facility] | | | | + + + + +---------+ + + + + | Result panel 66 | + + + + + + +---------+ + + | (unknown) | (no date) | (unknown) | [facility] | (no | (units | (unknown) | | | | [facility] | [facility]) | | | [facility] | | | | + + + + +---------+ + + + + | Result panel 67 | + + + + + + +---------+ + + | (unknown) | (no date) | (unknown) | [facility] | (no | (units | (unknown) | | | | [facility] | [facility]) | | | [facility] | | | | + + + + +---------+ + + + + | Result panel 68 | + + + + + + +---------+ + + | (unknown) | (no date) | (unknown) | [facility] | (no | (units | (unknown) | | | | [facility] value[facility] | [facility]) | | | [facility] | | | | + + + + +---------+ + + + + | Result panel 69 | + + + + + + +---------+ + + | (unknown) | (no date) | (unknown) | [facility] | (no | (units | (unknown) | | | | [facility] | [facility]) | | | [facility] | | | | + + + + +---------+ + + + + | Result panel 70 | + + + + + + +---------+ + + | (unknown) | (no date) | (unknown) | [facility] | (no | (units | (unknown) | | | | | [facility] | [facility]) | | [facility] | | | | + + + + +---------+ + + + + | Result panel 71 | + + + + + + +---------+ + + | (unknown) | (no date) | (unknown) | [facility] | (no | (units | (unknown) | | | | [facility] value) | [facility]) | | [facility] | | | | + + + + +---------+ + + + + | Result panel 72 | + + + + + + +---------+ + + | (unknown) | (no date) | (unknown) | [facility] | (no | (units | (unknown) | | | | [facility] value) | [facility]) | | | [facility] | | | | + + + + +---------+ + + + + | Result panel 73 | + + + + + + +---------+ + + | (unknown) | (no date) | (unknown) | [facility] | (no | (units | (unknown) | | | | [facility] | [facility]) | | | [facility] | | | | + + + + +---------+ + + + + | Result panel 74 | + + + + + + +---------+ + + | (unknown) | (no date) | (unknown) | [facility] | (no | (units | (unknown) | | | | [facility] value) | [facility]) | [facility] | | | | + + + + +---------+ + + + + | Result panel 75 | + + + + + + +---------+ + + | (unknown) | (no date) | (unknown) | [facility] | (no | (units | (unknown) | | | | [facility] value) | [facility]) | | | [facility] | | | | + + + + +---------+ + + + + | Result panel 76 | + + + + + + +---------+ + + | (unknown) | (no date) | (unknown) | [facility] | (no | (units | (unknown) | | | | [facility] value) | [facility]) | | | [facility] | | | | + + + + +---------+ + + + + | Result panel 77 | + + + + + + +---------+ + + | (unknown) | (no date) | (unknown) | [facility] | (no | (units | (unknown) | | | | [facility] value) | [facility]) | | | [facility] | | | | + + + + +---------+ + + + + | Result panel 78 | + + + + + + +---------+ + + | (unknown) | (no date) | (unknown) | [facility] | (no | (units | (unknown) | | | | [facility] value) | [facility]) | | | [facility] | | | | + + + + +---------+ + + + + | Result panel 79 | + + + + + + +---------+ + + | (unknown) | (no date) | (unknown) | [facility] | (no | (units | (unknown) | | | | [facility] value) | [facility]) | | | [facility] | | | | + + + + +---------+ + + + + | Result panel 80 | + + + + + + +---------+ + + | (unknown) | (no date) | (unknown) | [facility] | (no | (units | (unknown) | | | | [facility] value) | [facility]) | | | [facility] | | | | + + + + +---------+ + + + + | Result panel 81 | + + + + + + +---------+ + + | (unknown) | (no date) | (unknown) | [facility] | (no | (units | (unknown) | | | | [facility] | value) | [facility]) | | | [facility] | | | | + + + + +---------+ + + + + | Result panel 82 | + + + + + + +---------+ + + | (unknown) | (no date) | (unknown) | [facility] | (no | (units | (unknown) | | | | [facility] value) | [facility]) | [facility] | [facility] | | | | + + + + +---------+ + + + + | Result panel 83 | + + + + + + +---------+ + + | (unknown) | (no date) | (unknown) | [facility] | (no | (units | (unknown) | | | | [facility] value) | [facility]) | | | [facility] | | | | + + + + +---------+ + + + + | Result panel 84 | + + + + + + +---------+ + + | (unknown) | (no date) | (unknown) | [facility] | (no | (units | (unknown) | | | | [facility] value) | [facility]) | [facility] | [facility] | | | | + + + + +---------+ + + + + | Result panel 85 | + + + + + + +---------+ + + | (unknown) | (no date) | (unknown) | [facility] | (no | (units | (unknown) | | | | [facility] value) | [facility]) | | | [facility] | | | | + + + + +---------+ + + + + | Result panel 86 | + + + + + + +---------+ + + | (unknown) | (no date) | (unknown) | [facility] | (no | (units | (unknown) | | | | [facility] value) | [facility]) | | | [facility] | | | | + + + + +---------+ + + + + | Result panel 87 | + + + + + + +---------+ + + | (unknown) | (no date) | (unknown) | [facility] | (no | (units | (unknown) | | | | [facility] | value) | [facility]) | | | [facility] | | | | + + + + +---------+ + + + + | Result panel 88 | + + + + + + +---------+ + + | (unknown) | (no date) | (unknown) | [facility] | (no | (units | (unknown) | | | | [facility] | value) | [facility]) | | | [facility] | | | | + + + + +---------+ + + + + | Result panel 89 | + + + + + + +---------+ + + | (unknown) | (no date) | (unknown) | [facility] | (no | (units | (unknown) | | | | [facility] | value) | [facility]) | | | [facility] | | | | + + + + +---------+ + + + + | Result panel 90 | + + + + + + +---------+ + + | (unknown) | (no date) | (unknown) | [facility] | (no | (units | (unknown) | | | | [facility] | value) | [facility]) | | | [facility] | | | | + + + + +---------+ + + + + | Result panel 91 | + + + + + + +---------+ + + | (unknown) | (no date) | (unknown) | [facility] | (no | (units | (unknown) | | | | [facility] | value) | [facility]) | | | [facility] | | | | + + + + +---------+ + + + + | Result panel 92 | + + + + + + +---------+ + + | (unknown) | (no date) | (unknown) | [facility] | (no | (units | (unknown) | | | | [facility] | value) | [facility]) | | | | [facility] | | | | + + + + +---------+ + + + + | Result panel 93 | + + + + + + +---------+ + + | (unknown) | (no date) | (unknown) | [facility] | (no | (units | (unknown) | | | | [facility] | value) | [facility]) | | | | [facility] | | | | + + + + +---------+ + + + + | Result panel 94 | + + + + + + +---------+ + + | (unknown) | (no date) | (unknown) | [facility] | (no | (units | (unknown) | | | | [facility] | value) | [facility]) | | | [facility] | | | | + + + + +---------+ + + + + | Result panel 95 | + + + + + + +---------+ + + | (unknown) | (no date) | (unknown) | [facility] | (no | (units | (unknown) | | | | [facility] value) | [facility]) | | | [facility] | | | | + + + + +---------+ + + + + | Result panel 96 | + + + + + + +---------+ + + | (unknown) | (no date) | (unknown) | [facility] | (no | (units | (unknown) | | [facility] value) | [facility]) | | | [facility] | | | | + + + + +---------+ + + + + | Result panel 97 | + + + + + + +---------+ + + | (unknown) | (no date) | (unknown) | [facility] | (no | (units | (unknown) | | | | [facility] value) | [facility]) | | | [facility] | | | | + + + + +---------+ + + + + | Result panel 98 | + + + + + + +---------+ + + | (unknown) | (no date) | (unknown) | [facility] | (no | (units | (unknown) | | | | [facility] value) | [facility]) | [facility] | [facility] | | | | + + + + +---------+ + + + + | Result panel 99 | + + + + + + +---------+ + + | (unknown) | (no date) | (unknown) | [facility] | (no | (units | (unknown) | | | | [facility] value) | [facility]) | | [facility] | [facility] | | | | + + + + +---------+ + + + + | Result panel 100 | + + + + + + +---------+ + + | (unknown) | (no date) | (unknown) | [facility] | (no | (units | (unknown) | | | | [facility] value) | unknown) | | | | [facility] | | | | + + + + +---------+ + + + + | Result panel 101 | + + + + + + +---------+ + + | (unknown) | (no date) | (unknown) | [facility] | (no | (units | (unknown) | | | | [facility] | value) | unknown) | | | | [facility] | | | | + + + + +---------+ + + + + | Result panel 102 | + + + + + + +---------+ + + | (unknown) | (no date) | (unknown) | [facility] | (no | (units | (unknown) | | | | [facility] value[facility] | unknown) | | | | | [facility] | | | | + + + + +---------+ + + Social History No information. Vital [...] 232.81 | lb | + + + +---------+"
--- OUTSIDE RECORDS SUMMARY | ~2023-05-18 | XMS | Continuity of Care Document ---
Demographics + + + | Address | [address] | | | [place] [address] | + + + | Preferred Language | Unknown | + + + | Marital Status | | + + + | Latter Day Affiliation | Unknown | + + + | Race | White | + + + | Ethnic Group | Not or | + + + Author + + + | Author | [facility] | + + + | Organization | [facility] | + + + | Address | [address] | | | [place] [address] | + + + | Phone | | + + + Care Team Providers + + + + | Care Materials Planner/Production Planner Name | Role | Phone | + + + + Unavailable | Unavailable | + + + + Unavailable | Unavailable | + + + + Allergies and Intolerances + + + + + | date | description | facility | type | + + + + + | (no date) | Urticaria | [facility] | (unknown) | | [facility] | | + + + + + | (no date) | Capsaicin | [facility] | (unknown) | | | | Hospital | | + + + + + | (no date) | capsaicin | [facility] | (unknown) | | | | Hospital | | + + + + + | (no date) | Edema of pharynx | [facility] | (unknown) | | | | Hospital | | + + + + + | (no date) | Cinnamon | [facility] | (unknown) | | | | Hospital | | + + + + + | (no date) | Rash | [facility] | (unknown) | | | | Hospital | | + + + + + | (no date) | Morphine | [facility] | (unknown) | | | | Hospital | | + + + + + | (no date) | Capsaicin | [facility] | (unknown) | | | | Hospital | | + + + + + | (no date) | Vomiting | [facility] | (unknown) | | | | Hospital | | + + + + + | (no date) | Cinnamon | [facility] | (unknown) | | | | Hospital | | + + + + + | (no date) | Diarrhea | [facility] | (unknown) | | | | Hospital | | + + + + + | (no date) | Morphine | [facility] | (unknown) | | | | Hospital | | + + + + + | (no date) | morphine | [facility] | (unknown) | | | [facility] Hospital | | + + + + + | (no date) | Penicillin | [facility] | (unknown) | | | | Hospital | | + + + + + | (no date) | Penicillin | [facility] | (unknown) | | | | Hospital [...] | (no date) | Penicillin | [facility] | (unknown) | | | | Hospital | | + + + + + | (no date) | Penicillin | [facility] | (unknown) | | | | Hospital | | + + + + + | (no date) | Capsaicin | [facility] | (unknown) | | | | Hospital | | + + + + + Encounters No information. Functional Status No information. Immunizations + + + + | date | description | facility | + + + + | 2016-09-17 00:00 | Tdap | [facility] | + + + + | 2022-06-30 00:00 | Influenza, Injectable, | [facility] | | | Quadrivalent, Preservative | | + + + + | 2022-10-09 00:00 | Influenza, Injectable, | [facility] | | | Quadrivalent, Preservative | | + + + + | 2022-11-02 00:00 | Influenza, Injectable, | [facility] | | | Quadrivalent, Preservative | | + + + + | 2023-01-21 00:00 | Influenza, Injectable, | [facility] | | | Quadrivalent, Preservative | | + + + + | 2023-05-08 00:00 | Influenza, Injectable, | [facility] | | | Quadrivalent, Preservative | | + + + + Medications + + + + | date | description | facility | + + + + | 2022-06-30 00:00 | MEDROXYPROGESTERONE | [facility] | | | ACETATE | | + + + + | 2022-10-09 00:00 | MEDROXYPROGESTERONE | [facility] | | | ACETATE | | + + + + | 2022-11-02 00:00 | MEDROXYPROGESTERONE | [facility] | | | ACETATE | | + + + + | 2023-01-21 00:00 | MEDROXYPROGESTERONE | [facility] | | | ACETATE | | + + + + | 2023-05-08 00:00 | MEDROXYPROGESTERONE | [facility] | | | ACETATE | | + + + + | 2022-06-30 00:00 | DM | [facility] | | | HB/PE/ACETAMINOPHEN/CHLORPH | | | | | | + + + + | 2022-10-09 00:00 | DM | [facility] | | | HB/PE/ACETAMINOPHEN/CHLORPH | | | | | | + + + + | 2022-11-02 00:00 | DM | [facility] | | | HB/PE/ACETAMINOPHEN/CHLORPH | | | | | | + + + + | 2023-01-21 00:00 | DM | [facility] | | | HB/PE/ACETAMINOPHEN/CHLORPH | | | | | | + + + + | 2023-05-08 00:00 | DM | [facility] | | | HB/PE/ACETAMINOPHEN/CHLORPH | | | | | | + + + + | 2020-10-04 00:00 | ONDANSETRON HCL | [facility] | + + + + | 2022-06-30 00:00 | PSEUDOEPHEDRINE HCL | [facility] | + + + + | 2022-10-09 00:00 | PSEUDOEPHEDRINE HCL | [facility] | + + + + | 2022-11-02 00:00 | PSEUDOEPHEDRINE HCL | [facility] | + + + + | 2023-01-21 00:00 | PSEUDOEPHEDRINE HCL | [facility] | + + + + | 2023-05-08 00:00 | PSEUDOEPHEDRINE HCL | [facility] | + + + + | 2022-06-30 00:00 | PSEUDOEPHEDRINE HCL | [facility] | + + + + | 2022-10-09 00:00 | PSEUDOEPHEDRINE HCL | [facility] | + + + + | 2022-11-02 00:00 | PSEUDOEPHEDRINE HCL | [facility] | + + + + | 2023-01-21 00:00 | PSEUDOEPHEDRINE HCL | [facility] | + + + + | 2023-05-08 00:00 | PSEUDOEPHEDRINE HCL | [facility] | + + + + | 2018-08-05 00:00 | OXYCODONE | [facility] | | | HCL/ACETAMINOPHEN | | + + + + | 2018-08-13 00:00 | DIPHENHYDRAMINE HCL | [facility] | + + + + | 2014-12-14 00:00 | GUAIFENESIN/D-METHORPHAN | [facility] | | | HB/PE | | + + + + | 2017-01-01 00:00 | MELOXICAM | [facility] | + + + + | 2022-06-30 00:00 | MELOXICAM | [facility] | + + + + | 2022-10-09 00:00 | MELOXICAM | [facility] | + + + + | 2022-11-02 00:00 | MELOXICAM | [facility] | + + + + | 2023-01-21 00:00 | MELOXICAM | [facility] | + + + + | 2023-05-08 00:00 | MELOXICAM | [facility] | + + + + | 2018-10-27 00:00 | DOXYCYCLINE HYCLATE | [facility] | + + + + | 2020-09-29 00:00 | DOXYCYCLINE HYCLATE | [facility] | + + + + | 2015-09-23 00:00 | FLUTICASONE PROPIONATE | [facility] | + + + + | 2022-06-30 00:00 | EPINEPHRINE | [facility] | + + + + | 2022-10-09 00:00 | EPINEPHRINE | [facility] | + + + + | 2022-11-02 00:00 | EPINEPHRINE | [facility] | + + + + | 2023-01-21 00:00 | EPINEPHRINE | [facility] | + + + + | 2023-05-08 00:00 | EPINEPHRINE | [facility] | + + + + | 2022-06-30 00:00 | ONDANSETRON HCL | [facility] | + + + + | 2022-10-09 00:00 | ONDANSETRON HCL | [facility] | + + + + | 2022-11-02 00:00 | ONDANSETRON HCL | [facility] | + + + + | 2023-01-21 00:00 | ONDANSETRON HCL | [facility] | + + + + | 2023-05-08 00:00 | ONDANSETRON HCL | [facility] | + + + + | 2022-06-30 00:00 | MONTELUKAST SODIUM | [facility] | + + + + | 2022-10-09 00:00 | MONTELUKAST SODIUM | [facility] | + + + + | 2022-11-02 00:00 | MONTELUKAST SODIUM | [facility] | + + + + | 2023-01-21 00:00 | MONTELUKAST SODIUM | [facility] | + + + + | 2023-05-08 00:00 | MONTELUKAST SODIUM | [facility] | + + + + | 2020-09-29 00:00 | Dexamethasone | [facility] | + + + + | 2022-06-30 00:00 | PAROXETINE HCL | [facility] | + + + + | 2022-10-09 00:00 | PAROXETINE HCL | [facility] | + + + + | 2022-11-02 00:00 | PAROXETINE HCL | [facility] | + + + + | 2023-01-21 00:00 | PAROXETINE HCL | [facility] | + + + + | 2023-05-08 00:00 | PAROXETINE HCL | [facility] | + + + + | 2014-12-14 00:00 | AZITHROMYCIN | [facility] | + + + + | 2015-03-22 00:00 | AZITHROMYCIN | [facility] | + + + + | 2022-06-30 00:00 | FOLIC ACID | [facility] | + + + + | 2022-10-09 00:00 | FOLIC ACID | [facility] | + + + + | 2022-11-02 00:00 | FOLIC ACID | [facility] | + + + + | 2023-01-21 00:00 | FOLIC ACID | [facility] | + + + + | 2023-05-08 00:00 | FOLIC ACID | [facility] | + + + + | 2022-11-02 00:00 | OSELTAMIVIR PHOSPHATE | [facility] | + + + + | 2020-01-17 00:00 | LEVETIRACETAM | [facility] | + + + + | 2022-06-30 00:00 | LEVETIRACETAM | [facility] | + + + + | 2022-10-09 00:00 | LEVETIRACETAM | [facility] | + + + + | 2022-11-02 00:00 | LEVETIRACETAM | [facility] | + + + + | 2023-01-21 00:00 | LEVETIRACETAM | [facility] | + + + + | 2023-05-08 00:00 | LEVETIRACETAM | [facility] | + + + + | 2022-06-30 00:00 | SUMATRIPTAN SUCCINATE | [facility] | + + + + | 2022-10-09 00:00 | SUMATRIPTAN SUCCINATE | [facility] | + + + + | 2022-11-02 00:00 | SUMATRIPTAN SUCCINATE | [facility] | + + + + | 2023-01-21 00:00 | SUMATRIPTAN SUCCINATE | [facility] | + + + + | 2023-05-08 00:00 | SUMATRIPTAN SUCCINATE | [facility] | + + + + | 2022-06-30 00:00 | AMOXICILLIN | [facility] | + + + + | 2022-10-09 00:00 | AMOXICILLIN | [facility] | + + + + | 2022-11-02 00:00 | AMOXICILLIN | [facility] | + + + + | 2023-01-21 00:00 | AMOXICILLIN | [facility] | + + + + | 2023-05-08 00:00 | AMOXICILLIN | [facility] | + + + + | 2022-06-30 00:00 | AMOXICILLIN | [facility] | + + + + | 2022-10-09 00:00 | AMOXICILLIN | [facility] | + + + + | 2022-11-02 00:00 | AMOXICILLIN | [facility] | + + + + | 2023-01-21 00:00 | AMOXICILLIN | [facility] | + + + + | 2023-05-08 00:00 | AMOXICILLIN | [facility] | + + + + | 2022-06-30 00:00 | METOCLOPRAMIDE HCL | [facility] | + + + + | 2022-10-09 00:00 | METOCLOPRAMIDE HCL | [facility] | + + + + | 2022-11-02 00:00 | METOCLOPRAMIDE HCL | [facility] | + + + + | 2023-01-21 00:00 | METOCLOPRAMIDE HCL | [facility] | + + + + | 2023-05-08 00:00 | METOCLOPRAMIDE HCL | [facility] | + + + + | 2022-10-09 00:00 | Oseltamivir Phosphate | [facility] | + + + + | 2015-12-30 00:00 | predniSONE | [facility] | + + + + | 2022-06-30 00:00 | ASPIRIN | [facility] | + + + + | 2022-10-09 00:00 | ASPIRIN | [facility] | + + + + | 2022-11-02 00:00 | ASPIRIN | [facility] | + + + + | 2023-01-21 00:00 | ASPIRIN | [facility] | + + + + | 2023-05-08 00:00 | ASPIRIN | [facility] | + + + + | 2022-11-02 00:00 | LEVETIRACETAM | [facility] | + + + + | 2023-01-21 00:00 | Pregabalin | [facility] | + + + + | 2023-05-08 00:00 | Pregabalin | [facility] | + + + + | 2022-06-30 00:00 | DULOXETINE HCL | [facility] | + + + + | 2022-10-09 00:00 | DULOXETINE HCL | [facility] | + + + + | 2022-11-02 00:00 | DULOXETINE HCL | [facility] | + + + + | 2023-01-21 00:00 | DULOXETINE HCL | [facility] | + + + + | 2023-05-08 00:00 | DULOXETINE HCL | [facility] | + + + + | 2022-06-30 00:00 | DULOXETINE HCL | [facility] | + + + + | 2022-10-09 00:00 | DULOXETINE HCL | [facility] | + + + + | 2022-11-02 00:00 | DULOXETINE HCL | [facility] | + + + + | 2023-01-21 00:00 | DULOXETINE HCL | [facility] | + + + + | 2023-05-08 00:00 | DULOXETINE HCL | [facility] | + + + + | 2022-06-30 00:00 | DULOXETINE HCL | [facility] | + + + + | 2022-10-09 00:00 | DULOXETINE HCL | [facility] | + + + + | 2022-11-02 00:00 | DULOXETINE HCL | [facility] | + + + + | 2023-01-21 00:00 | DULOXETINE HCL | [facility] | + + + + | 2023-05-08 00:00 | DULOXETINE HCL | [facility] | + + + + | 2021-03-25 00:00 | LEVETIRACETAM | [facility] | + + + + | 2015-09-23 00:00 | AZITHROMYCIN | [facility] | + + + + | 2016-06-04 00:00 | CYCLOBENZAPRINE HCL | [facility] | + + + + | 2017-08-14 00:00 | CYCLOBENZAPRINE HCL | [facility] | + + + + | 2023-01-21 00:00 | TRAMADOL HCL | [facility] | + + + + | 2022-06-30 00:00 | | [facility] | | | SULFAMETHOXAZOLE/TRIMETHOPR | | | | IM DS | | + + + + | 2022-10-09 00:00 | | [facility] | | | SULFAMETHOXAZOLE/TRIMETHOPR | | | | IM DS | | + + + + | 2022-11-02 00:00 | | [facility] | | | SULFAMETHOXAZOLE/TRIMETHOPR | | | | IM DS | | + + + + | 2023-01-21 00:00 | | [facility] | | | SULFAMETHOXAZOLE/TRIMETHOPR | | | | IM DS | | + + + + | 2023-05-08 00:00 | | [facility] | | | SULFAMETHOXAZOLE/TRIMETHOPR | | | | IM DS | | + + + + | 2022-06-30 00:00 | ALBUTEROL SULFATE | [facility] | + + + + | 2022-10-09 00:00 | ALBUTEROL SULFATE | [facility] | + + + + | 2022-11-02 00:00 | ALBUTEROL SULFATE | [facility] | + + + + | 2023-01-21 00:00 | ALBUTEROL SULFATE | [facility] | + + + + | 2023-05-08 00:00 | ALBUTEROL SULFATE | [facility] | + + + + | 2022-10-09 00:00 | BUSPIRONE HCL | [facility] | + + + + | 2022-11-02 00:00 | BUSPIRONE HCL | [facility] | + + + + | 2023-01-21 00:00 | BUSPIRONE HCL | [facility] | + + + + | 2023-05-08 00:00 | BUSPIRONE HCL | [facility] | + + + + | 2022-06-30 00:00 | BUSPIRONE HCL | [facility] | + + + + | 2022-10-09 00:00 | BUSPIRONE HCL | [facility] | + + + + | 2022-11-02 00:00 | BUSPIRONE HCL | [facility] | + + + + | 2023-01-21 00:00 | BUSPIRONE HCL | [facility] | + + + + | 2023-05-08 00:00 | BUSPIRONE HCL | [facility] | + + + + | 2022-06-30 00:00 | BUSPIRONE HCL | [facility] | + + + + | 2022-10-09 00:00 | BUSPIRONE HCL | [facility] | + + + + | 2022-11-02 00:00 | BUSPIRONE HCL | [facility] | + + + + | 2023-01-21 00:00 | BUSPIRONE HCL | [facility] | + + + + | 2023-05-08 00:00 | BUSPIRONE HCL | [facility] | + + + + | 2022-06-30 00:00 | BUSPIRONE HCL | [facility] | + + + + | 2022-10-09 00:00 | BUSPIRONE HCL | [facility] | + + + + | 2022-11-02 00:00 | BUSPIRONE HCL | [facility] | + + + + | 2023-01-21 00:00 | BUSPIRONE HCL | [facility] | + + + + | 2023-05-08 00:00 | BUSPIRONE HCL | [facility] | + + + + | 2018-08-05 00:00 | ONDANSETRON | [facility] | + + + + | 2014-01-14 00:00 | PROMETHAZINE HCL | [facility] | + + + + | 2014-01-14 00:00 | PROMETHAZINE HCL | [facility] | + + + + | 2022-06-30 00:00 | PROMETHAZINE HCL | [facility] | + + + + | 2022-10-09 00:00 | PROMETHAZINE HCL | [facility] | + + + + | 2022-11-02 00:00 | PROMETHAZINE HCL | [facility] | + + + + | 2023-01-21 00:00 | PROMETHAZINE HCL | [facility] | + + + + | 2023-05-08 00:00 | PROMETHAZINE HCL | [facility] | + + + + | 2019-07-09 00:00 | Codeine | [facility] | | | Phosphate/Guaifenesin | | + + + + | 2015-03-22 00:00 | GUAIFENESIN/CODEINE | [facility] | | | PHOSPHATE | | + + + + | 2015-12-30 00:00 | GUAIFENESIN/CODEINE | [facility] | | | PHOSPHATE | | + + + + | 2022-06-30 00:00 | FEXOFENADINE HCL | [facility] | + + + + | 2022-10-09 00:00 | FEXOFENADINE HCL | [facility] | + + + + | 2022-11-02 00:00 | FEXOFENADINE HCL | [facility] | + + + + | 2023-01-21 00:00 | FEXOFENADINE HCL | [facility] | + + + + | 2023-05-08 00:00 | FEXOFENADINE HCL | [facility] | + + + + Problems + + + + | date | description | facility | + + + + | 2014-12-14 00:00 | Upper respiratory | [facility] | | | infection | | + + + + | 2014-12-14 00:00 | Sinusitis | [facility] | + + + + | 2015-03-22 00:00 | Acute bronchitis | [facility] | + + + + | 2016-01-13 00:00 | Right elbow pain | [facility] | + + + + | 2016-06-04 00:00 | Spasm of thoracic back | [facility] | | | muscle | | + + + + | 2016-06-04 00:00 | Back strain | [facility] | + + + + | 2016-09-17 00:00 | Laceration | [facility] | + + + + | 2017-01-01 00:00 | Contusion of right foot | [facility] | + + + + | 2017-08-14 00:00 | Sprain of hip | [facility] | + + + + | 2018-08-05 00:00 | Postoperative pain | [facility] | + + + + | 2018-10-27 00:00 | Pharyngitis | [facility] | + + + + | 2019-07-09 00:00 | Viral upper respiratory | [facility] | | | tract infection with cough | | + + + + | 2019-07-31 00:00 | Inhalation of noxious | [facility] | | | fumes | | + + + + | 2019-09-18 00:00 | Syncope | [facility] | + + + + | 2020-06-07 00:00 | Pain of right hip | [facility] | + + + + | 2020-08-31 00:00 | Acute postoperative pain | [facility] | | | of right hip | | + + + + | 2020-09-27 00:00 | Pneumonia due to severe | [facility] | | | acute respiratory syndrome | | | | coronavirus 2 (SARS-CoV-2) | | + + + + | 2020-11-10 00:00 | Patient left without being | [facility] | | | seen | | + + + + | 2021-10-03 00:00 | Hyperemesis gravidarum | [facility] | | | with metabolic disturbance | | + + + + | 2021-11-09 00:00 | Threatened | [facility] | + + + + | 2021-12-04 00:00 | Infection due to severe | [facility] | | | acute respiratory syndrome | | | | coronavirus 2 (SARS-CoV-2) | | + + + + | 2022-01-31 00:00 | Epilepsy affecting | [facility] | | | in second | | | | trimester | | + + + + | 2022-01-31 00:00 | Strain of elbow | [facility] | + + + + | [...] 00:00 | Influenza due to influenza | [facility] | | | virus, type A, [...] + + | 2022-11-02 02:30 | OTHER LONGTERM (CURRENT) | [facility] | | | DRUG [...] | 2023-01-21 00:00 | Hip strain | [facility] | + + + + | [...] + + | 2023-01-21 20:14 | OTHER LATHE MECHANIC (CURRENT) | [facility] | | | DRUG [...] | 2023-05-08 00:00 | Seizure-like activity | [facility] | + + + + | 2023-05-08 17:23 | DEPRESSION, UNSPECIFIED | [facility] | + + + + | 2023-05-08 17:23 | EPILEPSY, UNSP, NOT | [facility] | | | INTRACTABLE, WITHOUT STATUS | | | | EP | | + + + + | 2023-05-08 17:23 | UNSPECIFIED CONVULSIONS | [facility] | + + + + | 2023-05-08 17:23 | OTHER LONGTERM (CURRENT) | [facility] | | | DRUG [...] 00:00 | INSERTION OF INFUSION DEV | [facility] | | | INTO SPINAL CANAL, PERC | | | | APPROACH | | + + + + | 2022-04-23 00:00 | REPAIR PERINEUM SKIN, | [facility] | | | EXTERNAL APPROACH | | + + + + | 2022-04-23 00:00 | DRAINAGE OF AMNIOTIC FL, | [facility] | | | THERAP FROM POC, VIA | | | | OPENING | | + + + + | 2022-04-23 00:00 | DELIVERY OF PRODUCTS OF | [facility] | | | CONCEPTION, EXTERNAL | | | | APPROACH | | + + + + | 2022-04-23 00:00 | INTRODUCTION OF HORMONE | [facility] | | | INTO FEM REPROD, VIA | | | | OPENING | | + + + + | 2022-04-23 00:00 | INTRODUCTION OF ANESTHETIC | [facility] | | | INTO SPINAL CANAL, PERC | | | | APPROACH | | + + + + | 2022-03-03 00:00 | MONITORING OF POC, CARDIAC | [facility] | | | ELECTR ACTIVITY, PRETZEL TWISTER | | | | APPROACH | | + + + + | 2022-03-29 00:00 | MONITORING OF POC, CARDIAC | [facility] | | | ELECTR ACTIVITY, PRETZEL TWISTER | | | | APPROACH | | + + + + | 2022-03-21 00:00 | MONITORING OF POC, CARDIAC | [facility] | | | RATE, PRETZEL TWISTER APPROACH | | + + + + | 2022-04-07 00:00 | MONITORING OF POC, CARDIAC | [facility] | | | RATE, PRETZEL TWISTER APPROACH | | + + + + [...]
[~2023-05-18 16:32] MED LIST changes: +LEVETIRACETAM1000 MG PO; +PREGABALIN75 MG PO; +TAMIFLU75 MG PO; +TRAMADOL HCL50 MG PO
--- OUTSIDE RECORDS SUMMARY | 2023-05-18 16:34 | XMS ---
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 Care History Medical/Surgical 10/06/2020 [facility] - [facility] CONTACTED PCP OFFICE- DR BRAVO SPOKE WITH ASSOCIATE PROJECT MANAGER- PATIENT WAS OFFERED CAR CARE VISIT ON [...] known visits. ED/UCC VISIT TRACKING (12 MO.) 05/18/2023 16:32 [facility] TYPE: Emergency COMPLAINT: - SEIZURE 05/08/2023 17:23 [facility] TYPE: Emergency COMPLAINT: - UNRESPONSIVE DIAGNOSES: - Allergy status to narcotic agent - Allergy status to penicillin - Allergy status to sulfonamides - Allergy to other foods - Depression, unspecified - Epilepsy, unspecified, not intractable, without status epilepticus - Other technician terminal and repeater (current) drug therapy - Unspecified convulsions 01/21/2023 20:14 [facility] TYPE: Emergency COMPLAINT: - R SIDE HIP INJ DIAGNOSES: - Allergy status to narcotic agent - Allergy status to other antibiotic agents - Allergy status to other drugs, medicaments and biological substances - Allergy status to penicillin - Allergy status to sulfonamides - Allergy to other foods - Epilepsy, unspecified, not intractable, without status epilepticus - Exposure to other specified factors, initial encounter - Other technician terminal and repeater (current) drug therapy - Pain in right hip - Strain of muscle, fascia and tendon of right hip, initial encounter 11/02/2022 02:30 [facility] TYPE: Emergency COMPLAINT: - BACK AND HIP SERGEY DIAGNOSES: - Allergy status to narcotic agent - Allergy status to other drugs, medicaments and biological substances - Allergy status to penicillin - Allergy status to sulfonamides - Allergy to other foods - Contact with and (suspected) exposure to COVID-19 - Epilepsy, unspecified, not intractable, without status epilepticus - Influenza due to other identified influenza virus with other respiratory manifestations - Other technician terminal and repeater (current) drug therapy - Pain in left hip 10/09/2022 17:51 [facility] TYPE: Emergency COMPLAINT: - SEIZURE DIAGNOSES: - Procedure and treatment not carried out due to patient leaving prior to being seen by health care provider - Unspecified convulsions 06/23/2022 14:41 [facility] TYPE: Emergency COMPLAINT: - R ARM INJ DIAGNOSES: - Allergy status to narcotic agent - Allergy status to other drugs, medicaments and biological substances - Allergy status to penicillin - Allergy status to sulfonamides - Food additives allergy status - alf (current) use of aspirin - Other [facility] (current) drug therapy - Pain in right wrist - Sprain of unspecified part of right wrist and hand, initial encounter - Striking against other object with subsequent fall, initial encounter INPATIENT VISIT TRACKING (12 MO.) No inpatient visits to display in this time frame [email or web address]
[2023-05-18] MEDS ORDERED: LAMOTRIGINE25 MG PO (16:48)
[2023-05-18 19:30] VITALS: BP 131/74
== END 2023-05-18 19:37 | disposition home or self-care (01) ==
LOC: ED 16:32
DX: G40.909 Epilepsy, unspecified, not intractable, without status epilepticus (principal); Z88.5 Allergy status to narcotic agent; Z88.0 Allergy status to penicillin; Z88.2 Allergy status to sulfonamides; Z88.8 Allergy status to other drugs, medicaments and biological substances; Z79.899 Other long term (current) drug therapy
CPT/HCPCS: 36415; 80053; 85025; 96361; 96374; 96375; 99285 25; J1885; J2060; J7030

== ENCOUNTER 2023-05-20 17:58 | Emergency (ER) | payer OTHER ==
[~2023-05-20] VITALS: Ht 152.4 cm; Wt 105.2 kg
--- OUTSIDE RECORDS SUMMARY | ~2023-05-20 | XMS | Continuity of Care Document ---
Demographics + + + | Address | [address] | | | [place] [address] | + + + | Preferred Language | Unknown | + + + | Marital Status | | + + + | Lutheran Affiliation | Unknown | + + + | Race | White | + + + | Ethnic Group | Not or | + + + Author + + + | Author | [facility] | + + + | Organization | [facility] | + + + | Address | [address] | | | [place] [address] | + + + | Phone | | + + + Care Team Providers + + + + | Care Slate Trimmer Name | Role | Phone | + + + + Unavailable | Unavailable | + + + + Unavailable | Unavailable | + + + + Allergies and Intolerances + + + + + | date | description | facility | type | + + + + + | (no date) | Urticaria | [facility] (unknown[facility] | | + + + + + | (no date) | Capsaicin | [facility] (unknown) [facility] Hospital | | + + + + + | (no date) | capsaicin | [facility] (unknown) [facility] Hospital | | + + + + + | (no date) | Edema of pharynx | [facility] | (unknown) | | | | Hospital | | + + + + + | (no date) | Cinnamon | [facility] (unknown) | | | | Hospital | | + + + + + | (no date) | Rash | [facility] (unknown) | | | [facility] Hospital | | + + + + + | (no date) | Morphine | [facility] (unknown) | | [facility] Hospital | | + + + + + | (no date) | Capsaicin | [facility] (unknown) [facility] Hospital | | + + + + + | (no date) | Vomiting | [facility] (unknown) | | | | Hospital | | + + + + + | (no date) | Cinnamon | [facility] (unknown) | | | | Hospital | | + + + + + | (no date) | Diarrhea | [facility] (unknown) | | | | Hospital | | + + + + + | (no date) | Morphine | [facility] (unknown) | | | | Hospital | | + + + + + | (no date) | morphine | [facility] (unknown) | | | [facility] Hospital | | + + + + + | (no date) | Penicillin | [facility] (unknown) | | | | Hospital | | + + + + + | (no date) | Penicillin | [facility] | (unknown) | | | | Hospital [...] | (no date) | Penicillin | [facility] (unknown) | | | | Hospital | | + + + + + | (no date) | Penicillin | [facility] (unknown) | | | | Hospital | | + + + + + | (no date) | Capsaicin | [facility] | (unknown) | | | | Hospital | | + + + + + Encounters No information. Functional Status No information. Immunizations + + + + | date | description | facility | + + + + | 2016-09-17 00:00 | Tdap | [facility] | + + + + | 2022-06-30 00:00 | Influenza, Injectable, | [facility] | | | Quadrivalent, Preservative | | + + + + | 2022-10-09 00:00 | Influenza, Injectable, | [facility] | | | Quadrivalent, Preservative | | + + + + | 2022-11-02 00:00 | Influenza, Injectable, | [facility] | | | Quadrivalent, Preservative | | + + + + | 2023-01-21 00:00 | Influenza, Injectable, | [facility] | | | Quadrivalent, Preservative | | + + + + | 2023-05-08 00:00 | Influenza, Injectable, | [facility] | | | Quadrivalent, Preservative | | + + + + | 2023-05-18 00:00 | Influenza, Injectable, | [facility] | | | Quadrivalent, Preservative | | + + + + Medications + + + + | date | description | facility | + + + + | 2022-06-30 00:00 | MEDROXYPROGESTERONE | [facility] | | | ACETATE | | + + + + | 2022-10-09 00:00 | MEDROXYPROGESTERONE | [facility] | | | ACETATE | | + + + + | 2022-11-02 00:00 | MEDROXYPROGESTERONE | [facility] | | | ACETATE | | + + + + | 2023-01-21 00:00 | MEDROXYPROGESTERONE | [facility] | | | ACETATE | | + + + + | 2023-05-08 00:00 | MEDROXYPROGESTERONE | [facility] | | | ACETATE | | + + + + | 2023-05-18 00:00 | MEDROXYPROGESTERONE | [facility] | | | ACETATE | | + + + + | 2022-06-30 00:00 | DM | [facility] | | | HB/PE/ACETAMINOPHEN/CHLORPH | | | | | | + + + + | 2022-10-09 00:00 | DM | [facility] | | | HB/PE/ACETAMINOPHEN/CHLORPH | | | | | | + + + + | 2022-11-02 00:00 | DM | [facility] | | | HB/PE/ACETAMINOPHEN/CHLORPH | | | | | | + + + + | 2023-01-21 00:00 | DM | [facility] | | | HB/PE/ACETAMINOPHEN/CHLORPH | | | | | | + + + + | 2023-05-08 00:00 | DM | [facility] | | | HB/PE/ACETAMINOPHEN/CHLORPH | | | | | | + + + + | 2023-05-18 00:00 | DM | [facility] | | | HB/PE/ACETAMINOPHEN/CHLORPH | | | | | | + + + + | 2020-10-04 00:00 | ONDANSETRON HCL | [facility] | + + + + | 2022-06-30 00:00 | PSEUDOEPHEDRINE HCL | [facility] | + + + + | 2022-10-09 00:00 | PSEUDOEPHEDRINE HCL | [facility] | + + + + | 2022-11-02 00:00 | PSEUDOEPHEDRINE HCL | [facility] | + + + + | 2023-01-21 00:00 | PSEUDOEPHEDRINE HCL | [facility] | + + + + | 2023-05-08 00:00 | PSEUDOEPHEDRINE HCL | [facility] | + + + + | 2023-05-18 00:00 | PSEUDOEPHEDRINE HCL | [facility] | + + + + | 2022-06-30 00:00 | PSEUDOEPHEDRINE HCL | [facility] | + + + + | 2022-10-09 00:00 | PSEUDOEPHEDRINE HCL | [facility] | + + + + | 2022-11-02 00:00 | PSEUDOEPHEDRINE HCL | [facility] | + + + + | 2023-01-21 00:00 | PSEUDOEPHEDRINE HCL | [facility] | + + + + | 2023-05-08 00:00 | PSEUDOEPHEDRINE HCL | [facility] | + + + + | 2023-05-18 00:00 | PSEUDOEPHEDRINE HCL | [facility] | + + + + | 2018-08-05 00:00 | OXYCODONE | [facility] | | | HCL/ACETAMINOPHEN | | + + + + | 2018-08-13 00:00 | DIPHENHYDRAMINE HCL | [facility] | + + + + | 2014-12-14 00:00 | GUAIFENESIN/D-METHORPHAN | [facility] | | | HB/PE | | + + + + | 2017-01-01 00:00 | MELOXICAM | [facility] | + + + + | 2022-06-30 00:00 | MELOXICAM | [facility] | + + + + | 2022-10-09 00:00 | MELOXICAM | [facility] | + + + + | 2022-11-02 00:00 | MELOXICAM | [facility] | + + + + | 2023-01-21 00:00 | MELOXICAM | [facility] | + + + + | 2023-05-08 00:00 | MELOXICAM | [facility] | + + + + | 2023-05-18 00:00 | MELOXICAM | [facility] | + + + + | 2018-10-27 00:00 | DOXYCYCLINE HYCLATE | [facility] | + + + + | 2020-09-29 00:00 | DOXYCYCLINE HYCLATE | [facility] | + + + + | 2015-09-23 00:00 | FLUTICASONE PROPIONATE | [facility] | + + + + | 2022-06-30 00:00 | EPINEPHRINE | [facility] | + + + + | 2022-10-09 00:00 | EPINEPHRINE | [facility] | + + + + | 2022-11-02 00:00 | EPINEPHRINE | [facility] | + + + + | 2023-01-21 00:00 | EPINEPHRINE | [facility] | + + + + | 2023-05-08 00:00 | EPINEPHRINE | [facility] | + + + + | 2023-05-18 00:00 | EPINEPHRINE | [facility] | + + + + | 2022-06-30 00:00 | ONDANSETRON HCL | [facility] | + + + + | 2022-10-09 00:00 | ONDANSETRON HCL | [facility] | + + + + | 2022-11-02 00:00 | ONDANSETRON HCL | [facility] | + + + + | 2023-01-21 00:00 | ONDANSETRON HCL | [facility] | + + + + | 2023-05-08 00:00 | ONDANSETRON HCL | [facility] | + + + + | 2023-05-18 00:00 | ONDANSETRON HCL | [facility] | + + + + | 2022-06-30 00:00 | MONTELUKAST SODIUM | [facility] | + + + + | 2022-10-09 00:00 | MONTELUKAST SODIUM | [facility] | + + + + | 2022-11-02 00:00 | MONTELUKAST SODIUM | [facility] | + + + + | 2023-01-21 00:00 | MONTELUKAST SODIUM | [facility] | + + + + | 2023-05-08 00:00 | MONTELUKAST SODIUM | [facility] | + + + + | 2023-05-18 00:00 | MONTELUKAST SODIUM | [facility] | + + + + | 2020-09-29 00:00 | Dexamethasone | [facility] | + + + + | 2022-06-30 00:00 | PAROXETINE HCL | [facility] | + + + + | 2022-10-09 00:00 | PAROXETINE HCL | [facility] | + + + + | 2022-11-02 00:00 | PAROXETINE HCL | [facility] | + + + + | 2023-01-21 00:00 | PAROXETINE HCL | [facility] | + + + + | 2023-05-08 00:00 | PAROXETINE HCL | [facility] | + + + + | 2023-05-18 00:00 | PAROXETINE HCL | [facility] | + + + + | 2014-12-14 00:00 | AZITHROMYCIN | [facility] | + + + + | 2015-03-22 00:00 | AZITHROMYCIN | [facility] | + + + + | 2022-06-30 00:00 | FOLIC ACID | [facility] | + + + + | 2022-10-09 00:00 | FOLIC ACID | [facility] | + + + + | 2022-11-02 00:00 | FOLIC ACID | [facility] | + + + + | 2023-01-21 00:00 | FOLIC ACID | [facility] | + + + + | 2023-05-08 00:00 | FOLIC ACID | [facility] | + + + + | 2023-05-18 00:00 | FOLIC ACID | [facility] | + + + + | 2022-11-02 00:00 | OSELTAMIVIR PHOSPHATE | [facility] | + + + + | 2020-01-17 00:00 | LEVETIRACETAM | [facility] | + + + + | 2023-05-18 00:00 | LAMOTRIGINE | [facility] | + + + + | 2022-06-30 00:00 | LEVETIRACETAM | [facility] | + + + + | 2022-10-09 00:00 | LEVETIRACETAM | [facility] | + + + + | 2022-11-02 00:00 | LEVETIRACETAM | [facility] | + + + + | 2023-01-21 00:00 | LEVETIRACETAM | [facility] | + + + + | 2023-05-08 00:00 | LEVETIRACETAM | [facility] | + + + + | 2023-05-18 00:00 | LEVETIRACETAM | [facility] | + + + + | 2022-06-30 00:00 | SUMATRIPTAN SUCCINATE | [facility] | + + + + | 2022-10-09 00:00 | SUMATRIPTAN SUCCINATE | [facility] | + + + + | 2022-11-02 00:00 | SUMATRIPTAN SUCCINATE | [facility] | + + + + | 2023-01-21 00:00 | SUMATRIPTAN SUCCINATE | [facility] | + + + + | 2023-05-08 00:00 | SUMATRIPTAN SUCCINATE | [facility] | + + + + | 2023-05-18 00:00 | SUMATRIPTAN SUCCINATE | [facility] | + + + + | 2022-06-30 00:00 | AMOXICILLIN | [facility] | + + + + | 2022-10-09 00:00 | AMOXICILLIN | [facility] | + + + + | 2022-11-02 00:00 | AMOXICILLIN | [facility] | + + + + | 2023-01-21 00:00 | AMOXICILLIN | [facility] | + + + + | 2023-05-08 00:00 | AMOXICILLIN | [facility] | + + + + | 2023-05-18 00:00 | AMOXICILLIN | [facility] | + + + + | 2022-06-30 00:00 | AMOXICILLIN | [facility] | + + + + | 2022-10-09 00:00 | AMOXICILLIN | [facility] | + + + + | 2022-11-02 00:00 | AMOXICILLIN | [facility] | + + + + | 2023-01-21 00:00 | AMOXICILLIN | [facility] | + + + + | 2023-05-08 00:00 | AMOXICILLIN | [facility] | + + + + | 2023-05-18 00:00 | AMOXICILLIN | [facility] | + + + + | 2022-06-30 00:00 | METOCLOPRAMIDE HCL | [facility] | + + + + | 2022-10-09 00:00 | METOCLOPRAMIDE HCL | [facility] | + + + + | 2022-11-02 00:00 | METOCLOPRAMIDE HCL | [facility] | + + + + | 2023-01-21 00:00 | METOCLOPRAMIDE HCL | [facility] | + + + + | 2023-05-08 00:00 | METOCLOPRAMIDE HCL | [facility] | + + + + | 2023-05-18 00:00 | METOCLOPRAMIDE HCL | [facility] | + + + + | 2022-10-09 00:00 | Oseltamivir Phosphate | [facility] | + + + + | 2015-12-30 00:00 | predniSONE | [facility] | + + + + | 2022-06-30 00:00 | ASPIRIN | [facility] | + + + + | 2022-10-09 00:00 | ASPIRIN | [facility] | + + + + | 2022-11-02 00:00 | ASPIRIN | [facility] | + + + + | 2023-01-21 00:00 | ASPIRIN | [facility] | + + + + | 2023-05-08 00:00 | ASPIRIN | [facility] | + + + + | 2023-05-18 00:00 | ASPIRIN | [facility] | + + + + | 2022-11-02 00:00 | LEVETIRACETAM | [facility] | + + + + | 2023-01-21 00:00 | Pregabalin | [facility] | + + + + | 2023-05-08 00:00 | Pregabalin | [facility] | + + + + | 2023-05-18 00:00 | Pregabalin | [facility] | + + + + | 2022-06-30 00:00 | DULOXETINE HCL | [facility] | + + + + | 2022-10-09 00:00 | DULOXETINE HCL | [facility] | + + + + | 2022-11-02 00:00 | DULOXETINE HCL | [facility] | + + + + | 2023-01-21 00:00 | DULOXETINE HCL | [facility] | + + + + | 2023-05-08 00:00 | DULOXETINE HCL | [facility] | + + + + | 2023-05-18 00:00 | DULOXETINE HCL | [facility] | + + + + | 2022-06-30 00:00 | DULOXETINE HCL | [facility] | + + + + | 2022-10-09 00:00 | DULOXETINE HCL | [facility] | + + + + | 2022-11-02 00:00 | DULOXETINE HCL | [facility] | + + + + | 2023-01-21 00:00 | DULOXETINE HCL | [facility] | + + + + | 2023-05-08 00:00 | DULOXETINE HCL | [facility] | + + + + | 2023-05-18 00:00 | DULOXETINE HCL | [facility] | + + + + | 2022-06-30 00:00 | DULOXETINE HCL | [facility] | + + + + | 2022-10-09 00:00 | DULOXETINE HCL | [facility] | + + + + | 2022-11-02 00:00 | DULOXETINE HCL | [facility] | + + + + | 2023-01-21 00:00 | DULOXETINE HCL | [facility] | + + + + | 2023-05-08 00:00 | DULOXETINE HCL | [facility] | + + + + | 2023-05-18 00:00 | DULOXETINE HCL | [facility] | + + + + | 2021-03-25 00:00 | LEVETIRACETAM | [facility] | + + + + | 2015-09-23 00:00 | AZITHROMYCIN | [facility] | + + + + | 2016-06-04 00:00 | CYCLOBENZAPRINE HCL | [facility] | + + + + | 2017-08-14 00:00 | CYCLOBENZAPRINE HCL | [facility] | + + + + | 2023-01-21 00:00 | TRAMADOL HCL | [facility] | + + + + | 2022-06-30 00:00 | | [facility] | | | SULFAMETHOXAZOLE/TRIMETHOPR | | | | IM DS | | + + + + | 2022-10-09 00:00 | | [facility] | | | SULFAMETHOXAZOLE/TRIMETHOPR | | | | IM DS | | + + + + | 2022-11-02 00:00 | | [facility] | | | SULFAMETHOXAZOLE/TRIMETHOPR | | | | IM DS | | + + + + | 2023-01-21 00:00 | | [facility] | | | SULFAMETHOXAZOLE/TRIMETHOPR | | | | IM DS | | + + + + | 2023-05-08 00:00 | | [facility] | | | SULFAMETHOXAZOLE/TRIMETHOPR | | | | IM DS | | + + + + | 2023-05-18 00:00 | | [facility] | | | SULFAMETHOXAZOLE/TRIMETHOPR | | | | IM DS | | + + + + | 2022-06-30 00:00 | ALBUTEROL SULFATE | [facility] | + + + + | 2022-10-09 00:00 | ALBUTEROL SULFATE | [facility] | + + + + | 2022-11-02 00:00 | ALBUTEROL SULFATE | [facility] | + + + + | 2023-01-21 00:00 | ALBUTEROL SULFATE | [facility] | + + + + | 2023-05-08 00:00 | ALBUTEROL SULFATE | [facility] | + + + + | 2023-05-18 00:00 | ALBUTEROL SULFATE | [facility] | + + + + | 2022-10-09 00:00 | BUSPIRONE HCL | [facility] | + + + + | 2022-11-02 00:00 | BUSPIRONE HCL | [facility] | + + + + | 2023-01-21 00:00 | BUSPIRONE HCL | [facility] | + + + + | 2023-05-08 00:00 | BUSPIRONE HCL | [facility] | + + + + | 2023-05-18 00:00 | BUSPIRONE HCL | [facility] | + + + + | 2022-06-30 00:00 | BUSPIRONE HCL | [facility] | + + + + | 2022-10-09 00:00 | BUSPIRONE HCL | [facility] | + + + + | 2022-11-02 00:00 | BUSPIRONE HCL | [facility] | + + + + | 2023-01-21 00:00 | BUSPIRONE HCL | [facility] | + + + + | 2023-05-08 00:00 | BUSPIRONE HCL | [facility] | + + + + | 2023-05-18 00:00 | BUSPIRONE HCL | [facility] | + + + + | 2022-06-30 00:00 | BUSPIRONE HCL | [facility] | + + + + | 2022-10-09 00:00 | BUSPIRONE HCL | [facility] | + + + + | 2022-11-02 00:00 | BUSPIRONE HCL | [facility] | + + + + | 2023-01-21 00:00 | BUSPIRONE HCL | [facility] | + + + + | 2023-05-08 00:00 | BUSPIRONE HCL | [facility] | + + + + | 2023-05-18 00:00 | BUSPIRONE HCL | [facility] | + + + + | 2022-06-30 00:00 | BUSPIRONE HCL | [facility] | + + + + | 2022-10-09 00:00 | BUSPIRONE HCL | [facility] | + + + + | 2022-11-02 00:00 | BUSPIRONE HCL | [facility] | + + + + | 2023-01-21 00:00 | BUSPIRONE HCL | [facility] | + + + + | 2023-05-08 00:00 | BUSPIRONE HCL | [facility] | + + + + | 2023-05-18 00:00 | BUSPIRONE HCL | [facility] | + + + + | 2018-08-05 00:00 | ONDANSETRON | [facility] | + + + + | 2014-01-14 00:00 | PROMETHAZINE HCL | [facility] | + + + + | 2014-01-14 00:00 | PROMETHAZINE HCL | [facility] | + + + + | 2022-06-30 00:00 | PROMETHAZINE HCL | [facility] | + + + + | 2022-10-09 00:00 | PROMETHAZINE HCL | [facility] | + + + + | 2022-11-02 00:00 | PROMETHAZINE HCL | [facility] | + + + + | 2023-01-21 00:00 | PROMETHAZINE HCL | [facility] | + + + + | 2023-05-08 00:00 | PROMETHAZINE HCL | [facility] | + + + + | 2023-05-18 00:00 | PROMETHAZINE HCL | [facility] | + + + + | 2019-07-09 00:00 | Codeine | [facility] | | | Phosphate/Guaifenesin | | + + + + | 2015-03-22 00:00 | GUAIFENESIN/CODEINE | [facility] | | | PHOSPHATE | | + + + + | 2015-12-30 00:00 | GUAIFENESIN/CODEINE | [facility] | | | PHOSPHATE | | + + + + | 2022-06-30 00:00 | FEXOFENADINE HCL | [facility] | + + + + | 2022-10-09 00:00 | FEXOFENADINE HCL | [facility] | + + + + | 2022-11-02 00:00 | FEXOFENADINE HCL | [facility] | + + + + | 2023-01-21 00:00 | FEXOFENADINE HCL | [facility] | + + + + | 2023-05-08 00:00 | FEXOFENADINE HCL | [facility] | + + + + | 2023-05-18 00:00 | FEXOFENADINE HCL | [facility] | + + + + Problems + + + + | date | description | facility | + + + + | 2014-12-14 00:00 | Upper respiratory | [facility] | | | infection | | + + + + | 2014-12-14 00:00 | Sinusitis | [facility] | + + + + | 2015-03-22 00:00 | Acute bronchitis | [facility] | + + + + | 2016-01-13 00:00 | Right elbow pain | [facility] | + + + + | 2016-06-04 00:00 | Spasm of thoracic back | [facility] | | | muscle | | + + + + | 2016-06-04 00:00 | Back strain | [facility] | + + + + | 2016-09-17 00:00 | Laceration | [facility] | + + + + | 2017-01-01 00:00 | Contusion of right foot | [facility] | + + + + | 2017-08-14 00:00 | Sprain of hip | [facility] | + + + + | 2018-08-05 00:00 | Postoperative pain | [facility] | + + + + | 2018-10-27 00:00 | Pharyngitis | [facility] | + + + + | 2019-07-09 00:00 | Viral upper respiratory | [facility] | | | tract infection with cough | | + + + + | 2019-07-31 00:00 | Inhalation of noxious | [facility] | | | fumes | | + + + + | 2019-09-18 00:00 | Syncope | [facility] | + + + + | 2020-06-07 00:00 | Pain of right hip | [facility] | + + + + | 2020-08-31 00:00 | Acute postoperative pain | [facility] | | | of right hip | | + + + + | 2020-09-27 00:00 | Pneumonia due to severe | [facility] | | | acute respiratory syndrome | | | | coronavirus 2 (SARS-CoV-2) | | + + + + | 2020-11-10 00:00 | Patient left without being | [facility] | | | seen | | + + + + | 2021-10-03 00:00 | Hyperemesis gravidarum | [facility] | | | with metabolic disturbance | | + + + + | 2021-11-09 00:00 | Threatened | [facility] | + + + + | 2021-12-04 00:00 | Infection due to severe | [facility] | | | acute respiratory syndrome | | | | coronavirus 2 (SARS-CoV-2) | | + + + + | 2022-01-31 00:00 | Epilepsy affecting | [facility] | | | in second | | | | trimester | | + + + + | 2022-01-31 00:00 | Strain of elbow | [facility] | + + + + | [...] 00:00 | Influenza due to influenza | [facility] | | | virus, type A, [...] + + | 2022-11-02 02:30 | OTHER FCI (CURRENT) | [facility] | | | DRUG [...] | 2023-01-21 00:00 | Hip strain | [facility] | + + + + | [...] + + | 2023-01-21 20:14 | OTHER [facility]CI (CURRENT) | [facility] | | | DRUG [...] | 2023-05-08 00:00 | Seizure-like activity | [facility] | + + + + | 2023-05-08 17:23 | DEPRESSION, UNSPECIFIED | [facility] | + + + + | 2023-05-08 17:23 | EPILEPSY, UNSP, NOT | [facility] | | | INTRACTABLE, WITHOUT STATUS | | | | EP | | + + + + | 2023-05-08 17:23 | UNSPECIFIED CONVULSIONS | [facility] | + + + + | 2023-05-08 17:23 | 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) | [facility] | | | DRUG [...] | 2023-05-18 00:00 | Seizure disorder | [facility] | + + + + | 2023-05-18 16:32 | EPILEPSY, UNSP, NOT | [facility] | | | INTRACTABLE, WITHOUT STATUS | | | | EP | | + + + + | 2023-05-18 16:32 | TRANSIENT ALTERATION OF | [facility] | | | AWARENESS | | + + + + | 2023-05-18 16:32 | 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) | [facility] | | | DRUG [...] | | | + + + + Procedures + + + + | date | description | facility | + + + + | 2022-04-23 00:00 | INSERTION OF INFUSION DEV | [facility] | | | INTO SPINAL CANAL, PERC | | | | APPROACH | | + + + + | 2022-04-23 00:00 | REPAIR PERINEUM SKIN, | [facility] | | | EXTERNAL APPROACH | | + + + + | 2022-04-23 00:00 | DRAINAGE OF AMNIOTIC FL, | [facility] | | | THERAP FROM POC, VIA | | | | OPENING | | + + + + | 2022-04-23 00:00 | DELIVERY OF PRODUCTS OF | [facility] | | | CONCEPTION, EXTERNAL | | | | APPROACH | | + + + + | 2022-04-23 00:00 | INTRODUCTION OF HORMONE | [facility] | | | INTO FEM REPROD, VIA | | | | OPENING | | + + + + | 2022-04-23 00:00 | INTRODUCTION OF ANESTHETIC | [facility] | | | INTO SPINAL CANAL, PERC | | | | APPROACH | | + + + + | 2022-03-03 00:00 | MONITORING OF POC, CARDIAC | [facility] | | | ELECTR ACTIVITY, MOLD WASHER | | | | APPROACH | | + + + + | 2022-03-29 00:00 | MONITORING OF POC, CARDIAC | [facility] | | | ELECTR ACTIVITY, MOLD WASHER | | | | APPROACH | | + + + + | 2022-03-21 00:00 | MONITORING OF POC, CARDIAC | [facility] | | | RATE, MOLD WASHER APPROACH | | + + + + | 2022-04-07 00:00 | MONITORING OF POC, CARDIAC | [facility] | | | RATE, MOLD WASHER APPROACH | | + + + + [...] + + + + | Result panel 103 | + + + + + + [...] 104 | + + + + + + [...] 105 | + + + + + + [...] 106 | + + + + + + [...] 107 | + + + + + + [...] 108 | + + + + + + [...] 109 | + + + + + + [...] 110 | + + + + + + [...] 111 | + + + + + + [...] 113 | + + + + + + +---------+ + + | (unknown) | (no date) | (unknown) | [facility] | (no | (units | (unknown) | | | | | [facility] | value) | unknown) | | | | | | [facility] | | | | + + + + +---------+ + + + + | Result panel 114 [...] 115 | + + + + + + [...] 118 | + + + + + + [...] 119 | + + + + + + [...] 121 | + + + + + + [...] 232 | lb | + + + +---------+"
--- OUTSIDE RECORDS SUMMARY | ~2023-05-20 | XMS | Continuity of Care Document ---
Demographics + + + | Address | [address] | | | [place] [address] | + + + | Preferred Language | Unknown | + + + | Marital Status | | + + + | Congregational Affiliation | Unknown | + + + | Race | White | + + + | Ethnic Group | Not or | + + + Author + + + | Author | [facility] | + + + | Organization | [facility] | + + + | Address | [address] | | | [place] [address] | + + + | Phone | | + + + Care Team Providers + + + + | Care [employer]ian Blind Assembler Name | Role | Phone | + + + + Unavailable | Unavailable | + + + + Unavailable | Unavailable | + + + + Allergies and Intolerances + + + + + | date | description | facility | type | + + + + + | (no date) | Urticaria | [facility] | (unknown) | | | | Hospital | | + + + + + | (no date) | Capsaicin | [facility] | (unknown) | | | | Hospital | | + + + + + | (no date) | capsaicin | [facility] | (unknown) | | | | Hospital | | + + + + + | (no date) | Edema of pharynx | [facility] | (unknown) | | | | Hospital | | + + + + + | (no date) | Cinnamon | [facility] | (unknown) | | | | Hospital | | + + + + + | (no date) | Rash | [facility] | (unknown) | | | | Hospital | | + + + + + | (no date) | Morphine | [facility] | (unknown) | | | | Hospital | | + + + + + | (no date) | Capsaicin | [facility] | (unknown) | | | | Hospital | | + + + + + | (no date) | Vomiting | [facility] | (unknown) | | | | Hospital | | + + + + + | (no date) | Cinnamon | [facility] | (unknown) | | | | Hospital | | + + + + + | (no date) | Diarrhea | [facility] | (unknown) | | | | Hospital | | + + + + + | (no date) | Morphine | [facility] | (unknown) | | | | Hospital | | + + + + + | (no date) | morphine | [facility] | (unknown) | | | | Hospital | | + + + + + | (no date) | Penicillin | [facility] | (unknown) | | | | Hospital | | + + + + + | (no date) | Penicillin | [facility] | (unknown) | | | | Hospital [...] | (no date) | Penicillin | [facility] | (unknown) | | | | Hospital | | + + + + + | (no date) | Penicillin | [facility] | (unknown) | | | | Hospital | | + + + + + | (no date) | Capsaicin | [facility] | (unknown) | | | | Hospital | | + + + + + Encounters No information. Functional Status No information. Immunizations + + + + | date | description | facility | + + + + | 2016-09-17 00:00 | Tdap | [facility] | + + + + | 2022-06-30 00:00 | Influenza, Injectable, | [facility] | | | Quadrivalent, Preservative | | + + + + | 2022-10-09 00:00 | Influenza, Injectable, | [facility] | | | Quadrivalent, Preservative | | + + + + | 2022-11-02 00:00 | Influenza, Injectable, | [facility] | | | Quadrivalent, Preservative | | + + + + | 2023-01-21 00:00 | Influenza, Injectable, | [facility] | | | Quadrivalent, Preservative | | + + + + | 2023-05-08 00:00 | Influenza, Injectable, | [facility] | | | Quadrivalent, Preservative | | + + + + | 2023-05-18 00:00 | Influenza, Injectable, | [facility] | | | Quadrivalent, Preservative | | + + + + Medications + + + + | date | description | facility | + + + + | 2022-06-30 00:00 | MEDROXYPROGESTERONE | [facility] | | | ACETATE | | + + + + | 2022-10-09 00:00 | MEDROXYPROGESTERONE | [facility] | | | ACETATE | | + + + + | 2022-11-02 00:00 | MEDROXYPROGESTERONE | [facility] | | | ACETATE | | + + + + | 2023-01-21 00:00 | MEDROXYPROGESTERONE | [facility] | | | ACETATE | | + + + + | 2023-05-08 00:00 | MEDROXYPROGESTERONE | [facility] | | | ACETATE | | + + + + | 2023-05-18 00:00 | MEDROXYPROGESTERONE | [facility] | | | ACETATE | | + + + + | 2022-06-30 00:00 | DM | [facility] | | | HB/PE/ACETAMINOPHEN/CHLORPH | | | | | | + + + + | 2022-10-09 00:00 | DM | [facility] | | | HB/PE/ACETAMINOPHEN/CHLORPH | | | | | | + + + + | 2022-11-02 00:00 | DM | [facility] | | | HB/PE/ACETAMINOPHEN/CHLORPH | | | | | | + + + + | 2023-01-21 00:00 | DM | [facility] | | | HB/PE/ACETAMINOPHEN/CHLORPH | | | | | | + + + + | 2023-05-08 00:00 | DM | [facility] | | | HB/PE/ACETAMINOPHEN/CHLORPH | | | | | | + + + + | 2023-05-18 00:00 | DM | [facility] | | | HB/PE/ACETAMINOPHEN/CHLORPH | | | | | | + + + + | 2020-10-04 00:00 | ONDANSETRON HCL | [facility] | + + + + | 2022-06-30 00:00 | PSEUDOEPHEDRINE HCL | [facility] | + + + + | 2022-10-09 00:00 | PSEUDOEPHEDRINE HCL | [facility] | + + + + | 2022-11-02 00:00 | PSEUDOEPHEDRINE HCL | [facility] | + + + + | 2023-01-21 00:00 | PSEUDOEPHEDRINE HCL | [facility] | + + + + | 2023-05-08 00:00 | PSEUDOEPHEDRINE HCL | [facility] | + + + + | 2023-05-18 00:00 | PSEUDOEPHEDRINE HCL | [facility] | + + + + | 2022-06-30 00:00 | PSEUDOEPHEDRINE HCL | [facility] | + + + + | 2022-10-09 00:00 | PSEUDOEPHEDRINE HCL | [facility] | + + + + | 2022-11-02 00:00 | PSEUDOEPHEDRINE HCL | [facility] | + + + + | 2023-01-21 00:00 | PSEUDOEPHEDRINE HCL | [facility] | + + + + | 2023-05-08 00:00 | PSEUDOEPHEDRINE HCL | [facility] | + + + + | 2023-05-18 00:00 | PSEUDOEPHEDRINE HCL | [facility] | + + + + | 2018-08-05 00:00 | OXYCODONE | [facility] | | | HCL/ACETAMINOPHEN | | + + + + | 2018-08-13 00:00 | DIPHENHYDRAMINE HCL | [facility] | + + + + | 2014-12-14 00:00 | GUAIFENESIN/D-METHORPHAN | [facility] | | | HB/PE | | + + + + | 2017-01-01 00:00 | MELOXICAM | [facility] | + + + + | 2022-06-30 00:00 | MELOXICAM | [facility] | + + + + | 2022-10-09 00:00 | MELOXICAM | [facility] | + + + + | 2022-11-02 00:00 | MELOXICAM | [facility] | + + + + | 2023-01-21 00:00 | MELOXICAM | [facility] | + + + + | 2023-05-08 00:00 | MELOXICAM | [facility] | + + + + | 2023-05-18 00:00 | MELOXICAM | [facility] | + + + + | 2018-10-27 00:00 | DOXYCYCLINE HYCLATE | [facility] | + + + + | 2020-09-29 00:00 | DOXYCYCLINE HYCLATE | [facility] | + + + + | 2015-09-23 00:00 | FLUTICASONE PROPIONATE | [facility] | + + + + | 2022-06-30 00:00 | EPINEPHRINE | [facility] | + + + + | 2022-10-09 00:00 | EPINEPHRINE | [facility] | + + + + | 2022-11-02 00:00 | EPINEPHRINE | [facility] | + + + + | 2023-01-21 00:00 | EPINEPHRINE | [facility] | + + + + | 2023-05-08 00:00 | EPINEPHRINE | [facility] | + + + + | 2023-05-18 00:00 | EPINEPHRINE | [facility] | + + + + | 2022-06-30 00:00 | ONDANSETRON HCL | [facility] | + + + + | 2022-10-09 00:00 | ONDANSETRON HCL | [facility] | + + + + | 2022-11-02 00:00 | ONDANSETRON HCL | [facility] | + + + + | 2023-01-21 00:00 | ONDANSETRON HCL | [facility] | + + + + | 2023-05-08 00:00 | ONDANSETRON HCL | [facility] | + + + + | 2023-05-18 00:00 | ONDANSETRON HCL | [facility] | + + + + | 2022-06-30 00:00 | MONTELUKAST SODIUM | [facility] | + + + + | 2022-10-09 00:00 | MONTELUKAST SODIUM | [facility] | + + + + | 2022-11-02 00:00 | MONTELUKAST SODIUM | [facility] | + + + + | 2023-01-21 00:00 | MONTELUKAST SODIUM | [facility] | + + + + | 2023-05-08 00:00 | MONTELUKAST SODIUM | [facility] | + + + + | 2023-05-18 00:00 | MONTELUKAST SODIUM | [facility] | + + + + | 2020-09-29 00:00 | Dexamethasone | [facility] | + + + + | 2022-06-30 00:00 | PAROXETINE HCL | [facility] | + + + + | 2022-10-09 00:00 | PAROXETINE HCL | [facility] | + + + + | 2022-11-02 00:00 | PAROXETINE HCL | [facility] | + + + + | 2023-01-21 00:00 | PAROXETINE HCL | [facility] | + + + + | 2023-05-08 00:00 | PAROXETINE HCL | [facility] | + + + + | 2023-05-18 00:00 | PAROXETINE HCL | [facility] | + + + + | 2014-12-14 00:00 | AZITHROMYCIN | [facility] | + + + + | 2015-03-22 00:00 | AZITHROMYCIN | [facility] | + + + + | 2022-06-30 00:00 | FOLIC ACID | [facility] | + + + + | 2022-10-09 00:00 | FOLIC ACID | [facility] | + + + + | 2022-11-02 00:00 | FOLIC ACID | [facility] | + + + + | 2023-01-21 00:00 | FOLIC ACID | [facility] | + + + + | 2023-05-08 00:00 | FOLIC ACID | [facility] | + + + + | 2023-05-18 00:00 | FOLIC ACID | [facility] | + + + + | 2022-11-02 00:00 | OSELTAMIVIR PHOSPHATE | [facility] | + + + + | 2020-01-17 00:00 | LEVETIRACETAM | [facility] | + + + + | 2023-05-18 00:00 | LAMOTRIGINE | [facility] | + + + + | 2022-06-30 00:00 | LEVETIRACETAM | [facility] | + + + + | 2022-10-09 00:00 | LEVETIRACETAM | [facility] | + + + + | 2022-11-02 00:00 | LEVETIRACETAM | [facility] | + + + + | 2023-01-21 00:00 | LEVETIRACETAM | [facility] | + + + + | 2023-05-08 00:00 | LEVETIRACETAM | [facility] | + + + + | 2023-05-18 00:00 | LEVETIRACETAM | [facility] | + + + + | 2022-06-30 00:00 | SUMATRIPTAN SUCCINATE | [facility] | + + + + | 2022-10-09 00:00 | SUMATRIPTAN SUCCINATE | [facility] | + + + + | 2022-11-02 00:00 | SUMATRIPTAN SUCCINATE | [facility] | + + + + | 2023-01-21 00:00 | SUMATRIPTAN SUCCINATE | [facility] | + + + + | 2023-05-08 00:00 | SUMATRIPTAN SUCCINATE | [facility] | + + + + | 2023-05-18 00:00 | SUMATRIPTAN SUCCINATE | [facility] | + + + + | 2022-06-30 00:00 | AMOXICILLIN | [facility] | + + + + | 2022-10-09 00:00 | AMOXICILLIN | [facility] | + + + + | 2022-11-02 00:00 | AMOXICILLIN | [facility] | + + + + | 2023-01-21 00:00 | AMOXICILLIN | [facility] | + + + + | 2023-05-08 00:00 | AMOXICILLIN | [facility] | + + + + | 2023-05-18 00:00 | AMOXICILLIN | [facility] | + + + + | 2022-06-30 00:00 | AMOXICILLIN | [facility] | + + + + | 2022-10-09 00:00 | AMOXICILLIN | [facility] | + + + + | 2022-11-02 00:00 | AMOXICILLIN | [facility] | + + + + | 2023-01-21 00:00 | AMOXICILLIN | [facility] | + + + + | 2023-05-08 00:00 | AMOXICILLIN | [facility] | + + + + | 2023-05-18 00:00 | AMOXICILLIN | [facility] | + + + + | 2022-06-30 00:00 | METOCLOPRAMIDE HCL | [facility] | + + + + | 2022-10-09 00:00 | METOCLOPRAMIDE HCL | [facility] | + + + + | 2022-11-02 00:00 | METOCLOPRAMIDE HCL | [facility] | + + + + | 2023-01-21 00:00 | METOCLOPRAMIDE HCL | [facility] | + + + + | 2023-05-08 00:00 | METOCLOPRAMIDE HCL | [facility] | + + + + | 2023-05-18 00:00 | METOCLOPRAMIDE HCL | [facility] | + + + + | 2022-10-09 00:00 | Oseltamivir Phosphate | [facility] | + + + + | 2015-12-30 00:00 | predniSONE | [facility] | + + + + | 2022-06-30 00:00 | ASPIRIN | [facility] | + + + + | 2022-10-09 00:00 | ASPIRIN | [facility] | + + + + | 2022-11-02 00:00 | ASPIRIN | [facility] | + + + + | 2023-01-21 00:00 | ASPIRIN | [facility] | + + + + | 2023-05-08 00:00 | ASPIRIN | [facility] | + + + + | 2023-05-18 00:00 | ASPIRIN | [facility] | + + + + | 2022-11-02 00:00 | LEVETIRACETAM | [facility] | + + + + | 2023-01-21 00:00 | Pregabalin | [facility] | + + + + | 2023-05-08 00:00 | Pregabalin | [facility] | + + + + | 2023-05-18 00:00 | Pregabalin | [facility] | + + + + | 2022-06-30 00:00 | DULOXETINE HCL | [facility] | + + + + | 2022-10-09 00:00 | DULOXETINE HCL | [facility] | + + + + | 2022-11-02 00:00 | DULOXETINE HCL | [facility] | + + + + | 2023-01-21 00:00 | DULOXETINE HCL | [facility] | + + + + | 2023-05-08 00:00 | DULOXETINE HCL | [facility] | + + + + | 2023-05-18 00:00 | DULOXETINE HCL | [facility] | + + + + | 2022-06-30 00:00 | DULOXETINE HCL | [facility] | + + + + | 2022-10-09 00:00 | DULOXETINE HCL | [facility] | + + + + | 2022-11-02 00:00 | DULOXETINE HCL | [facility] | + + + + | 2023-01-21 00:00 | DULOXETINE HCL | [facility] | + + + + | 2023-05-08 00:00 | DULOXETINE HCL | [facility] | + + + + | 2023-05-18 00:00 | DULOXETINE HCL | [facility] | + + + + | 2022-06-30 00:00 | DULOXETINE HCL | [facility] | + + + + | 2022-10-09 00:00 | DULOXETINE HCL | [facility] | + + + + | 2022-11-02 00:00 | DULOXETINE HCL | [facility] | + + + + | 2023-01-21 00:00 | DULOXETINE HCL | [facility] | + + + + | 2023-05-08 00:00 | DULOXETINE HCL | [facility] | + + + + | 2023-05-18 00:00 | DULOXETINE HCL | [facility] | + + + + | 2021-03-25 00:00 | LEVETIRACETAM | [facility] | + + + + | 2015-09-23 00:00 | AZITHROMYCIN | [facility] | + + + + | 2016-06-04 00:00 | CYCLOBENZAPRINE HCL | [facility] | + + + + | 2017-08-14 00:00 | CYCLOBENZAPRINE HCL | [facility] | + + + + | 2023-01-21 00:00 | TRAMADOL HCL | [facility] | + + + + | 2022-06-30 00:00 | | [facility] | | | SULFAMETHOXAZOLE/TRIMETHOPR | | | | IM DS | | + + + + | 2022-10-09 00:00 | | [facility] | | | SULFAMETHOXAZOLE/TRIMETHOPR | | | | IM DS | | + + + + | 2022-11-02 00:00 | | [facility] | | | SULFAMETHOXAZOLE/TRIMETHOPR | | | | IM DS | | + + + + | 2023-01-21 00:00 | | [facility] | | | SULFAMETHOXAZOLE/TRIMETHOPR | | | | IM DS | | + + + + | 2023-05-08 00:00 | | [facility] | | | SULFAMETHOXAZOLE/TRIMETHOPR | | | | IM DS | | + + + + | 2023-05-18 00:00 | | [facility] | | | SULFAMETHOXAZOLE/TRIMETHOPR | | | | IM DS | | + + + + | 2022-06-30 00:00 | ALBUTEROL SULFATE | [facility] | + + + + | 2022-10-09 00:00 | ALBUTEROL SULFATE | [facility] | + + + + | 2022-11-02 00:00 | ALBUTEROL SULFATE | [facility] | + + + + | 2023-01-21 00:00 | ALBUTEROL SULFATE | [facility] | + + + + | 2023-05-08 00:00 | ALBUTEROL SULFATE | [facility] | + + + + | 2023-05-18 00:00 | ALBUTEROL SULFATE | [facility] | + + + + | 2022-10-09 00:00 | BUSPIRONE HCL | [facility] | + + + + | 2022-11-02 00:00 | BUSPIRONE HCL | [facility] | + + + + | 2023-01-21 00:00 | BUSPIRONE HCL | [facility] | + + + + | 2023-05-08 00:00 | BUSPIRONE HCL | [facility] | + + + + | 2023-05-18 00:00 | BUSPIRONE HCL | [facility] | + + + + | 2022-06-30 00:00 | BUSPIRONE HCL | [facility] | + + + + | 2022-10-09 00:00 | BUSPIRONE HCL | [facility] | + + + + | 2022-11-02 00:00 | BUSPIRONE HCL | [facility] | + + + + | 2023-01-21 00:00 | BUSPIRONE HCL | [facility] | + + + + | 2023-05-08 00:00 | BUSPIRONE HCL | [facility] | + + + + | 2023-05-18 00:00 | BUSPIRONE HCL | [facility] | + + + + | 2022-06-30 00:00 | BUSPIRONE HCL | [facility] | + + + + | 2022-10-09 00:00 | BUSPIRONE HCL | [facility] | + + + + | 2022-11-02 00:00 | BUSPIRONE HCL | [facility] | + + + + | 2023-01-21 00:00 | BUSPIRONE HCL | [facility] | + + + + | 2023-05-08 00:00 | BUSPIRONE HCL | [facility] | + + + + | 2023-05-18 00:00 | BUSPIRONE HCL | [facility] | + + + + | 2022-06-30 00:00 | BUSPIRONE HCL | [facility] | + + + + | 2022-10-09 00:00 | BUSPIRONE HCL | [facility] | + + + + | 2022-11-02 00:00 | BUSPIRONE HCL | [facility] | + + + + | 2023-01-21 00:00 | BUSPIRONE HCL | [facility] | + + + + | 2023-05-08 00:00 | BUSPIRONE HCL | [facility] | + + + + | 2023-05-18 00:00 | BUSPIRONE HCL | [facility] | + + + + | 2018-08-05 00:00 | ONDANSETRON | [facility] | + + + + | 2014-01-14 00:00 | PROMETHAZINE HCL | [facility] | + + + + | 2014-01-14 00:00 | PROMETHAZINE HCL | [facility] | + + + + | 2022-06-30 00:00 | PROMETHAZINE HCL | [facility] | + + + + | 2022-10-09 00:00 | PROMETHAZINE HCL | [facility] | + + + + | 2022-11-02 00:00 | PROMETHAZINE HCL | [facility] | + + + + | 2023-01-21 00:00 | PROMETHAZINE HCL | [facility] | + + + + | 2023-05-08 00:00 | PROMETHAZINE HCL | [facility] | + + + + | 2023-05-18 00:00 | PROMETHAZINE HCL | [facility] | + + + + | 2019-07-09 00:00 | Codeine | [facility] | | | Phosphate/Guaifenesin | | + + + + | 2015-03-22 00:00 | GUAIFENESIN/CODEINE | [facility] | | | PHOSPHATE | | + + + + | 2015-12-30 00:00 | GUAIFENESIN/CODEINE | [facility] | | | PHOSPHATE | | + + + + | 2022-06-30 00:00 | FEXOFENADINE HCL | [facility] | + + + + | 2022-10-09 00:00 | FEXOFENADINE HCL | [facility] | + + + + | 2022-11-02 00:00 | FEXOFENADINE HCL | [facility] | + + + + | 2023-01-21 00:00 | FEXOFENADINE HCL | [facility] | + + + + | 2023-05-08 00:00 | FEXOFENADINE HCL | [facility] | + + + + | 2023-05-18 00:00 | FEXOFENADINE HCL | [facility] | + + + + Problems + + + + | date | description | facility | + + + + | 2014-12-14 00:00 | Upper respiratory | [facility] | | | infection | | + + + + | 2014-12-14 00:00 | Sinusitis | [facility] | + + + + | 2015-03-22 00:00 | Acute bronchitis | [facility] | + + + + | 2016-01-13 00:00 | Right elbow pain | [facility] | + + + + | 2016-06-04 00:00 | Spasm of thoracic back | [facility] | | | muscle | | + + + + | 2016-06-04 00:00 | Back strain | [facility] | + + + + | 2016-09-17 00:00 | Laceration | [facility] | + + + + | 2017-01-01 00:00 | Contusion of right foot | [facility] | + + + + | 2017-08-14 00:00 | Sprain of hip | [facility] | + + + + | 2018-08-05 00:00 | Postoperative pain | [facility] | + + + + | 2018-10-27 00:00 | Pharyngitis | [facility] | + + + + | 2019-07-09 00:00 | Viral upper respiratory | [facility] | | | tract infection with cough | | + + + + | 2019-07-31 00:00 | Inhalation of noxious | [facility] | | | fumes | | + + + + | 2019-09-18 00:00 | Syncope | [facility] | + + + + | 2020-06-07 00:00 | Pain of right hip | [facility] | + + + + | 2020-08-31 00:00 | Acute postoperative pain | [facility] | | | of right hip | | + + + + | 2020-09-27 00:00 | Pneumonia due to severe | [facility] | | | acute respiratory syndrome | | | | coronavirus 2 (SARS-CoV-2) | | + + + + | 2020-11-10 00:00 | Patient left without being | [facility] | | | seen | | + + + + | 2021-10-03 00:00 | Hyperemesis gravidarum | [facility] | | | with metabolic disturbance | | + + + + | 2021-11-09 00:00 | Threatened | [facility] | + + + + | 2021-12-04 00:00 | Infection due to severe | [facility] | | | acute respiratory syndrome | | | | coronavirus 2 (SARS-CoV-2) | | + + + + | 2022-01-31 00:00 | Epilepsy affecting | [facility] | | | in second | | | | trimester | | + + + + | 2022-01-31 00:00 | Strain of elbow | [facility] | + + + + | [...] 00:00 | Influenza due to influenza | [facility] | | | virus, type A, [...] + + | 2022-11-02 02:30 | OTHER [facility] (CURRENT) | [facility] | | | DRUG [...] 2023-01-21 00:00 | Hip strain | [facility] | + + + + [...] + + | 2023-01-21 20:14 | OTHER [facility] (CURRENT) | [facility] | | | DRUG [...] | 2023-05-08 00:00 | Seizure-like activity | [facility] | + + + + | 2023-05-08 17:23 | DEPRESSION, UNSPECIFIED | [facility] | + + + + | 2023-05-08 17:23 | EPILEPSY, UNSP, NOT | [facility] | | | INTRACTABLE, WITHOUT STATUS | | | | EP | | + + + + | 2023-05-08 17:23 | UNSPECIFIED CONVULSIONS | [facility] | + + + + | 2023-05-08 17:23 | 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) | [facility] | | | DRUG [...] | 2023-05-18 00:00 | Seizure disorder | [facility] | + + + + | 2023-05-18 16:32 | EPILEPSY, UNSP, NOT | [facility] | | | INTRACTABLE, WITHOUT STATUS | | | | EP | | + + + + | 2023-05-18 16:32 | TRANSIENT ALTERATION OF | [facility] | | | AWARENESS | | + + + + | 2023-05-18 16:32 | 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) | [facility] | | | DRUG [...] 00:00 | INSERTION OF INFUSION DEV | [facility] | | | INTO SPINAL CANAL, PERC | | | | APPROACH | | + + + + | 2022-04-23 00:00 | REPAIR PERINEUM SKIN, | [facility] | | | EXTERNAL APPROACH | | + + + + | 2022-04-23 00:00 | DRAINAGE OF AMNIOTIC FL, | [facility] | | | THERAP FROM POC, VIA | | | | OPENING | | + + + + | 2022-04-23 00:00 | DELIVERY OF PRODUCTS OF | [facility] | | | CONCEPTION, EXTERNAL | | | | APPROACH | | + + + + | 2022-04-23 00:00 | INTRODUCTION OF HORMONE | [facility] | | | INTO FEM REPROD, VIA | | | | OPENING | | + + + + | 2022-04-23 00:00 | INTRODUCTION OF ANESTHETIC | [facility] | | | INTO SPINAL CANAL, PERC | | | | APPROACH | | + + + + | 2022-03-03 00:00 | MONITORING OF POC, CARDIAC | [facility] | | | ELECTR ACTIVITY, CHILD CARE ATTENDANT | | | | APPROACH | | + + + + | 2022-03-29 00:00 | MONITORING OF POC, CARDIAC | [facility] | | | ELECTR ACTIVITY, CHILD CARE ATTENDANT | | | | APPROACH | | + + + + | 2022-03-21 00:00 | MONITORING OF POC, CARDIAC | [facility] | | | RATE, CHILD CARE ATTENDANT APPROACH | | + + + + | 2022-04-07 00:00 | MONITORING OF POC, CARDIAC | [facility] | | | RATE, CHILD CARE ATTENDANT APPROACH | | + + + + [...]
[~2023-05-20 17:58] MED LIST changes: +LAMOTRIGINE25 MG PO
--- OUTSIDE RECORDS SUMMARY | 2023-05-20 18:00 | XMS ---
PreManage Notification: GERI LAUREN [employer] Events No recent Security Events currently on file CRITERIA MET - [facility] - 2 Visits in 30 Days CARE PROVIDERS [facility] 12/07/2021-Current PHONE: [phone] NATALYA FLETCHER Otolaryngology 08/14/2018-Current PHONE: [phone] Abdelrahman has no Care Guidelines for this patient. Care History Medical/Surgical 10/06/2020 [facility] - [facility] CONTACTED PCP OFFICE- DR BRAVO SPOKE WITH SUBMARINE ELEMENT COORDINATOR- PATIENT WAS OFFERED CAR CARE VISIT [...] UP VISIT. E.D. VISIT COUNT (12 MO.) [address] [facility] TOTAL 7 NOTE: Visits indicate total known visits. ED/UCC VISIT TRACKING (12 MO.) 05/20/2023 17:59 [facility] TYPE: Emergency COMPLAINT: - SEIZURE 05/18/2023 16:32 [facility] TYPE: Emergency COMPLAINT: - SEIZURE DIAGNOSES: - Allergy status to narcotic agent - Allergy status to other drugs, medicaments and biological substances - Allergy status to penicillin - Allergy status to sulfonamides - Epilepsy, unspecified, not intractable, without status epilepticus - Other insurance solicitor (current) drug therapy - Transient alteration of awareness 05/08/2023 17:23 [facility] TYPE: Emergency COMPLAINT: - UNRESPONSIVE DIAGNOSES: - Allergy status to narcotic agent - Allergy status to penicillin - Allergy status to sulfonamides - Allergy to other foods - Depression, unspecified - Epilepsy, unspecified, not intractable, without status epilepticus - Other insurance solicitor (current) drug therapy - Unspecified convulsions 01/21/2023 [...] other specified factors, initial encounter - Other fci (current) drug therapy - Pain in right [...] virus with other respiratory manifestations - Other insurance solicitor (current) drug therapy - Pain in left [...] sulfonamides - Food additives allergy status - snf (current) use of aspirin - Other insurance solicitor (current) drug therapy - Pain in right wrist - Sprain of unspecified part of right wrist and hand, initial encounter - Striking against other object with subsequent fall, initial encounter INPATIENT VISIT TRACKING (12 MO.) No inpatient visits to display in this time frame [email or web address]
[2023-05-20] MEDS ORDERED: DIASTAT ACUDIAL1 EA PR (20:33)
[2023-05-20 20:58] VITALS: BP 128/78
== END 2023-05-20 20:59 | disposition home or self-care (01) ==
LOC: ED 17:58
DX: G40.909 Epilepsy, unspecified, not intractable, without status epilepticus (principal); Z88.5 Allergy status to narcotic agent; Z88.0 Allergy status to penicillin; Z88.2 Allergy status to sulfonamides; Z91.018 Allergy to other foods; Z79.899 Other long term (current) drug therapy
CPT/HCPCS: 36415; 73090; 80053; 81003; 84703; 85025; 96374; 96375; 99284 25; J1885; J1953; J2060

== ENCOUNTER 2023-07-03 15:46 | Emergency (ER) | payer OTHER ==
[~2023-07-03] VITALS: Ht 152.4 cm; Wt 102.4 kg
--- OUTSIDE RECORDS SUMMARY | ~2023-07-03 | XMS | Continuity of Care Document ---
Demographics + + + | Address | [address] | | | [place] [address] | + + + | Preferred Language | Unknown | + + + | Marital Status | | + + + | Rastafarian Affiliation | Unknown | + + + | Race | White | + + + | Ethnic Group | Not or | + + + Author + + + | Author | [facility] | + + + | Organization | [facility] | + + + | Address | [address] | | | [place] [address] | + + + | Phone | | + + + Care Team Providers + + + + | Care Slag Skimmer Name | Role | Phone | + [...] | (no severity) | | | | [facility] | | | + + + + + + Encounters No information. Functional Status No information. Immunizations + + + + | date | description | facility | + + + + | 2016-09-17 00:00 | Tdap | [facility] | + + + + | 2022-06-30 00:00 | Influenza, Injectable, | [facility] | | | Quadrivalent, Preservative | | + + + + | 2022-10-09 00:00 | Influenza, Injectable, | [facility] | | | Quadrivalent, Preservative | | + + + + | 2022-11-02 00:00 | Influenza, Injectable, | [facility] | | | Quadrivalent, Preservative | | + + + + | 2023-01-21 00:00 | Influenza, Injectable, | [facility] | | | Quadrivalent, Preservative | | + + + + | 2023-05-08 00:00 | Influenza, Injectable, | [facility] | | | Quadrivalent, Preservative | | + + + + | 2023-05-18 00:00 | Influenza, Injectable, | [facility] | | | Quadrivalent, Preservative | | + + + + | 2023-05-20 00:00 | Influenza, Injectable, | [facility] | | | Quadrivalent, Preservative | | + + + + | 2023-06-19 00:00 | Influenza, Injectable, | [facility] | | | Quadrivalent, Preservative | | + + + + | 2023-06-24 00:00 | Influenza, Injectable, | [facility] | | | Quadrivalent, Preservative | | + + + + Medications + + + + | date | description | facility | + + + + | 2022-06-30 00:00 | MEDROXYPROGESTERONE | [facility] | | | ACETATE | | + + + + | 2022-10-09 00:00 | MEDROXYPROGESTERONE | [facility] | | | ACETATE | | + + + + | 2022-11-02 00:00 | MEDROXYPROGESTERONE | [facility] | | | ACETATE | | + + + + | 2023-01-21 00:00 | MEDROXYPROGESTERONE | [facility] | | | ACETATE | | + + + + | 2023-05-08 00:00 | MEDROXYPROGESTERONE | [facility] | | | ACETATE | | + + + + | 2023-05-18 00:00 | MEDROXYPROGESTERONE | [facility] | | | ACETATE | | + + + + | 2023-05-20 00:00 | MEDROXYPROGESTERONE | [facility] | | | ACETATE | | + + + + | 2023-06-19 00:00 | MEDROXYPROGESTERONE | [facility] | | | ACETATE | | + + + + | 2023-06-24 00:00 | MEDROXYPROGESTERONE | [facility] | | | ACETATE | | + + + + | 2022-06-30 00:00 | DM | [facility] | | | HB/PE/ACETAMINOPHEN/CHLORPH | | | | | | + + + + | 2022-10-09 00:00 | DM | [facility] | | | HB/PE/ACETAMINOPHEN/CHLORPH | | | | | | + + + + | 2022-11-02 00:00 | DM | [facility] | | | HB/PE/ACETAMINOPHEN/CHLORPH | | | | | | + + + + | 2023-01-21 00:00 | DM | [facility] | | | HB/PE/ACETAMINOPHEN/CHLORPH | | | | | | + + + + | 2023-05-08 00:00 | DM | [facility] | | | HB/PE/ACETAMINOPHEN/CHLORPH | | | | | | + + + + | 2023-05-18 00:00 | DM | [facility] | | | HB/PE/ACETAMINOPHEN/CHLORPH | | | | | | + + + + | 2023-05-20 00:00 | DM | [facility] | | | HB/PE/ACETAMINOPHEN/CHLORPH | | | | | | + + + + | 2023-06-19 00:00 | DM | [facility] | | | HB/PE/ACETAMINOPHEN/CHLORPH | | | | | | + + + + | 2023-06-24 00:00 | DM | [facility] | | | HB/PE/ACETAMINOPHEN/CHLORPH | | | | | | + + + + | 2020-10-04 00:00 | ONDANSETRON HCL | [facility] | + + + + | 2022-06-30 00:00 | PSEUDOEPHEDRINE HCL | [facility] | + + + + | 2022-10-09 00:00 | PSEUDOEPHEDRINE HCL | [facility] | + + + + | 2022-11-02 00:00 | PSEUDOEPHEDRINE HCL | [facility] | + + + + | 2023-01-21 00:00 | PSEUDOEPHEDRINE HCL | [facility] | + + + + | 2023-05-08 00:00 | PSEUDOEPHEDRINE HCL | [facility] | + + + + | 2023-05-18 00:00 | PSEUDOEPHEDRINE HCL | [facility] | + + + + | 2023-05-20 00:00 | PSEUDOEPHEDRINE HCL | [facility] | + + + + | 2023-06-19 00:00 | PSEUDOEPHEDRINE HCL | [facility] | + + + + | 2023-06-24 00:00 | PSEUDOEPHEDRINE HCL | [facility] | + + + + | 2022-06-30 00:00 | PSEUDOEPHEDRINE HCL | [facility] | + + + + | 2022-10-09 00:00 | PSEUDOEPHEDRINE HCL | [facility] | + + + + | 2022-11-02 00:00 | PSEUDOEPHEDRINE HCL | [facility] | + + + + | 2023-01-21 00:00 | PSEUDOEPHEDRINE HCL | [facility] | + + + + | 2023-05-08 00:00 | PSEUDOEPHEDRINE HCL | [facility] | + + + + | 2023-05-18 00:00 | PSEUDOEPHEDRINE HCL | [facility] | + + + + | 2023-05-20 00:00 | PSEUDOEPHEDRINE HCL | [facility] | + + + + | 2023-06-19 00:00 | PSEUDOEPHEDRINE HCL | [facility] | + + + + | 2023-06-24 00:00 | PSEUDOEPHEDRINE HCL | [facility] | + + + + | 2018-08-05 00:00 | OXYCODONE | [facility] | | | HCL/ACETAMINOPHEN | | + + + + | 2018-08-13 00:00 | DIPHENHYDRAMINE HCL | [facility] | + + + + | 2014-12-14 00:00 | GUAIFENESIN/D-METHORPHAN | [facility] | | | HB/PE | | + + + + | 2017-01-01 00:00 | MELOXICAM | [facility] | + + + + | 2022-06-30 00:00 | MELOXICAM | [facility] | + + + + | 2022-10-09 00:00 | MELOXICAM | [facility] | + + + + | 2022-11-02 00:00 | MELOXICAM | [facility] | + + + + | 2023-01-21 00:00 | MELOXICAM | [facility] | + + + + | 2023-05-08 00:00 | MELOXICAM | [facility] | + + + + | 2023-05-18 00:00 | MELOXICAM | [facility] | + + + + | 2023-05-20 00:00 | MELOXICAM | [facility] | + + + + | 2023-06-19 00:00 | MELOXICAM | [facility] | + + + + | 2023-06-24 00:00 | MELOXICAM | [facility] | + + + + | 2018-10-27 00:00 | DOXYCYCLINE HYCLATE | [facility] | + + + + | 2020-09-29 00:00 | DOXYCYCLINE HYCLATE | [facility] | + + + + | 2015-09-23 00:00 | FLUTICASONE PROPIONATE | [facility] | + + + + | 2022-06-30 00:00 | EPINEPHRINE | [facility] | + + + + | 2022-10-09 00:00 | EPINEPHRINE | [facility] | + + + + | 2022-11-02 00:00 | EPINEPHRINE | [facility] | + + + + | 2023-01-21 00:00 | EPINEPHRINE | [facility] | + + + + | 2023-05-08 00:00 | EPINEPHRINE | [facility] | + + + + | 2023-05-18 00:00 | EPINEPHRINE | [facility] | + + + + | 2023-05-20 00:00 | EPINEPHRINE | [facility] | + + + + | 2023-06-19 00:00 | EPINEPHRINE | [facility] | + + + + | 2023-06-24 00:00 | EPINEPHRINE | [facility] | + + + + | 2022-06-30 00:00 | ONDANSETRON HCL | [facility] | + + + + | 2022-10-09 00:00 | ONDANSETRON HCL | [facility] | + + + + | 2022-11-02 00:00 | ONDANSETRON HCL | [facility] | + + + + | 2023-01-21 00:00 | ONDANSETRON HCL | [facility] | + + + + | 2023-05-08 00:00 | ONDANSETRON HCL | [facility] | + + + + | 2023-05-18 00:00 | ONDANSETRON HCL | [facility] | + + + + | 2023-05-20 00:00 | ONDANSETRON HCL | [facility] | + + + + | 2023-06-19 00:00 | ONDANSETRON HCL | [facility] | + + + + | 2023-06-24 00:00 | ONDANSETRON HCL | [facility] | + + + + | 2022-06-30 00:00 | MONTELUKAST SODIUM | [facility] | + + + + | 2022-10-09 00:00 | MONTELUKAST SODIUM | [facility] | + + + + | 2022-11-02 00:00 | MONTELUKAST SODIUM | [facility] | + + + + | 2023-01-21 00:00 | MONTELUKAST SODIUM | [facility] | + + + + | 2023-05-08 00:00 | MONTELUKAST SODIUM | [facility] | + + + + | 2023-05-18 00:00 | MONTELUKAST SODIUM | [facility] | + + + + | 2023-05-20 00:00 | MONTELUKAST SODIUM | [facility] | + + + + | 2023-06-19 00:00 | MONTELUKAST SODIUM | [facility] | + + + + | 2023-06-24 00:00 | MONTELUKAST SODIUM | [facility] | + + + + | 2020-09-29 00:00 | Dexamethasone | [facility] | + + + + | 2022-06-30 00:00 | PAROXETINE HCL | [facility] | + + + + | 2022-10-09 00:00 | PAROXETINE HCL | [facility] | + + + + | 2022-11-02 00:00 | PAROXETINE HCL | [facility] | + + + + | 2023-01-21 00:00 | PAROXETINE HCL | [facility] | + + + + | 2023-05-08 00:00 | PAROXETINE HCL | [facility] | + + + + | 2023-05-18 00:00 | PAROXETINE HCL | [facility] | + + + + | 2023-05-20 00:00 | PAROXETINE HCL | [facility] | + + + + | 2023-06-19 00:00 | PAROXETINE HCL | [facility] | + + + + | 2023-06-24 00:00 | PAROXETINE HCL | [facility] | + + + + | 2014-12-14 00:00 | AZITHROMYCIN | [facility] | + + + + | 2015-03-22 00:00 | AZITHROMYCIN | [facility] | + + + + | 2022-06-30 00:00 | FOLIC ACID | [facility] | + + + + | 2022-10-09 00:00 | FOLIC ACID | [facility] | + + + + | 2022-11-02 00:00 | FOLIC ACID | [facility] | + + + + | 2023-01-21 00:00 | FOLIC ACID | [facility] | + + + + | 2023-05-08 00:00 | FOLIC ACID | [facility] | + + + + | 2023-05-18 00:00 | FOLIC ACID | [facility] | + + + + | 2023-05-20 00:00 | FOLIC ACID | [facility] | + + + + | 2023-06-19 00:00 | FOLIC ACID | [facility] | + + + + | 2023-06-24 00:00 | FOLIC ACID | [facility] | + + + + | 2022-11-02 00:00 | OSELTAMIVIR PHOSPHATE | [facility] | + + + + | 2020-01-17 00:00 | LEVETIRACETAM | [facility] | + + + + | 2023-05-18 00:00 | LAMOTRIGINE | [facility] | + + + + | 2023-05-20 00:00 | LAMOTRIGINE | [facility] | + + + + | 2022-06-30 00:00 | LEVETIRACETAM | [facility] | + + + + | 2022-10-09 00:00 | LEVETIRACETAM | [facility] | + + + + | 2022-11-02 00:00 | LEVETIRACETAM | [facility] | + + + + | 2023-01-21 00:00 | LEVETIRACETAM | [facility] | + + + + | 2023-05-08 00:00 | LEVETIRACETAM | [facility] | + + + + | 2023-05-18 00:00 | LEVETIRACETAM | [facility] | + + + + | 2023-05-20 00:00 | LEVETIRACETAM | [facility] | + + + + | 2023-06-19 00:00 | LEVETIRACETAM | [facility] | + + + + | 2023-06-24 00:00 | LEVETIRACETAM | [facility] | + + + + | 2022-06-30 00:00 | SUMATRIPTAN SUCCINATE | [facility] | + + + + | 2022-10-09 00:00 | SUMATRIPTAN SUCCINATE | [facility] | + + + + | 2022-11-02 00:00 | SUMATRIPTAN SUCCINATE | [facility] | + + + + | 2023-01-21 00:00 | SUMATRIPTAN SUCCINATE | [facility] | + + + + | 2023-05-08 00:00 | SUMATRIPTAN SUCCINATE | [facility] | + + + + | 2023-05-18 00:00 | SUMATRIPTAN SUCCINATE | [facility] | + + + + | 2023-05-20 00:00 | SUMATRIPTAN SUCCINATE | [facility] | + + + + | 2023-06-19 00:00 | SUMATRIPTAN SUCCINATE | [facility] | + + + + | 2023-06-24 00:00 | SUMATRIPTAN SUCCINATE | [facility] | + + + + | 2022-06-30 00:00 | AMOXICILLIN | [facility] | + + + + | 2022-10-09 00:00 | AMOXICILLIN | [facility] | + + + + | 2022-11-02 00:00 | AMOXICILLIN | [facility] | + + + + | 2023-01-21 00:00 | AMOXICILLIN | [facility] | + + + + | 2023-05-08 00:00 | AMOXICILLIN | [facility] | + + + + | 2023-05-18 00:00 | AMOXICILLIN | [facility] | + + + + | 2023-05-20 00:00 | AMOXICILLIN | [facility] | + + + + | 2023-06-19 00:00 | AMOXICILLIN | [facility] | + + + + | 2023-06-24 00:00 | AMOXICILLIN | [facility] | + + + + | 2022-06-30 00:00 | AMOXICILLIN | [facility] | + + + + | 2022-10-09 00:00 | AMOXICILLIN | [facility] | + + + + | 2022-11-02 00:00 | AMOXICILLIN | [facility] | + + + + | 2023-01-21 00:00 | AMOXICILLIN | [facility] | + + + + | 2023-05-08 00:00 | AMOXICILLIN | [facility] | + + + + | 2023-05-18 00:00 | AMOXICILLIN | [facility] | + + + + | 2023-05-20 00:00 | AMOXICILLIN | [facility] | + + + + | 2023-06-19 00:00 | AMOXICILLIN | [facility] | + + + + | 2023-06-24 00:00 | AMOXICILLIN | [facility] | + + + + | 2022-06-30 00:00 | METOCLOPRAMIDE HCL | [facility] | + + + + | 2022-10-09 00:00 | METOCLOPRAMIDE HCL | [facility] | + + + + | 2022-11-02 00:00 | METOCLOPRAMIDE HCL | [facility] | + + + + | 2023-01-21 00:00 | METOCLOPRAMIDE HCL | [facility] | + + + + | 2023-05-08 00:00 | METOCLOPRAMIDE HCL | [facility] | + + + + | 2023-05-18 00:00 | METOCLOPRAMIDE HCL | [facility] | + + + + | 2023-05-20 00:00 | METOCLOPRAMIDE HCL | [facility] | + + + + | 2023-06-19 00:00 | METOCLOPRAMIDE HCL | [facility] | + + + + | 2023-06-24 00:00 | METOCLOPRAMIDE HCL | [facility] | + + + + | 2022-10-09 00:00 | Oseltamivir Phosphate | [facility] | + + + + | 2015-12-30 00:00 | predniSONE | [facility] | + + + + | 2022-06-30 00:00 | ASPIRIN | [facility] | + + + + | 2022-10-09 00:00 | ASPIRIN | [facility] | + + + + | 2022-11-02 00:00 | ASPIRIN | [facility] | + + + + | 2023-01-21 00:00 | ASPIRIN | [facility] | + + + + | 2023-05-08 00:00 | ASPIRIN | [facility] | + + + + | 2023-05-18 00:00 | ASPIRIN | [facility] | + + + + | 2023-05-20 00:00 | ASPIRIN | [facility] | + + + + | 2023-06-19 00:00 | ASPIRIN | [facility] | + + + + | 2023-06-24 00:00 | ASPIRIN | [facility] | + + + + | 2022-11-02 00:00 | LEVETIRACETAM | [facility] | + + + + | 2023-01-21 00:00 | Pregabalin | [facility] | + + + + | 2023-05-08 00:00 | Pregabalin | [facility] | + + + + | 2023-05-18 00:00 | Pregabalin | [facility] | + + + + | 2023-05-20 00:00 | Pregabalin | [facility] | + + + + | 2023-06-19 00:00 | Pregabalin | [facility] | + + + + | 2023-06-24 00:00 | Pregabalin | [facility] | + + + + | 2022-06-30 00:00 | DULOXETINE HCL | [facility] | + + + + | 2022-10-09 00:00 | DULOXETINE HCL | [facility] | + + + + | 2022-11-02 00:00 | DULOXETINE HCL | [facility] | + + + + | 2023-01-21 00:00 | DULOXETINE HCL | [facility] | + + + + | 2023-05-08 00:00 | DULOXETINE HCL | [facility] | + + + + | 2023-05-18 00:00 | DULOXETINE HCL | [facility] | + + + + | 2023-05-20 00:00 | DULOXETINE HCL | [facility] | + + + + | 2023-06-19 00:00 | DULOXETINE HCL | [facility] | + + + + | 2023-06-24 00:00 | DULOXETINE HCL | [facility] | + + + + | 2022-06-30 00:00 | DULOXETINE HCL | [facility] | + + + + | 2022-10-09 00:00 | DULOXETINE HCL | [facility] | + + + + | 2022-11-02 00:00 | DULOXETINE HCL | [facility] | + + + + | 2023-01-21 00:00 | DULOXETINE HCL | [facility] | + + + + | 2023-05-08 00:00 | DULOXETINE HCL | [facility] | + + + + | 2023-05-18 00:00 | DULOXETINE HCL | [facility] | + + + + | 2023-05-20 00:00 | DULOXETINE HCL | [facility] | + + + + | 2023-06-19 00:00 | DULOXETINE HCL | [facility] | + + + + | 2023-06-24 00:00 | DULOXETINE HCL | [facility] | + + + + | 2022-06-30 00:00 | DULOXETINE HCL | [facility] | + + + + | 2022-10-09 00:00 | DULOXETINE HCL | [facility] | + + + + | 2022-11-02 00:00 | DULOXETINE HCL | [facility] | + + + + | 2023-01-21 00:00 | DULOXETINE HCL | [facility] | + + + + | 2023-05-08 00:00 | DULOXETINE HCL | [facility] | + + + + | 2023-05-18 00:00 | DULOXETINE HCL | [facility] | + + + + | 2023-05-20 00:00 | DULOXETINE HCL | [facility] | + + + + | 2023-06-19 00:00 | DULOXETINE HCL | [facility] | + + + + | 2023-06-24 00:00 | DULOXETINE HCL | [facility] | + + + + | 2021-03-25 00:00 | LEVETIRACETAM | [facility] | + + + + | 2015-09-23 00:00 | AZITHROMYCIN | [facility] | + + + + | 2023-05-20 00:00 | DIAZEPAM | [facility] | + + + + | 2016-06-04 00:00 | CYCLOBENZAPRINE HCL | [facility] | + + + + | 2017-08-14 00:00 | CYCLOBENZAPRINE HCL | [facility] | + + + + | 2023-01-21 00:00 | TRAMADOL HCL | [facility] | + + + + | 2022-06-30 00:00 | | [facility] | | | SULFAMETHOXAZOLE/TRIMETHOPR | | | | IM DS | | + + + + | 2022-10-09 00:00 | | [facility] | | | SULFAMETHOXAZOLE/TRIMETHOPR | | | | IM DS | | + + + + | 2022-11-02 00:00 | | [facility] | | | SULFAMETHOXAZOLE/TRIMETHOPR | | | | IM DS | | + + + + | 2023-01-21 00:00 | | [facility] | | | SULFAMETHOXAZOLE/TRIMETHOPR | | | | IM DS | | + + + + | 2023-05-08 00:00 | | [facility] | | | SULFAMETHOXAZOLE/TRIMETHOPR | | | | IM DS | | + + + + | 2023-05-18 00:00 | | [facility] | | | SULFAMETHOXAZOLE/TRIMETHOPR | | | | IM DS | | + + + + | 2023-05-20 00:00 | | [facility] | | | SULFAMETHOXAZOLE/TRIMETHOPR | | | | IM DS | | + + + + | 2023-06-19 00:00 | | [facility] | | | SULFAMETHOXAZOLE/TRIMETHOPR | | | | IM DS | | + + + + | 2023-06-24 00:00 | | [facility] | | | SULFAMETHOXAZOLE/TRIMETHOPR | | | | IM DS | | + + + + | 2022-06-30 00:00 | ALBUTEROL SULFATE | [facility] | + + + + | 2022-10-09 00:00 | ALBUTEROL SULFATE | [facility] | + + + + | 2022-11-02 00:00 | ALBUTEROL SULFATE | [facility] | + + + + | 2023-01-21 00:00 | ALBUTEROL SULFATE | [facility] | + + + + | 2023-05-08 00:00 | ALBUTEROL SULFATE | [facility] | + + + + | 2023-05-18 00:00 | ALBUTEROL SULFATE | [facility] | + + + + | 2023-05-20 00:00 | ALBUTEROL SULFATE | [facility] | + + + + | 2023-06-19 00:00 | ALBUTEROL SULFATE | [facility] | + + + + | 2023-06-24 00:00 | ALBUTEROL SULFATE | [facility] | + + + + | 2022-10-09 00:00 | BUSPIRONE HCL | [facility] | + + + + | 2022-11-02 00:00 | BUSPIRONE HCL | [facility] | + + + + | 2023-01-21 00:00 | BUSPIRONE HCL | [facility] | + + + + | 2023-05-08 00:00 | BUSPIRONE HCL | [facility] | + + + + | 2023-05-18 00:00 | BUSPIRONE HCL | [facility] | + + + + | 2023-05-20 00:00 | BUSPIRONE HCL | [facility] | + + + + | 2023-06-19 00:00 | BUSPIRONE HCL | [facility] | + + + + | 2023-06-24 00:00 | BUSPIRONE HCL | [facility] | + + + + | 2022-06-30 00:00 | BUSPIRONE HCL | [facility] | + + + + | 2022-10-09 00:00 | BUSPIRONE HCL | [facility] | + + + + | 2022-11-02 00:00 | BUSPIRONE HCL | [facility] | + + + + | 2023-01-21 00:00 | BUSPIRONE HCL | [facility] | + + + + | 2023-05-08 00:00 | BUSPIRONE HCL | [facility] | + + + + | 2023-05-18 00:00 | BUSPIRONE HCL | [facility] | + + + + | 2023-05-20 00:00 | BUSPIRONE HCL | [facility] | + + + + | 2023-06-19 00:00 | BUSPIRONE HCL | [facility] | + + + + | 2023-06-24 00:00 | BUSPIRONE HCL | [facility] | + + + + | 2022-06-30 00:00 | BUSPIRONE HCL | [facility] | + + + + | 2022-10-09 00:00 | BUSPIRONE HCL | [facility] | + + + + | 2022-11-02 00:00 | BUSPIRONE HCL | [facility] | + + + + | 2023-01-21 00:00 | BUSPIRONE HCL | [facility] | + + + + | 2023-05-08 00:00 | BUSPIRONE HCL | [facility] | + + + + | 2023-05-18 00:00 | BUSPIRONE HCL | [facility] | + + + + | 2023-05-20 00:00 | BUSPIRONE HCL | [facility] | + + + + | 2023-06-19 00:00 | BUSPIRONE HCL | [facility] | + + + + | 2023-06-24 00:00 | BUSPIRONE HCL | [facility] | + + + + | 2022-06-30 00:00 | BUSPIRONE HCL | [facility] | + + + + | 2022-10-09 00:00 | BUSPIRONE HCL | [facility] | + + + + | 2022-11-02 00:00 | BUSPIRONE HCL | [facility] | + + + + | 2023-01-21 00:00 | BUSPIRONE HCL | [facility] | + + + + | 2023-05-08 00:00 | BUSPIRONE HCL | [facility] | + + + + | 2023-05-18 00:00 | BUSPIRONE HCL | [facility] | + + + + | 2023-05-20 00:00 | BUSPIRONE HCL | [facility] | + + + + | 2023-06-19 00:00 | BUSPIRONE HCL | [facility] | + + + + | 2023-06-24 00:00 | BUSPIRONE HCL | [facility] | + + + + | 2018-08-05 00:00 | ONDANSETRON | [facility] | + + + + | 2014-01-14 00:00 | PROMETHAZINE HCL | [facility] | + + + + | 2014-01-14 00:00 | PROMETHAZINE HCL | [facility] | + + + + | 2022-06-30 00:00 | PROMETHAZINE HCL | [facility] | + + + + | 2022-10-09 00:00 | PROMETHAZINE HCL | [facility] | + + + + | 2022-11-02 00:00 | PROMETHAZINE HCL | [facility] | + + + + | 2023-01-21 00:00 | PROMETHAZINE HCL | [facility] | + + + + | 2023-05-08 00:00 | PROMETHAZINE HCL | [facility] | + + + + | 2023-05-18 00:00 | PROMETHAZINE HCL | [facility] | + + + + | 2023-05-20 00:00 | PROMETHAZINE HCL | [facility] | + + + + | 2023-06-19 00:00 | PROMETHAZINE HCL | [facility] | + + + + | 2023-06-24 00:00 | PROMETHAZINE HCL | [facility] | + + + + | 2019-07-09 00:00 | Codeine | [facility] | | | Phosphate/Guaifenesin | | + + + + | 2015-03-22 00:00 | GUAIFENESIN/CODEINE | [facility] | | | PHOSPHATE | | + + + + | 2015-12-30 00:00 | GUAIFENESIN/CODEINE | [facility] | | | PHOSPHATE | | + + + + | 2022-06-30 00:00 | FEXOFENADINE HCL | [facility] | + + + + | 2022-10-09 00:00 | FEXOFENADINE HCL | [facility] | + + + + | 2022-11-02 00:00 | FEXOFENADINE HCL | [facility] | + + + + | 2023-01-21 00:00 | FEXOFENADINE HCL | [facility] | + + + + | 2023-05-08 00:00 | FEXOFENADINE HCL | [facility] | + + + + | 2023-05-18 00:00 | FEXOFENADINE HCL | [facility] | + + + + | 2023-05-20 00:00 | FEXOFENADINE HCL | [facility] | + + + + | 2023-06-19 00:00 | FEXOFENADINE HCL | [facility] | + + + + | 2023-06-24 00:00 | FEXOFENADINE HCL | [facility] | + + + + Problems + + + + | date | description | facility | + + + + | 2014-12-14 00:00 | Upper respiratory | [facility] | | | infection | | + + + + | 2014-12-14 00:00 | Sinusitis | [facility] | + + + + | 2015-03-22 00:00 | Acute bronchitis | [facility] | + + + + | 2016-01-13 00:00 | Right elbow pain | [facility] | + + + + | 2016-06-04 00:00 | Spasm of thoracic back | [facility] | | | muscle | | + + + + | 2016-06-04 00:00 | Back strain | [facility] | + + + + | 2016-09-17 00:00 | Laceration | [facility] | + + + + | 2017-01-01 00:00 | Contusion of right foot | [facility] | + + + + | 2017-08-14 00:00 | Sprain of hip | [facility] | + + + + | 2018-08-05 00:00 | Postoperative pain | [facility] | + + + + | 2018-10-27 00:00 | Pharyngitis | [facility] | + + + + | 2019-07-09 00:00 | Viral upper respiratory | [facility] | | | tract infection with cough | | + + + + | 2019-07-31 00:00 | Inhalation of noxious | [facility] | | | fumes | | + + + + | 2019-09-18 00:00 | Syncope | [facility] | + + + + | 2020-06-07 00:00 | Pain of right hip | [facility] | + + + + | 2020-08-31 00:00 | Acute postoperative pain | [facility] | | | of right hip | | + + + + | 2020-09-27 00:00 | Pneumonia due to severe | [facility] | | | acute respiratory syndrome | | | | coronavirus 2 (SARS-CoV-2) | | + + + + | 2020-11-10 00:00 | Patient left without being | [facility] | | | seen | | + + + + | 2021-10-03 00:00 | Hyperemesis gravidarum | [facility] | | | with metabolic disturbance | | + + + + | 2021-11-09 00:00 | Threatened | [facility] | + + + + | 2021-12-04 00:00 | Infection due to severe | [facility] | | | acute respiratory syndrome | | | | coronavirus 2 (SARS-CoV-2) | | + + + + | 2022-01-31 00:00 | Epilepsy affecting | [facility] | | | in second | | | | trimester | | + + + + | 2022-01-31 00:00 | Strain of elbow | [facility] | + + + + | 2022-03-21 [...] 00:00 | Influenza due to influenza | [facility] | | | virus, type A, human [...] + + | 2022-11-02 02:30 | OTHER SNF (CURRENT) | [facility] | | | DRUG [...] | 2023-01-21 00:00 | Hip strain | [facility] | + + + + | 2023-01-21 [...] + + | 2023-01-21 20:14 | OTHER SNF (CURRENT) | [facility] | | | DRUG [...] | 2023-05-08 00:00 | Seizure-like activity | [facility] | + + + + | 2023-05-08 17:23 | DEPRESSION, UNSPECIFIED | [facility] | + + + + | 2023-05-08 17:23 | EPILEPSY, UNSP, NOT | [facility] | | | INTRACTABLE, WITHOUT STATUS | | | | EP | | + + + + | 2023-05-08 17:23 | UNSPECIFIED CONVULSIONS | [facility] | + + + + | 2023-05-08 17:23 | OTHER [facility] (CURRENT) | [facility] | | | DRUG [...] | 2023-05-18 00:00 | Seizure disorder | [facility] | + + + + | 2023-05-18 16:32 | EPILEPSY, UNSP, NOT | [facility] | | | INTRACTABLE, WITHOUT STATUS | | | | EP | | + + + + | 2023-05-18 16:32 | TRANSIENT ALTERATION OF | [facility] | | | AWARENESS | | + + + + | 2023-05-18 16:32 | OTHER [facility] (CURRENT) | [facility] | | | DRUG [...] + + | 2023-05-20 17:59 | OTHER SNF (CURRENT) | [facility] | | | DRUG [...] 00:00 | Contusion of left hand | [facility] | + + + + | 2023-06-19 [...] + + | 2023-06-19 17:37 | OTHER SNF (CURRENT) | [facility] | | | DRUG [...] + | 2023-06-24 00:00 | Convulsions | [facility] | + + + + | 2023-06-24 09:54 | EPILEPSY, UNSP, NOT | [facility] | | | INTRACTABLE, WITHOUT STATUS | | | | EP | | + + + + | 2023-06-24 09:54 | UNSPECIFIED CONVULSIONS | [facility] | + + + + | 2023-06-24 09:54 | OTHER SNF (CURRENT) | [facility] | | | DRUG [...] 00:00 | INSERTION OF INFUSION DEV | [facility] | | | INTO SPINAL CANAL, PERC | | | | APPROACH | | + + + + | 2022-04-23 00:00 | REPAIR PERINEUM SKIN, | [facility] | | | EXTERNAL APPROACH | | + + + + | 2022-04-23 00:00 | DRAINAGE OF AMNIOTIC FL, | [facility] | | | THERAP FROM POC, VIA | | | | OPENING | | + + + + | 2022-04-23 00:00 | DELIVERY OF PRODUCTS OF | [facility] | | | CONCEPTION, EXTERNAL | | | | APPROACH | | + + + + | 2022-04-23 00:00 | INTRODUCTION OF HORMONE | [facility] | | | INTO FEM REPROD, VIA | | | | OPENING | | + + + + | 2022-04-23 00:00 | INTRODUCTION OF ANESTHETIC | [facility] | | | INTO SPINAL CANAL, PERC | | | | APPROACH | | + + + + | 2022-03-03 00:00 | MONITORING OF POC, CARDIAC | [facility] | | | ELECTR ACTIVITY, PROOF COINS INSPECTOR | | | | APPROACH | | + + + + | 2022-03-29 00:00 | MONITORING OF POC, CARDIAC | [facility] | | | ELECTR ACTIVITY, PROOF COINS INSPECTOR | | | | APPROACH | | + + + + | 2022-03-21 00:00 | MONITORING OF POC, CARDIAC | [facility] | | | RATE, PROOF COINS INSPECTOR APPROACH | | + + + + | 2022-04-07 00:00 | MONITORING OF POC, CARDIAC | [facility] | | | RATE, PROOF COINS INSPECTOR APPROACH | | + + + + [...] (missing) | | (unavailable | 05:20 | [facility] | | | | | ) | [...] (missing) | | (unavailable | 16:50:07 | [facility] | | | | | [...] (missing) | | (unavailable | 16:50:07 | [facility] | | | | | ) | [...] 210 | + + + + + +-------+ + + | | 2023-05-20 | [facility] | 5.1 | (missing) | (missing) | | (unavailable | 18::07 [facility] | | | + + + +-------+ + + + + | Result panel 211 | + + + + + +-------+ [...] 218 | + + + + + +--------+ + + | | 2023-05-20 | [facility] | 26.1 | (missing) | (missing) | | (unavailable | 18:06:07 [facility] | | | | + + + +--------+ + + + + | Result panel 219 | + + + + + +--------+ + + | | 2023-05-20 | [facility] | 32.3 | (missing) | (missing) | | (unavailable | 18:06:07 [facility] | | | + + + +--------+ + + + + | Result panel 220 | + + + + + +--------+ + + | | 2023-05-20 | [facility] | 15.3 | (missing) | (missing) | | (unavailable | 18:06:07 [facility] | | | + + + +--------+ + + + + | Result panel 221 | + + + + + +-------+ + + | | 2023-05-20 | [facility] | 358 | (missing) | (missing) | | (unavailable | 18::07 [facility] | | | + + + +-------+ + + + + | Result panel 222 | + + + + + +--------+ + + | | 2023-05-20 | [facility] | 72.2 | (missing) | (missing) | | (unavailable | [facility]06:07 [facility] | | | + + + +--------+ + + + + | Result panel 223 | + + + + + +--------+ + + | | 2023-05-20 | [facility] | 18.7 | (missing) | (missing) | | (unavailable | [facility]07 [facility] | | | + + + +--------+ + + + + | Result panel 224 | + + + + + +-------+ + + | | 2023-05-20 | [facility] | 5.1 | (missing) | (missing) | | (unavailable | [facility]::[facility] | | | + + + +-------+ + + + + | Result panel 225 | + + + + + +-------+ [...] 227 | + + + + + +-------+---------+ + | | 2023-05-20 | [facility] | 108 | mg/dL | (missing) | | (unavailable | [facility]::07 [facility] | | | + + + +-------+---------+ + + + | Result panel 228 | + + + + + +------+---------+ + | | 2023-05-20 | [facility] | 10 | mg/dL | (missing) | | (unavailable | 18::07 [facility] | | | + + + +------+---------+ + + + | Result panel 229 | + + + + + +--------+---------+ + | | 2023-05-20 | [facility] | 1.04 | mg/dL | (missing) | | (unavailable | 18::07 [facility] | | | + + + +--------+---------+ + + + | Result panel 230 | + + + + + +------+ + + | | 2023-05-20 | [facility] | 74 | (missing) | (missing) | | (unavailable | [facility]::07 [facility] | | | + + + +------+ + + + + | Result panel 231 | + + + + + +--------+ + + | | 2023-05-20 | [facility] | 9.61 | (missing) | (missing) | | (unavailable | 18:: [facility] | | | + + + +--------+ + + + + | Result panel 232 [...] 235 | + + + + + +------+ + + | | 2023-05-20 | [facility] | 25 | (missing) | (missing) | | (unavailable | [facility]07 [facility] | | | + + + +------+ + + + + | Result panel 236 | + + + + + +--------+ + + | | 2023-05-20 | [facility] | 13.4 | (missing) | (missing) | | (unavailable | 18::07 [facility] | | | + + + +--------+ + + + + | Result panel 237 | + + + + + +-------+---------+ + | | 2023-05-20 | [facility] | 9.3 | mg/dL | (missing) | | (unavailable | 18::07 [facility] | | | + + + +-------+---------+ + + + | Result panel 238 | + + + + + +-------+ + + | | 2023-05-20 | [facility] | 8.0 | (missing) | (missing) | | (unavailable | [facility]::07 [facility] | | | + + + +-------+ + + + + | Result panel 239 | + + + + + +-------+ + + | | 2023-05-20 | [facility] | 3.9 | (missing) | (missing) | | (unavailable | [facility]::07 [facility] | | | + + + +-------+ + + + + | Result panel 240 | + + + + + +-------+ [...] 242 | + + + + + +-------+ + + | | 2023-05-20 | [facility] | 0.4 | (missing) | (missing) | | (unavailable | 18:06:07 [facility] | | | + + + +-------+ + + + + | Result panel 243 | + + + + + +------+ + + | | 2023-05-20 | [facility] | 11 | (missing) | (missing) | | (unavailable | 18:06:07 [facility] | | | + + + +------+ + + + + | Result panel 244 | + + + + + +------+ + + | | 2023-05-20 | [facility] | 23 | (missing) | (missing) | | (unavailable | [facility]:06:07 [facility] | | | + + + +------+ + + + + | Result panel 245 | + + + + + +------+ [...] 247 | + + + + + +-------+---------+ + | | 2023-05-20 | [facility] | 108 | mg/dL | (missing) | | (unavailable | 18:06:07 [facility] | | | + + + +-------+---------+ + + + | Result panel 248 | + + + + + +------+---------+ + | | 2023-05-20 | [facility] | 10 | mg/dL | (missing) | | (unavailable | 18:06:07 [facility] | | | + + + +------+---------+ + + + | Result panel 249 | + + + + + +--------+---------+ + | | 2023-05-20 | [facility] | 1.04 | mg/dL | (missing) | | (unavailable | 18:06:07 [facility] | | | + + + +--------+---------+ + + + | Result panel 250 [...] 251 | + + + + + +------+ + + | | 2023-05-20 | [facility] | 74 | (missing) | (missing) | | (unavailable | [facility]06:07 [facility] | | | + + + +------+ + + + + | Result panel 252 | + + + + + +--------+ [...] 254 | + + + + + +-------+ + + | | 2023-05-20 | [facility] | 3.4 | (missing) | (missing) | | (unavailable | [facility]06:07 [facility] | | | + + + +-------+ + + + + | Result panel 255 | + + + + + +-------+ + + | | 2023-05-20 | [facility] | 103 | (missing) | (missing) | | (unavailable | [facility]06:07 [facility] | | | + + + +-------+ + + + + | Result panel 256 | + + + + + +------+ + + | | 2023-05-20 | [facility] | 25 | (missing) | (missing) | | (unavailable | 18[facility]06:07 [facility] | | | + + + +------+ + + + + | Result panel 257 | + + + + + +--------+ + + | | 2023-05-20 | [facility] | 13.4 | (missing) | (missing) | | (unavailable | 18::07 [facility] | | | + + + +--------+ + + + + | Result panel 258 | + + + + + +-------+---------+ + | | 2023-05-20 | [facility] | 9.3 | mg/dL | (missing) | | (unavailable | [facility]:06:07 [facility] | | | + + + +-------+---------+ + + + | Result panel 259 [...] 261 | + + + + + +--------+ + + | | 2023-05-20 | [facility] | 37.6 | (missing) | (missing) | | (unavailable | [facility]06:07 [facility] | | | + + + +--------+ + + + + | Result panel 262 | + + + + + +-------+ [...] 264 | + + + + + +-------+ + + | | 2023-05-20 | [facility] | 0.4 | (missing) | (missing) | | (unavailable | [facility]06:07 [facility] | | | + + + +-------+ + + + + | Result panel 265 | + + + + + +------+ + + | | 2023-05-20 | [facility] | 11 | (missing) | (missing) | | (unavailable | [facility]06:07 [facility] | | | + + + +------+ + + + + | Result panel 266 | + + + + + +------+ + + | | 2023-05-20 | [facility] | 23 | (missing) | (missing) | | (unavailable | [facility]06:07 [facility] | | | + + + +------+ + + + + | Result panel 267 | + + + + + +------+ [...] 269 | + + + + + +--------+ + + | | 2023-05-20 | [facility] | 26.1 | (missing) | (missing) | | (unavailable | [facility]06:07 [facility] | | | + + + +--------+ + + + + | Result panel 270 | + + + + + +--------+ + + | | 2023-05-20 | [facility] | 32.3 | (missing) | (missing) | | (unavailable | [facility]06:07 [facility] | | | + + + +--------+ + + + + | Result panel 271 | + + + + + +--------+ + + | | 2023-05-20 | [facility] | 15.3 | (missing) | (missing) | | (unavailable | [facility]06:07 [facility] | | | + + + +--------+ + + + + | Result panel 272 | + + + + + +-------+ + + | | 2023-05-20 | [facility] | 358 | (missing) | (missing) | | (unavailable | 18:06:07 | [facility] | | | | | [...] 274 | + + + + + + + + + | | 2023-05-20 | [facility] | YELLOW | (missing) | (missing) | | (unavailable | 20:15:07 [facility] | | | + + + + + + + + + | Result panel 275 | + + + + + +---------+ [...] 280 | + + + + + + + + + | | 2023-05-20 | [facility] | NEGATIVE | (missing) | (missing) | | (unavailable | 20:15:07 [facility] | | | + + + + + + + + + | Result panel 281 | + + + + + +-------+ [...] 283 | + + + + + +---------+ [...] 287 | + + + + + + [...] 299 | + + + + + +------+ + + | | 2023-06-24 | [facility] | 23 | (missing) | (missing) | | (unavailable | 10[facility]07:07 [facility] | | | + + + +------+ + + + + | Result panel 300 | + + + + + +------+ + + | | 2023-06-24 | [facility] | 85 | (missing) | (missing) | | (unavailable | 10[facility]07:07 [facility] | | | + + + +------+ + + + + | Result panel 301 | + + + + + + + + + | | 2023-06-24 | [facility] | NEGATIVE | (missing) | (missing) | | (unavailable | [facility]07:07 [facility] | | | + + + + + + + + + | Result panel 302 | + + + + + +-------+ + + | | 2023-06-24 | [facility] | 8.2 | (missing) | (missing) | | (unavailable | [facility]07:07 [facility] | | | + + + +-------+ + + + + | Result panel 303 | + + + + + + [...] 308 | + + + + + +--------+ [...] 312 | + + + + + +--------+ + + | | 2023-06-24 | [facility] | 66.7 | (missing) | (missing) | | (unavailable | [facility]07:07 [facility] | | | + + + +--------+ + + + + | Result panel 313 | + + + + + +--------+ + + | | 2023-06-24 | [facility] | 20.0 | (missing) | (missing) | | (unavailable | [facility]07:07 [facility] | | | + + + +--------+ + + + + | Result panel 314 | + + + + + +-------+ + + | | 2023-06-24 | [facility] | 5.8 | (missing) | (missing) | | (unavailable | [facility]07:07 [facility] | | | + + + +-------+ + + + + | Result panel 315 [...] 316 | + + + + + +-------+ + + | | 2023-06-24 | [facility] | 1.3 | (missing) | (missing) | | (unavailable | 10::07 [facility] | | | + + + +-------+ + + + + | Result panel 317 | + + + + + +-------+---------+ + | | 2023-06-24 | [facility] | 130 | mg/dL | (missing) | | (unavailable | [facility]07:07 [facility] | | | + + + +-------+---------+ + + + | Result panel 318 | + + + + + +-------+ + + | | 2023-06-24 | [facility] | 125 | (missing) | (missing) | | (unavailable | 10::07 [facility] | | | + + + +-------+ + + + + | Result panel 319 | + + + + + +------+---------+ + | | 2023-06-24 | [facility] | 13 | mg/dL | (missing) | | (unavailable | [facility]07:07 [facility] | | | + + + +------+---------+ + + + | Result panel 320 | + + + + + +--------+---------+ + | | 2023-06-24 | [facility] | 0.89 | mg/dL | (missing) | | (unavailable | 10::07 [facility] | | | + + + +--------+---------+ + + + | Result panel 321 | + + + + + +------+ + + | | 2023-06-24 | [facility] | 89 | (missing) | (missing) | | (unavailable | [facility]07:07 [facility] | | | + + + +------+ + + + + | Result panel 322 | + + + + + +---------+ + + | | 2023-06-24 | [facility] | 14.60 | (missing) | (missing) | | (unavailable | [facility]::07 [facility] | | | + + + +---------+ + + + + | Result panel 323 | + + + + + +-------+ + + | | 2023-06-24 | [facility] | 139 | (missing) | (missing) | | (unavailable | 10::07 [facility] | | | + + + +-------+ + + + + | Result panel 324 | + + + + + +-------+ + + | | 2023-06-24 | [facility] | 3.7 | (missing) | (missing) | | (unavailable | 10::07 [facility] | | | + + + +-------+ + + + + | Result panel 325 | + + + + + +-------+ + + | | 2023-06-24 | [facility] | 103 | (missing) | (missing) | | (unavailable | [facility]07:07 [facility] | | | + + + +-------+ + + + + | Result panel 326 | + + + + + +------+ + + | | 2023-06-24 | [facility] | 22 | (missing) | (missing) | | (unavailable | [facility]07:07 [facility] | | | + + + +------+ + + + + | Result panel 327 | + + + + + +--------+ + + | | 2023-06-24 | [facility] | 17.7 | (missing) | (missing) | | (unavailable | [facility]07:07 [facility] | | | + + + +--------+ + + + + | Result panel 328 | + + + + + +-------+---------+ + | | 2023-06-24 | [facility] | 9.6 | mg/dL | (missing) | | (unavailable | [facility]07:07 [facility] | | | + + + +-------+---------+ + + + | Result panel 329 | + + + + + +-------+ [...] 331 | + + + + + +-------+ + + | | 2023-06-24 | [facility] | 4.1 | (missing) | (missing) | | (unavailable | [facility]07:07 [facility] | | | + + + +-------+ + + + + | Result panel 332 | + + + + + +--------+ + + | | 2023-06-24 | [facility] | 0.95 | (missing) | (missing) | | (unavailable | [facility]07:07 [facility] | | | + + + +--------+ + + + + | Result panel 333 | + + + + + +-------+ + + | | 2023-06-24 | [facility] | 0.2 | (missing) | (missing) | | (unavailable | [facility]07:07 [facility] | | | + + + +-------+ + + + + | Result panel 334 | + + + + + +------+ [...] 336 | + + + + + +---------+ + + | | 2023-06-24 | [facility] | CLEAR | (missing) | (missing) | | (unavailable | 10:46:07 [facility] | | | + + + +---------+ + + + + | Result panel 337 | + + + + + + + + + | | 2023-06-24 | [facility] | NEGATIVE | (missing) | (missing) | | (unavailable | 10:46:07 [facility] | | | + + + + + + + + + | Result panel 338 | + + + + + + + + + | | 2023-06-24 | [facility] | NEGATIVE | (missing) | (missing) | | (unavailable | 10:46:07 [facility] | | | + + + + + + + + + | Result panel 339 | + + + + + + + + + | | 2023-06-24 | [facility] | NEGATIVE | (missing) | (missing) | | (unavailable | [facility]:46:07 [facility] | | | + + + + + + + + + | Result panel 340 | + + + + + +---------+ + + | | 2023-06-24 | [facility] | 1.010 | (missing) | (missing) | | (unavailable | [facility]:46:07 [facility] | | | + + + +---------+ + + + + | Result panel 341 | + + + + + + + + + | | 2023-06-24 | [facility] | NEGATIVE | (missing) | (missing) | | (unavailable | [facility]:46[facility]07 [facility] | | | + + + + + + + + + | Result panel 342 | + + + + + +-------+ + + | | 2023-06-24 | [facility] | 6.0 | (missing) | (missing) | | (unavailable | [facility]:46[facility]07 [facility] | | | + + + +-------+ + + + + | Result panel 343 | + + + + + + + + + | | 2023-06-24 | [facility] | NEGATIVE | (missing) | (missing) | | (unavailable | [facility]:46[facility]07 [facility] | | | + + + + + + + + + | Result panel 344 | + + + + + + [...] 349 | + + + + + + + + + | | 2023-06-24 | [facility] | SQUAMOUS 4+ | (missing) | (missing) | | (unavailable | [facility]:46:07 [facility] | | | + + + + + + + + + | Result panel 350 | + + + + + + + + + | | 2023-06-24 | [facility] | NONE SEEN | (missing) | (missing) | | (unavailable | [facility]:46[facility]07 [facility] | | | + + + + + + + + + | Result panel 351 | + + + + + + + + + | | 2023-06-24 | [facility] | NONE SEEN | (missing) | (missing) | | (unavailable | [facility]:46[facility]07 [facility] | | | + + + + + + + + + | Result panel 352 | + + + + + + [...] 354 | + + + + + + + + + | | 2023-06-24 | [facility] | CLEAN CATCH | (missing) | (missing) | | (unavailable | [facility]:46[facility]07 [facility] | | | + + + + + + + Social History No information. Vital [...]
--- OUTSIDE RECORDS SUMMARY | ~2023-07-03 | XMS | Continuity of Care Document ---
Demographics + + + | Address | [address] | | | [place] [address] | + + + | Preferred Language | Unknown | + + + | Marital Status | | + + + | Rastafarian Affiliation | Unknown | + + + | Race | White | + + + | Ethnic Group | Not or | + + + Author + + + | Author | [facility] | + + + | Organization | [facility] | + + + | Address | [address] | | | [place] [address] | + + + | Phone | | + + + Care Team Providers + + + + | Care Informatica Mdm Architect Name | Role | Phone | + [...] | (no severity) | | | | [place] | | | | | [facility] [...] [place] | + + + + | 2023-05-18 00:00 | PSEUDOEPHEDRINE HCL | [facility] | + + + + | 2023-05-20 00:00 | PSEUDOEPHEDRINE HCL | [facility] | + + + + | 2023-06-19 00:00 | PSEUDOEPHEDRINE HCL | [facility] | + + + + | 2023-06-24 [...] [place] | + + + + | 2023-05-18 00:00 | PSEUDOEPHEDRINE HCL | [facility] | + + + + | 2023-05-20 00:00 | PSEUDOEPHEDRINE HCL | [facility] | + + + + | 2023-06-19 00:00 | PSEUDOEPHEDRINE HCL | [facility] | + + + + | 2023-06-24 [...] [place] | + + + + | 2023-05-18 00:00 | MELOXICAM | [facility] | + + + + | 2023-05-20 00:00 | MELOXICAM | [facility] | + + + + | 2023-06-19 00:00 | MELOXICAM | [facility] | + + + + | 2023-06-24 [...] [place] | + + + + | 2023-05-18 00:00 | EPINEPHRINE | [facility] | + + + + | 2023-05-20 00:00 | EPINEPHRINE | [facility] | + + + + | 2023-06-19 00:00 | EPINEPHRINE | [facility] | + + + + | 2023-06-24 [...] [place] | + + + + | 2023-05-18 00:00 | ONDANSETRON HCL | [facility] | + + + + | 2023-05-20 00:00 | ONDANSETRON HCL | [facility] | + + + + | 2023-06-19 00:00 | ONDANSETRON HCL | [facility] | + + + + | 2023-06-24 [...] [place] | + + + + | 2023-05-18 00:00 | MONTELUKAST SODIUM | [facility] | + + + + | 2023-05-20 00:00 | MONTELUKAST SODIUM | [facility] | + + + + | 2023-06-19 00:00 | MONTELUKAST SODIUM | [facility] | + + + + | 2023-06-24 [...] [place] | + + + + | 2023-05-18 00:00 | PAROXETINE HCL | [facility] | + + + + | 2023-05-20 00:00 | PAROXETINE HCL | [facility] | + + + + | 2023-06-19 00:00 | PAROXETINE HCL | [facility] | + + + + | 2023-06-24 [...] [place] | + + + + | 2023-05-18 00:00 | FOLIC ACID | [facility] | + + + + | 2023-05-20 00:00 | FOLIC ACID | [facility] | + + + + | 2023-06-19 00:00 | FOLIC ACID | [facility] | + + + + | 2023-06-24 00:00 | FOLIC ACID | [facility] | + + + + | 2022-11-02 00:00 | OSELTAMIVIR PHOSPHATE | [facility] | + + + + | 2020-01-17 00:00 | LEVETIRACETAM | [facility] | + + + + | 2023-05-18 00:00 | LAMOTRIGINE | [facility] | + + + + | 2023-05-20 00:00 | LAMOTRIGINE | [facility] [...] [place] | + + + + | 2023-05-18 00:00 | LEVETIRACETAM | [facility] | + + + + | 2023-05-20 00:00 | LEVETIRACETAM | [facility] | + + + + | 2023-06-19 00:00 | LEVETIRACETAM | [facility] | + + + + | 2023-06-24 [...] [place] | + + + + | 2023-05-18 00:00 | SUMATRIPTAN SUCCINATE | [facility] | + + + + | 2023-05-20 00:00 | SUMATRIPTAN SUCCINATE | [facility] | + + + + | 2023-06-19 00:00 | SUMATRIPTAN SUCCINATE | [facility] | + + + + | 2023-06-24 00:00 | SUMATRIPTAN SUCCINATE | [facility] | + + + + | 2022-06-30 00:00 | AMOXICILLIN | [facility] | + + + + | 2022-10-09 00:00 | AMOXICILLIN | [facility] | + + + + | 2022-11-02 00:00 | AMOXICILLIN | [facility] | + + + + | 2023-01-21 00:00 | AMOXICILLIN | [facility] | + + + + | 2023-05-08 00:00 | AMOXICILLIN | [facility] | + + + + | 2023-05-18 00:00 | AMOXICILLIN | [facility] | + + + + | 2023-05-20 00:00 | AMOXICILLIN | [facility] | + + + + | 2023-06-19 00:00 | AMOXICILLIN | [facility] | + + + + | 2023-06-24 [...] [place] | + + + + | 2023-05-18 00:00 | AMOXICILLIN | [facility] | + + + + | 2023-05-20 00:00 | AMOXICILLIN | [facility] | + + + + | 2023-06-19 00:00 | AMOXICILLIN | [facility] | + + + + | 2023-06-24 [...] [place] | + + + + | 2023-05-18 00:00 | METOCLOPRAMIDE HCL | [facility] | + + + + | 2023-05-20 00:00 | METOCLOPRAMIDE HCL | [facility] | + + + + | 2023-06-19 00:00 | METOCLOPRAMIDE HCL | [facility] | + + + + | 2023-06-24 [...] [place] | + + + + | 2023-05-18 00:00 | ASPIRIN | [facility] | + + + + | 2023-05-20 00:00 | ASPIRIN | [facility] | + + + + | 2023-06-19 00:00 | ASPIRIN | [facility] | + + + + | 2023-06-24 [...] [place] | + + + + | 2023-05-18 00:00 | Pregabalin | [facility] | + + + + | 2023-05-20 00:00 | Pregabalin | [facility] | + + + + | 2023-06-19 00:00 | Pregabalin | [facility] | + + + + | 2023-06-24 [...] [place] | + + + + | 2023-05-18 00:00 | DULOXETINE HCL | [facility] | + + + + | 2023-05-20 00:00 | DULOXETINE HCL | [facility] | + + + + | 2023-06-19 00:00 | DULOXETINE HCL | [facility] | + + + + | 2023-06-24 [...] [place] | + + + + | 2023-05-18 00:00 | DULOXETINE HCL | [facility] | + + + + | 2023-05-20 00:00 | DULOXETINE HCL | [facility] | + + + + | 2023-06-19 00:00 | DULOXETINE HCL | [facility] | + + + + | 2023-06-24 [...] [place] | + + + + | 2023-05-18 00:00 | DULOXETINE HCL | [facility] | + + + + | 2023-05-20 00:00 | DULOXETINE HCL | [facility] | + + + + | 2023-06-19 00:00 | DULOXETINE HCL | [facility] | + + + + | 2023-06-24 00:00 | DULOXETINE HCL | [facility] | + + + + | 2021-03-25 00:00 | LEVETIRACETAM | [facility] | + + + + | 2015-09-23 00:00 | AZITHROMYCIN | [facility] | + + + + | 2023-05-20 00:00 | DIAZEPAM | [facility] [...] [place] | + + + + | 2023-05-18 00:00 | ALBUTEROL SULFATE | [facility] | + + + + | 2023-05-20 00:00 | ALBUTEROL SULFATE | [facility] | + + + + | 2023-06-19 00:00 | ALBUTEROL SULFATE | [facility] | + + + + | 2023-06-24 [...] [place] | + + + + | 2023-05-18 00:00 | BUSPIRONE HCL | [facility] | + + + + | 2023-05-20 00:00 | BUSPIRONE HCL | [facility] | + + + + | 2023-06-19 00:00 | BUSPIRONE HCL | [facility] | + + + + | 2023-06-24 [...] [place] | + + + + | 2023-05-18 00:00 | BUSPIRONE HCL | [facility] | + + + + | 2023-05-20 00:00 | BUSPIRONE HCL | [facility] | + + + + | 2023-06-19 00:00 | BUSPIRONE HCL | [facility] | + + + + | 2023-06-24 [...] [place] | + + + + | 2023-05-18 00:00 | BUSPIRONE HCL | [facility] [place] | + + + + | 2023-05-20 00:00 | BUSPIRONE HCL | [facility] | + + + + | 2023-06-19 00:00 | BUSPIRONE HCL | [facility] | + + + + | 2023-06-24 [...] [place] | + + + + | 2023-05-18 00:00 | BUSPIRONE HCL | [facility] | + + + + | 2023-05-20 00:00 | BUSPIRONE HCL | [facility] [place] | + + + + | 2023-06-19 00:00 | BUSPIRONE HCL | [facility] [place] | + + + + | 2023-06-24 [...] [place] | + + + + | 2023-05-18 00:00 | PROMETHAZINE HCL | [facility] | + + + + | 2023-05-20 00:00 | PROMETHAZINE HCL | [facility] | + + + + | 2023-06-19 00:00 | PROMETHAZINE HCL | [facility] | + + + + | 2023-06-24 [...] [place] | + + + + | 2023-05-18 00:00 | FEXOFENADINE HCL | [facility] | + + + + | 2023-05-20 00:00 | FEXOFENADINE HCL | [facility] | + + + + | 2023-06-19 00:00 | FEXOFENADINE HCL | [facility] | + + + + | 2023-06-24 [...] + + | 2022-11-02 02:30 | OTHER SENIOR CARE (CURRENT) | [facility] | | | DRUG [...] + + | 2023-01-21 20:14 | OTHER SENIOR CARE (CURRENT) | [facility] | | | DRUG [...] + + | 2023-05-08 17:23 | OTHER LOCKSTITCHER (CURRENT) | [facility] | | | DRUG [...] disorder | [facility] | + + + + | 2023-05-18 16:32 | EPILEPSY, UNSP, NOT | [facility] | | | INTRACTABLE, WITHOUT STATUS | | | | EP | | + + + + | 2023-05-18 16:32 | TRANSIENT ALTERATION OF | [facility] | | | AWARENESS | | + + + + | 2023-05-18 16:32 | OTHER LOCKSTITCHER (CURRENT) | [facility] | | | DRUG [...] + + | 2023-05-20 17:59 | OTHER SENIOR CARE (CURRENT) | [facility] | | | DRUG [...] hand | [facility] | + + + + | 2023-06-19 [...] + + | 2023-06-19 17:37 | OTHER SENIOR CARE (CURRENT) | [facility] | | | DRUG [...] Convulsions | [facility] | + + + + | 2023-06-24 09:54 | EPILEPSY, UNSP, NOT | [facility] | | | INTRACTABLE, WITHOUT STATUS | | | | EP | | + + + + | 2023-06-24 09:54 | UNSPECIFIED CONVULSIONS | [facility] | + + + + | 2023-06-24 09:54 | OTHER SENIOR CARE (CURRENT) | [facility] | | | DRUG [...] - [place] | | | ELECTR ACTIVITY, HOISTER | | | | APPROACH | | + + + + | 2022-03-29 00:00 | MONITORING OF POC, CARDIAC | [facility] | | | ELECTR ACTIVITY, HOISTER | | | | APPROACH | | + + + + | 2022-03-21 00:00 | MONITORING OF POC, CARDIAC | [facility] | | | RATE, HOISTER APPROACH | | + + + + | 2022-04-07 00:00 | MONITORING OF POC, CARDIAC | [facility] | | | RATE, HOISTER APPROACH | | + + + + [...] (missing) | | (unavailable | 11:15 | [place] | | | | | [...]
[~2023-07-03 15:46] MED LIST changes: +DIASTAT ACUDIAL1 EA PR
--- OUTSIDE RECORDS SUMMARY | 2023-07-03 15:48 | XMS ---
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 Care History Medical/Surgical 10/06/2020 [facility] - W CONTACTED PCP OFFICE- DR BRAVO SPOKE WITH MUFF WINDER- PATIENT WAS OFFERED CAR CARE VISIT ON [...] UP VISIT. E.D. VISIT COUNT (12 MO.) [address] [facility] TOTAL 9 NOTE: Visits indicate total known visits. 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 - Other nonmedicinal substance allergy status - Unspecified convulsions 06/19/2023 17:37 [facility] TYPE: Emergency COMPLAINT: - WRIST PAIN DIAGNOSES: - Allergy status to narcotic agent - Allergy status to other drugs, medicaments and biological substances - Allergy status to penicillin - Allergy status to sulfonamides - Allergy to other foods - Contusion of left hand, initial encounter - Epilepsy, unspecified, not intractable, without status epilepticus - 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 - Pain in left hand - Striking against or struck by other objects, initial encounter 05/20/2023 17:59 [facility] TYPE: Emergency COMPLAINT: - SEIZURE DIAGNOSES: - Allergy status to narcotic agent - Allergy status to penicillin - Allergy status to sulfonamides - Allergy to other foods - Epilepsy, unspecified, not intractable, without status epilepticus - 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 - Unspecified convulsions [facility] COMPLAINT: - SEIZURE DIAGNOSES: - Allergy status to narcotic agent - Allergy status to other drugs, medicaments and biological substances - Allergy status to penicillin - Allergy status to sulfonamides - Epilepsy, unspecified, not intractable, without status epilepticus - 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 - Transient alteration of awareness 05/08/2023 17:23 [facility] COMPLAINT: - UNRESPONSIVE DIAGNOSES: - Allergy status to narcotic agent - Allergy status to penicillin - Allergy status to sulfonamides - Allergy to other foods - Depression, unspecified - Epilepsy, unspecified, not intractable, without status epilepticus - 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 - Unspecified convulsions 01/21/2023 20:14 [facility] COMPLAINT: - R SIDE [...] other specified factors, initial encounter - Other detention (current) drug therapy - Pain in right [...] virus with other respiratory manifestations - 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
[2023-07-03 15:57] LABS: BASOPHILS 0.7 % (0-2); EOSINOPHILS 4.6 % (0-6); HEMATOCRIT 39.7 % (35.0-50.0); HEMOGLOBIN 12.7 g/dL (12.0-18.0); MCH 25.9 (27-36); MCHC 32.1 g/dl (30-36); MCV 80.8 fl (81-99); MONOCYTES 7.2 % (0-12); NEUTROPHILS 68.5 % (39-80); PLATELET COUNT 374 K/uL (140-440); RBC 4.91 M/ul (4.3-5.7)
[2023-07-03 16:07] LABS: ANION GAP 15.5 (7-21); BUN/CREATININE RATIO 12.5 (6.0-28.6); CALCIUM 9.8 mg/dL (8.5-10.1); CREATININE, SERUM 0.88 mg/dL (0.55-1.02); POTASSIUM 3.5 mmol/L (3.5-5.1)
[2023-07-03 18:04] VITALS: BP 113/63
== END 2023-07-03 18:04 | disposition home or self-care (01) ==
LOC: ED 15:46
PROVIDERS: Family Medicine
DX: G40.909 Epilepsy, unspecified, not intractable, without status epilepticus (principal); Z88.5 Allergy status to narcotic agent; Z88.0 Allergy status to penicillin; Z88.2 Allergy status to sulfonamides; Z91.018 Allergy to other foods; Z91.048 Other nonmedicinal substance allergy status; Z79.899 Other long term (current) drug therapy
CPT/HCPCS: 36415; 80048; 85025; J1953; J2060

== ENCOUNTER 2023-07-21 14:32 | Emergency (ER) | payer OTHER ==
[~2023-07-21] VITALS: Ht 152.4 cm; Wt 102.1 kg
--- OUTSIDE RECORDS SUMMARY | ~2023-07-21 | XMS | Continuity of Care Document ---
Demographics + + + | Address | [address] | | | [place] [address] | + + + | Preferred Language | Unknown | + + + | Marital Status | | + + + | Hinduism Affiliation | Unknown | + + + | Race | White | + + + | Ethnic Group | Not or | + + + Author + + + | Author | [facility] | + + + | Organization | [facility] | + + + | Address | [address] | | | [place] [address] | + + + | Phone | | + + + Care Team Providers + + + + | Care Housekeeper Home Name | Role | Phone | + + + + Unavailable | Unavailable | + + + + Unavailable | Unavailable | + + + + Allergies and Intolerances + + + + + + | date | description | facility | reaction | severity | + + + + + + | (no date) | Urticaria | [facility] | (no reaction) | (no severity) | | | [facility] | | | + + + + + + | (no date) | Capsaicin | [facility] | (no reaction) | (no severity) | | [facility] | | | + + + + + + | (no date) | capsaicin | [facility] | (no reaction) | (no severity) | | [facility] | | | + + + + + + | (no date) | Edema of | [facility] | (no reaction) | (no severity) | | | pharynx | [facility] | | | + + + + + + | (no date) | Cinnamon | [facility] | (no reaction) | (no severity) | | [facility] | | | + + + + + + | (no date) | Rash | [facility] | (no reaction) | (no severity) | | [facility] | | | + + + + + + | (no date) | Morphine | [facility] | (no reaction) | (no severity) | | [facility] | | | + + + + + + | (no date) | Capsaicin | [facility] | (no reaction) | (no severity) | | [facility] | | | + + + + + + | (no date) | Vomiting | [facility] | (no reaction) | (no severity) | | [facility] | | | + + + + + + | (no date) | Cinnamon | [facility] | (no reaction) | (no severity) | | | [facility] | | | + + + + + + | (no date) | Diarrhea | [facility] | (no reaction) | (no severity) | | [facility] | | | + + + + + + | (no date) | Morphine | [facility] | (no reaction) | (no severity) | | | [facility] | | | + + + + + + | (no date) | morphine | [facility] | (no reaction) | (no severity) | | [facility] | | | + + + + + + | (no date) | Penicillin | [facility] | (no reaction) | (no severity) | | [facility] | | | + + + + + + | (no date) | Penicillin | [facility] | (no reaction) | (no severity) | | [facility] | | | + + + + + + | (no date) | Morphine | [facility] | (no reaction) | (no severity) | | | [facility] | | | + + + + + + | (no date) | Opioids - | [facility] | (no reaction) | (no severity) | | | Morphine | | | | | | Analogues | | | | + + + + + + | (no date) | Penicillins | [facility] | (no reaction) | (no severity) | + + + + + + | (no date) | Sulfa | [facility] | (no reaction) | (no severity) | | | (Sulfonamide | | | | | | Antibiotics) | | | | + + + + + + | (no date) | morphine | [facility] | (no reaction) | (no severity) | + + + + + + | (no date) | capsaicin | [facility] | (no reaction) | (no severity) | + + + + + + | (no date) | cinnamon | [facility] | (no reaction) | (no severity) | + + + + + + | (no date) | cannabidiol | [facility] | (no reaction) | (no severity) | | | (CBD) extract | | | | + + + + + + | (no date) | Penicillin | [facility] | (no reaction) | (no severity) | | | [facility] | | | + + + + + + | (no date) | Penicillin | [facility] | (no reaction) | (no severity) | | | [facility] | | | + + + + + + | (no date) | Capsaicin | [facility] | (no reaction) | (no severity) | | | | [place] | | | | | | [facility] | | | + + + + + + Encounters No information. Functional Status No information. Immunizations + + + + | date | description | facility | + + + + | 2016-09-17 00:00 | Tdap | [facility] | + + + + | 2022-06-30 00:00 | Influenza, Injectable, | [facility] | | | Quadrivalent, Preservative | | + + + + | 2022-10-09 00:00 | Influenza, Injectable, | [facility] | | | Quadrivalent, Preservative | | + + + + | 2022-11-02 00:00 | Influenza, Injectable, | [facility] | | | Quadrivalent, Preservative | | + + + + | 2023-01-21 00:00 | Influenza, Injectable, | [facility] | | | Quadrivalent, Preservative | | + + + + | 2023-05-08 00:00 | Influenza, Injectable, | [facility] | | | Quadrivalent, Preservative | | + + + + | 2023-05-18 00:00 | Influenza, Injectable, | [facility] | | | Quadrivalent, Preservative | | + + + + | 2023-05-20 00:00 | Influenza, Injectable, | [facility] | | | Quadrivalent, Preservative | | + + + + | 2023-06-19 00:00 | Influenza, Injectable, | [facility] | | | Quadrivalent, Preservative | | + + + + | 2023-06-24 00:00 | Influenza, Injectable, | [facility] | | | Quadrivalent, Preservative | | + + + + | 2023-07-03 00:00 | Influenza, Injectable, | [facility] | | | Quadrivalent, Preservative | | + + + + | 2023-07-13 00:00 | Influenza, Injectable, | [facility] | | | Quadrivalent, Preservative | | + + + + Medications + + + + | date | description | facility | + + + + | 2022-06-30 00:00 | MEDROXYPROGESTERONE | [facility] | | | ACETATE | | + + + + | 2022-10-09 00:00 | MEDROXYPROGESTERONE | [facility] | | | ACETATE | | + + + + | 2022-11-02 00:00 | MEDROXYPROGESTERONE | [facility] | | | ACETATE | | + + + + | 2023-01-21 00:00 | MEDROXYPROGESTERONE | [facility] | | | ACETATE | | + + + + | 2023-05-08 00:00 | MEDROXYPROGESTERONE | [facility] | | | ACETATE | | + + + + | 2023-05-18 00:00 | MEDROXYPROGESTERONE | [facility] | | | ACETATE | | + + + + | 2023-05-20 00:00 | MEDROXYPROGESTERONE | [facility] | | | ACETATE | | + + + + | 2023-06-19 00:00 | MEDROXYPROGESTERONE | [facility] | | | ACETATE | | + + + + | 2023-06-24 00:00 | MEDROXYPROGESTERONE | [facility] | | | ACETATE | | + + + + | 2023-07-03 00:00 | MEDROXYPROGESTERONE | [facility] | | | ACETATE | | + + + + | 2023-07-13 00:00 | MEDROXYPROGESTERONE | [facility] | | | ACETATE | | + + + + | 2022-06-30 00:00 | DM | [facility] | | | HB/PE/ACETAMINOPHEN/CHLORPH | | | | | | + + + + | 2022-10-09 00:00 | DM | [facility] | | | HB/PE/ACETAMINOPHEN/CHLORPH | | | | | | + + + + | 2022-11-02 00:00 | DM | [facility] | | | HB/PE/ACETAMINOPHEN/CHLORPH | | | | | | + + + + | 2023-01-21 00:00 | DM | [facility] | | | HB/PE/ACETAMINOPHEN/CHLORPH | | | | | | + + + + | 2023-05-08 00:00 | DM | [facility] | | | HB/PE/ACETAMINOPHEN/CHLORPH | | | | | | + + + + | 2023-05-18 00:00 | DM | [facility] | | | HB/PE/ACETAMINOPHEN/CHLORPH | | | | | | + + + + | 2023-05-20 00:00 | DM | [facility] | | | HB/PE/ACETAMINOPHEN/CHLORPH | | | | | | + + + + | 2023-06-19 00:00 | DM | [facility] | | | HB/PE/ACETAMINOPHEN/CHLORPH | | | | | | + + + + | 2023-06-24 00:00 | DM | [facility] | | | HB/PE/ACETAMINOPHEN/CHLORPH | | | | | | + + + + | 2023-07-03 00:00 | DM | [facility] | | | HB/PE/ACETAMINOPHEN/CHLORPH | | | | | | + + + + | 2023-07-13 00:00 | DM | [facility] | | | HB/PE/ACETAMINOPHEN/CHLORPH | | | | | | + + + + | 2020-10-04 00:00 | ONDANSETRON HCL | [facility] | + + + + | 2022-06-30 00:00 | PSEUDOEPHEDRINE HCL | [facility] | + + + + | 2022-10-09 00:00 | PSEUDOEPHEDRINE HCL | [facility] | + + + + | 2022-11-02 00:00 | PSEUDOEPHEDRINE HCL | [facility] | + + + + | 2023-01-21 00:00 | PSEUDOEPHEDRINE HCL | [facility] | + + + + | 2023-05-08 00:00 | PSEUDOEPHEDRINE HCL | [facility] | + + + + | 2023-05-18 00:00 | PSEUDOEPHEDRINE HCL | [facility] | + + + + | 2023-05-20 00:00 | PSEUDOEPHEDRINE HCL | [facility] | + + + + | 2023-06-19 00:00 | PSEUDOEPHEDRINE HCL | [facility] | + + + + | 2023-06-24 00:00 | PSEUDOEPHEDRINE HCL | [facility] | + + + + | 2023-07-03 00:00 | PSEUDOEPHEDRINE HCL | [facility] | + + + + | 2023-07-13 00:00 | PSEUDOEPHEDRINE HCL | [facility] | + + + + | 2022-06-30 00:00 | PSEUDOEPHEDRINE HCL | [facility] | + + + + | 2022-10-09 00:00 | PSEUDOEPHEDRINE HCL | [facility] | + + + + | 2022-11-02 00:00 | PSEUDOEPHEDRINE HCL | [facility] | + + + + | 2023-01-21 00:00 | PSEUDOEPHEDRINE HCL | [facility] | + + + + | 2023-05-08 00:00 | PSEUDOEPHEDRINE HCL | [facility] | + + + + | 2023-05-18 00:00 | PSEUDOEPHEDRINE HCL | [facility] | + + + + | 2023-05-20 00:00 | PSEUDOEPHEDRINE HCL | [facility] | + + + + | 2023-06-19 00:00 | PSEUDOEPHEDRINE HCL | [facility] | + + + + | 2023-06-24 00:00 | PSEUDOEPHEDRINE HCL | [facility] | + + + + | 2023-07-03 00:00 | PSEUDOEPHEDRINE HCL | [facility] | + + + + | 2023-07-13 00:00 | PSEUDOEPHEDRINE HCL | [facility] | + + + + | 2018-08-05 00:00 | OXYCODONE | [facility] | | | HCL/ACETAMINOPHEN | | + + + + | 2018-08-13 00:00 | DIPHENHYDRAMINE HCL | [facility] | + + + + | 2014-12-14 00:00 | GUAIFENESIN/D-METHORPHAN | [facility] | | | HB/PE | | + + + + | 2017-01-01 00:00 | MELOXICAM | [facility] | + + + + | 2022-06-30 00:00 | MELOXICAM | [facility] | + + + + | 2022-10-09 00:00 | MELOXICAM | [facility] | + + + + | 2022-11-02 00:00 | MELOXICAM | [facility] | + + + + | 2023-01-21 00:00 | MELOXICAM | [facility] | + + + + | 2023-05-08 00:00 | MELOXICAM | [facility] | + + + + | 2023-05-18 00:00 | MELOXICAM | [facility] | + + + + | 2023-05-20 00:00 | MELOXICAM | [facility] | + + + + | 2023-06-19 00:00 | MELOXICAM | [facility] | + + + + | 2023-06-24 00:00 | MELOXICAM | [facility] | + + + + | 2023-07-03 00:00 | MELOXICAM | [facility] | + + + + | 2023-07-13 00:00 | MELOXICAM | [facility] | + + + + | 2018-10-27 00:00 | DOXYCYCLINE HYCLATE | [facility] | + + + + | 2020-09-29 00:00 | DOXYCYCLINE HYCLATE | [facility] | + + + + | 2015-09-23 00:00 | FLUTICASONE PROPIONATE | [facility] | + + + + | 2022-06-30 00:00 | EPINEPHRINE | [facility] | + + + + | 2022-10-09 00:00 | EPINEPHRINE | [facility] | + + + + | 2022-11-02 00:00 | EPINEPHRINE | [facility] | + + + + | 2023-01-21 00:00 | EPINEPHRINE | [facility] | + + + + | 2023-05-08 00:00 | EPINEPHRINE | [facility] | + + + + | 2023-05-18 00:00 | EPINEPHRINE | [facility] | + + + + | 2023-05-20 00:00 | EPINEPHRINE | [facility] | + + + + | 2023-06-19 00:00 | EPINEPHRINE | [facility] | + + + + | 2023-06-24 00:00 | EPINEPHRINE | [facility] | + + + + | 2023-07-03 00:00 | EPINEPHRINE | [facility] | + + + + | 2023-07-13 00:00 | EPINEPHRINE | [facility] | + + + + | 2022-06-30 00:00 | ONDANSETRON HCL | [facility] | + + + + | 2022-10-09 00:00 | ONDANSETRON HCL | [facility] | + + + + | 2022-11-02 00:00 | ONDANSETRON HCL | [facility] | + + + + | 2023-01-21 00:00 | ONDANSETRON HCL | [facility] | + + + + | 2023-05-08 00:00 | ONDANSETRON HCL | [facility] | + + + + | 2023-05-18 00:00 | ONDANSETRON HCL | [facility] | + + + + | 2023-05-20 00:00 | ONDANSETRON HCL | [facility] | + + + + | 2023-06-19 00:00 | ONDANSETRON HCL | [facility] | + + + + | 2023-06-24 00:00 | ONDANSETRON HCL | [facility] | + + + + | 2023-07-03 00:00 | ONDANSETRON HCL | [facility] | + + + + | 2023-07-13 00:00 | ONDANSETRON HCL | [facility] | + + + + | 2022-06-30 00:00 | MONTELUKAST SODIUM | [facility] | + + + + | 2022-10-09 00:00 | MONTELUKAST SODIUM | [facility] | + + + + | 2022-11-02 00:00 | MONTELUKAST SODIUM | [facility] | + + + + | 2023-01-21 00:00 | MONTELUKAST SODIUM | [facility] | + + + + | 2023-05-08 00:00 | MONTELUKAST SODIUM | [facility] | + + + + | 2023-05-18 00:00 | MONTELUKAST SODIUM | [facility] | + + + + | 2023-05-20 00:00 | MONTELUKAST SODIUM | [facility] | + + + + | 2023-06-19 00:00 | MONTELUKAST SODIUM | [facility] | + + + + | 2023-06-24 00:00 | MONTELUKAST SODIUM | [facility] | + + + + | 2023-07-03 00:00 | MONTELUKAST SODIUM | [facility] | + + + + | 2023-07-13 00:00 | MONTELUKAST SODIUM | [facility] | + + + + | 2020-09-29 00:00 | Dexamethasone | [facility] | + + + + | 2022-06-30 00:00 | PAROXETINE HCL | [facility] | + + + + | 2022-10-09 00:00 | PAROXETINE HCL | [facility] | + + + + | 2022-11-02 00:00 | PAROXETINE HCL | [facility] | + + + + | 2023-01-21 00:00 | PAROXETINE HCL | [facility] | + + + + | 2023-05-08 00:00 | PAROXETINE HCL | [facility] | + + + + | 2023-05-18 00:00 | PAROXETINE HCL | [facility] | + + + + | 2023-05-20 00:00 | PAROXETINE HCL | [facility] | + + + + | 2023-06-19 00:00 | PAROXETINE HCL | [facility] | + + + + | 2023-06-24 00:00 | PAROXETINE HCL | [facility] | + + + + | 2023-07-03 00:00 | PAROXETINE HCL | [facility] | + + + + | 2023-07-13 00:00 | PAROXETINE HCL | [facility] | + + + + | 2014-12-14 00:00 | AZITHROMYCIN | [facility] | + + + + | 2015-03-22 00:00 | AZITHROMYCIN | [facility] | + + + + | 2022-06-30 00:00 | FOLIC ACID | [facility] | + + + + | 2022-10-09 00:00 | FOLIC ACID | [facility] | + + + + | 2022-11-02 00:00 | FOLIC ACID | [facility] | + + + + | 2023-01-21 00:00 | FOLIC ACID | [facility] | + + + + | 2023-05-08 00:00 | FOLIC ACID | [facility] | + + + + | 2023-05-18 00:00 | FOLIC ACID | [facility] | + + + + | 2023-05-20 00:00 | FOLIC ACID | [facility] | + + + + | 2023-06-19 00:00 | FOLIC ACID | [facility] | + + + + | 2023-06-24 00:00 | FOLIC ACID | [facility] | + + + + | 2023-07-03 00:00 | FOLIC ACID | [facility] | + + + + | 2023-07-13 00:00 | FOLIC ACID | [facility] | + + + + | 2022-11-02 00:00 | OSELTAMIVIR PHOSPHATE | [facility] | + + + + | 2020-01-17 00:00 | LEVETIRACETAM | [facility] | + + + + | 2023-05-18 00:00 | LAMOTRIGINE | [facility] | + + + + | 2023-05-20 00:00 | LAMOTRIGINE | [facility] | + + + + | 2022-06-30 00:00 | LEVETIRACETAM | [facility] | + + + + | 2022-10-09 00:00 | LEVETIRACETAM | [facility] | + + + + | 2022-11-02 00:00 | LEVETIRACETAM | [facility] | + + + + | 2023-01-21 00:00 | LEVETIRACETAM | [facility] | + + + + | 2023-05-08 00:00 | LEVETIRACETAM | [facility] | + + + + | 2023-05-18 00:00 | LEVETIRACETAM | [facility] | + + + + | 2023-05-20 00:00 | LEVETIRACETAM | [facility] | + + + + | 2023-06-19 00:00 | LEVETIRACETAM | [facility] | + + + + | 2023-06-24 00:00 | LEVETIRACETAM | [facility] | + + + + | 2023-07-03 00:00 | LEVETIRACETAM | [facility] | + + + + | 2023-07-13 00:00 | LEVETIRACETAM | [facility] | + + + + | 2022-06-30 00:00 | SUMATRIPTAN SUCCINATE | [facility] | + + + + | 2022-10-09 00:00 | SUMATRIPTAN SUCCINATE | [facility] | + + + + | 2022-11-02 00:00 | SUMATRIPTAN SUCCINATE | [facility] | + + + + | 2023-01-21 00:00 | SUMATRIPTAN SUCCINATE | [facility] | + + + + | 2023-05-08 00:00 | SUMATRIPTAN SUCCINATE | [facility] | + + + + | 2023-05-18 00:00 | SUMATRIPTAN SUCCINATE | [facility] | + + + + | 2023-05-20 00:00 | SUMATRIPTAN SUCCINATE | [facility] | + + + + | 2023-06-19 00:00 | SUMATRIPTAN SUCCINATE | [facility] | + + + + | 2023-06-24 00:00 | SUMATRIPTAN SUCCINATE | [facility] | + + + + | 2023-07-03 00:00 | SUMATRIPTAN SUCCINATE | [facility] | + + + + | 2023-07-13 00:00 | SUMATRIPTAN SUCCINATE | [facility] | + + + + | 2022-06-30 00:00 | AMOXICILLIN | [facility] | + + + + | 2022-10-09 00:00 | AMOXICILLIN | [facility] | + + + + | 2022-11-02 00:00 | AMOXICILLIN | [facility] | + + + + | 2023-01-21 00:00 | AMOXICILLIN | [facility] | + + + + | 2023-05-08 00:00 | AMOXICILLIN | [facility] | + + + + | 2023-05-18 00:00 | AMOXICILLIN | [facility] | + + + + | 2023-05-20 00:00 | AMOXICILLIN | [facility] | + + + + | 2023-06-19 00:00 | AMOXICILLIN | [facility] | + + + + | 2023-06-24 00:00 | AMOXICILLIN | [facility] | + + + + | 2023-07-03 00:00 | AMOXICILLIN | [facility] | + + + + | 2023-07-13 00:00 | AMOXICILLIN | [facility] | + + + + | 2022-06-30 00:00 | AMOXICILLIN | [facility] | + + + + | 2022-10-09 00:00 | AMOXICILLIN | [facility] | + + + + | 2022-11-02 00:00 | AMOXICILLIN | [facility] | + + + + | 2023-01-21 00:00 | AMOXICILLIN | [facility] | + + + + | 2023-05-08 00:00 | AMOXICILLIN | [facility] | + + + + | 2023-05-18 00:00 | AMOXICILLIN | [facility] | + + + + | 2023-05-20 00:00 | AMOXICILLIN | [facility] | + + + + | 2023-06-19 00:00 | AMOXICILLIN | [facility] | + + + + | 2023-06-24 00:00 | AMOXICILLIN | [facility] | + + + + | 2023-07-03 00:00 | AMOXICILLIN | [facility] | + + + + | 2023-07-13 00:00 | AMOXICILLIN | [facility] | + + + + | 2022-06-30 00:00 | METOCLOPRAMIDE HCL | [facility] | + + + + | 2022-10-09 00:00 | METOCLOPRAMIDE HCL | [facility] | + + + + | 2022-11-02 00:00 | METOCLOPRAMIDE HCL | [facility] | + + + + | 2023-01-21 00:00 | METOCLOPRAMIDE HCL | [facility] | + + + + | 2023-05-08 00:00 | METOCLOPRAMIDE HCL | [facility] | + + + + | 2023-05-18 00:00 | METOCLOPRAMIDE HCL | [facility] | + + + + | 2023-05-20 00:00 | METOCLOPRAMIDE HCL | [facility] | + + + + | 2023-06-19 00:00 | METOCLOPRAMIDE HCL | [facility] | + + + + | 2023-06-24 00:00 | METOCLOPRAMIDE HCL | [facility] | + + + + | 2023-07-03 00:00 | METOCLOPRAMIDE HCL | [facility] | + + + + | 2023-07-13 00:00 | METOCLOPRAMIDE HCL | [facility] | + + + + | 2022-10-09 00:00 | Oseltamivir Phosphate | [facility] | + + + + | 2015-12-30 00:00 | predniSONE | [facility] | + + + + | 2022-06-30 00:00 | ASPIRIN | [facility] | + + + + | 2022-10-09 00:00 | ASPIRIN | [facility] | + + + + | 2022-11-02 00:00 | ASPIRIN | [facility] | + + + + | 2023-01-21 00:00 | ASPIRIN | [facility] | + + + + | 2023-05-08 00:00 | ASPIRIN | [facility] | + + + + | 2023-05-18 00:00 | ASPIRIN | [facility] | + + + + | 2023-05-20 00:00 | ASPIRIN | [facility] | + + + + | 2023-06-19 00:00 | ASPIRIN | [facility] | + + + + | 2023-06-24 00:00 | ASPIRIN | [facility] | + + + + | 2023-07-03 00:00 | ASPIRIN | [facility] | + + + + | 2023-07-13 00:00 | ASPIRIN | [facility] | + + + + | 2022-11-02 00:00 | LEVETIRACETAM | [facility] | + + + + | 2023-01-21 00:00 | Pregabalin | [facility] | + + + + | 2023-05-08 00:00 | Pregabalin | [facility] | + + + + | 2023-05-18 00:00 | Pregabalin | [facility] | + + + + | 2023-05-20 00:00 | Pregabalin | [facility] | + + + + | 2023-06-19 00:00 | Pregabalin | [facility] | + + + + | 2023-06-24 00:00 | Pregabalin | [facility] | + + + + | 2023-07-03 00:00 | Pregabalin | [facility] | + + + + | 2023-07-13 00:00 | Pregabalin | [facility] | + + + + | 2022-06-30 00:00 | DULOXETINE HCL | [facility] | + + + + | 2022-10-09 00:00 | DULOXETINE HCL | [facility] | + + + + | 2022-11-02 00:00 | DULOXETINE HCL | [facility] | + + + + | 2023-01-21 00:00 | DULOXETINE HCL | [facility] | + + + + | 2023-05-08 00:00 | DULOXETINE HCL | [facility] | + + + + | 2023-05-18 00:00 | DULOXETINE HCL | [facility] | + + + + | 2023-05-20 00:00 | DULOXETINE HCL | [facility] | + + + + | 2023-06-19 00:00 | DULOXETINE HCL | [facility] | + + + + | 2023-06-24 00:00 | DULOXETINE HCL | [facility] | + + + + | 2023-07-03 00:00 | DULOXETINE HCL | [facility] | + + + + | 2023-07-13 00:00 | DULOXETINE HCL | [facility] | + + + + | 2022-06-30 00:00 | DULOXETINE HCL | [facility] | + + + + | 2022-10-09 00:00 | DULOXETINE HCL | [facility] | + + + + | 2022-11-02 00:00 | DULOXETINE HCL | [facility] | + + + + | 2023-01-21 00:00 | DULOXETINE HCL | [facility] | + + + + | 2023-05-08 00:00 | DULOXETINE HCL | [facility] | + + + + | 2023-05-18 00:00 | DULOXETINE HCL | [facility] | + + + + | 2023-05-20 00:00 | DULOXETINE HCL | [facility] | + + + + | 2023-06-19 00:00 | DULOXETINE HCL | [facility] | + + + + | 2023-06-24 00:00 | DULOXETINE HCL | [facility] | + + + + | 2023-07-03 00:00 | DULOXETINE HCL | [facility] | + + + + | 2023-07-13 00:00 | DULOXETINE HCL | [facility] | + + + + | 2022-06-30 00:00 | DULOXETINE HCL | [facility] | + + + + | 2022-10-09 00:00 | DULOXETINE HCL | [facility] | + + + + | 2022-11-02 00:00 | DULOXETINE HCL | [facility] | + + + + | 2023-01-21 00:00 | DULOXETINE HCL | [facility] | + + + + | 2023-05-08 00:00 | DULOXETINE HCL | [facility] | + + + + | 2023-05-18 00:00 | DULOXETINE HCL | [facility] | + + + + | 2023-05-20 00:00 | DULOXETINE HCL | [facility] | + + + + | 2023-06-19 00:00 | [facility]OX[facility]INE [facility] | [facility] [facility] | + + + + | 2023-06-24 00:00 | DULOXETINE HCL | [facility] | + + + + | 2023-07-03 00:00 | DULOXETINE HCL | [facility] | + + + + | 2023-07-13 00:00 | DULOXETINE HCL | [facility] | + + + + | 2021-03-25 00:00 | LEVETIRACETAM | [facility] | + + + + | 2015-09-23 00:00 | AZITHROMYCIN | [facility] | + + + + | 2023-05-20 00:00 | DIAZEPAM | [facility] | + + + + | 2016-06-04 00:00 | CYCLOBENZAPRINE HCL | [facility] | + + + + | 2017-08-14 00:00 | CYCLOBENZAPRINE HCL | [facility] | + + + + | 2023-01-21 00:00 | TRAMADOL HCL | [facility] | + + + + | 2022-06-30 00:00 | | [facility] | | | SULFAMETHOXAZOLE/TRIMETHOPR | | | | IM DS | | + + + + | 2022-10-09 00:00 | | [facility] | | | SULFAMETHOXAZOLE/TRIMETHOPR | | | | IM DS | | + + + + | 2022-11-02 00:00 | | [facility] | | | SULFAMETHOXAZOLE/TRIMETHOPR | | | | IM DS | | + + + + | 2023-01-21 00:00 | | [facility] | | | SULFAMETHOXAZOLE/TRIMETHOPR | | | | IM DS | | + + + + | 2023-05-08 00:00 | | [facility] | | | SULFAMETHOXAZOLE/TRIMETHOPR | | | | IM DS | | + + + + | 2023-05-18 00:00 | | [facility] | | | SULFAMETHOXAZOLE/TRIMETHOPR | | | | IM DS | | + + + + | 2023-05-20 00:00 | | [facility] | | | SULFAMETHOXAZOLE/TRIMETHOPR | | | | IM DS | | + + + + | 2023-06-19 00:00 | | [facility] | | | SULFAMETHOXAZOLE/TRIMETHOPR | | | | IM DS | | + + + + | 2023-06-24 00:00 | | [facility] | | | SULFAMETHOXAZOLE/TRIMETHOPR | | | | IM DS | | + + + + | 2023-07-03 00:00 | | [facility] | | | SULFAMETHOXAZOLE/TRIMETHOPR | | | | IM DS | | + + + + | 2023-07-13 00:00 | | [facility] | | | SULFAMETHOXAZOLE/TRIMETHOPR | | | | IM DS | | + + + + | 2022-06-30 00:00 | ALBUTEROL SULFATE | [facility] | + + + + | 2022-10-09 00:00 | ALBUTEROL SULFATE | [facility] | + + + + | 2022-11-02 00:00 | ALBUTEROL SULFATE | [facility] | + + + + | 2023-01-21 00:00 | ALBUTEROL SULFATE | [facility] | + + + + | 2023-05-08 00:00 | ALBUTEROL SULFATE | [facility] | + + + + | 2023-05-18 00:00 | ALBUTEROL SULFATE | [facility] | + + + + | 2023-05-20 00:00 | ALBUTEROL SULFATE | [facility] | + + + + | 2023-06-19 00:00 | ALBUTEROL SULFATE | [facility] | + + + + | 2023-06-24 00:00 | ALBUTEROL SULFATE | [facility] | + + + + | 2023-07-03 00:00 | ALBUTEROL SULFATE | [facility] | + + + + | 2023-07-13 00:00 | ALBUTEROL SULFATE | [facility] | + + + + | 2022-10-09 00:00 | BUSPIRONE HCL | [facility] | + + + + | 2022-11-02 00:00 | BUSPIRONE HCL | [facility] | + + + + | 2023-01-21 00:00 | BUSPIRONE HCL | [facility] | + + + + | 2023-05-08 00:00 | BUSPIRONE HCL | [facility] | + + + + | 2023-05-18 00:00 | BUSPIRONE HCL | [facility] | + + + + | 2023-05-20 00:00 | BUSPIRONE HCL | [facility] | + + + + | 2023-06-19 00:00 | BUSPIRONE HCL | [facility] | + + + + | 2023-06-24 00:00 | BUSPIRONE HCL | [facility] | + + + + | 2023-07-03 00:00 | BUSPIRONE HCL | [facility] | + + + + | 2023-07-13 00:00 | BUSPIRONE HCL | [facility] | + + + + | 2022-06-30 00:00 | BUSPIRONE HCL | [facility] | + + + + | 2022-10-09 00:00 | BUSPIRONE HCL | [facility] | + + + + | 2022-11-02 00:00 | BUSPIRONE HCL | [facility] | + + + + | 2023-01-21 00:00 | BUSPIRONE HCL | [facility] | + + + + | 2023-05-08 00:00 | BUSPIRONE HCL | [facility] | + + + + | 2023-05-18 00:00 | BUSPIRONE HCL | [facility] | + + + + | 2023-05-20 00:00 | BUSPIRONE HCL | [facility] | + + + + | 2023-06-19 00:00 | BUSPIRONE HCL | [facility] | + + + + | 2023-06-24 00:00 | BUSPIRONE HCL | [facility] | + + + + | 2023-07-03 00:00 | BUSPIRONE HCL | [facility] | + + + + | 2023-07-13 00:00 | BUSPIRONE HCL | [facility] | + + + + | 2022-06-30 00:00 | BUSPIRONE HCL | [facility] | + + + + | 2022-10-09 00:00 | BUSPIRONE HCL | [facility] | + + + + | 2022-11-02 00:00 | BUSPIRONE HCL | [facility] | + + + + | 2023-01-21 00:00 | BUSPIRONE HCL | [facility] | + + + + | 2023-05-08 00:00 | BUSPIRONE HCL | [facility] | + + + + | 2023-05-18 00:00 | BUSPIRONE HCL | [facility] | + + + + | 2023-05-20 00:00 | BUSPIRONE HCL | [facility] | + + + + | 2023-06-19 00:00 | BUSPIRONE HCL | [facility] | + + + + | 2023-06-24 00:00 | BUSPIRONE HCL | [facility] | + + + + | 2023-07-03 00:00 | BUSPIRONE HCL | [facility] | + + + + | 2023-07-13 00:00 | BUSPIRONE HCL | [facility] | + + + + | 2022-06-30 00:00 | BUSPIRONE HCL | [facility] | + + + + | 2022-10-09 00:00 | BUSPIRONE HCL | [facility] | + + + + | 2022-11-02 00:00 | BUSPIRONE HCL | [facility] | + + + + | 2023-01-21 00:00 | BUSPIRONE HCL | [facility] | + + + + | 2023-05-08 00:00 | BUSPIRONE HCL | [facility] | + + + + | 2023-05-18 00:00 | BUSPIRONE HCL | [facility] | + + + + | 2023-05-20 00:00 | BUSPIRONE HCL | [facility] | + + + + | 2023-06-19 00:00 | BUSPIRONE HCL | [facility] | + + + + | 2023-06-24 00:00 | BUSPIRONE HCL | [facility] | + + + + | 2023-07-03 00:00 | BUSPIRONE HCL | [facility] | + + + + | 2023-07-13 00:00 | BUSPIRONE HCL | [facility] | + + + + | 2018-08-05 00:00 | ONDANSETRON | [facility] | + + + + | 2014-01-14 00:00 | PROMETHAZINE HCL | [facility] | + + + + | 2014-01-14 00:00 | PROMETHAZINE HCL | [facility] | + + + + | 2022-06-30 00:00 | PROMETHAZINE HCL | [facility] | + + + + | 2022-10-09 00:00 | PROMETHAZINE HCL | [facility] | + + + + | 2022-11-02 00:00 | PROMETHAZINE HCL | [facility] | + + + + | 2023-01-21 00:00 | PROMETHAZINE HCL | [facility] | + + + + | 2023-05-08 00:00 | PROMETHAZINE HCL | [facility] | + + + + | 2023-05-18 00:00 | PROMETHAZINE HCL | [facility] | + + + + | 2023-05-20 00:00 | PROMETHAZINE HCL | [facility] | + + + + | 2023-06-19 00:00 | PROMETHAZINE HCL | [facility] | + + + + | 2023-06-24 00:00 | PROMETHAZINE HCL | [facility] | + + + + | 2023-07-03 00:00 | PROMETHAZINE HCL | [facility] | + + + + | 2023-07-13 00:00 | PROMETHAZINE HCL | [facility] | + + + + | 2019-07-09 00:00 | Codeine | [facility] | | | Phosphate/Guaifenesin | | + + + + | 2015-03-22 00:00 | GUAIFENESIN/CODEINE | [facility] | | | PHOSPHATE | | + + + + | 2015-12-30 00:00 | GUAIFENESIN/CODEINE | [facility] | | | PHOSPHATE | | + + + + | 2022-06-30 00:00 | FEXOFENADINE HCL | [facility] | + + + + | 2022-10-09 00:00 | FEXOFENADINE HCL | [facility] | + + + + | 2022-11-02 00:00 | FEXOFENADINE HCL | [facility] | + + + + | 2023-01-21 00:00 | FEXOFENADINE HCL | [facility] | + + + + | 2023-05-08 00:00 | FEXOFENADINE HCL | [facility] | + + + + | 2023-05-18 00:00 | FEXOFENADINE HCL | [facility] | + + + + | 2023-05-20 00:00 | FEXOFENADINE HCL | [facility] | + + + + | 2023-06-19 00:00 | FEXOFENADINE HCL | [facility] | + + + + | 2023-06-24 00:00 | FEXOFENADINE HCL | [facility] | + + + + | 2023-07-03 00:00 | FEXOFENADINE HCL | [facility] | + + + + | 2023-07-13 00:00 | FEXOFENADINE HCL | [facility] | + + + + Problems + + + + | date | description | facility | + + + + | 2014-12-14 00:00 | Upper respiratory | [facility] | | | infection | | + + + + | 2014-12-14 00:00 | Sinusitis | [facility] | + + + + | 2015-03-22 00:00 | Acute bronchitis | [facility] | + + + + | 2016-01-13 00:00 | Right elbow pain | [facility] | + + + + | 2016-06-04 00:00 | Spasm of thoracic back | [facility] | | | muscle | | + + + + | 2016-06-04 00:00 | Back strain | [facility] | + + + + | 2016-09-17 00:00 | Laceration | [facility] | + + + + | 2017-01-01 00:00 | Contusion of right foot | [facility] | + + + + | 2017-08-14 00:00 | Sprain of hip | [facility] | + + + + | 2018-08-05 00:00 | Postoperative pain | [facility] | + + + + | 2018-10-27 00:00 | Pharyngitis | [facility] | + + + + | 2019-07-09 00:00 | Viral upper respiratory | [facility] | | | tract infection with cough | | + + + + | 2019-07-31 00:00 | Inhalation of noxious | [facility] | | | fumes | | + + + + | 2019-09-18 00:00 | Syncope | [facility] | + + + + | 2020-06-07 00:00 | Pain of right hip | [facility] | + + + + | 2020-08-31 00:00 | Acute postoperative pain | [facility] | | | of right hip | | + + + + | 2020-09-27 00:00 | Pneumonia due to severe | [facility] | | | acute respiratory syndrome | | | | coronavirus 2 (SARS-CoV-2) | | + + + + | 2020-11-10 00:00 | Patient left without being | [facility] | | | seen | | + + + + | 2021-10-03 00:00 | Hyperemesis gravidarum | [facility] | | | with metabolic disturbance | | + + + + | 2021-11-09 00:00 | Threatened | [facility] | + + + + | 2021-12-04 00:00 | Infection due to severe | [facility] | | | acute respiratory syndrome | | | | coronavirus 2 (SARS-CoV-2) | | + + + + | 2022-01-31 00:00 | Epilepsy affecting | [facility] | | | in second | | | | trimester | | + + + + | 2022-01-31 00:00 | Strain of elbow | [facility] | + + + + | 2022-03-21 08:13 | labor without | [facility] | | | delivery, unspecified | [facility] | | | trimester | | + + + + | 2022-03-24 20:27 | Dehydration | [facility] | | | | [facility] | + + + + | 2022-03-24 20:27 | Other specified | [facility] | | | related conditions, third | [facility] | | | trimester | | + + + + | 2022-03-24 20:27 | False labor before 37 | [facility] | | | completed weeks of | [facility] | | | gestation, third trimester | | + + + + | 2022-03-24 20:27 | 34 weeks gestation of | [facility] | | | | [facility] | + + + + | 2022-04-23 10:26 | First degree perineal | [facility] | | | laceration during delivery | [facility] | + + + + | 2022-04-23 10:26 | Encounter for full-term | [facility] | | | uncomplicated delivery | [facility] | + + + + | 2022-04-23 10:26 | Streptococcus B carrier | [facility] | | | state complicating | [facility] | | | childbirth | | + + + + | 2022-04-23 10:26 | Contact with and | [facility] | | | (suspected) exposure to | [facility] | | | COVID-19 | | + + + + | 2022-04-23 10:26 | Single live | [facility] | | | | [facility] | + + + + | 2022-04-23 10:26 | 38 weeks gestation of | [facility] | | | [facility] | + + + + | 2022-04-23 10:26 | Type B blood, Rh positive | [facility] | | | [facility] | + + + + | 2022-09-23 07:40 | EPILEPSY, UNSP, NOT | [facility] | | | INTRACTABLE, WITHOUT STATUS | | | | EPILEPTICUS | | + + + + | 2022-09-23 07:40 | OTHER AMNESIA | [facility] | + + + + | 2022-11-02 00:00 | Influenza due to influenza | [facility] | | | virus, type A, human | | + + + + | 2022-11-02 02:30 | EPILEPSY, UNSP, NOT | [facility] | | | INTRACTABLE, WITHOUT STATUS | | | | EP | | + + + + | 2022-11-02 02:30 | FLU DUE TO OTH IDENT | [facility] | | | INFLUENZA VIRUS W OTH RESP | | | | [place] | | + + + + | 2022-11-02 02:30 | PAIN IN LEFT HIP | [facility] | + + + + | 2022-11-02 02:30 | OTHER MATERIALS TECH (CURRENT) | [facility] | | | DRUG THERAPY | | + + + + | 2022-11-02 02:30 | ALLERGY STATUS TO | [facility] | | | PENICILLIN | | + + + + | 2022-11-02 02:30 | ALLERGY STATUS TO | [facility] | | | SULFONAMIDES STATUS | | + + + + | 2022-11-02 02:30 | ALLERGY STATUS TO NARCOTIC | [facility] | | | AGENT STATUS | | + + + + | 2022-11-02 02:30 | ALLERGY STATUS TO OTH | [facility] | | | DRUG/MEDS/BIOL SUBST STATUS | | | | | | + + + + | 2022-11-02 02:30 | ALLERGY TO OTHER FOODS | [facility] | + + + + | 2023-01-07 08:30 | OTHER ALLERGIC RHINITIS | [facility] | + + + + | 2023-01-18 10:28 | OTHER ALLERGIC RHINITIS | [facility] | + + + + | 2023-01-18 10:28 | CHRONIC SINUSITIS, | [facility] | | | UNSPECIFIED | | + + + + | 2023-01-21 00:00 | Hip strain | [facility] | + + + + | 2023-01-21 20:14 | EPILEPSY, UNSP, NOT | [facility] | | | INTRACTABLE, WITHOUT STATUS | | | | EP | | + + + + | 2023-01-21 20:14 | PAIN IN RIGHT HIP | [facility] | + + + + | 2023-01-21 20:14 | STRAIN OF MUSCLE, FASCIA | [facility] | | | AND TENDON OF RIGHT HIP, | | + + + + | 2023-01-21 20:14 | EXPOSURE TO OTHER | [facility] | | | SPECIFIED FACTORS, INITIAL | | | | ENCOU | | + + + + | 2023-01-21 20:14 | OTHER PRISON (CURRENT) | [facility] | | | DRUG THERAPY | | + + + + | 2023-01-21 20:14 | ALLERGY STATUS TO | [facility] | | | PENICILLIN | | + + + + | 2023-01-21 20:14 | ALLERGY STATUS TO OTHER | [facility] | | | ANTIBIOTIC AGENTS STATUS | | + + + + | 2023-01-21 20:14 | ALLERGY STATUS TO | [facility] | | | SULFONAMIDES STATUS | | + + + + | 2023-01-21 20:14 | ALLERGY STATUS TO NARCOTIC | [facility] | | | AGENT STATUS | | + + + + | 2023-01-21 20:14 | ALLERGY STATUS TO OTH | [facility] | | | DRUG/MEDS/BIOL SUBST STATUS | | | | | | + + + + | 2023-01-21 20:14 | ALLERGY TO OTHER FOODS | [facility] | + + + + | 2023-03-09 11:10 | PAIN IN RIGHT HAND | [facility] | + + + + | 2023-03-09 11:10 | PAIN IN LEFT HAND | [facility] | + + + + | 2023-05-08 00:00 | Seizure-like activity | [facility] | + + + + | 2023-05-08 17:23 | DEPRESSION, UNSPECIFIED | [facility] | + + + + | 2023-05-08 17:23 | EPILEPSY, UNSP, NOT | [facility] | | | INTRACTABLE, WITHOUT STATUS | | | | EP | | + + + + | 2023-05-08 17:23 | UNSPECIFIED CONVULSIONS | [facility] | + + + + | 2023-05-08 17:23 | OTHER MATERIALS TECH (CURRENT) | [facility] | | | DRUG THERAPY | | + + + + | 2023-05-08 17:23 | ALLERGY STATUS TO | [facility] | | | PENICILLIN | | + + + + | 2023-05-08 17:23 | ALLERGY STATUS TO | [facility] | | | SULFONAMIDES STATUS | | + + + + | 2023-05-08 17:23 | ALLERGY STATUS TO NARCOTIC | [facility] | | | AGENT STATUS | | + + + + | 2023-05-08 17:23 | ALLERGY TO OTHER FOODS | [facility] | + + + + | 2023-05-18 00:00 | Seizure disorder | [facility] | + + + + | 2023-05-18 16:32 | EPILEPSY, UNSP, NOT | [facility] | | | INTRACTABLE, WITHOUT STATUS | | | | EP | | + + + + | 2023-05-18 16:32 | TRANSIENT ALTERATION OF | [facility] | | | AWARENESS | | + + + + | 2023-05-18 16:32 | OTHER MATERIALS TECH (CURRENT) | [facility] | | | DRUG THERAPY | | + + + + | 2023-05-18 16:32 | ALLERGY STATUS TO | [facility] | | | PENICILLIN | | + + + + | 2023-05-18 16:32 | ALLERGY STATUS TO | [facility] | | | SULFONAMIDES STATUS | | + + + + | 2023-05-18 16:32 | ALLERGY STATUS TO NARCOTIC | [facility] | | | AGENT STATUS | | + + + + | 2023-05-18 16:32 | ALLERGY STATUS TO OTH | [facility] | | | DRUG/MEDS/BIOL SUBST STATUS | | | | | | + + + + | 2023-05-20 17:59 | EPILEPSY, UNSP, NOT | [facility] | | | INTRACTABLE, WITHOUT STATUS | | | | EP | | + + + + | 2023-05-20 17:59 | UNSPECIFIED CONVULSIONS | [facility] | + + + + | 2023-05-20 17:59 | OTHER PRISON (CURRENT) | [facility] | | | DRUG THERAPY | | + + + + | 2023-05-20 17:59 | ALLERGY STATUS TO | [facility] | | | PENICILLIN | | + + + + | 2023-05-20 17:59 | ALLERGY STATUS TO | [facility] | | | SULFONAMIDES STATUS | | + + + + | 2023-05-20 17:59 | ALLERGY STATUS TO NARCOTIC | [facility] | | | AGENT STATUS | | + + + + | 2023-05-20 17:59 | ALLERGY TO OTHER FOODS | [facility] | + + + + | 2023-06-19 00:00 | Contusion of left hand | [facility] | + + + + | 2023-06-19 17:37 | EPILEPSY, UNSP, NOT | [facility] | | | INTRACTABLE, WITHOUT STATUS | | | | EP | | + + + + | 2023-06-19 17:37 | PAIN IN LEFT HAND | [facility] | + + + + | 2023-06-19 17:37 | CONTUSION OF LEFT HAND, | [facility] | | | INITIAL ENCOUNTER | | + + + + | 2023-06-19 17:37 | STRIKING AGAINST OR STRUCK | [facility] | | | BY OTHER OBJECTS, INIT | | + + + + | 2023-06-19 17:37 | OTHER PRISON (CURRENT) | [facility] | | | DRUG THERAPY | | + + + + | 2023-06-19 17:37 | ALLERGY STATUS TO | [facility] | | | PENICILLIN | | + + + + | 2023-06-19 17:37 | ALLERGY STATUS TO | [facility] | | | SULFONAMIDES STATUS | | + + + + | 2023-06-19 17:37 | ALLERGY STATUS TO NARCOTIC | [facility] | | | AGENT STATUS | | + + + + | 2023-06-19 17:37 | ALLERGY STATUS TO OTH | [facility] | | | DRUG/MEDS/BIOL SUBST STATUS | | | | | | + + + + | 2023-06-19 17:37 | ALLERGY TO OTHER FOODS | [facility] | + + + + | 2023-06-24 00:00 | Convulsions | [facility] | + + + + | 2023-06-24 09:54 | EPILEPSY, UNSP, NOT | [facility] | | | INTRACTABLE, WITHOUT STATUS | | | | EP | | + + + + | 2023-06-24 09:54 | UNSPECIFIED CONVULSIONS | [facility] | + + + + | 2023-06-24 09:54 | OTHER PRISON (CURRENT) | [facility] | | | DRUG THERAPY | | + + + + | 2023-06-24 09:54 | ALLERGY STATUS TO | [facility] | | | PENICILLIN | | + + + + | 2023-06-24 09:54 | ALLERGY STATUS TO | [facility] | | | SULFONAMIDES STATUS | | + + + + | 2023-06-24 09:54 | ALLERGY STATUS TO NARCOTIC | [facility] | | | AGENT STATUS | | + + + + | 2023-06-24 09:54 | ALLERGY TO OTHER FOODS | [facility] | + + + + | 2023-06-24 09:54 | OTHER NONMEDICINAL | [facility] | | | SUBSTANCE ALLERGY STATUS | | + + + + | 2023-07-03 15:46 | EPILEPSY, UNSP, NOT | [facility] | | | INTRACTABLE, WITHOUT STATUS | | | | EP | | + + + + | 2023-07-03 15:46 | UNSPECIFIED CONVULSIONS | [facility] | + + + + | 2023-07-03 15:46 | OTHER PRISON (CURRENT) | [facility] | | | DRUG THERAPY | | + + + + | 2023-07-03 15:46 | ALLERGY STATUS TO | [facility] | | | PENICILLIN | | + + + + | 2023-07-03 15:46 | ALLERGY STATUS TO | [facility] | | | SULFONAMIDES STATUS | | + + + + | 2023-07-03 15:46 | ALLERGY STATUS TO NARCOTIC | [facility] | | | AGENT STATUS | | + + + + | 2023-07-03 15:46 | ALLERGY TO OTHER FOODS | [facility] | + + + + | 2023-07-03 15:46 | OTHER NONMEDICINAL | [facility] | | | SUBSTANCE ALLERGY STATUS | | + + + + Procedures + + + + | date | description | facility | + + + + | 2022-04-23 00:00 | INSERTION OF INFUSION DEV | [facility] | | | INTO SPINAL CANAL, PERC | | | | APPROACH | | + + + + | 2022-04-23 00:00 | REPAIR PERINEUM SKIN, | [facility] | | | EXTERNAL APPROACH | | + + + + | 2022-04-23 00:00 | DRAINAGE OF AMNIOTIC FL, | [facility] | | | THERAP FROM POC, VIA | | | | OPENING | | + + + + | 2022-04-23 00:00 | DELIVERY OF PRODUCTS OF | [facility] | | | CONCEPTION, EXTERNAL | | | | APPROACH | | + + + + | 2022-04-23 00:00 | INTRODUCTION OF HORMONE | [facility] | | | INTO FEM REPROD, VIA | | | | OPENING | | + + + + | 2022-04-23 00:00 | INTRODUCTION OF ANESTHETIC | [facility] | | | INTO SPINAL CANAL, PERC | | | | APPROACH | | + + + + | 2022-03-03 00:00 | MONITORING OF POC, CARDIAC | [facility] | | | ELECTR ACTIVITY, WATER TEAM LEADER | | | | APPROACH | | + + + + | 2022-03-29 00:00 | MONITORING OF POC, CARDIAC | [facility] | | | ELECTR ACTIVITY, WATER TEAM LEADER | | | | APPROACH | | + + + + | 2022-03-21 00:00 | MONITORING OF POC, CARDIAC | [facility] | | | RATE, WATER TEAM LEADER APPROACH | | + + + + | 2022-04-07 00:00 | MONITORING OF POC, CARDIAC | [facility] | | | RATE, WATER TEAM LEADER APPROACH | | + + + + Results/Labs +--------+--------+ +---------+--------+---------+ | test | date | facility | value | unit | notes | +--------+--------+ +---------+--------+---------+ + + | Result panel 1 | + + + + + + + + + | | 2022-01-31 | [facility] | YELLOW | (missing) | (missing) | | (unavailable | 03:20 | [facility] | | | | + + + + + + + + + | Result panel 2 | + + + + + +---------+ + + | | 2022-01-31 | [facility] | CLEAR | (missing) | (missing) | | (unavailable | 03:20 | [facility] | | | | + + + +---------+ + + + + | Result panel 3 | + + + + + + + + + | | 2022-01-31 | [facility] | NEGATIVE | (missing) | (missing) | | (unavailable | 03:20 [facility] | | | | + + + + + + + + + | Result panel 4 | + + + + + + + + + | | 2022-01-31 | [facility] | NEGATIVE | (missing) | (missing) | | (unavailable | 03:20 | [facility] | | | | + + + + + + + + + | Result panel 5 | + + + + + + + + + | | 2022-01-31 | [facility] | NEGATIVE | (missing) | (missing) | | (unavailable | 03:20 | [facility] | | | | + + + + + + + + + | Result panel 6 | + + + + + +---------+ + + | | 2022-01-31 | [facility] | 1.010 | (missing) | (missing) | | (unavailable | 03:20 | [facility] | | | | + + + +---------+ + + + + | Result panel 7 | + + + + + + + + + | | 2022-01-31 | [facility] | NEGATIVE | (missing) | (missing) | | (unavailable | 03:20 | [facility] | | | | + + + + + + + + + | Result panel 8 | + + + + + +-------+ + + | | 2022-01-31 | [facility] | 6.5 | (missing) | (missing) | | (unavailable | 03:20 | [facility] | | | | + + + +-------+ + + + + | Result panel 9 | + + + + + + + + + | | 2022-01-31 | [facility] | NEGATIVE | (missing) | (missing) | | (unavailable | 03:20 | [facility] | | | | + + + + + + + + + | Result panel 10 | + + + + + + + + + | | 2022-01-31 | [facility] | NORMAL | (missing) | (missing) | | (unavailable | 03:20 | [facility] | | | | + + + + + + + + + | Result panel 11 | + + + + + + + + + | | 2022-01-31 | [facility] | NEGATIVE | (missing) | (missing) | | (unavailable | 03:20 | [facility] | | | | + + + + + + + + + | Result panel 12 | + + + + + + + + + | | 2022-01-31 | [facility] | NEGATIVE | (missing) | (missing) | | (unavailable | 03:20 | [facility] | | | | + + + + + + + + + | Result panel 13 | + + + + + +------+ + + | | 2022-01-31 | [facility] | No | (missing) | (missing) | | (unavailable | 03:20 | [facility] | | | | + + + +------+ + + + + | Result panel 14 | + + + + + + + + + | | 2022-01-31 | [facility] | CLEAN CATCH | (missing) | (missing) | | (unavailable | 03:20 | [facility] | | | | + + + + + + + + + | Result panel 15 | + + + + + + + + + | | 2022-01-31 | [facility] | SEE SCANNED | (missing) | (missing) | | (unavailable | 03:48 | [facility] | [facility] | | | | + + + + + + + + + | Result panel 16 | + + + + + +--------+ + + | | 2022-03-21 | [facility] | 61.2 | (missing) | (missing) | | (unavailable | 03:15 | [facility] | | | | + + + +--------+ + + + + | Result panel 17 | + + + + + +--------+ + + | | 2022-03-21 | [facility] | 27.1 | (missing) | (missing) | | (unavailable | 03:15 | [facility] | | | | + + + +--------+ + + + + | Result panel 18 | + + + + + +-------+ + + | | 2022-03-21 | [facility] | 9.7 | (missing) | (missing) | | (unavailable | 03:15 | [facility] | | | | + + + +-------+ + + + + | Result panel 19 | + + + + + +-------+ + + | | 2022-03-21 | [facility] | 1.4 | (missing) | (missing) | | (unavailable | 03:15 | [facility] | | | | + + + +-------+ + + + + | Result panel 20 | + + + + + +-------+ + + | | 2022-03-21 | [facility] | 0.6 | (missing) | (missing) | | (unavailable | 03:15 | [facility] | | | | + + + +-------+ + + + + | Result panel 21 | + + + + + +------+---------+ + | | 2022-04-23 | [facility] | 76 | mg/dL | (missing) | | (unavailable | 11:15 | [facility] | | | | + + + +------+---------+ + + + | Result panel 22 | + + + + + +-----+---------+ + | | 2022-04-23 | [facility] | 9 | mg/dL | (missing) | | (unavailable | 11:15 | [facility] | | | + + + +-----+---------+ + + + | Result panel 23 | + + + + + +--------+---------+ + | | 2022-04-23 | [facility] | 0.66 | mg/dL | (missing) | | (unavailable | 11:15 [facility] | | | + + + +--------+---------+ + + + | Result panel 24 | + + + + + +-------+ + + | | 2022-04-23 | [facility] | 121 | (missing) | (missing) | | (unavailable | 11:15 [facility] | | | + + + +-------+ + + + + | Result panel 25 | + + + + + +---------+ + + | | 2022-04-23 | [facility] | 13.63 | (missing) | (missing) | | (unavailable | 11:15 | [facility] | | | + + + +---------+ + + + + | Result panel 26 | + + + + + +-------+ + + | | 2022-04-23 | [facility] | 137 | (missing) | (missing) | | (unavailable | 11:15 [facility] | | | + + + +-------+ + + + + | Result panel 27 | + + + + + +-------+ + + | | 2022-04-23 | [facility] | 4.1 | (missing) | (missing) | | (unavailable | 11:15 [facility] | | | + + + +-------+ + + + + | Result panel 28 | + + + + + +-------+ + + | | 2022-04-23 | [facility] | 104 | (missing) | (missing) | | (unavailable | 11:15 [facility] | | | + + + +-------+ + + + + | Result panel 29 | + + + + + +------+ + + | | 2022-04-23 | [facility] | 16 | (missing) | (missing) | | (unavailable | 11:15 [facility] | | | + + + +------+ + + + + | Result panel 30 | + + + + + +--------+ + + | | 2022-04-23 | [facility] | 21.1 | (missing) | (missing) | | (unavailable | 11:15 | [facility] | | | + + + +--------+ + + + + | Result panel 31 | + + + + + +-------+---------+ + | | 2022-04-23 | [facility] | 9.4 | mg/dL | (missing) | | (unavailable | 11:15 [facility] | | | + + + +-------+---------+ + + + | Result panel 32 | + + + + + +-------+ + + | | 2022-04-23 | [facility] | 5.9 | (missing) | (missing) | | (unavailable | 11:15 | [facility] | | | + + + +-------+ + + + + | Result panel 33 | + + + + + +-------+ + + | | 2022-04-23 | [facility] | 2.5 | (missing) | (missing) | | (unavailable | 11:15 | [facility] | | | + + + +-------+ + + + + | Result panel 34 | + + + + + +-------+ + + | | 2022-04-23 | [facility] | 3.4 | (missing) | (missing) | | (unavailable | 11:15 [facility] | | | + + + +-------+ + + + + | Result panel 35 | + + + + + +--------+ + + | | 2022-04-23 | [facility] | 0.74 | (missing) | (missing) | | (unavailable | 11:15 | [facility] | | | + + + +--------+ + + + + | Result panel 36 | + + + + + +-------+ + + | | 2022-04-23 | [facility] | 0.3 | (missing) | (missing) | | (unavailable | 11:15 | [facility] | | | + + + +-------+ + + + + | Result panel 37 | + + + + + +------+ + + | | 2022-04-23 | [facility] | 24 | (missing) | (missing) | | (unavailable | 11:15 | [facility] | | | + + + +------+ + + + + | Result panel 38 | + + + + + +------+ + + | | 2022-04-23 | [facility] | 25 | (missing) | (missing) | | (unavailable | 11:15 | [facility] | | | + + + +------+ + + + + | Result panel 39 | + + + + + +-------+ + + | | 2022-04-23 | [facility] | 401 | (missing) | (missing) | | (unavailable | 11:15 | [facility] | | | + + + +-------+ + + + + | Result panel 40 | + + + + + +-----+ + + | | 2022-04-23 | [facility] | B | (missing) | (missing) | | (unavailable | 11:15 | [facility] | | | + + + +-----+ + + + + | Result panel 41 | + + + + + + + + + | | 2022-04-23 | [facility] | POSITIVE | (missing) | (missing) | | (unavailable | 11:15 | [facility] | | | + + + + + + + + + | Result panel 42 | + + + + + + + + + | | 2022-04-23 | [facility] | NEGATIVE | (missing) | (missing) | | (unavailable | 11:15 | [facility] | | | + + + + + + + + + | Result panel 43 | + + + + + + + + + | | 2022-04-23 | [facility] | BLOOD IN | (missing) | (missing) | | (unavailable | 11:15 | [facility] | | | | + + + + + + + + + | Result panel 44 | + + + + + + + + + | | 2022-04-23 | [facility] | NEGATIVE | (missing) | (missing) | | (unavailable | 12:37 | [facility] | | | | + + + + + + + + + | Result panel 45 | + + + + + + + + + | | 2022-04-23 | [facility] | NEGATIVE | (missing) | (missing) | | (unavailable | 12:37 | [facility] | | | + + + + + + + + + | Result panel 46 | + + + + + + + + + | | 2022-04-23 | [facility] | NEGATIVE | (missing) | (missing) | | (unavailable | 12:37 | [facility] | | | | + + + + + + + + + | Result panel 47 | + + + + + + + + + | | 2022-04-23 | [facility] | NEGATIVE | (missing) | (missing) | | (unavailable | 12:37 | [facility] | | | + + + + + + + + + | Result panel 48 | + + + + + + + + + | | 2022-04-23 | [facility] | NEGATIVE | (missing) | (missing) | | (unavailable | 12:50 | [facility] | | | | + + + + + + + + + | Result panel 49 | + + + + + + + + + | | 2022-04-23 | [facility] | NEGATIVE | (missing) | (missing) | | (unavailable | 12:50 | [facility] | | | | + + + + + + + + + | Result panel 50 | + + + + + + + + + | | 2022-04-23 | [facility] | NEGATIVE | (missing) | (missing) | | (unavailable | 12:50 | [facility] | | | + + + + + + + + + | Result panel 51 | + + + + + + + + + | | 2022-04-23 | [facility] | NEGATIVE | (missing) | (missing) | | (unavailable | 12:50 | [facility] | | | | + + + + + + + + + | Result panel 52 | + + + + + + + + + | | 2022-04-23 | [facility] | NEGATIVE | (missing) | (missing) | | (unavailable | 12:50 | [facility] | | | | + + + + + + + + + | Result panel 53 | + + + + + + + + + | | 2022-04-23 | [facility] | NEGATIVE | (missing) | (missing) | | (unavailable | 12:50 | [facility] | | | | + + + + + + + + + | Result panel 54 | + + + + + + + + + | | 2022-04-23 | [facility] | NEGATIVE | (missing) | (missing) | | (unavailable | 12:50 | [facility] | | | | + + + + + + + + + | Result panel 55 | + + + + + + + + + | | 2022-04-23 | [facility] | NEGATIVE | (missing) | (missing) | | (unavailable | 12:50 | [facility] | | | | + + + + + + + + + | Result panel 56 | + + + + + + + + + | | 2022-04-23 | [facility] | NEGATIVE | (missing) | (missing) | | (unavailable | 12:50 | [facility] | | | | + + + + + + + + + | Result panel 57 | + + + + + + + + + | | 2022-04-23 | [facility] | NEGATIVE | (missing) | (missing) | | (unavailable | 12:50 | [facility] | | | | + + + + + + + + + | Result panel 58 | + + + + + + + + + | | 2022-04-23 | [facility] | NEGATIVE | (missing) | (missing) | | (unavailable | 12:50 | [facility] | | | | + + + + + + + + + | Result panel 59 | + + + + + + + + + | | 2022-04-23 | [facility] | NEGATIVE | (missing) | (missing) | | (unavailable | 12:50 | [facility] | | | | + + + + + + + + + | Result panel 60 | + + + + + + + + + | | 2022-04-23 | [facility] | NEGATIVE | (missing) | (missing) | | (unavailable | 12:50 | [facility] | | | | + + + + + + + + + | Result panel 61 | + + + + + +------+ + + | | 2022-04-23 | [facility] | 78 | (missing) | (missing) | | (unavailable | 20:07 | [facility] | | | | + + + +------+ + + + + | Result panel 62 | + + + + + +--------+ + + | | 2022-04-24 | [facility] | 13.0 | (missing) | (missing) | | (unavailable | 05:20 | [facility] | | | + + + +--------+ + + + + | Result panel 63 | + + + + + +--------+ + + | | 2022-04-24 | [facility] | 4.35 | (missing) | (missing) | | (unavailable | 05:20 | [facility] | | | + + + +--------+ + + + + | Result panel 64 | + + + + + +--------+ + + | | 2022-04-24 | [facility] | 11.5 | (missing) | (missing) | | (unavailable | 05:20 | [facility] | | | + + + +--------+ + + + + | Result panel 65 | + + + + + +--------+ + + | | 2022-04-24 | [facility] | 35.5 | (missing) | (missing) | | (unavailable | 05:20 | [facility] | | | + + + +--------+ + + + + | Result panel 66 | + + + + + +--------+ + + | | 2022-04-24 | [facility] | 81.6 | (missing) | (missing) | | (unavailable | 05:20 | [facility] | | | + + + +--------+ + + + + | Result panel 67 | + + + + + +--------+ + + | | 2022-04-24 | [facility] | 26.4 | (missing) | (missing) | | (unavailable | 05:20 | [facility] | | | + + + +--------+ + + + + | Result panel 68 | + + + + + +--------+ + + | | 2022-04-24 | [facility] | 32.4 | (missing) | (missing) | | (unavailable | 05:20 | [facility] | | | + + + +--------+ + + + + | Result panel 69 | + + + + + +--------+ + + | | 2022-04-24 | [facility] | 17.3 | (missing) | (missing) | | (unavailable | 05:20 | [facility] | | | + + + +--------+ + + + + | Result panel 70 | + + + + + +-------+ + + | | 2022-04-24 | [facility] | 173 | (missing) | (missing) | | (unavailable | 05:20 | [facility] | | | + + + +-------+ + + + + | Result panel 71 | + + + + + + + + + | | 2022-11-02 | [facility] | NEGATIVE | (missing) | (missing) | | (unavailable | 03:35:08 | [facility] | | | | + + + + + + + + + | Result panel 72 | + + + + + + + + + | | 2022-11-02 | [facility] | POSITIVE | (missing) | (missing) | | (unavailable | 03:35:08 | [facility] | | | + + + + + + + + + | Result panel 73 | + + + + + + + + + | | 2022-11-02 | [facility] | NEGATIVE | (missing) | (missing) | | (unavailable | 03:35:08 | [facility] | | | + + + + + + + + + | Result panel 74 | + + + + + + + + + | | 2022-11-02 | [facility] | NEGATIVE | (missing) | (missing) | | (unavailable | 03:35:08 | [facility] | | | + + + + + + + + + | Result panel 75 | + + + + + +-------+ + + | | 2022-11-02 | [facility] | 6.6 | (missing) | (missing) | | (unavailable | 03:48:08 | [facility] | | | + + + +-------+ + + + + | Result panel 76 | + + + + + +--------+ + + | | 2022-11-02 | [facility] | 4.53 | (missing) | (missing) | | (unavailable | 03:48:08 | [facility] | | | + + + +--------+ + + + + | Result panel 77 | + + + + + +--------+ + + | | 2022-11-02 | [facility] | 12.0 | (missing) | (missing) | | (unavailable | 03:48:08 [facility] | | | + + + +--------+ + + + + | Result panel 78 | + + + + + +--------+ + + | | 2022-11-02 | [facility] | 36.5 | (missing) | (missing) | | (unavailable | 03:48:08 | [facility] | | | + + + +--------+ + + + + | Result panel 79 | + + + + + +--------+ + + | | 2022-11-02 | [facility] | 80.6 | (missing) | (missing) | | (unavailable | 03:48:08 [facility] | | | + + + +--------+ + + + + | Result panel 80 | + + + + + +--------+ + + | | 2022-11-02 | [facility] | 26.4 | (missing) | (missing) | | (unavailable | 03:48:08 [facility] | | | + + + +--------+ + + + + | Result panel 81 | + + + + + +--------+ + + | | 2022-11-02 | [facility] | 32.7 | (missing) | (missing) | | (unavailable | 03:48:08 [facility] | | | + + + +--------+ + + + + | Result panel 82 | + + + + + +--------+ + + | | 2022-11-02 | [facility] | 14.8 | (missing) | (missing) | | (unavailable | 03:48:08 [facility] | | | + + + +--------+ + + + + | Result panel 83 | + + + + + +-------+ + + | | 2022-11-02 | [facility] | 281 | (missing) | (missing) | | (unavailable | 03:48:08 [facility] | | | + + + +-------+ + + + + | Result panel 84 | + + + + + +--------+ + + | | 2022-11-02 | [facility] | 68.2 | (missing) | (missing) | | (unavailable | 03:48:08 [facility] | | | + + + +--------+ + + + + | Result panel 85 | + + + + + +--------+ + + | | 2022-11-02 | [facility] | 16.8 | (missing) | (missing) | | (unavailable | 03:48:08 [facility] | | | + + + +--------+ + + + + | Result panel 86 | + + + + + +--------+ + + | | 2022-11-02 | [facility] | 11.8 | (missing) | (missing) | | (unavailable | 03:48:08 [facility] | | | + + + +--------+ + + + + | Result panel 87 | + + + + + +-------+ + + | | 2022-11-02 | [facility] | 2.2 | (missing) | (missing) | | (unavailable | 03:48:08 [facility] | | | + + + +-------+ + + + + | Result panel 88 | + + + + + +-------+ + + | | 2022-11-02 | [facility] | 1.0 | (missing) | (missing) | | (unavailable | 03:48:08 [facility] | | | + + + +-------+ + + + + | Result panel 89 | + + + + + +------+ + + | | 2022-11-02 | [facility] | 66 | (missing) | (missing) | | (unavailable | 03:48:08 [facility] | | | | + + + +------+ + + + + | Result panel 90 | + + + + + +-------+---------+ + | | 2022-11-02 | [facility] | 117 | mg/dL | (missing) | | (unavailable | 03:48:08 [facility] | | | | + + + +-------+---------+ + + + | Result panel 91 | + + + + + +------+---------+ + | | 2022-11-02 | [facility] | 11 | mg/dL | (missing) | | (unavailable | 03:48:08 [facility] | | | | + + + +------+---------+ + + + | Result panel 92 | + + + + + +--------+---------+ + | | 2022-11-02 | [facility] | 0.93 | mg/dL | (missing) | | (unavailable | 03:48:08 [facility] | | | + + + +--------+---------+ + + + | Result panel 93 | + + + + + +------+ + + | | 2022-11-02 | [facility] | 85 | (missing) | (missing) | | (unavailable | 03:48:08 [facility] | | | | + + + +------+ + + + + | Result panel 94 | + + + + + +---------+ + + | | 2022-11-02 | [facility] | 11.82 | (missing) | (missing) | | (unavailable | 03:48:08 [facility] | | | + + + +---------+ + + + + | Result panel 95 | + + + + + +-------+ + + | | 2022-11-02 | [facility] | 140 | (missing) | (missing) | | (unavailable | 03:48:08 [facility] | | | | + + + +-------+ + + + + | Result panel 96 | + + + + + +-------+ + + | | 2022-11-02 | [facility] | 3.4 | (missing) | (missing) | | (unavailable | 03:48:08 [facility] | | | | + + + +-------+ + + + + | Result panel 97 | + + + + + +-------+ + + | | 2022-11-02 | [facility] | 107 | (missing) | (missing) | | (unavailable | 03:48:08 [facility] | | | | + + + +-------+ + + + + | Result panel 98 | + + + + + +------+ + + | | 2022-11-02 | [facility] | 21 | (missing) | (missing) | | (unavailable | 03:48:08 [facility] | | | | + + + +------+ + + + + | Result panel 99 | + + + + + +--------+ + + | | 2022-11-02 | [facility] | 15.4 | (missing) | (missing) | | (unavailable | 03:48:08 [facility] | | | + + + +--------+ + + + + | Result panel 100 | + + + + + +-------+---------+ + | | 2022-11-02 | [facility] | 5.0 | mg/dL | (missing) | | (unavailable | 03:48:08 [facility] | | | + + + +-------+---------+ + + + | Result panel 101 | + + + + + +-------+---------+ + | | 2022-11-02 | [facility] | 8.7 | mg/dL | (missing) | | (unavailable | 03:48:08 [facility] | | | + + + +-------+---------+ + + + | Result panel 102 | + + + + + +-------+---------+ + | | 2022-11-02 | [facility] | 2.0 | mg/dL | (missing) | | (unavailable | 03:48:08 [facility] | | | | + + + +-------+---------+ + + + | Result panel 103 | + + + + + +-------+ + + | | 2022-11-02 | [facility] | 7.3 | (missing) | (missing) | | (unavailable | 03:48:08 [facility] | | | | + + + +-------+ + + + + | Result panel 104 | + + + + + +-------+ + + | | 2022-11-02 | [facility] | 3.3 | (missing) | (missing) | | (unavailable | 03:48:08 [facility] | | | | + + + +-------+ + + + + | Result panel 105 | + + + + + +-------+ + + | | 2022-11-02 | [facility] | 4.0 | (missing) | (missing) | | (unavailable | 03:48:08 [facility] | | | + + + +-------+ + + + + | Result panel 106 | + + + + + +--------+ + + | | 2022-11-02 | [facility] | 0.83 | (missing) | (missing) | | (unavailable | 03:48:08 [facility] | | | + + + +--------+ + + + + | Result panel 107 | + + + + + +-------+ + + | | 2022-11-02 | [facility] | 0.2 | (missing) | (missing) | | (unavailable | 03:48:08 [facility] | | | + + + +-------+ + + + + | Result panel 108 | + + + + + +------+ + + | | 2022-11-02 | [facility] | 12 | (missing) | (missing) | | (unavailable | 03:48:08 [facility] | | | | + + + +------+ + + + + | Result panel 109 | + + + + + +------+ + + | | 2022-11-02 | [facility] | 24 | (missing) | (missing) | | (unavailable | 03:48:08 [facility] | | | + + + +------+ + + + + | Result panel 110 | + + + + + +------+ + + | | 2022-11-02 | [facility] | 86 | (missing) | (missing) | | (unavailable | 03:48:08 [facility] | | | | + + + +------+ + + + + | Result panel 111 | + + + + + +---------+ + + | | 2022-11-02 | [facility] | 1.344 | (missing) | (missing) | | (unavailable | 03:48:08 [facility] | | | | + + + +---------+ + + + + | Result panel 112 | + + + + + + + + + | | 2022-11-02 | [facility] | NEGATIVE | (missing) | (missing) | | (unavailable | 03:48:08 [facility] | | | | + + + + + + + + + | Result panel 113 | + + + + + +-------+---------+ + | | 2022-11-02 | [facility] | 4.8 | mg/dL | (missing) | | (unavailable | 03:48:08 [facility] | | | | + + + +-------+---------+ + + + | Result panel 114 | + + + + + + + + + | | 2022-11-02 | [facility] | YELLOW | (missing) | (missing) | | (unavailable | 03:58:08 [facility] | | | | + + + + + + + + + | Result panel 115 | + + + + + +---------+ + + | | 2022-11-02 | [facility] | CLEAR | (missing) | (missing) | | (unavailable | 03:58:08 [facility] | | | | + + + +---------+ + + + + | Result panel 116 | + + + + + + + + + | | 2022-11-02 | [facility] | NEGATIVE | (missing) | (missing) | | (unavailable | 03:58:08 [facility] | | | | + + + + + + + + + | Result panel 117 | + + + + + + + + + | | 2022-11-02 | [facility] | NEGATIVE | (missing) | (missing) | | (unavailable | 03:58:08 [facility] | | | | + + + + + + + + + | Result panel 118 | + + + + + +---------+ + + | | 2022-11-02 | [facility] | TRACE | (missing) | (missing) | | (unavailable | 03:58:08 [facility] | | | | + + + +---------+ + + + + | Result panel 119 | + + + + + +---------+ + + | | 2022-11-02 | [facility] | 1.025 | (missing) | (missing) | | (unavailable | 03:58:08 [facility] | | | | + + + +---------+ + + + + | Result panel 120 | + + + + + + + + + | | 2022-11-02 | [facility] | NEGATIVE | (missing) | (missing) | | (unavailable | 03:58:08 [facility] | | | | + + + + + + + + + | Result panel 121 | + + + + + +-------+ + + | | 2022-11-02 | [facility] | 6.0 | (missing) | (missing) | | (unavailable | 03:58:08 [facility] | | | | + + + +-------+ + + + + | Result panel 122 | + + + + + + + + + | | 2022-11-02 | [facility] | NEGATIVE | (missing) | (missing) | | (unavailable | 03:58:08 [facility] | | | | + + + + + + + + + | Result panel 123 | + + + + + + + + + | | 2022-11-02 | [facility] | NORMAL | (missing) | (missing) | | (unavailable | 03:58:08 [facility] | | | | + + + + + + + + + | Result panel 124 | + + + + + + + + + | | 2022-11-02 | [facility] | NEGATIVE | (missing) | (missing) | | (unavailable | 03:58:08 [facility] | | | | + + + + + + + + + | Result panel 125 | + + + + + + + + + | | 2022-11-02 | [facility] | NEGATIVE | (missing) | (missing) | | (unavailable | 03:58:08 [facility] | | | | + + + + + + + + + | Result panel 126 | + + + + + + + + + | | 2022-11-02 | [facility] | NEGATIVE | (missing) | (missing) | | (unavailable | 03:58:08 [facility] | | | | + + + + + + + + + | Result panel 127 | + + + + + + + + + | | 2022-11-02 | [facility] | NEGATIVE | (missing) | (missing) | | (unavailable | 03:58:08 [facility] | | | | + + + + + + + + + | Result panel 128 | + + + + + + + + + | | 2022-11-02 | [facility] | NEGATIVE | (missing) | (missing) | | (unavailable | 03:58:08 [facility] | | | | + + + + + + + + + | Result panel 129 | + + + + + + + + + | | 2022-11-02 | [facility] | NEGATIVE | (missing) | (missing) | | (unavailable | 03:58:08 [facility] | | | | + + + + + + + + + | Result panel 130 | + + + + + + + + + | | 2022-11-02 | [facility] | NEGATIVE | (missing) | (missing) | | (unavailable | 03:58:08 | [facility] | | | | + + + + + + + + + | Result panel 131 | + + + + + + + + + | | 2022-11-02 | [facility] | NEGATIVE | (missing) | (missing) | | (unavailable | 03:58:08 | [facility] | | | | + + + + + + + + + | Result panel 132 | + + + + + + + + + | | 2022-11-02 | [facility] | NEGATIVE | (missing) | (missing) | | (unavailable | 03:58:08 | [facility] | | | | + + + + + + + + + | Result panel 133 | + + + + + + + + + | | 2022-11-02 | [facility] | POSITIVE | (missing) | (missing) | | (unavailable | 03:58:08 | [facility] | | | | + + + + + + + + + | Result panel 134 | + + + + + + + + + | | 2022-11-02 | [facility] | NEGATIVE | (missing) | (missing) | | (unavailable | 03:58:08 | [facility] | | | | + + + + + + + + + | Result panel 135 | + + + + + + + + + | | 2022-11-02 | [facility] | NEGATIVE | (missing) | (missing) | | (unavailable | 03:58:08 | [facility] | | | | + + + + + + + + + | Result panel 136 | + + + + + + + + + | | 2022-11-02 | [facility] | NEGATIVE | (missing) | (missing) | | (unavailable | 03:58:08 | [facility] | | | | + + + + + + + + + | Result panel 137 | + + + + + + + + + | | 2022-11-02 | [facility] | NEGATIVE | (missing) | (missing) | | (unavailable | 03:58:08 | [facility] | | | | + + + + + + + + + | Result panel 138 | + + + + + + + + + | | 2022-11-02 | [facility] | NEGATIVE | (missing) | (missing) | | (unavailable | 03:58:08 | [facility] | | | | + + + + + + + + + | Result panel 139 | + + + + + + + + + | | 2023-05-08 | [facility] | NEGATIVE | (missing) | (missing) | | (unavailable | 17:35:07 | [facility] | | | | + + + + + + + + + | Result panel 140 | + + + + + +-------+ + + | | 2023-05-08 | [facility] | 9.6 | (missing) | (missing) | | (unavailable | 17:35:07 | [facility] | | | | + + + +-------+ + + + + | Result panel 141 | + + + + + +--------+ + + | | 2023-05-08 | [facility] | 4.46 | (missing) | (missing) | | (unavailable | 17:35:07 | [facility] | | | | + + + +--------+ + + + + | Result panel 142 | + + + + + +--------+ + + | | 2023-05-08 | [facility] | 11.6 | (missing) | (missing) | | (unavailable | 17:35:07 [facility] | | | | + + + +--------+ + + + + | Result panel 143 | + + + + + +--------+ + + | | 2023-05-08 | [facility] | 35.6 | (missing) | (missing) | | (unavailable | 17:35:07 | [facility] | | | | + + + +--------+ + + + + | Result panel 144 | + + + + + +--------+ + + | | 2023-05-08 | [facility] | 79.8 | (missing) | (missing) | | (unavailable | 17:35:07 | [facility] | | | | + + + +--------+ + + + + | Result panel 145 | + + + + + +--------+ + + | | 2023-05-08 | [facility] | 26.1 | (missing) | (missing) | | (unavailable | 17:35:07 | [facility] | | | | + + + +--------+ + + + + | Result panel 146 | + + + + + +--------+ + + | | 2023-05-08 | [facility] | 32.7 | (missing) | (missing) | | (unavailable | 17:35:07 [facility] | | | | + + + +--------+ + + + + | Result panel 147 | + + + + + +--------+ + + | | 2023-05-08 | [facility] | 15.1 | (missing) | (missing) | | (unavailable | [facility]35:07 [facility] | | | + + + +--------+ + + + + | Result panel 148 | + + + + + +-------+ + + | | 2023-05-08 | [facility] | 335 | (missing) | (missing) | | (unavailable | [facility]:07 [facility] | | | + + + +-------+ + + + + | Result panel 149 | + + + + + +--------+ + + | | 2023-05-08 | [facility] | 66.4 | (missing) | (missing) | | (unavailable | [facility]:07 [facility] | | | + + + +--------+ + + + + | Result panel 150 | + + + + + +--------+ + + | | 2023-05-08 | [facility] | 23.2 | (missing) | (missing) | | (unavailable | [facility]:07 [facility] | | | + + + +--------+ + + + + | Result panel 151 | + + + + + +-------+ + + | | 2023-05-08 | [facility] | 5.3 | (missing) | (missing) | | (unavailable | [facility]:07 [facility] | | | + + + +-------+ + + + + | Result panel 152 | + + + + + +-------+ + + | | 2023-05-08 | [facility] | 3.7 | (missing) | (missing) | | (unavailable | [facility]:07 [facility] | | + + + +-------+ + + + + | Result panel 153 | + + + + + +-------+ + + | | 2023-05-08 | [facility] | 1.4 | (missing) | (missing) | | (unavailable | [facility]:07 [facility] | | | + + + +-------+ + + + + | Result panel 154 | + + + + + +-------+---------+ + | | 2023-05-08 | [facility] | 122 | mg/dL | (missing) | | (unavailable | [facility]35:07 [facility] | | + + + +-------+---------+ + + + | Result panel 155 | + + + + + +------+---------+ + | | 2023-05-08 | [facility] | 11 | mg/dL | (missing) | | (unavailable | [facility]35:07 [facility] | | + + + +------+---------+ + + + | Result panel 156 | + + + + + +--------+---------+ + | | 2023-05-08 | [facility] | 0.80 | mg/dL | (missing) | | (unavailable | [facility]35:07 [facility] | | | + + + +--------+---------+ + + + | Result panel 157 | + + + + + +-------+ + + | | 2023-05-08 | [facility] | 101 | (missing) | (missing) | | (unavailable | [facility]:07 [facility] | | | + + + +-------+ + + + + | Result panel 158 | + + + + + +---------+ + + | | 2023-05-08 | [facility] | 13.75 | (missing) | (missing) | | (unavailable | [facility]:07 [facility] | | | + + + +---------+ + + + + | Result panel 159 | + + + + + +-------+ + + | | 2023-05-08 | [facility] | 142 | (missing) | (missing) | | (unavailable | [facility]:07 [facility] | | | + + + +-------+ + + + + | Result panel 160 | + + + + + +-------+ + + | | 2023-05-08 | [facility] | 3.5 | (missing) | (missing) | | (unavailable | [facility]:07 [facility] | | | + + + +-------+ + + + + | Result panel 161 | + + + + + +-------+ + + | | 2023-05-08 | [facility] | 107 | (missing) | (missing) | | (unavailable | [facility]35:07 [facility] | | | + + + +-------+ + + + + | Result panel 162 | + + + + + +------+ + + | | 2023-05-08 | [facility] | 24 | (missing) | (missing) | | (unavailable | [facility]:07 [facility] | | | + + + +------+ + + + + | Result panel 163 | + + + + + +--------+ + + | | 2023-05-08 | [facility] | 14.5 | (missing) | (missing) | | (unavailable | [facility]:07 [facility] | | + + + +--------+ + + + + | Result panel 164 | + + + + + +-------+---------+ + | | 2023-05-08 | [facility] | 8.9 | mg/dL | (missing) | | (unavailable | [facility]35:07 [facility] | | | + + + +-------+---------+ + + + | Result panel 165 | + + + + + +-------+ + + | | 2023-05-08 | [facility] | 7.6 | (missing) | (missing) | | (unavailable | [facility]:07 [facility] | | | + + + +-------+ + + + + | Result panel 166 | + + + + + +-------+ + + | | 2023-05-08 | [facility] | 3.6 | (missing) | (missing) | | (unavailable | [facility]:07 [facility] | | | + + + +-------+ + + + + | Result panel 167 | + + + + + +-------+ + + | | 2023-05-08 | [facility] | 4.0 | (missing) | (missing) | | (unavailable | [facility]:07 [facility] | | | + + + +-------+ + + + + | Result panel 168 | + + + + + +--------+ + + | | 2023-05-08 | [facility] | 0.90 | (missing) | (missing) | | (unavailable | [facility]35:07 [facility] | | | + + + +--------+ + + + + | Result panel 169 | + + + + + +-------+ + + | | 2023-05-08 | [facility] | 0.3 | (missing) | (missing) | | (unavailable | [facility]:07 [facility] | | + + + +-------+ + + + + | Result panel 170 | + + + + + +------+ + + | | 2023-05-08 | [facility] | 17 | (missing) | (missing) | | (unavailable | [facility]:07 [facility] | | | + + + +------+ + + + + | Result panel 171 | + + + + + +------+ + + | | 2023-05-08 | [facility] | 27 | (missing) | (missing) | | (unavailable | [facility]:07 [facility] | | | + + + +------+ + + + + | Result panel 172 | + + + + + +------+ + + | | 2023-05-08 | [facility] | 75 | (missing) | (missing) | | (unavailable | [facility]:07 [facility] | | | + + + +------+ + + + + | Result panel 173 | + + + + + + + + + | | 2023-05-08 | [facility] | NEGATIVE | (missing) | (missing) | | (unavailable | [facility]:07 [facility] | | | + + + + + + + + + | Result panel 174 | + + + + + +-------+ + + | | 2023-05-18 | [facility] | 8.8 | (missing) | (missing) | | (unavailable | [facility]50:07 [facility] | | | + + + +-------+ + + + + | Result panel 175 | + + + + + +--------+ + + | | 2023-05-18 | [facility] | 4.74 | (missing) | (missing) | | (unavailable | [facility]50:07 [facility] | | | + + + +--------+ + + + + | Result panel 176 | + + + + + +--------+ + + | | 2023-05-18 | [facility] | 12.2 | (missing) | (missing) | | (unavailable | [facility]50:07 [facility] | | | + + + +--------+ + + + + | Result panel 177 | + + + + + +--------+ + + | | 2023-05-18 | [facility] | 38.1 | (missing) | (missing) | | (unavailable | [facility]50:07 [facility] | | | + + + +--------+ + + + + | Result panel 178 | + + + + + +--------+ + + | | 2023-05-18 | [facility] | 80.5 | (missing) | (missing) | | (unavailable | [facility]50:07 [facility] | | | + + + +--------+ + + + + | Result panel 179 | + + + + + +--------+ + + | | 2023-05-18 | [facility] | 25.8 | (missing) | (missing) | | (unavailable | [facility]50:07 [facility] | | + + + +--------+ + + + + | Result panel 180 | + + + + + +--------+ + + | | 2023-05-18 | [facility] | 32.1 | (missing) | (missing) | | (unavailable | [facility]50:07 [facility] | | | + + + +--------+ + + + + | Result panel 181 | + + + + + +--------+ + + | | 2023-05-18 | [facility] | 15.6 | (missing) | (missing) | | (unavailable | [facility]50[facility]07 [facility] | | | + + + +--------+ + + + + | Result panel 182 | + + + + + +-------+ + + | | 2023-05-18 | [facility] | 359 | (missing) | (missing) | | (unavailable | [facility]50:07 [facility] | | + + + +-------+ + + + + | Result panel 183 | + + + + + +--------+ + + | | 2023-05-18 | [facility] | 71.2 | (missing) | (missing) | | (unavailable | [facility]50:07 [facility] | | + + + +--------+ + + + + | Result panel 184 | + + + + + +--------+ + + | | 2023-05-18 | [facility] | 20.1 | (missing) | (missing) | | (unavailable | [facility]50[facility]07 [facility] | | + + + +--------+ + + + + | Result panel 185 | + + + + + +-------+ + + | | 2023-05-18 | [facility] | 5.3 | (missing) | (missing) | | (unavailable | [facility]50:07 [facility] | | + + + +-------+ + + + + | Result panel 186 | + + + + + +-------+ + + | | 2023-05-18 | [facility] | 2.7 | (missing) | (missing) | | (unavailable | [facility]50:07 [facility] | | | + + + +-------+ + + + + | Result panel 187 | + + + + + +-------+ + + | | 2023-05-18 | [facility] | 0.7 | (missing) | (missing) | | (unavailable | [facility]50:07 [facility] | | + + + +-------+ + + + + | Result panel 188 | + + + + + +------+---------+ + | | 2023-05-18 | [facility] | 88 | mg/dL | (missing) | | (unavailable | [facility]50:07 [facility] | | | + + + +------+---------+ + + + | Result panel 189 | + + + + + +-----+---------+ + | | 2023-05-18 | [facility] | 9 | mg/dL | (missing) | | (unavailable | [facility]50:07 [facility] | | + + + +-----+---------+ + + + | Result panel 190 | + + + + + +--------+---------+ + | | 2023-05-18 | [facility] | 0.77 | mg/dL | (missing) | | (unavailable | [facility]50:07 [facility] | | + + + +--------+---------+ + + + | Result panel 191 | + + + + + +-------+ + + | | 2023-05-18 | [facility] | 106 | (missing) | (missing) | | (unavailable | [facility]50:07 [facility] | | | + + + +-------+ + + + + | Result panel 192 | + + + + + +---------+ + + | | 2023-05-18 | [facility] | 11.68 | (missing) | (missing) | | (unavailable | [facility]50:07 [facility] | | + + + +---------+ + + + + | Result panel 193 | + + + + + +-------+ + + | | 2023-05-18 | [facility] | 138 | (missing) | (missing) | | (unavailable | [facility]50:07 [facility] | | | + + + +-------+ + + + + | Result panel 194 | + + + + + +-------+ + + | | 2023-05-18 | [facility] | 3.6 | (missing) | (missing) | | (unavailable | [facility]50:07 [facility] | | + + + +-------+ + + + + | Result panel 195 | + + + + + +-------+ + + | | 2023-05-18 | [facility] | 104 | (missing) | (missing) | | (unavailable | [facility]50:07 [facility] | | + + + +-------+ + + + + | Result panel 196 | + + + + + +------+ + + | | 2023-05-18 | [facility] | 21 | (missing) | (missing) | | (unavailable | [facility]50:07 [facility] | | + + + +------+ + + + + | Result panel 197 | + + + + + +--------+ + + | | 2023-05-18 | [facility] | 16.6 | (missing) | (missing) | | (unavailable | [facility]50:07 [facility] | | + + + +--------+ + + + + | Result panel 198 | + + + + + +-------+---------+ + | | 2023-05-18 | [facility] | 9.3 | mg/dL | (missing) | | (unavailable | [facility]50:07 [facility] | | + + + +-------+---------+ + + + | Result panel 199 | + + + + + +-------+ + + | | 2023-05-18 | [facility] | 8.2 | (missing) | (missing) | | (unavailable | [facility]50:07 [facility] | | | + + + +-------+ + + + + | Result panel 200 | + + + + + +-------+ + + | | 2023-05-18 | [facility] | 3.9 | (missing) | (missing) | | (unavailable | [facility]50:07 [facility] | | + + + +-------+ + + + + | Result panel 201 | + + + + + +-------+ + + | | 2023-05-18 | [facility] | 4.3 | (missing) | (missing) | | (unavailable | [facility]50:07 [facility] | | + + + +-------+ + + + + | Result panel 202 | + + + + + +--------+ + + | | 2023-05-18 | [facility] | 0.91 | (missing) | (missing) | | (unavailable | [facility]50:07 [facility] | | + + + +--------+ + + + + | Result panel 203 | + + + + + +-------+ + + | | 2023-05-18 | [facility] | 0.5 | (missing) | (missing) | | (unavailable | [facility]50[facility]07 [facility] | | | + + + +-------+ + + + + | Result panel 204 | + + + + + +------+ + + | | 2023-05-18 | [facility] | 17 | (missing) | (missing) | | (unavailable | [facility]50:07 [facility] | | | + + + +------+ + + + + | Result panel 205 | + + + + + +------+ + + | | 2023-05-18 | [facility] | 24 | (missing) | (missing) | | (unavailable | [facility]50:07 [facility] | | | + + + +------+ + + + + | Result panel 206 | + + + + + +------+ + + | | 2023-05-18 | [facility] | 79 | (missing) | (missing) | | (unavailable | [facility]50:07 [facility] | | | + + + +------+ + + + + | Result panel 207 | + + + + + +--------+ + + | | 2023-05-20 | [facility] | 10.1 | (missing) | (missing) | | (unavailable | [facility]06:07 [facility] | | + + + +--------+ + + + + | Result panel 208 | + + + + + +--------+ + + | | 2023-05-20 | [facility] | 4.65 | (missing) | (missing) | | (unavailable | 18::07 [facility] | | | + + + +--------+ + + + + | Result panel 209 | + + + + + +--------+ + + | | 2023-05-20 | [facility] | 12.1 | (missing) | (missing) | | (unavailable | [facility]06:07 [facility] | | | + + + +--------+ + + + + | Result panel 210 | + + + + + +--------+ + + | | 2023-05-20 | [facility] | 37.6 | (missing) | (missing) | | (unavailable | 18::07 [facility] | | | + + + +--------+ + + + + | Result panel 211 | + + + + + +--------+ + + | | 2023-05-20 | [facility] | 80.8 | (missing) | (missing) | | (unavailable | [facility]06:07 [facility] | | | + + + +--------+ + + + + | Result panel 212 | + + + + + +--------+ + + | | 2023-05-20 | [facility] | 26.1 | (missing) | (missing) | | (unavailable | [facility]06:07 [facility] | | + + + +--------+ + + + + | Result panel 213 | + + + + + +--------+ + + | | 2023-05-20 | [facility] | 32.3 | (missing) | (missing) | | (unavailable | [facility]06:07 [facility] | | + + + +--------+ + + + + | Result panel 214 | + + + + + +--------+ + + | | 2023-05-20 | [facility] | 15.3 | (missing) | (missing) | | (unavailable | [facility]06:07 [facility] | | + + + +--------+ + + + + | Result panel 215 | + + + + + +-------+ + + | | 2023-05-20 | [facility] | 358 | (missing) | (missing) | | (unavailable | [facility]06:07 [facility] | | + + + +-------+ + + + + | Result panel 216 | + + + + + +--------+ + + | | 2023-05-20 | [facility] | 72.2 | (missing) | (missing) | | (unavailable | [facility]06:07 [facility] | | + + + +--------+ + + + + | Result panel 217 | + + + + + +--------+ + + | | 2023-05-20 | [facility] | 18.7 | (missing) | (missing) | | (unavailable | [facility]:07 [facility] | | + + + +--------+ + + + + | Result panel 218 | + + + + + +-------+ + + | | 2023-05-20 | [facility] | 5.1 | (missing) | (missing) | | (unavailable | [facility]::07 [facility] | | | | + + + +-------+ + + + + | Result panel 219 | + + + + + +-------+ + + | | 2023-05-20 | [facility] | 3.3 | (missing) | (missing) | | (unavailable | [facility]:07 [facility] | | | + + + +-------+ + + + + | Result panel 220 | + + + + + +-------+ + + | | 2023-05-20 | [facility] | 0.7 | (missing) | (missing) | | (unavailable | [facility]06:07 [facility] | | | + + + +-------+ + + + + | Result panel 221 | + + + + + +-------+---------+ + | | 2023-05-20 | [facility] | 108 | mg/dL | (missing) | | (unavailable | [facility]06:07 [facility] | | | + + + +-------+---------+ + + + | Result panel 222 | + + + + + +------+---------+ + | | 2023-05-20 | [facility] | 10 | mg/dL | (missing) | | (unavailable | [facility]06:07 [facility] | | | + + + +------+---------+ + + + | Result panel 223 | + + + + + +--------+---------+ + | | 2023-05-20 | [facility] | 1.04 | mg/dL | (missing) | | (unavailable | [facility]06:07 [facility] | | | + + + +--------+---------+ + + + | Result panel 224 | + + + + + +------+ + + | | 2023-05-20 | [facility] | 74 | (missing) | (missing) | | (unavailable | [facility]06:07 [facility] | | | + + + +------+ + + + + | Result panel 225 | + + + + + +--------+ + + | | 2023-05-20 | [facility] | 9.61 | (missing) | (missing) | | (unavailable | [facility]:07 [facility] | | + + + +--------+ + + + + | Result panel 226 | + + + + + +-------+ + + | | 2023-05-20 | [facility] | 138 | (missing) | (missing) | | (unavailable | [facility]06:07 [facility] | | | + + + +-------+ + + + + | Result panel 227 | + + + + + +-------+ + + | | 2023-05-20 | [facility] | 3.4 | (missing) | (missing) | | (unavailable | [facility]06:07 [facility] | | | + + + +-------+ + + + + | Result panel 228 | + + + + + +-------+ + + | | 2023-05-20 | [facility] | 103 | (missing) | (missing) | | (unavailable | 18::07 [facility] | | | + + + +-------+ + + + + | Result panel 229 | + + + + + +------+ + + | | 2023-05-20 | [facility] | 25 | (missing) | (missing) | | (unavailable | [facility]06:07 [facility] | | | + + + +------+ + + + + | Result panel 230 | + + + + + +--------+ + + | | 2023-05-20 | [facility] | 13.4 | (missing) | (missing) | | (unavailable | [facility]06:07 [facility] | | | + + + +--------+ + + + + | Result panel 231 | + + + + + +-------+---------+ + | | 2023-05-20 | [facility] | 9.3 | mg/dL | (missing) | | (unavailable | [facility]06:07 [facility] | | | + + + +-------+---------+ + + + | Result panel 232 | + + + + + +-------+ + + | | 2023-05-20 | [facility] | 8.0 | (missing) | (missing) | | (unavailable | [facility]06:07 [facility] | | | + + + +-------+ + + + + | Result panel 233 | + + + + + +-------+ + + | | 2023-05-20 | [facility] | 3.9 | (missing) | (missing) | | (unavailable | [facility]06:07 [facility] | | | + + + +-------+ + + + + | Result panel 234 | + + + + + +-------+ + + | | 2023-05-20 | [facility] | 4.1 | (missing) | (missing) | | (unavailable | [facility]06:07 [facility] | | | + + + +-------+ + + + + | Result panel 235 | + + + + + +--------+ + + | | 2023-05-20 | [facility] | 0.95 | (missing) | (missing) | | (unavailable | [facility]06[facility]07 [facility] | | | + + + +--------+ + + + + | Result panel 236 | + + + + + +-------+ + + | | 2023-05-20 | [facility] | 0.4 | (missing) | (missing) | | (unavailable | [facility]06[facility]07 [facility] | | | + + + +-------+ + + + + | Result panel 237 | + + + + + +------+ + + | | 2023-05-20 | [facility] | 11 | (missing) | (missing) | | (unavailable | [facility]06[facility]07 [facility] | | | + + + +------+ + + + + | Result panel 238 | + + + + + +------+ + + | | 2023-05-20 | [facility] | 23 | (missing) | (missing) | | (unavailable | [facility]06:07 [facility] | | | + + + +------+ + + + + | Result panel 239 | + + + + + +------+ + + | | 2023-05-20 | [facility] | 78 | (missing) | (missing) | | (unavailable | 18::07 [facility] | | | + + + +------+ + + + + | Result panel 240 | + + + + + +--------+ + + | | 2023-05-20 | [facility] | 10.1 | (missing) | (missing) | | (unavailable | 18::07 [facility] | | | + + + +--------+ + + + + | Result panel 241 | + + + + + +--------+ + + | | 2023-05-20 | [facility] | 4.65 | (missing) | (missing) | | (unavailable | 18:: [facility] | | | + + + +--------+ + + + + | Result panel 242 | + + + + + +--------+ + + | | 2023-05-20 | [facility] | 12.1 | (missing) | (missing) | | (unavailable | 18::07 [facility] | | | + + + +--------+ + + + + | Result panel 243 | + + + + + +--------+ + + | | 2023-05-20 | [facility] | 37.6 | (missing) | (missing) | | (unavailable | 18::07 [facility] | | | + + + +--------+ + + + + | Result panel 244 | + + + + + +--------+ + + | | 2023-05-20 | [facility] | 80.8 | (missing) | (missing) | | (unavailable | 18::07 [facility] | | | + + + +--------+ + + + + | Result panel 245 | + + + + + +--------+ + + | | 2023-05-20 | [facility] | 26.1 | (missing) | (missing) | | (unavailable | 18::07 [facility] | | | + + + +--------+ + + + + | Result panel 246 | + + + + + +--------+ + + | | 2023-05-20 | [facility] | 32.3 | (missing) | (missing) | | (unavailable | 18::07 [facility] | | | + + + +--------+ + + + + | Result panel 247 | + + + + + +--------+ + + | | 2023-05-20 | [facility] | 15.3 | (missing) | (missing) | | (unavailable | 18::07 [facility] | | | + + + +--------+ + + + + | Result panel 248 | + + + + + +-------+ + + | | 2023-05-20 | [facility] | 358 | (missing) | (missing) | | (unavailable | [facility]06:07 [facility] | | | + + + +-------+ + + + + | Result panel 249 | + + + + + +--------+ + + | | 2023-05-20 | [facility] | 72.2 | (missing) | (missing) | | (unavailable | 18::07 [facility] | | | + + + +--------+ + + + + | Result panel 250 | + + + + + +--------+ + + | | 2023-05-20 | [facility] | 18.7 | (missing) | (missing) | | (unavailable | 18::07 [facility] | | | + + + +--------+ + + + + | Result panel 251 | + + + + + +-------+ + + | | 2023-05-20 | [facility] | 5.1 | (missing) | (missing) | | (unavailable | [facility]06:07 [facility] | | | + + + +-------+ + + + + | Result panel 252 | + + + + + +-------+ + + | | 2023-05-20 | [facility] | 3.3 | (missing) | (missing) | | (unavailable | [facility]06:07 [facility] | | | + + + +-------+ + + + + | Result panel 253 | + + + + + +-------+ + + | | 2023-05-20 | [facility] | 0.7 | (missing) | (missing) | | (unavailable | 18:06:07 | [facility] | | | | + + + +-------+ + + + + | Result panel 254 | + + + + + +-------+---------+ + | | 2023-05-20 | [facility] | 108 | mg/dL | (missing) | | (unavailable | 18:06:07 [facility] | | | | + + + +-------+---------+ + + + | Result panel 255 | + + + + + +------+---------+ + | | 2023-05-20 | [facility] | 10 | mg/dL | (missing) | | (unavailable | 18:06:07 [facility] | | | | + + + +------+---------+ + + + | Result panel 256 | + + + + + +--------+---------+ + | | 2023-05-20 | [facility] | 1.04 | mg/dL | (missing) | | (unavailable | 18:06:07 [facility] | | | | + + + +--------+---------+ + + + | Result panel 257 | + + + + + +------+ + + | | 2023-05-20 | [facility] | 74 | (missing) | (missing) | | (unavailable | 18:06:07 [facility] | | | | + + + +------+ + + + + | Result panel 258 | + + + + + +--------+ + + | | 2023-05-20 | [facility] | 9.61 | (missing) | (missing) | | (unavailable | 18:06:07 [facility] | | | | + + + +--------+ + + + + | Result panel 259 | + + + + + +-------+ + + | | 2023-05-20 | [facility] | 138 | (missing) | (missing) | | (unavailable | 18:06:07 [facility] | | | | + + + +-------+ + + + + | Result panel 260 | + + + + + +-------+ + + | | 2023-05-20 | [facility] | 3.4 | (missing) | (missing) | | (unavailable | 18:06:07 [facility] | | | | + + + +-------+ + + + + | Result panel 261 | + + + + + +-------+ + + | | 2023-05-20 | [facility] | 103 | (missing) | (missing) | | (unavailable | 18:06:07 [facility] | | | | + + + +-------+ + + + + | Result panel 262 | + + + + + +------+ + + | | 2023-05-20 | [facility] | 25 | (missing) | (missing) | | (unavailable | 18:06:07 [facility] | | | | + + + +------+ + + + + | Result panel 263 | + + + + + +--------+ + + | | 2023-05-20 | [facility] | 13.4 | (missing) | (missing) | | (unavailable | 18::07 | [facility] | | | | + + + +--------+ + + + + | Result panel 264 | + + + + + +-------+---------+ + | | 2023-05-20 | [facility] | 9.3 | mg/dL | (missing) | | (unavailable | 18:06:07 [facility] | | | | + + + +-------+---------+ + + + | Result panel 265 | + + + + + +-------+ + + | | 2023-05-20 | [facility] | 8.0 | (missing) | (missing) | | (unavailable | 18::07 [facility] | | | | + + + +-------+ + + + + | Result panel 266 | + + + + + +-------+ + + | | 2023-05-20 | [facility] | 3.9 | (missing) | (missing) | | (unavailable | 18:06:07 [facility] | | | | + + + +-------+ + + + + | Result panel 267 | + + + + + +-------+ + + | | 2023-05-20 | [facility] | 4.1 | (missing) | (missing) | | (unavailable | 18:06:07 [facility] | | | | + + + +-------+ + + + + | Result panel 268 | + + + + + +--------+ + + | | 2023-05-20 | [facility] | 0.95 | (missing) | (missing) | | (unavailable | 18:06:07 [facility] | | | | + + + +--------+ + + + + | Result panel 269 | + + + + + +-------+ + + | | 2023-05-20 | [facility] | 0.4 | (missing) | (missing) | | (unavailable | 18:06:07 [facility] | | | + + + +-------+ + + + + | Result panel 270 | + + + + + +------+ + + | | 2023-05-20 | [facility] | 11 | (missing) | (missing) | | (unavailable | [facility]06:07 [facility] | | | + + + +------+ + + + + | Result panel 271 | + + + + + +------+ + + | | 2023-05-20 | [facility] | 23 | (missing) | (missing) | | (unavailable | 18::07 [facility] | | | + + + +------+ + + + + | Result panel 272 | + + + + + +------+ + + | | 2023-05-20 | [facility] | 78 | (missing) | (missing) | | (unavailable | [facility]06:07 [facility] | | | + + + +------+ + + + + | Result panel 273 | + + + + + + + + + | | 2023-05-20 | [facility] | YELLOW | (missing) | (missing) | | (unavailable | 20[facility]15:07 [facility] | | | + + + + + + + + + | Result panel 274 | + + + + + +---------+ + + | | 2023-05-20 | [facility] | CLEAR | (missing) | (missing) | | (unavailable | 20:15:07 [facility] | | | + + + +---------+ + + + + | Result panel 275 | + + + + + + + + + | | 2023-05-20 | [facility] | NEGATIVE | (missing) | (missing) | | (unavailable | 20[facility]15:07 [facility] | | | + + + + + + + + + | Result panel 276 | + + + + + + + + + | | 2023-05-20 | [facility] | NEGATIVE | (missing) | (missing) | | (unavailable | 20[facility]15:07 [facility] | | | + + + + + + + + + | Result panel 277 | + + + + + + + + + | | 2023-05-20 | [facility] | NEGATIVE | (missing) | (missing) | | (unavailable | 20[facility]15:07 [facility] | | | + + + + + + + + + | Result panel 278 | + + + + + + + + + | | 2023-05-20 | [facility] | <=1.005 | (missing) | (missing) | | (unavailable | 20[facility]15:07 [facility] | | | + + + + + + + + + | Result panel 279 | + + + + + + + + + | | 2023-05-20 | [facility] | NEGATIVE | (missing) | (missing) | | (unavailable | 20[facility]15:07 [facility] | | | + + + + + + + + + | Result panel 280 | + + + + + +-------+ + + | | 2023-05-20 | [facility] | 6.5 | (missing) | (missing) | | (unavailable | [facility]15:07 [facility] | | | + + + +-------+ + + + + | Result panel 281 | + + + + + + + + + | | 2023-05-20 | [facility] | NEGATIVE | (missing) | (missing) | | (unavailable | 20[facility]15:07 [facility] | | | + + + + + + + + + | Result panel 282 | + + + + + + + + + | | 2023-05-20 | [facility] | NORMAL | (missing) | (missing) | | (unavailable | 20::07 [facility] | | | + + + + + + + + + | Result panel 283 | + + + + + + + + + | | 2023-05-20 | [facility] | NEGATIVE | (missing) | (missing) | | (unavailable | [facility]15:07 [facility] | | | + + + + + + + + + | Result panel 284 | + + + + + + + + + | | 2023-05-20 | [facility] | NEGATIVE | (missing) | (missing) | | (unavailable | [facility]15:07 [facility] | | | + + + + + + + + + | Result panel 285 | + + + + + + + + + | | 2023-05-20 | [facility] | NEGATIVE | (missing) | (missing) | | (unavailable | 20[facility]15:07 [facility] | | | + + + + + + + + + | Result panel 286 | + + + + + + + + + | | 2023-05-20 | [facility] | YELLOW | (missing) | (missing) | | (unavailable | 20[facility]15:07 [facility] | | | + + + + + + + + + | Result panel 287 | + + + + + +---------+ + + | | 2023-05-20 | [facility] | CLEAR | (missing) | (missing) | | (unavailable | 20[facility]15:07 [facility] | | | + + + +---------+ + + + + | Result panel 288 | + + + + + + + + + | | 2023-05-20 | [facility] | NEGATIVE | (missing) | (missing) | | (unavailable | [facility]15:07 [facility] | | | + + + + + + + + + | Result panel 289 | + + + + + + + + + | | 2023-05-20 | [facility] | NEGATIVE | (missing) | (missing) | | (unavailable | 20[facility]15:07 [facility] | | | + + + + + + + + + | Result panel 290 | + + + + + + + + + | | 2023-05-20 | [facility] | NEGATIVE | (missing) | (missing) | | (unavailable | 20[facility]15:07 [facility] | | | + + + + + + + + + | Result panel 291 | + + + + + + + + + | | 2023-05-20 | [facility] | <=1.005 | (missing) | (missing) | | (unavailable | [facility]15:07 [facility] | | | + + + + + + + + + | Result panel 292 | + + + + + + + + + | | 2023-05-20 | [facility] | NEGATIVE | (missing) | (missing) | | (unavailable | [facility]15:07 [facility] | | | + + + + + + + + + | Result panel 293 | + + + + + +-------+ + + | | 2023-05-20 | [facility] | 6.5 | (missing) | (missing) | | (unavailable | 20:15:07 [facility] | | | + + + +-------+ + + + + | Result panel 294 | + + + + + + + + + | | 2023-05-20 | [facility] | NEGATIVE | (missing) | (missing) | | (unavailable | [facility]15:07 [facility] | | | + + + + + + + + + | Result panel 295 | + + + + + + + + + | | 2023-05-20 | [facility] | NORMAL | (missing) | (missing) | | (unavailable | 20[facility]15:07 [facility] | | | + + + + + + + + + | Result panel 296 | + + + + + + + + + | | 2023-05-20 | [facility] | NEGATIVE | (missing) | (missing) | | (unavailable | [facility]15:07 [facility] | | | + + + + + + + + + | Result panel 297 | + + + + + + + + + | | 2023-05-20 | [facility] | NEGATIVE | (missing) | (missing) | | (unavailable | 20[facility]15:07 [facility] | | | + + + + + + + + + | Result panel 298 | + + + + + + + + + | | 2023-05-20 | [facility] | NEGATIVE | (missing) | (missing) | | (unavailable | 20[facility]15:07 [facility] | | | + + + + + + + + + | Result panel 299 | + + + + + +-------+ + + | | 2023-06-24 | [facility] | 8.2 | (missing) | (missing) | | (unavailable | 10:07:07 [facility] | | | + + + +-------+ + + + + | Result panel 300 | + + + + + + + + + | | 2023-06-24 | [facility] | SEE COMMENT | (missing) | (missing) | | (unavailable | 10:07:07 [facility] | | | + + + + + + + + + | Result panel 301 | + + + + + +--------+ + + | | 2023-06-24 | [facility] | 4.67 | (missing) | (missing) | | (unavailable | 10[facility]07:07 [facility] | | | + + + +--------+ + + + + | Result panel 302 | + + + + + +--------+ + + | | 2023-06-24 | [facility] | 12.1 | (missing) | (missing) | | (unavailable | [facility]07:07 [facility] | | | + + + +--------+ + + + + | Result panel 303 | + + + + + +--------+ + + | | 2023-06-24 | [facility] | 37.7 | (missing) | (missing) | | (unavailable | 10[facility]07:07 [facility] | | | + + + +--------+ + + + + | Result panel 304 | + + + + + +--------+ + + | | 2023-06-24 | [facility] | 80.8 | (missing) | (missing) | | (unavailable | 10[facility]07:07 [facility] | | + + + +--------+ + + + + | Result panel 305 | + + + + + +--------+ + + | | 2023-06-24 | [facility] | 26.0 | (missing) | (missing) | | (unavailable | 10[facility]07:07 [facility] | | + + + +--------+ + + + + | Result panel 306 | + + + + + +--------+ + + | | 2023-06-24 | [facility] | 32.2 | (missing) | (missing) | | (unavailable | 10[facility]07:07 [facility] | | + + + +--------+ + + + + | Result panel 307 | + + + + + +--------+ + + | | 2023-06-24 | [facility] | 15.1 | (missing) | (missing) | | (unavailable | [facility]07:07 [facility] | | + + + +--------+ + + + + | Result panel 308 | + + + + + +-------+ + + | | 2023-06-24 | [facility] | 313 | (missing) | (missing) | | (unavailable | 10[facility]07:07 [facility] | | + + + +-------+ + + + + | Result panel 309 | + + + + + +--------+ + + | | 2023-06-24 | [facility] | 66.7 | (missing) | (missing) | | (unavailable | 10[facility]07:07 [facility] | | + + + +--------+ + + + + | Result panel 310 | + + + + + +--------+ + + | | 2023-06-24 | [facility] | 20.0 | (missing) | (missing) | | (unavailable | [facility]07:07 [facility] | | + + + +--------+ + + + + | Result panel 311 | + + + + + +-------+ + + | | 2023-06-24 | [facility] | 5.8 | (missing) | (missing) | | (unavailable | 10[facility]07:07 [facility] | | + + + +-------+ + + + + | Result panel 312 | + + + + + +-------+ + + | | 2023-06-24 | [facility] | 6.2 | (missing) | (missing) | | (unavailable | [facility]07:07 [facility] | | + + + +-------+ + + + + | Result panel 313 | + + + + + +-------+ + + | | 2023-06-24 | [facility] | 1.3 | (missing) | (missing) | | (unavailable | 10[facility]07:07 [facility] | | + + + +-------+ + + + + | Result panel 314 | + + + + + +-------+---------+ + | | 2023-06-24 | [facility] | 130 | mg/dL | (missing) | | (unavailable | 10:07:07 [facility] | | | + + + +-------+---------+ + + + | Result panel 315 | + + + + + +-------+ + + | | 2023-06-24 | [facility] | 125 | (missing) | (missing) | | (unavailable | 10[facility]07:07 [facility] | | + + + +-------+ + + + + | Result panel 316 | + + + + + +------+---------+ + | | 2023-06-24 | [facility] | 13 | mg/dL | (missing) | | (unavailable | 10[facility]07:07 [facility] | | | + + + +------+---------+ + + + | Result panel 317 | + + + + + +--------+---------+ + | | 2023-06-24 | [facility] | 0.89 | mg/dL | (missing) | | (unavailable | [facility]07:07 [facility] | | + + + +--------+---------+ + + + | Result panel 318 | + + + + + +------+ + + | | 2023-06-24 | [facility] | 89 | (missing) | (missing) | | (unavailable | 10[facility]07:07 [facility] | | | + + + +------+ + + + + | Result panel 319 | + + + + + +---------+ + + | | 2023-06-24 | [facility] | 14.60 | (missing) | (missing) | | (unavailable | [facility]07:07 [facility] | | + + + +---------+ + + + + | Result panel 320 | + + + + + +-------+ + + | | 2023-06-24 | [facility] | 139 | (missing) | (missing) | | (unavailable | 10[facility]07:07 [facility] | | + + + +-------+ + + + + | Result panel 321 | + + + + + +-------+ + + | | 2023-06-24 | [facility] | 3.7 | (missing) | (missing) | | (unavailable | 10[facility]07:07 [facility] | | + + + +-------+ + + + + | Result panel 322 | + + + + + +-------+ + + | | 2023-06-24 | [facility] | 103 | (missing) | (missing) | | (unavailable | [facility]07:07 [facility] | | + + + +-------+ + + + + | Result panel 323 | + + + + + +------+ + + | | 2023-06-24 | [facility] | 22 | (missing) | (missing) | | (unavailable | [facility]07:07 [facility] | | | + + + +------+ + + + + | Result panel 324 | + + + + + +--------+ + + | | 2023-06-24 | [facility] | 17.7 | (missing) | (missing) | | (unavailable | [facility]07:07 [facility] | | + + + +--------+ + + + + | Result panel 325 | + + + + + +-------+---------+ + | | 2023-06-24 | [facility] | 9.6 | mg/dL | (missing) | | (unavailable | [facility]:07:07 [facility] | | + + + +-------+---------+ + + + | Result panel 326 | + + + + + +-------+ + + | | 2023-06-24 | [facility] | 8.0 | (missing) | (missing) | | (unavailable | [facility]07:07 [facility] | | + + + +-------+ + + + + | Result panel 327 | + + + + + +-------+ + + | | 2023-06-24 | [facility] | 3.9 | (missing) | (missing) | | (unavailable | 10[facility]07:07 [facility] | | + + + +-------+ + + + + | Result panel 328 | + + + + + +-------+ + + | | 2023-06-24 | [facility] | 4.1 | (missing) | (missing) | | (unavailable | 10::07 [facility] | | | + + + +-------+ + + + + | Result panel 329 | + + + + + +--------+ + + | | 2023-06-24 | [facility] | 0.95 | (missing) | (missing) | | (unavailable | [facility]07:07 [facility] | | + + + +--------+ + + + + | Result panel 330 | + + + + + +-------+ + + | | 2023-06-24 | [facility] | 0.2 | (missing) | (missing) | | (unavailable | 10::07 [facility] | | | + + + +-------+ + + + + | Result panel 331 | + + + + + +------+ + + | | 2023-06-24 | [facility] | 17 | (missing) | (missing) | | (unavailable | 10[facility]07:07 [facility] | | | + + + +------+ + + + + | Result panel 332 | + + + + + +------+ + + | | 2023-06-24 | [facility] | 23 | (missing) | (missing) | | (unavailable | 10[facility]07:07 [facility] | | | + + + +------+ + + + + | Result panel 333 | + + + + + +------+ + + | | 2023-06-24 | [facility] | 85 | (missing) | (missing) | | (unavailable | 10[facility]07:07 [facility] | | | + + + +------+ + + + + | Result panel 334 | + + + + + + + + + | | 2023-06-24 | [facility] | NEGATIVE | (missing) | (missing) | | (unavailable | [facility]07:07 [facility] | | | + + + + + + + + + | Result panel 335 | + + + + + + + + + | | 2023-06-24 | [facility] | SEE COMMENT | (missing) | (missing) | | (unavailable | [facility]07:07 [facility] | | | + + + + + + + + + | Result panel 336 | + + + + + +-------+ + + | | 2023-06-24 | [facility] | 125 | (missing) | (missing) | | (unavailable | 10:07:07 [facility] | | | + + + +-------+ + + + + | Result panel 337 | + + + + + +-------+ + + | | 2023-06-24 | [facility] | 8.0 | (missing) | (missing) | | (unavailable | [facility]07:07 [facility] | | | + + + +-------+ + + + + | Result panel 338 | + + + + + +-------+ + + | | 2023-06-24 | [facility] | 3.9 | (missing) | (missing) | | (unavailable | [facility]07:07 [facility] | | | + + + +-------+ + + + + | Result panel 339 | + + + + + +-------+ + + | | 2023-06-24 | [facility] | 4.1 | (missing) | (missing) | | (unavailable | [facility]07:07 [facility] | | | + + + +-------+ + + + + | Result panel 340 | + + + + + +--------+ + + | | 2023-06-24 | [facility] | 0.95 | (missing) | (missing) | | (unavailable | [facility]07:07 [facility] | | + + + +--------+ + + + + | Result panel 341 | + + + + + +-------+ + + | | 2023-06-24 | [facility] | 0.2 | (missing) | (missing) | | (unavailable | [facility]07:07 [facility] | | + + + +-------+ + + + + | Result panel 342 | + + + + + +------+ + + | | 2023-06-24 | [facility] | 17 | (missing) | (missing) | | (unavailable | 10[facility]07:07 [facility] | | | + + + +------+ + + + + | Result panel 343 | + + + + + +------+ + + | | 2023-06-24 | [facility] | 23 | (missing) | (missing) | | (unavailable | 10:07:07 [facility] | | | + + + +------+ + + + + | Result panel 344 | + + + + + +------+ + + | | 2023-06-24 | [facility] | 85 | (missing) | (missing) | | (unavailable | 10[facility]07:07 [facility] | | | + + + +------+ + + + + | Result panel 345 | + + + + + + + + + | | 2023-06-24 | [facility] | NEGATIVE | (missing) | (missing) | | (unavailable | [facility]07:07 [facility] | | | + + + + + + + + + | Result panel 346 | + + + + + + + + + | | 2023-06-24 | [facility] | SEE COMMENT | (missing) | (missing) | | (unavailable | [facility]07:07 [facility] | | | + + + + + + + + + | Result panel 347 | + + + + + +-------+ + + | | 2023-06-24 | [facility] | 125 | (missing) | (missing) | | (unavailable | 10:07:07 [facility] | | | + + + +-------+ + + + + | Result panel 348 | + + + + + +-------+ + + | | 2023-06-24 | [facility] | 8.0 | (missing) | (missing) | | (unavailable | [facility]07:07 [facility] | | | + + + +-------+ + + + + | Result panel 349 | + + + + + +-------+ + + | | 2023-06-24 | [facility] | 3.9 | (missing) | (missing) | | (unavailable | [facility]07:07 [facility] | | | + + + +-------+ + + + + | Result panel 350 | + + + + + +-------+ + + | | 2023-06-24 | [facility] | 4.1 | (missing) | (missing) | | (unavailable | 10[facility]07:07 [facility] | | | | + + + +-------+ + + + + | Result panel 351 | + + + + + +--------+ + + | | 2023-06-24 | [facility] | 0.95 | (missing) | (missing) | | (unavailable | [facility]07:07 [facility] | | | + + + +--------+ + + + + | Result panel 352 | + + + + + +-------+ + + | | 2023-06-24 | [facility] | 0.2 | (missing) | (missing) | | (unavailable | [facility]07:07 [facility] | | | + + + +-------+ + + + + | Result panel 353 | + + + + + +------+ + + | | 2023-06-24 | [facility] | 17 | (missing) | (missing) | | (unavailable | 10[facility]07:07 [facility] | | | + + + +------+ + + + + | Result panel 354 | + + + + + +------+ + + | | 2023-06-24 | [facility] | 23 | (missing) | (missing) | | (unavailable | [facility]07:07 [facility] | | | + + + +------+ + + + + | Result panel 355 | + + + + + +------+ + + | | 2023-06-24 | [facility] | 85 | (missing) | (missing) | | (unavailable | 10[facility]07:07 [facility] | | | + + + +------+ + + + + | Result panel 356 | + + + + + + + + + | | 2023-06-24 | [facility] | NEGATIVE | (missing) | (missing) | | (unavailable | [facility]07:07 [facility] | | | + + + + + + + + + | Result panel 357 | + + + + + +-------+ + + | | 2023-06-24 | [facility] | 1.4 | (missing) | (missing) | | (unavailable | 10:20:07 [facility] | | | + + + +-------+ + + + + | Result panel 358 | + + + + + +------+ + + | | 2023-06-24 | [facility] | 27 | (missing) | (missing) | | (unavailable | 10:20:07 [facility] | | | + + + +------+ + + + + | Result panel 359 | + + + + + +-------+ + + | | 2023-06-24 | [facility] | 1.4 | (missing) | (missing) | | (unavailable | 10:20:07 [facility] | | | + + + +-------+ + + + + | Result panel 360 | + + + + + +------+ + + | | 2023-06-24 | [facility] | 27 | (missing) | (missing) | | (unavailable | 10:20:07 [facility] | | | + + + +------+ + + + + | Result panel 361 | + + + + + + + + + | | 2023-06-24 | [facility] | YELLOW | (missing) | (missing) | | (unavailable | 10:46:07 [facility] | | | + + + + + + + + + | Result panel 362 | + + + + + +---------+ + + | | 2023-06-24 | [facility] | CLEAR | (missing) | (missing) | | (unavailable | 10:46:07 [facility] | | | + + + +---------+ + + + + | Result panel 363 | + + + + + + + + + | | 2023-06-24 | [facility] | NEGATIVE | (missing) | (missing) | | (unavailable | 10:46:07 [facility] | | | + + + + + + + + + | Result panel 364 | + + + + + + + + + | | 2023-06-24 | [facility] | NEGATIVE | (missing) | (missing) | | (unavailable | 10:46:07 [facility] | | | + + + + + + + + + | Result panel 365 | + + + + + + + + + | | 2023-06-24 | [facility] | NEGATIVE | (missing) | (missing) | | (unavailable | 10:46:07 [facility] | | | + + + + + + + + + | Result panel 366 | + + + + + +---------+ + + | | 2023-06-24 | [facility] | 1.010 | (missing) | (missing) | | (unavailable | 10:46:07 [facility] | | | + + + +---------+ + + + + | Result panel 367 | + + + + + + + + + | | 2023-06-24 | [facility] | NEGATIVE | (missing) | (missing) | | (unavailable | 10:46:07 [facility] | | | + + + + + + + + + | Result panel 368 | + + + + + +-------+ + + | | 2023-06-24 | [facility] | 6.0 | (missing) | (missing) | | (unavailable | 10:46:07 [facility] | | | + + + +-------+ + + + + | Result panel 369 | + + + + + + + + + | | 2023-06-24 | [facility] | NEGATIVE | (missing) | (missing) | | (unavailable | 10[facility]46:07 [facility] | | | + + + + + + + + + | Result panel 370 | + + + + + + + + + | | 2023-06-24 | [facility] | NORMAL | (missing) | (missing) | | (unavailable | 10:46:07 [facility] | | | + + + + + + + + + | Result panel 371 | + + + + + + + + + | | 2023-06-24 | [facility] | NEGATIVE | (missing) | (missing) | | (unavailable | 10:46:07 [facility] | | | + + + + + + + + + | Result panel 372 | + + + + + + + + + | | 2023-06-24 | [facility] | NEGATIVE | (missing) | (missing) | | (unavailable | 10:46:07 [facility] | | | + + + + + + + + + | Result panel 373 | + + + + + +-------+ + + | | 2023-06-24 | [facility] | 0-1 | (missing) | (missing) | | (unavailable | [facility]46:07 [facility] | | | + + + +-------+ + + + + | Result panel 374 | + + + + + +-------+ + + | | 2023-06-24 | [facility] | 0-1 | (missing) | (missing) | | (unavailable | 10:46:07 [facility] | | | + + + +-------+ + + + + | Result panel 375 | + + + + + + + + + | | 2023-06-24 | [facility] | SQUAMOUS 4+ | (missing) | (missing) | | (unavailable | 10:46:07 [facility] | | | + + + + + + + + + | Result panel 376 | + + + + + + + + + | | 2023-06-24 | [facility] | NONE SEEN | (missing) | (missing) | | (unavailable | 10:46:07 [facility] | | | | + + + + + + + + + | Result panel 377 | + + + + + + + + + | | 2023-06-24 | [facility] | NONE SEEN | (missing) | (missing) | | (unavailable | 10:46:07 [facility] | | | | + + + + + + + + + | Result panel 378 | + + + + + + + + + | | 2023-06-24 | [facility] | NONE SEEN | (missing) | (missing) | | (unavailable | 10:46:07 [facility] | | | | + + + + + + + + + | Result panel 379 | + + + + + +------+ + + | | 2023-06-24 | [facility] | No | (missing) | (missing) | | (unavailable | 10:46:07 [facility] | | | | + + + +------+ + + + + | Result panel 380 | + + + + + + + + + | | 2023-06-24 | [facility] | CLEAN CATCH | (missing) | (missing) | | (unavailable | 10:46:07 [facility] | | | | + + + + + + + + + | Result panel 381 | + + + + + + + + + | | 2023-06-24 | [facility] | YELLOW | (missing) | (missing) | | (unavailable | 10:46:07 [facility] | | | | + + + + + + + + + | Result panel 382 | + + + + + +---------+ + + | | 2023-06-24 | [facility] | CLEAR | (missing) | (missing) | | (unavailable | 10:46:07 [facility] | | | | + + + +---------+ + + + + | Result panel 383 | + + + + + + + + + | | 2023-06-24 | [facility] | NEGATIVE | (missing) | (missing) | | (unavailable | 10:46:07 [facility] | | | | + + + + + + + + + | Result panel 384 | + + + + + + + + + | | 2023-06-24 | [facility] | NEGATIVE | (missing) | (missing) | | (unavailable | 10:46:07 [facility] | | | | + + + + + + + + + | Result panel 385 | + + + + + + + + + | | 2023-06-24 | [facility] | NEGATIVE | (missing) | (missing) | | (unavailable | 10:46:07 [facility] | | | | + + + + + + + + + | Result panel 386 | + + + + + +---------+ + + | | 2023-06-24 | [facility] | 1.010 | (missing) | (missing) | | (unavailable | 10:46:07 [facility] | | | | + + + +---------+ + + + + | Result panel 387 | + + + + + + + + + | | 2023-06-24 | [facility] | NEGATIVE | (missing) | (missing) | | (unavailable | 10:46:07 [facility] | | | | + + + + + + + + + | Result panel 388 | + + + + + +-------+ + + | | 2023-06-24 | [facility] | 6.0 | (missing) | (missing) | | (unavailable | 10:46:07 [facility] | | | | + + + +-------+ + + + + | Result panel 389 | + + + + + + + + + | | 2023-06-24 | [facility] | NEGATIVE | (missing) | (missing) | | (unavailable | 10:46:07 [facility] | | | | + + + + + + + + + | Result panel 390 | + + + + + + + + + | | 2023-06-24 | [facility] | NORMAL | (missing) | (missing) | | (unavailable | 10:46:07 [facility] | | | | + + + + + + + + + | Result panel 391 | + + + + + + + + + | | 2023-06-24 | [facility] | NEGATIVE | (missing) | (missing) | | (unavailable | 10:46:07 [facility] | | | | + + + + + + + + + | Result panel 392 | + + + + + + + + + | | 2023-06-24 | [facility] | NEGATIVE | (missing) | (missing) | | (unavailable | 10:46:07 [facility] | | | | + + + + + + + + + | Result panel 393 | + + + + + +-------+ + + | | 2023-06-24 | [facility] | 0-1 | (missing) | (missing) | | (unavailable | 10:46:07 [facility] | | | | + + + +-------+ + + + + | Result panel 394 | + + + + + +-------+ + + | | 2023-06-24 | [facility] | 0-1 | (missing) | (missing) | | (unavailable | 10:46:07 [facility] | | | | + + + +-------+ + + + + | Result panel 395 | + + + + + + + + + | | 2023-06-24 | [facility] | SQUAMOUS 4+ | (missing) | (missing) | | (unavailable | [facility]:46:07 [facility] | | | | + + + + + + + + + | Result panel 396 | + + + + + + + + + | | 2023-06-24 | [facility] | NONE SEEN | (missing) | (missing) | | (unavailable | [facility]:46:07 [facility] | | | + + + + + + + + + | Result panel 397 | + + + + + + + + + | | 2023-06-24 | [facility] | NONE SEEN | (missing) | (missing) | | (unavailable | [facility]46:07 [facility] | | | + + + + + + + + + | Result panel 398 | + + + + + + + + + | | 2023-06-24 | [facility] | NONE SEEN | (missing) | (missing) | | (unavailable | [facility]46:07 [facility] | | | + + + + + + + + + | Result panel 399 | + + + + + +------+ + + | | 2023-06-24 | [facility] | No | (missing) | (missing) | | (unavailable | 10:46:07 [facility] | | | + + + +------+ + + + + | Result panel 400 | + + + + + + + + + | | 2023-06-24 | [facility] | CLEAN CATCH | (missing) | (missing) | | (unavailable | [facility]:46:07 [facility] | | | + + + + + + + + + | Result panel 401 | + + + + + + + + + | | 2023-06-24 | [facility] | YELLOW | (missing) | (missing) | | (unavailable | 10:46:07 [facility] | | | + + + + + + + + + | Result panel 402 | + + + + + +---------+ + + | | 2023-06-24 | [facility] | CLEAR | (missing) | (missing) | | (unavailable | 10:46:07 [facility] | | | + + + +---------+ + + + + | Result panel 403 | + + + + + + + + + | | 2023-06-24 | [facility] | NEGATIVE | (missing) | (missing) | | (unavailable | [facility]:46:07 [facility] | | | + + + + + + + + + | Result panel 404 | + + + + + + + + + | | 2023-06-24 | [facility] | NEGATIVE | (missing) | (missing) | | (unavailable | 10:46:07 [facility] | | | + + + + + + + + + | Result panel 405 | + + + + + + + + + | | 2023-06-24 | [facility] | NEGATIVE | (missing) | (missing) | | (unavailable | 10:46:07 [facility] | | | + + + + + + + + + | Result panel 406 | + + + + + +---------+ + + | | 2023-06-24 | [facility] | 1.010 | (missing) | (missing) | | (unavailable | 10:46:07 [facility] | | | + + + +---------+ + + + + | Result panel 407 | + + + + + + + + + | | 2023-06-24 | [facility] | NEGATIVE | (missing) | (missing) | | (unavailable | 10:46:07 [facility] | | | + + + + + + + + + | Result panel 408 | + + + + + +-------+ + + | | 2023-06-24 | [facility] | 6.0 | (missing) | (missing) | | (unavailable | 10:46:07 [facility] | | | + + + +-------+ + + + + | Result panel 409 | + + + + + + + + + | | 2023-06-24 | [facility] | NEGATIVE | (missing) | (missing) | | (unavailable | 10:46:07 [facility] | | | + + + + + + + + + | Result panel 410 | + + + + + + + + + | | 2023-06-24 | [facility] | NORMAL | (missing) | (missing) | | (unavailable | 10:46:07 [facility] | | | + + + + + + + + + | Result panel 411 | + + + + + + + + + | | 2023-06-24 | [facility] | NEGATIVE | (missing) | (missing) | | (unavailable | 10:46:07 [facility] | | | + + + + + + + + + | Result panel 412 | + + + + + + + + + | | 2023-06-24 | [facility] | NEGATIVE | (missing) | (missing) | | (unavailable | 10:46:07 [facility] | | | + + + + + + + + + | Result panel 413 | + + + + + +-------+ + + | | 2023-06-24 | [facility] | 0-1 | (missing) | (missing) | | (unavailable | 10:46:07 [facility] | | | + + + +-------+ + + + + | Result panel 414 | + + + + + +-------+ + + | | 2023-06-24 | [facility] | 0-1 | (missing) | (missing) | | (unavailable | 10:46:07 [facility] | | | + + + +-------+ + + + + | Result panel 415 | + + + + + + + + + | | 2023-06-24 | [facility] | SQUAMOUS 4+ | (missing) | (missing) | | (unavailable | 10:46:07 [facility] | | | + + + + + + + + + | Result panel 416 | + + + + + + + + + | | 2023-06-24 | [facility] | NONE SEEN | (missing) | (missing) | | (unavailable | 10:46:07 [facility] | | | + + + + + + + + + | Result panel 417 | + + + + + + + + + | | 2023-06-24 | [facility] | NONE SEEN | (missing) | (missing) | | (unavailable | 10:46:07 [facility] | | | + + + + + + + + + | Result panel 418 | + + + + + + + + + | | 2023-06-24 | [facility] | NONE SEEN | (missing) | (missing) | | (unavailable | 10:46:07 [facility] | | | + + + + + + + + + | Result panel 419 | + + + + + +------+ + + | | 2023-06-24 | [facility] | No | (missing) | (missing) | | (unavailable | 10[facility]46:07 [facility] | | | + + + +------+ + + + + | Result panel 420 | + + + + + + + + + | | 2023-06-24 | [facility] | CLEAN CATCH | (missing) | (missing) | | (unavailable | 10:46:07 [facility] | | | + + + + + + + + + | Result panel 421 | + + + + + +-------+ + + | | 2023-07-03 | [facility] | 9.8 | (missing) | (missing) | | (unavailable | 15:51:07 [facility] | | | + + + +-------+ + + + + | Result panel 422 | + + + + + +--------+ + + | | 2023-07-03 | [facility] | 68.5 | (missing) | (missing) | | (unavailable | 15:51:07 [facility] | | | + + + +--------+ + + + + | Result panel 423 | + + + + + +-------+ + + | | 2023-07-03 | [facility] | 374 | (missing) | (missing) | | (unavailable | 15:51:07 [facility] | | | + + + +-------+ + + + + | Result panel 424 | + + + + + +--------+ + + | | 2023-07-03 | [facility] | 68.5 | (missing) | (missing) | | (unavailable | 15:51:07 [facility] | | | + + + +--------+ + + + + | Result panel 425 | + + + + + +--------+ + + | | 2023-07-03 | [facility] | 19.0 | (missing) | (missing) | | (unavailable | 15:51:07 [facility] | | | + + + +--------+ + + + + | Result panel 426 | + + + + + +-------+ + + | | 2023-07-03 | [facility] | 7.2 | (missing) | (missing) | | (unavailable | 15:51:07 [facility] | | | + + + +-------+ + + + + | Result panel 427 | + + + + + +-------+ + + | | 2023-07-03 | [facility] | 4.6 | (missing) | (missing) | | (unavailable | 15:51:07 [facility] | | | + + + +-------+ + + + + | Result panel 428 | + + + + + +-------+ + + | | 2023-07-03 | [facility] | 0.7 | (missing) | (missing) | | (unavailable | 15:51:07 [facility] | | + + + +-------+ + + + + | Result panel 429 | + + + + + +------+---------+ + | | 2023-07-03 | [facility] | 94 | mg/dL | (missing) | | (unavailable | 15:51:07 [facility] | | | + + + +------+---------+ + + + | Result panel 430 | + + + + + +------+---------+ + | | 2023-07-03 | [facility] | 11 | mg/dL | (missing) | | (unavailable | 15:51:07 [facility] | | | + + + +------+---------+ + + + | Result panel 431 | + + + + + +--------+---------+ + | | 2023-07-03 | [facility] | 0.88 | mg/dL | (missing) | | (unavailable | 15:51:07 [facility] | | + + + +--------+---------+ + + + | Result panel 432 | + + + + + +------+ + + | | 2023-07-03 | [facility] | 90 | (missing) | (missing) | | (unavailable | 15:51:07 [facility] | | | + + + +------+ + + + + | Result panel 433 | + + + + + +--------+ + + | | 2023-07-03 | [facility] | 19.0 | (missing) | (missing) | | (unavailable | 15:51:07 [facility] | | + + + +--------+ + + + + | Result panel 434 | + + + + + +---------+ + + | | 2023-07-03 | [facility] | 12.50 | (missing) | (missing) | | (unavailable | 15:51:07 [facility] | | + + + +---------+ + + + + | Result panel 435 | + + + + + +-------+ + + | | 2023-07-03 | [facility] | 142 | (missing) | (missing) | | (unavailable | 15:51:07 [facility] | | + + + +-------+ + + + + | Result panel 436 | + + + + + +-------+ + + | | 2023-07-03 | [facility] | 3.5 | (missing) | (missing) | | (unavailable | 15:51:07 [facility] | | + + + +-------+ + + + + | Result panel 437 | + + + + + +-------+ + + | | 2023-07-03 | [facility] | 107 | (missing) | (missing) | | (unavailable | 15:51:07 [facility] | | + + + +-------+ + + + + | Result panel 438 | + + + + + +------+ + + | | 2023-07-03 | [facility] | 23 | (missing) | (missing) | | (unavailable | 15:51:07 [facility] | | + + + +------+ + + + + | Result panel 439 | + + + + + +--------+ + + | | 2023-07-03 | [facility] | 15.5 | (missing) | (missing) | | (unavailable | 15:51:07 [facility] | | + + + +--------+ + + + + | Result panel 440 | + + + + + +-------+---------+ + | | 2023-07-03 | [facility] | 9.8 | mg/dL | (missing) | | (unavailable | 15:51:07 [facility] | | | + + + +-------+---------+ + + + | Result panel 441 | + + + + + +-------+ + + | | 2023-07-03 | [facility] | 7.2 | (missing) | (missing) | | (unavailable | 15:51:07 [facility] | | + + + +-------+ + + + + | Result panel 442 | + + + + + +-------+ + + | | 2023-07-03 | [facility] | 4.6 | (missing) | (missing) | | (unavailable | 15:51:07 [facility] | | + + + +-------+ + + + + | Result panel 443 | + + + + + +-------+ + + | | 2023-07-03 | [facility] | 0.7 | (missing) | (missing) | | (unavailable | [facility]:51:07 [facility] | | + + + +-------+ + + + + | Result panel 444 | + + + + + +------+---------+ + | | 2023-07-03 | [facility] | 94 | mg/dL | (missing) | | (unavailable | 15:51:07 [facility] | | | + + + +------+---------+ + + + | Result panel 445 | + + + + + +------+---------+ + | | 2023-07-03 | [facility] | 11 | mg/dL | (missing) | | (unavailable | 15:51:07 [facility] | | + + + +------+---------+ + + + | Result panel 446 | + + + + + +--------+---------+ + | | 2023-07-03 | [facility] | 0.88 | mg/dL | (missing) | | (unavailable | 15[facility]51:07 [facility] | | + + + +--------+---------+ + + + | Result panel 447 | + + + + + +------+ + + | | 2023-07-03 | [facility] | 90 | (missing) | (missing) | | (unavailable | 15:51:07 [facility] | | + + + +------+ + + + + | Result panel 448 | + + + + + +---------+ + + | | 2023-07-03 | [facility] | 12.50 | (missing) | (missing) | | (unavailable | 15:51:07 [facility] | | + + + +---------+ + + + + | Result panel 449 | + + + + + +--------+ + + | | 2023-07-03 | [facility] | 4.91 | (missing) | (missing) | | (unavailable | 15:51:07 [facility] | | + + + +--------+ + + + + | Result panel 450 | + + + + + +-------+ + + | | 2023-07-03 | [facility] | 142 | (missing) | (missing) | | (unavailable | 15[facility]51:07 [facility] | | + + + +-------+ + + + + | Result panel 451 | + + + + + +-------+ + + | | 2023-07-03 | [facility] | 3.5 | (missing) | (missing) | | (unavailable | 15:51:07 [facility] | | + + + +-------+ + + + + | Result panel 452 | + + + + + +-------+ + + | | 2023-07-03 | [facility] | 107 | (missing) | (missing) | | (unavailable | 15:51:07 [facility] | | + + + +-------+ + + + + | Result panel 453 | + + + + + +------+ + + | | 2023-07-03 | [facility] | 23 | (missing) | (missing) | | (unavailable | 15[facility]51:07 [facility] | | + + + +------+ + + + + | Result panel 454 | + + + + + +--------+ + + | | 2023-07-03 | [facility] | 15.5 | (missing) | (missing) | | (unavailable | 15:51:07 [facility] | | + + + +--------+ + + + + | Result panel 455 | + + + + + +-------+---------+ + | | 2023-07-03 | [facility] | 9.8 | mg/dL | (missing) | | (unavailable | 15:51:07 [facility] | | | + + + +-------+---------+ + + + | Result panel 456 | + + + + + +--------+ + + | | 2023-07-03 | [facility] | 12.7 | (missing) | (missing) | | (unavailable | 15:51:07 [facility] | | + + + +--------+ + + + + | Result panel 457 | + + + + + +--------+ + + | | 2023-07-03 | [facility] | 39.7 | (missing) | (missing) | | (unavailable | 15:51:07 [facility] | | + + + +--------+ + + + + | Result panel 458 | + + + + + +--------+ + + | | 2023-07-03 | [facility] | 80.8 | (missing) | (missing) | | (unavailable | 15:51:07 [facility] | | + + + +--------+ + + + + | Result panel 459 | + + + + + +--------+ + + | | 2023-07-03 | [facility] | 25.9 | (missing) | (missing) | | (unavailable | 15:51:07 [facility] | | + + + +--------+ + + + + | Result panel 460 | + + + + + +--------+ + + | | 2023-07-03 | [facility] | 32.1 | (missing) | (missing) | | (unavailable | 15:51:07 [facility] | | + + + +--------+ + + + + | Result panel 461 | + + + + + +--------+ + + | | 2023-07-03 | [facility] | 15.0 | (missing) | (missing) | | (unavailable | 15:51:07 [facility] | | + + + +--------+ + + + + | Result panel 462 | + + + + + +-------+ + + | | 2023-07-03 | [facility] | 374 | (missing) | (missing) | | (unavailable | 15:51:07 [facility] | | | + + + +-------+ + + + + | Result panel 463 | + + + + + +-------+ + + | | 2023-07-03 | [facility] | 9.8 | (missing) | (missing) | | (unavailable | 15:51:07 [facility] | | + + + +-------+ + + + + | Result panel 464 | + + + + + +--------+ + + | | 2023-07-03 | [facility] | 4.91 | (missing) | (missing) | | (unavailable | [facility]:51:07 [facility] | | + + + +--------+ + + + + | Result panel 465 | + + + + + +--------+ + + | | 2023-07-03 | [facility] | 12.7 | (missing) | (missing) | | (unavailable | [facility]:51:07 [facility] | | + + + +--------+ + + + + | Result panel 466 | + + + + + +--------+ + + | | 2023-07-03 | [facility] | 39.7 | (missing) | (missing) | | (unavailable | [facility]:51:07 [facility] | | + + + +--------+ + + + + | Result panel 467 | + + + + + +--------+ + + | | 2023-07-03 | [facility] | 80.8 | (missing) | (missing) | | (unavailable | 15:51:07 [facility] | | + + + +--------+ + + + + | Result panel 468 | + + + + + +--------+ + + | | 2023-07-03 | [facility] | 25.9 | (missing) | (missing) | | (unavailable | [facility]:51:07 [facility] | | + + + +--------+ + + + + | Result panel 469 | + + + + + +--------+ + + | | 2023-07-03 | [facility] | 32.1 | (missing) | (missing) | | (unavailable | 15:51:07 [facility] | | + + + +--------+ + + + + | Result panel 470 | + + + + + +--------+ + + | | 2023-07-03 | [facility] | 15.0 | (missing) | (missing) | | (unavailable | [facility]51:07 [facility] | | | + + + +--------+ + + Social History No information. Vital Signs + + + +---------+ | date | measurement | value | units | + + + +---------+ | 2022-01-31 00:00 | BMI | 40.6 | kg/m2 | + + + +---------+ | 2022-01-31 00:00 | BP_diastolic | 68 | mmHg | + + + +---------+ | 2022-01-31 00:00 | BP_systolic | 108 | mmHg | + + + +---------+ | 2022-01-31 00:00 | heart_rate | 98 | /min | + + + +---------+ | 2022-01-31 00:00 | height_metric | 152.4 | cm | + + + +---------+ | 2022-01-31 00:00 | height_standard | 60 | in | + + + +---------+ | 2022-01-31 00:00 | o2_saturation | 97 | % | + + + +---------+ | 2022-01-31 00:00 | respiration_rate | 16 | /min | + + + +---------+ | 2022-01-31 00:00 | temperature_metric | 36.94 | C | | | | | | + + + +---------+ | 2022-01-31 00:00 | | 98.5 | F | | | temperature_standar | | | | | d | | | + + + +---------+ | 2022-01-31 00:00 | weight_metric | 94.35 | kg | + + + +---------+ | 2022-01-31 00:00 | weight_standard | 208 | lb | + + + +---------+ | 2022-03-21 00:00 | BP_diastolic | 60 | mmHg | + + + +---------+ | 2022-03-21 00:00 | BP_systolic | 121 | mmHg | + + + +---------+ | 2022-03-21 00:00 | heart_rate | 107 | /min | + + + +---------+ | 2022-03-21 00:00 | respiration_rate | 22 | /min | + + + +---------+ | 2022-04-22 00:00 | BMI | 38.9 | kg/m2 | + + + +---------+ | 2022-04-22 00:00 | height_metric | 154.94 | cm | + + + +---------+ | 2022-04-22 00:00 | height_standard | 61 | in | + + + +---------+ | 2022-04-22 00:00 | weight_metric | 93.44 | kg | + + + +---------+ | 2022-04-22 00:00 | weight_standard | 206 | lb | + + + +---------+ | 2022-06-23 00:00 | BMI | 36.8 | kg/m2 | + + + +---------+ | 2022-06-23 00:00 | BP_diastolic | 75 | mmHg | + + + +---------+ | 2022-06-23 00:00 | BP_systolic | 115 | mmHg | + + + +---------+ | 2022-06-23 00:00 | heart_rate | 70 | /min | + + + +---------+ | 2022-06-23 00:00 | height_metric | 154.94 | cm | + + + +---------+ | 2022-06-23 00:00 | height_standard | 61 | in | + + + +---------+ | 2022-06-23 00:00 | o2_saturation | 99 | % | + + + +---------+ | 2022-06-23 00:00 | respiration_rate | 18 | /min | + + + +---------+ | 2022-06-23 00:00 | temperature_metric | 37.06 | C | | | | | | + + + +---------+ | 2022-06-23 00:00 | | 98.7 | F | | | temperature_standar | | | | | d | | | + + + +---------+ | 2022-06-23 00:00 | weight_metric | 88.3 | kg | + + + +---------+ | 2022-06-23 00:00 | weight_standard | 194.67 | lb | + + + +---------+ | 2022-10-09 00:00 | BMI | 38.5 | kg/m2 | + + + +---------+ | 2022-10-09 00:00 | BP_diastolic | 79 | mmHg | + + + +---------+ | 2022-10-09 00:00 | BP_systolic | 111 | mmHg | + + + +---------+ | 2022-10-09 00:00 | heart_rate | 70 | /min | + + + +---------+ | 2022-10-09 00:00 | height_metric | 154.94 | cm | + + + +---------+ | 2022-10-09 00:00 | height_standard | 61 | in | + + + +---------+ | 2022-10-09 00:00 | o2_saturation | 99 | % | + + + +---------+ | 2022-10-09 00:00 | respiration_rate | 16 | /min | + + + +---------+ | 2022-10-09 00:00 | temperature_metric | 37 | C | | | | | | + + + +---------+ | 2022-10-09 00:00 | | 98.6 | F | | | temperature_standar | | | | | d | | | + + + +---------+ | 2022-10-09 00:00 | weight_metric | 92.53 | kg | + + + +---------+ | 2022-10-09 00:00 | weight_standard | 203.99 | lb | + + + +---------+ | 2022-10-09 00:00 | weight_standard | 204 | lb | + + + +---------+ | 2022-11-02 00:00 | BMI | 39.3 | kg/m2 | + + + +---------+ | 2022-11-02 00:00 | BP_diastolic | 74 | mmHg | + + + +---------+ | 2022-11-02 00:00 | BP_systolic | 115 | mmHg | + + + +---------+ | 2022-11-02 00:00 | heart_rate | 85 | /min | + + + +---------+ | 2022-11-02 00:00 | height_metric | 154.94 | cm | + + + +---------+ | 2022-11-02 00:00 | height_standard | 61 | in | + + + +---------+ | 2022-11-02 00:00 | o2_saturation | 97 | % | + + + +---------+ | 2022-11-02 00:00 | respiration_rate | 17 | /min | + + + +---------+ | 2022-11-02 00:00 | temperature_metric | 36.83 | C | | | | | | + + + +---------+ | 2022-11-02 00:00 | | 98.3 | F | | | temperature_standar | | | | | d | | | + + + +---------+ | 2022-11-02 00:00 | weight_metric | 94.35 | kg | + + + +---------+ | 2022-11-02 00:00 | weight_standard | 208 | lb | + + + +---------+ | 2022-11-02 00:00 | weight_standard | 208.01 | lb | + + + +---------+ | 2023-01-21 00:00 | BMI | 40.6 | kg/m2 | + + + +---------+ | 2023-01-21 00:00 | BP_diastolic | 57 | mmHg | + + + +---------+ | 2023-01-21 00:00 | BP_systolic | 91 | mmHg | + + + +---------+ | 2023-01-21 00:00 | heart_rate | 68 | /min | + + + +---------+ | 2023-01-21 00:00 | height_metric | 154.94 | cm | + + + +---------+ | 2023-01-21 00:00 | height_standard | 61 | in | + + + +---------+ | 2023-01-21 00:00 | o2_saturation | 98 | % | + + + +---------+ | 2023-01-21 00:00 | respiration_rate | 20 | /min | + + + +---------+ | 2023-01-21 00:00 | temperature_metric | 36.89 | C | | | | | | + + + +---------+ | 2023-01-21 00:00 | | 98.4 | F | | | temperature_standar | | | | | d | | | + + + +---------+ | 2023-01-21 00:00 | weight_metric | 97.52 | kg | + + + +---------+ | 2023-01-21 00:00 | weight_standard | 214.99 | lb | + + + +---------+ | 2023-01-21 00:00 | weight_standard | 215 | lb | + + + +---------+ | 2023-05-08 00:00 | BMI | 45.5 | kg/m2 | + + + +---------+ | 2023-05-08 00:00 | BP_diastolic | 78 | mmHg | + + + +---------+ | 2023-05-08 00:00 | BP_systolic | 149 | mmHg | + + + +---------+ | 2023-05-08 00:00 | heart_rate | 89 | /min | + + + +---------+ | 2023-05-08 00:00 | height_metric | 152.4 | cm | + + + +---------+ | 2023-05-08 00:00 | height_standard | 60 | in | + + + +---------+ | 2023-05-08 00:00 | o2_saturation | 94 | % | + + + +---------+ | 2023-05-08 00:00 | respiration_rate | 17 | /min | + + + +---------+ | 2023-05-08 00:00 | temperature_metric | 37.06 | C | | | | | | + + + +---------+ | 2023-05-08 00:00 | | 98.7 | F | | | temperature_standar | | | | | d | | | + + + +---------+ | 2023-05-08 00:00 | weight_metric | 105.6 | kg | + + + +---------+ | 2023-05-08 00:00 | weight_standard | 232.81 | lb | + + + +---------+ | 2023-05-18 00:00 | BMI | 45.3 | kg/m2 | + + + +---------+ | 2023-05-18 00:00 | BP_diastolic | 74 | mmHg | + + + +---------+ | 2023-05-18 00:00 | BP_systolic | 131 | mmHg | + + + +---------+ | 2023-05-18 00:00 | heart_rate | 66 | /min | + + + +---------+ | 2023-05-18 00:00 | height_metric | 152.4 | cm | + + + +---------+ | 2023-05-18 00:00 | height_standard | 60 | in | + + + +---------+ | 2023-05-18 00:00 | o2_saturation | 100 | % | + + + +---------+ | 2023-05-18 00:00 | respiration_rate | 20 | /min | + + + +---------+ | 2023-05-18 00:00 | temperature_metric | 37.17 | C | | | | | | + + + +---------+ | 2023-05-18 00:00 | | 98.9 | F | | | temperature_standar | | | | | d | | | + + + +---------+ | 2023-05-18 00:00 | weight_metric | 105.23 | kg | + + + +---------+ | 2023-05-18 00:00 | weight_standard | 231.99 | lb | + + + +---------+ | 2023-05-18 00:00 | weight_standard | 232 | lb | + + + +---------+ | 2023-05-20 00:00 | BMI | 45.3 | kg/m2 | + + + +---------+ | 2023-05-20 00:00 | BP_diastolic | 78 | mmHg | + + + +---------+ | 2023-05-20 00:00 | BP_systolic | 128 | mmHg | + + + +---------+ | 2023-05-20 00:00 | heart_rate | 62 | /min | + + + +---------+ | 2023-05-20 00:00 | height_metric | 152.4 | cm | + + + +---------+ | 2023-05-20 00:00 | height_standard | 60 | in | + + + +---------+ | 2023-05-20 00:00 | o2_saturation | 97 | % | + + + +---------+ | 2023-05-20 00:00 | respiration_rate | 16 | /min | + + + +---------+ | 2023-05-20 00:00 | temperature_metric | 37 | C | | | | | | + + + +---------+ | 2023-05-20 00:00 | | 98.6 | F | | | temperature_standar | | | | | d | | | + + + +---------+ | 2023-05-20 00:00 | weight_metric | 105.23 | kg | + + + +---------+ | 2023-05-20 00:00 | weight_standard | 232 | lb | + + + +---------+ | 2023-06-19 00:00 | BMI | 43.9 | kg/m2 | + + + +---------+ | 2023-06-19 00:00 | BP_diastolic | 83 | mmHg | + + + +---------+ | 2023-06-19 00:00 | BP_systolic | 125 | mmHg | + + + +---------+ | 2023-06-19 00:00 | heart_rate | 83 | /min | + + + +---------+ | 2023-06-19 00:00 | height_metric | 152.4 | cm | + + + +---------+ | 2023-06-19 00:00 | height_standard | 60 | in | + + + +---------+ | 2023-06-19 00:00 | o2_saturation | 98 | % | + + + +---------+ | 2023-06-19 00:00 | respiration_rate | 17 | /min | + + + +---------+ | 2023-06-19 00:00 | temperature_metric | 36.89 | C | | | | | | + + + +---------+ | 2023-06-19 00:00 | | 98.4 | F | | | temperature_standar | | | | | d | | | + + + +---------+ | 2023-06-19 00:00 | weight_metric | 102.06 | kg | + + + +---------+ | 2023-06-19 00:00 | weight_standard | 225 | lb | + + + +---------+ | 2023-06-24 00:00 | BMI | 44.1 | kg/m2 | + + + +---------+ | 2023-06-24 00:00 | BP_diastolic | 84 | mmHg | + + + +---------+ | 2023-06-24 00:00 | BP_systolic | 132 | mmHg | + + + +---------+ | 2023-06-24 00:00 | heart_rate | 57 | /min | + + + +---------+ | 2023-06-24 00:00 | height_metric | 152.4 | cm | + + + +---------+ | 2023-06-24 00:00 | height_standard | 60 | in | + + + +---------+ | 2023-06-24 00:00 | o2_saturation | 100 | % | + + + +---------+ | 2023-06-24 00:00 | respiration_rate | 20 | /min | + + + +---------+ | 2023-06-24 00:00 | temperature_metric | 37 | C | | | | | | + + + +---------+ | 2023-06-24 00:00 | | 98.6 | F | | | temperature_standar | | | | | d | | | + + + +---------+ | 2023-06-24 00:00 | weight_metric | 102.4 | kg | + + + +---------+ | 2023-06-24 00:00 | weight_standard | 225.75 | lb | + + + +---------+ | 2023-07-03 00:00 | BMI | 44.1 | kg/m2 | + + + +---------+ | 2023-07-03 00:00 | BP_diastolic | 63 | mmHg | + + + +---------+ | 2023-07-03 00:00 | BP_systolic | 113 | mmHg | + + + +---------+ | 2023-07-03 00:00 | heart_rate | 85 | /min | + + + +---------+ | 2023-07-03 00:00 | height_metric | 152.4 | cm | + + + +---------+ | 2023-07-03 00:00 | height_standard | 60 | in | + + + +---------+ | 2023-07-03 00:00 | o2_saturation | 100 | % | + + + +---------+ | 2023-07-03 00:00 | respiration_rate | 22 | /min | + + + +---------+ | 2023-07-03 00:00 | temperature_metric | 36.83 | C | | | | | | + + + +---------+ | 2023-07-03 00:00 | | 98.3 | F | | | temperature_standar | | | | | d | | | + + + +---------+ | 2023-07-03 00:00 | weight_metric | 102.4 | kg | + + + +---------+ | 2023-07-03 00:00 | weight_standard | 225.75 | lb | + + + +---------+ | 2023-07-13 00:00 | BMI | 44.1 | kg/m2 | + + + +---------+ | 2023-07-13 00:00 | BP_diastolic | 59 | mmHg | + + + +---------+ | 2023-07-13 00:00 | BP_systolic | 107 | mmHg | + + + +---------+ | 2023-07-13 00:00 | heart_rate | 77 | /min | + + + +---------+ | 2023-07-13 00:00 | height_metric | 152.4 | cm | + + + +---------+ | 2023-07-13 00:00 | height_standard | 60 | in | + + + +---------+ | 2023-07-13 00:00 | o2_saturation | 99 | % | + + + +---------+ | 2023-07-13 00:00 | respiration_rate | 21 | /min | + + + +---------+ | 2023-07-13 00:00 | temperature_metric | 36.56 | C | | | | | | + + + +---------+ | 2023-07-13 00:00 | | 97.8 | F | | | temperature_standar | | | | | d | | | + + + +---------+ | 2023-07-13 00:00 | weight_metric | 102.4 | kg | + + + +---------+ | 2023-07-13 00:00 | weight_standard | 225.75 | lb | + + + +---------+"
--- OUTSIDE RECORDS SUMMARY | ~2023-07-21 | XMS | Continuity of Care Document ---
Demographics + + + | Address | [address] | | | [place] [address] | + + + | Preferred Language | Unknown | + + + | Marital Status | | + + + | Faith Affiliation | Unknown | + + + | Race | White | + + + | Ethnic Group | Not or | + + + Author + + + | Author | [facility] | + + + | Organization | [facility] | + + + | Address | [address] | | | [place] [address] | + + + | Phone | | + + + Care Team Providers + + + + | Care Wood Getter Name | Role | Phone | + [...] | (no severity) | | | | [place] | | | | | [facility] | | | + + + + + + Encounters No information. Functional Status No information. Immunizations + + + + | date | description | facility | + + + + | 2016-09-17 00:00 | Tdap | [facility] | + + + + | 2022-06-30 00:00 | Influenza, Injectable, | [facility] | | | Quadrivalent, Preservative | | + + + + | 2022-10-09 00:00 | Influenza, Injectable, | [facility] | | | Quadrivalent, Preservative | | + + + + | 2022-11-02 00:00 | Influenza, Injectable, | [facility] | | | Quadrivalent, Preservative | | + + + + | 2023-01-21 00:00 | Influenza, Injectable, | [facility] | | | Quadrivalent, Preservative | | + + + + | 2023-05-08 00:00 | Influenza, Injectable, | [facility] | | | Quadrivalent, Preservative | | + + + + | 2023-05-18 00:00 | Influenza, Injectable, | [facility] | | | Quadrivalent, Preservative | | + + + + | 2023-05-20 00:00 | Influenza, Injectable, | [facility] | | | Quadrivalent, Preservative | | + + + + | 2023-06-19 00:00 | Influenza, Injectable, | [facility] | | | Quadrivalent, Preservative | | + + + + | 2023-06-24 00:00 | Influenza, Injectable, | [facility] | | | Quadrivalent, Preservative | | + + + + | 2023-07-03 00:00 | Influenza, Injectable, | [facility] | | | Quadrivalent, Preservative | | + + + + | 2023-07-13 00:00 | Influenza, Injectable, | [facility] | | | Quadrivalent, Preservative | | + + + + Medications + + + + | date | description | facility | + + + + | 2022-06-30 00:00 | MEDROXYPROGESTERONE | [facility] | | | ACETATE | | + + + + | 2022-10-09 00:00 | MEDROXYPROGESTERONE | [facility] | | | ACETATE | | + + + + | 2022-11-02 00:00 | MEDROXYPROGESTERONE | [facility] | | | ACETATE | | + + + + | 2023-01-21 00:00 | MEDROXYPROGESTERONE | [facility] | | | ACETATE | | + + + + | 2023-05-08 00:00 | MEDROXYPROGESTERONE | [facility] | | | ACETATE | | + + + + | 2023-05-18 00:00 | MEDROXYPROGESTERONE | [facility] | | | ACETATE | | + + + + | 2023-05-20 00:00 | MEDROXYPROGESTERONE | [facility] | | | ACETATE | | + + + + | 2023-06-19 00:00 | MEDROXYPROGESTERONE | [facility] | | | ACETATE | | + + + + | 2023-06-24 00:00 | MEDROXYPROGESTERONE | [facility] | | | ACETATE | | + + + + | 2023-07-03 00:00 | MEDROXYPROGESTERONE | [facility] | | | ACETATE | | + + + + | 2023-07-13 00:00 | MEDROXYPROGESTERONE | [facility] | | | ACETATE | | + + + + | 2022-06-30 00:00 | DM | [facility] | | | HB/PE/ACETAMINOPHEN/CHLORPH | | | | | | + + + + | 2022-10-09 00:00 | DM | [facility] | | | HB/PE/ACETAMINOPHEN/CHLORPH | | | | | | + + + + | 2022-11-02 00:00 | DM | [facility] | | | HB/PE/ACETAMINOPHEN/CHLORPH | | | | | | + + + + | 2023-01-21 00:00 | DM | [facility] | | | HB/PE/ACETAMINOPHEN/CHLORPH | | | | | | + + + + | 2023-05-08 00:00 | DM | [facility] | | | HB/PE/ACETAMINOPHEN/CHLORPH | | | | | | + + + + | 2023-05-18 00:00 | DM | [facility] | | | HB/PE/ACETAMINOPHEN/CHLORPH | | | | | | + + + + | 2023-05-20 00:00 | DM | [facility] | | | HB/PE/ACETAMINOPHEN/CHLORPH | | | | | | + + + + | 2023-06-19 00:00 | DM | [facility] | | | HB/PE/ACETAMINOPHEN/CHLORPH | | | | | | + + + + | 2023-06-24 00:00 | DM | [facility] | | | HB/PE/ACETAMINOPHEN/CHLORPH | | | | | | + + + + | 2023-07-03 00:00 | DM | [facility] | | | HB/PE/ACETAMINOPHEN/CHLORPH | | | | | | + + + + | 2023-07-13 00:00 | DM | [facility] | | | HB/PE/ACETAMINOPHEN/CHLORPH | | | | | | + + + + | 2020-10-04 00:00 | ONDANSETRON HCL | [facility] | + + + + | 2022-06-30 00:00 | PSEUDOEPHEDRINE HCL | [facility] | + + + + | 2022-10-09 00:00 | PSEUDOEPHEDRINE HCL | [facility] | + + + + | 2022-11-02 00:00 | PSEUDOEPHEDRINE HCL | [facility] | + + + + | 2023-01-21 00:00 | PSEUDOEPHEDRINE HCL | [facility] | + + + + | 2023-05-08 00:00 | PSEUDOEPHEDRINE HCL | [facility] | + + + + | 2023-05-18 00:00 | PSEUDOEPHEDRINE HCL | [facility] | + + + + | 2023-05-20 00:00 | PSEUDOEPHEDRINE HCL | [facility] | + + + + | 2023-06-19 00:00 | PSEUDOEPHEDRINE HCL | [facility] | + + + + | 2023-06-24 00:00 | PSEUDOEPHEDRINE HCL | [facility] | + + + + | 2023-07-03 00:00 | PSEUDOEPHEDRINE HCL | [facility] | + + + + | 2023-07-13 00:00 | PSEUDOEPHEDRINE HCL | [facility] | + + + + | 2022-06-30 00:00 | PSEUDOEPHEDRINE HCL | [facility] | + + + + | 2022-10-09 00:00 | PSEUDOEPHEDRINE HCL | [facility] | + + + + | 2022-11-02 00:00 | PSEUDOEPHEDRINE HCL | [facility] | + + + + | 2023-01-21 00:00 | PSEUDOEPHEDRINE HCL | [facility] | + + + + | 2023-05-08 00:00 | PSEUDOEPHEDRINE HCL | [facility] | + + + + | 2023-05-18 00:00 | PSEUDOEPHEDRINE HCL | [facility] | + + + + | 2023-05-20 00:00 | PSEUDOEPHEDRINE HCL | [facility] | + + + + | 2023-06-19 00:00 | PSEUDOEPHEDRINE HCL | [facility] | + + + + | 2023-06-24 00:00 | PSEUDOEPHEDRINE HCL | [facility] | + + + + | 2023-07-03 00:00 | PSEUDOEPHEDRINE HCL | [facility] | + + + + | 2023-07-13 00:00 | PSEUDOEPHEDRINE HCL | [facility] | + + + + | 2018-08-05 00:00 | OXYCODONE | [facility] | | | HCL/ACETAMINOPHEN | | + + + + | 2018-08-13 00:00 | DIPHENHYDRAMINE HCL | [facility] | + + + + | 2014-12-14 00:00 | GUAIFENESIN/D-METHORPHAN | [facility] | | | HB/PE | | + + + + | 2017-01-01 00:00 | MELOXICAM | [facility] | + + + + | 2022-06-30 00:00 | MELOXICAM | [facility] | + + + + | 2022-10-09 00:00 | MELOXICAM | [facility] | + + + + | 2022-11-02 00:00 | MELOXICAM | [facility] | + + + + | 2023-01-21 00:00 | MELOXICAM | [facility] | + + + + | 2023-05-08 00:00 | MELOXICAM | [facility] | + + + + | 2023-05-18 00:00 | MELOXICAM | [facility] | + + + + | 2023-05-20 00:00 | MELOXICAM | [facility] | + + + + | 2023-06-19 00:00 | MELOXICAM | [facility] | + + + + | 2023-06-24 00:00 | MELOXICAM | [facility] | + + + + | 2023-07-03 00:00 | MELOXICAM | [facility] | + + + + | 2023-07-13 00:00 | MELOXICAM | [facility] | + + + + | 2018-10-27 00:00 | DOXYCYCLINE HYCLATE | [facility] | + + + + | 2020-09-29 00:00 | DOXYCYCLINE HYCLATE | [facility] | + + + + | 2015-09-23 00:00 | FLUTICASONE PROPIONATE | [facility] | + + + + | 2022-06-30 00:00 | EPINEPHRINE | [facility] | + + + + | 2022-10-09 00:00 | EPINEPHRINE | [facility] | + + + + | 2022-11-02 00:00 | EPINEPHRINE | [facility] | + + + + | 2023-01-21 00:00 | EPINEPHRINE | [facility] | + + + + | 2023-05-08 00:00 | EPINEPHRINE | [facility] | + + + + | 2023-05-18 00:00 | EPINEPHRINE | [facility] | + + + + | 2023-05-20 00:00 | EPINEPHRINE | [facility] | + + + + | 2023-06-19 00:00 | EPINEPHRINE | [facility] | + + + + | 2023-06-24 00:00 | EPINEPHRINE | [facility] | + + + + | 2023-07-03 00:00 | EPINEPHRINE | [facility] | + + + + | 2023-07-13 00:00 | EPINEPHRINE | [facility] | + + + + | 2022-06-30 00:00 | ONDANSETRON HCL | [facility] | + + + + | 2022-10-09 00:00 | ONDANSETRON HCL | [facility] | + + + + | 2022-11-02 00:00 | ONDANSETRON HCL | [facility] | + + + + | 2023-01-21 00:00 | ONDANSETRON HCL | [facility] | + + + + | 2023-05-08 00:00 | ONDANSETRON HCL | [facility] | + + + + | 2023-05-18 00:00 | ONDANSETRON HCL | [facility] | + + + + | 2023-05-20 00:00 | ONDANSETRON HCL | [facility] | + + + + | 2023-06-19 00:00 | ONDANSETRON HCL | [facility] | + + + + | 2023-06-24 00:00 | ONDANSETRON HCL | [facility] | + + + + | 2023-07-03 00:00 | ONDANSETRON HCL | [facility] | + + + + | 2023-07-13 00:00 | ONDANSETRON HCL | [facility] | + + + + | 2022-06-30 00:00 | MONTELUKAST SODIUM | [facility] | + + + + | 2022-10-09 00:00 | MONTELUKAST SODIUM | [facility] | + + + + | 2022-11-02 00:00 | MONTELUKAST SODIUM | [facility] | + + + + | 2023-01-21 00:00 | MONTELUKAST SODIUM | [facility] | + + + + | 2023-05-08 00:00 | MONTELUKAST SODIUM | [facility] | + + + + | 2023-05-18 00:00 | MONTELUKAST SODIUM | [facility] | + + + + | 2023-05-20 00:00 | MONTELUKAST SODIUM | [facility] | + + + + | 2023-06-19 00:00 | MONTELUKAST SODIUM | [facility] | + + + + | 2023-06-24 00:00 | MONTELUKAST SODIUM | [facility] | + + + + | 2023-07-03 00:00 | MONTELUKAST SODIUM | [facility] | + + + + | 2023-07-13 00:00 | MONTELUKAST SODIUM | [facility] | + + + + | 2020-09-29 00:00 | Dexamethasone | [facility] | + + + + | 2022-06-30 00:00 | PAROXETINE HCL | [facility] | + + + + | 2022-10-09 00:00 | PAROXETINE HCL | [facility] | + + + + | 2022-11-02 00:00 | PAROXETINE HCL | [facility] | + + + + | 2023-01-21 00:00 | PAROXETINE HCL | [facility] | + + + + | 2023-05-08 00:00 | PAROXETINE HCL | [facility] | + + + + | 2023-05-18 00:00 | PAROXETINE HCL | [facility] | + + + + | 2023-05-20 00:00 | PAROXETINE HCL | [facility] | + + + + | 2023-06-19 00:00 | PAROXETINE HCL | [facility] | + + + + | 2023-06-24 00:00 | PAROXETINE HCL | [facility] | + + + + | 2023-07-03 00:00 | PAROXETINE HCL | [facility] | + + + + | 2023-07-13 00:00 | PAROXETINE HCL | [facility] | + + + + | 2014-12-14 00:00 | AZITHROMYCIN | [facility] | + + + + | 2015-03-22 00:00 | AZITHROMYCIN | [facility] | + + + + | 2022-06-30 00:00 | FOLIC ACID | [facility] | + + + + | 2022-10-09 00:00 | FOLIC ACID | [facility] | + + + + | 2022-11-02 00:00 | FOLIC ACID | [facility] | + + + + | 2023-01-21 00:00 | FOLIC ACID | [facility] | + + + + | 2023-05-08 00:00 | FOLIC ACID | [facility] | + + + + | 2023-05-18 00:00 | FOLIC ACID | [facility] | + + + + | 2023-05-20 00:00 | FOLIC ACID | [facility] | + + + + | 2023-06-19 00:00 | FOLIC ACID | [facility] | + + + + | 2023-06-24 00:00 | FOLIC ACID | [facility] | + + + + | 2023-07-03 00:00 | FOLIC ACID | [facility] | + + + + | 2023-07-13 00:00 | FOLIC ACID | [facility] | + + + + | 2022-11-02 00:00 | OSELTAMIVIR PHOSPHATE | [facility] | + + + + | 2020-01-17 00:00 | LEVETIRACETAM | [facility] | + + + + | 2023-05-18 00:00 | LAMOTRIGINE | [facility] | + + + + | 2023-05-20 00:00 | LAMOTRIGINE | [facility] | + + + + | 2022-06-30 00:00 | LEVETIRACETAM | [facility] | + + + + | 2022-10-09 00:00 | LEVETIRACETAM | [facility] | + + + + | 2022-11-02 00:00 | LEVETIRACETAM | [facility] | + + + + | 2023-01-21 00:00 | LEVETIRACETAM | [facility] | + + + + | 2023-05-08 00:00 | LEVETIRACETAM | [facility] | + + + + | 2023-05-18 00:00 | LEVETIRACETAM | [facility] | + + + + | 2023-05-20 00:00 | LEVETIRACETAM | [facility] | + + + + | 2023-06-19 00:00 | LEVETIRACETAM | [facility] | + + + + | 2023-06-24 00:00 | LEVETIRACETAM | [facility] | + + + + | 2023-07-03 00:00 | LEVETIRACETAM | [facility] | + + + + | 2023-07-13 00:00 | LEVETIRACETAM | [facility] | + + + + | 2022-06-30 00:00 | SUMATRIPTAN SUCCINATE | [facility] | + + + + | 2022-10-09 00:00 | SUMATRIPTAN SUCCINATE | [facility] | + + + + | 2022-11-02 00:00 | SUMATRIPTAN SUCCINATE | [facility] | + + + + | 2023-01-21 00:00 | SUMATRIPTAN SUCCINATE | [facility] | + + + + | 2023-05-08 00:00 | SUMATRIPTAN SUCCINATE | [facility] | + + + + | 2023-05-18 00:00 | SUMATRIPTAN SUCCINATE | [facility] | + + + + | 2023-05-20 00:00 | SUMATRIPTAN SUCCINATE | [facility] | + + + + | 2023-06-19 00:00 | SUMATRIPTAN SUCCINATE | [facility] | + + + + | 2023-06-24 00:00 | SUMATRIPTAN SUCCINATE | [facility] | + + + + | 2023-07-03 00:00 | SUMATRIPTAN SUCCINATE | [facility] | + + + + | 2023-07-13 00:00 | SUMATRIPTAN SUCCINATE | [facility] | + + + + | 2022-06-30 00:00 | AMOXICILLIN | [facility] | + + + + | 2022-10-09 00:00 | AMOXICILLIN | [facility] | + + + + | 2022-11-02 00:00 | AMOXICILLIN | [facility] | + + + + | 2023-01-21 00:00 | AMOXICILLIN | [facility] | + + + + | 2023-05-08 00:00 | AMOXICILLIN | [facility] | + + + + | 2023-05-18 00:00 | AMOXICILLIN | [facility] | + + + + | 2023-05-20 00:00 | AMOXICILLIN | [facility] | + + + + | 2023-06-19 00:00 | AMOXICILLIN | [facility] | + + + + | 2023-06-24 00:00 | AMOXICILLIN | [facility] | + + + + | 2023-07-03 00:00 | AMOXICILLIN | [facility] | + + + + | 2023-07-13 00:00 | AMOXICILLIN | [facility] | + + + + | 2022-06-30 00:00 | AMOXICILLIN | [facility] | + + + + | 2022-10-09 00:00 | AMOXICILLIN | [facility] | + + + + | 2022-11-02 00:00 | AMOXICILLIN | [facility] | + + + + | 2023-01-21 00:00 | AMOXICILLIN | [facility] | + + + + | 2023-05-08 00:00 | AMOXICILLIN | [facility] | + + + + | 2023-05-18 00:00 | AMOXICILLIN | [facility] | + + + + | 2023-05-20 00:00 | AMOXICILLIN | [facility] | + + + + | 2023-06-19 00:00 | AMOXICILLIN | [facility] | + + + + | 2023-06-24 00:00 | AMOXICILLIN | [facility] | + + + + | 2023-07-03 00:00 | AMOXICILLIN | [facility] | + + + + | 2023-07-13 00:00 | AMOXICILLIN | [facility] | + + + + | 2022-06-30 00:00 | METOCLOPRAMIDE HCL | [facility] | + + + + | 2022-10-09 00:00 | METOCLOPRAMIDE HCL | [facility] | + + + + | 2022-11-02 00:00 | METOCLOPRAMIDE HCL | [facility] | + + + + | 2023-01-21 00:00 | METOCLOPRAMIDE HCL | [facility] | + + + + | 2023-05-08 00:00 | METOCLOPRAMIDE HCL | [facility] | + + + + | 2023-05-18 00:00 | METOCLOPRAMIDE HCL | [facility] | + + + + | 2023-05-20 00:00 | METOCLOPRAMIDE HCL | [facility] | + + + + | 2023-06-19 00:00 | METOCLOPRAMIDE HCL | [facility] | + + + + | 2023-06-24 00:00 | METOCLOPRAMIDE HCL | [facility] | + + + + | 2023-07-03 00:00 | METOCLOPRAMIDE HCL | [facility] | + + + + | 2023-07-13 00:00 | METOCLOPRAMIDE HCL | [facility] | + + + + | 2022-10-09 00:00 | Oseltamivir Phosphate | [facility] | + + + + | 2015-12-30 00:00 | predniSONE | [facility] | + + + + | 2022-06-30 00:00 | ASPIRIN | [facility] | + + + + | 2022-10-09 00:00 | ASPIRIN | [facility] | + + + + | 2022-11-02 00:00 | ASPIRIN | [facility] | + + + + | 2023-01-21 00:00 | ASPIRIN | [facility] | + + + + | 2023-05-08 00:00 | ASPIRIN | [facility] | + + + + | 2023-05-18 00:00 | ASPIRIN | [facility] | + + + + | 2023-05-20 00:00 | ASPIRIN | [facility] | + + + + | 2023-06-19 00:00 | ASPIRIN | [facility] | + + + + | 2023-06-24 00:00 | ASPIRIN | [facility] | + + + + | 2023-07-03 00:00 | ASPIRIN | [facility] | + + + + | 2023-07-13 00:00 | ASPIRIN | [facility] | + + + + | 2022-11-02 00:00 | LEVETIRACETAM | [facility] | + + + + | 2023-01-21 00:00 | Pregabalin | [facility] | + + + + | 2023-05-08 00:00 | Pregabalin | [facility] | + + + + | 2023-05-18 00:00 | Pregabalin | [facility] | + + + + | 2023-05-20 00:00 | Pregabalin | [facility] | + + + + | 2023-06-19 00:00 | Pregabalin | [facility] | + + + + | 2023-06-24 00:00 | Pregabalin | [facility] | + + + + | 2023-07-03 00:00 | Pregabalin | [facility] | + + + + | 2023-07-13 00:00 | Pregabalin | [facility] | + + + + | 2022-06-30 00:00 | DULOXETINE HCL | [facility] | + + + + | 2022-10-09 00:00 | DULOXETINE HCL | [facility] | + + + + | 2022-11-02 00:00 | DULOXETINE HCL | [facility] | + + + + | 2023-01-21 00:00 | DULOXETINE HCL | [facility] | + + + + | 2023-05-08 00:00 | DULOXETINE HCL | [facility] | + + + + | 2023-05-18 00:00 | DULOXETINE HCL | [facility] | + + + + | 2023-05-20 00:00 | DULOXETINE HCL | [facility] | + + + + | 2023-06-19 00:00 | DULOXETINE HCL | [facility] | + + + + | 2023-06-24 00:00 | DULOXETINE HCL | [facility] | + + + + | 2023-07-03 00:00 | DULOXETINE HCL | [facility] | + + + + | 2023-07-13 00:00 | DULOXETINE HCL | [facility] | + + + + | 2022-06-30 00:00 | DULOXETINE HCL | [facility] | + + + + | 2022-10-09 00:00 | DULOXETINE HCL | [facility] | + + + + | 2022-11-02 00:00 | DULOXETINE HCL | [facility] | + + + + | 2023-01-21 00:00 | DULOXETINE HCL | [facility] | + + + + | 2023-05-08 00:00 | DULOXETINE HCL | [facility] | + + + + | 2023-05-18 00:00 | DULOXETINE HCL | [facility] | + + + + | 2023-05-20 00:00 | DULOXETINE HCL | [facility] | + + + + | 2023-06-19 00:00 | DULOXETINE HCL | [facility] | + + + + | 2023-06-24 00:00 | DULOXETINE HCL | [facility] | + + + + | 2023-07-03 00:00 | DULOXETINE HCL | [facility] | + + + + | 2023-07-13 00:00 | DULOXETINE HCL | [facility] | + + + + | 2022-06-30 00:00 | DULOXETINE HCL | [facility] | + + + + | 2022-10-09 00:00 | DULOXETINE HCL | [facility] | + + + + | 2022-11-02 00:00 | DULOXETINE HCL | [facility] | + + + + | 2023-01-21 00:00 | DULOXETINE HCL | [facility] | + + + + | 2023-05-08 00:00 | DULOXETINE HCL | [facility] | + + + + | 2023-05-18 00:00 | DULOXETINE HCL | [facility] | + + + + | 2023-05-20 00:00 | DULOXETINE HCL | [facility] | + + + + | 2023-06-19 00:00 | DULOXETINE HCL | [facility] | + + + + | 2023-06-24 00:00 | DULOXETINE HCL | [facility] | + + + + | 2023-07-03 00:00 | DULOXETINE HCL | [facility] | + + + + | 2023-07-13 00:00 | DULOXETINE HCL | [facility] | + + + + | 2021-03-25 00:00 | LEVETIRACETAM | [facility] | + + + + | 2015-09-23 00:00 | AZITHROMYCIN | [facility] | + + + + | 2023-05-20 00:00 | DIAZEPAM | [facility] | + + + + | 2016-06-04 00:00 | CYCLOBENZAPRINE HCL | [facility] | + + + + | 2017-08-14 00:00 | CYCLOBENZAPRINE HCL | [facility] | + + + + | 2023-01-21 00:00 | TRAMADOL HCL | [facility] | + + + + | 2022-06-30 00:00 | | [facility] | | | SULFAMETHOXAZOLE/TRIMETHOPR | | | | IM DS | | + + + + | 2022-10-09 00:00 | | [facility] | | | SULFAMETHOXAZOLE/TRIMETHOPR | | | | IM DS | | + + + + | 2022-11-02 00:00 | | [facility] | | | SULFAMETHOXAZOLE/TRIMETHOPR | | | | IM DS | | + + + + | 2023-01-21 00:00 | | [facility] | | | SULFAMETHOXAZOLE/TRIMETHOPR | | | | IM DS | | + + + + | 2023-05-08 00:00 | | [facility] | | | SULFAMETHOXAZOLE/TRIMETHOPR | | | | IM DS | | + + + + | 2023-05-18 00:00 | | [facility] | | | SULFAMETHOXAZOLE/TRIMETHOPR | | | | IM DS | | + + + + | 2023-05-20 00:00 | | [facility] | | | SULFAMETHOXAZOLE/TRIMETHOPR | | | | IM DS | | + + + + | 2023-06-19 00:00 | | [facility] | | | SULFAMETHOXAZOLE/TRIMETHOPR | | | | IM DS | | + + + + | 2023-06-24 00:00 | | [facility] | | | SULFAMETHOXAZOLE/TRIMETHOPR | | | | IM DS | | + + + + | 2023-07-03 00:00 | | [facility] | | | SULFAMETHOXAZOLE/TRIMETHOPR | | | | IM DS | | + + + + | 2023-07-13 00:00 | | [facility] | | | SULFAMETHOXAZOLE/TRIMETHOPR | | | | IM DS | | + + + + | 2022-06-30 00:00 | ALBUTEROL SULFATE | [facility] | + + + + | 2022-10-09 00:00 | ALBUTEROL SULFATE | [facility] | + + + + | 2022-11-02 00:00 | ALBUTEROL SULFATE | [facility] | + + + + | 2023-01-21 00:00 | ALBUTEROL SULFATE | [facility] | + + + + | 2023-05-08 00:00 | ALBUTEROL SULFATE | [facility] | + + + + | 2023-05-18 00:00 | ALBUTEROL SULFATE | [facility] | + + + + | 2023-05-20 00:00 | ALBUTEROL SULFATE | [facility] | + + + + | 2023-06-19 00:00 | ALBUTEROL SULFATE | [facility] | + + + + | 2023-06-24 00:00 | ALBUTEROL SULFATE | [facility] | + + + + | 2023-07-03 00:00 | ALBUTEROL SULFATE | [facility] | + + + + | 2023-07-13 00:00 | ALBUTEROL SULFATE | [facility] | + + + + | 2022-10-09 00:00 | BUSPIRONE HCL | [facility] | + + + + | 2022-11-02 00:00 | BUSPIRONE HCL | [facility] | + + + + | 2023-01-21 00:00 | BUSPIRONE HCL | [facility] | + + + + | 2023-05-08 00:00 | BUSPIRONE HCL | [facility] | + + + + | 2023-05-18 00:00 | BUSPIRONE HCL | [facility] | + + + + | 2023-05-20 00:00 | BUSPIRONE HCL | [facility] | + + + + | 2023-06-19 00:00 | BUSPIRONE HCL | [facility] | + + + + | 2023-06-24 00:00 | BUSPIRONE HCL | [facility] | + + + + | 2023-07-03 00:00 | BUSPIRONE HCL | [facility] | + + + + | 2023-07-13 00:00 | BUSPIRONE HCL | [facility] | + + + + | 2022-06-30 00:00 | BUSPIRONE HCL | [facility] | + + + + | 2022-10-09 00:00 | BUSPIRONE HCL | [facility] | + + + + | 2022-11-02 00:00 | BUSPIRONE HCL | [facility] | + + + + | 2023-01-21 00:00 | BUSPIRONE HCL | [facility] | + + + + | 2023-05-08 00:00 | BUSPIRONE HCL | [facility] | + + + + | 2023-05-18 00:00 | BUSPIRONE HCL | [facility] | + + + + | 2023-05-20 00:00 | BUSPIRONE HCL | [facility] | + + + + | 2023-06-19 00:00 | BUSPIRONE HCL | [facility] | + + + + | 2023-06-24 00:00 | BUSPIRONE HCL | [facility] | + + + + | 2023-07-03 00:00 | BUSPIRONE HCL | [facility] | + + + + | 2023-07-13 00:00 | BUSPIRONE HCL | [facility] | + + + + | 2022-06-30 00:00 | BUSPIRONE HCL | [facility] | + + + + | 2022-10-09 00:00 | BUSPIRONE HCL | [facility] | + + + + | 2022-11-02 00:00 | BUSPIRONE HCL | [facility] | + + + + | 2023-01-21 00:00 | BUSPIRONE HCL | [facility] | + + + + | 2023-05-08 00:00 | BUSPIRONE HCL | [facility] | + + + + | 2023-05-18 00:00 | BUSPIRONE HCL | [facility] | + + + + | 2023-05-20 00:00 | BUSPIRONE HCL | [facility] | + + + + | 2023-06-19 00:00 | BUSPIRONE HCL | [facility] | + + + + | 2023-06-24 00:00 | BUSPIRONE HCL | [facility] | + + + + | 2023-07-03 00:00 | BUSPIRONE HCL | [facility] | + + + + | 2023-07-13 00:00 | BUSPIRONE HCL | [facility] | + + + + | 2022-06-30 00:00 | BUSPIRONE HCL | [facility] | + + + + | 2022-10-09 00:00 | BUSPIRONE HCL | [facility] | + + + + | 2022-11-02 00:00 | BUSPIRONE HCL | [facility] | + + + + | 2023-01-21 00:00 | BUSPIRONE HCL | [facility] | + + + + | 2023-05-08 00:00 | BUSPIRONE HCL | [facility] | + + + + | 2023-05-18 00:00 | BUSPIRONE HCL | [facility] | + + + + | 2023-05-20 00:00 | BUSPIRONE HCL | [facility] | + + + + | 2023-06-19 00:00 | BUSPIRONE HCL | [facility] | + + + + | 2023-06-24 00:00 | BUSPIRONE HCL | [facility] | + + + + | 2023-07-03 00:00 | BUSPIRONE HCL | [facility] | + + + + | 2023-07-13 00:00 | BUSPIRONE HCL | [facility] | + + + + | 2018-08-05 00:00 | ONDANSETRON | [facility] | + + + + | 2014-01-14 00:00 | PROMETHAZINE HCL | [facility] | + + + + | 2014-01-14 00:00 | PROMETHAZINE HCL | [facility] | + + + + | 2022-06-30 00:00 | PROMETHAZINE HCL | [facility] | + + + + | 2022-10-09 00:00 | PROMETHAZINE HCL | [facility] | + + + + | 2022-11-02 00:00 | PROMETHAZINE HCL | [facility] | + + + + | 2023-01-21 00:00 | PROMETHAZINE HCL | [facility] | + + + + | 2023-05-08 00:00 | PROMETHAZINE HCL | [facility] | + + + + | 2023-05-18 00:00 | PROMETHAZINE HCL | [facility] | + + + + | 2023-05-20 00:00 | PROMETHAZINE HCL | [facility] | + + + + | 2023-06-19 00:00 | PROMETHAZINE HCL | [facility] | + + + + | 2023-06-24 00:00 | PROMETHAZINE HCL | [facility] | + + + + | 2023-07-03 00:00 | PROMETHAZINE HCL | [facility] | + + + + | 2023-07-13 00:00 | PROMETHAZINE HCL | [facility] | + + + + | 2019-07-09 00:00 | Codeine | [facility] | | | Phosphate/Guaifenesin | | + + + + | 2015-03-22 00:00 | GUAIFENESIN/CODEINE | [facility] | | | PHOSPHATE | | + + + + | 2015-12-30 00:00 | GUAIFENESIN/CODEINE | [facility] | | | PHOSPHATE | | + + + + | 2022-06-30 00:00 | FEXOFENADINE HCL | [facility] | + + + + | 2022-10-09 00:00 | FEXOFENADINE HCL | [facility] | + + + + | 2022-11-02 00:00 | FEXOFENADINE HCL | [facility] | + + + + | 2023-01-21 00:00 | FEXOFENADINE HCL | [facility] | + + + + | 2023-05-08 00:00 | FEXOFENADINE HCL | [facility] | + + + + | 2023-05-18 00:00 | FEXOFENADINE HCL | [facility] | + + + + | 2023-05-20 00:00 | FEXOFENADINE HCL | [facility] | + + + + | 2023-06-19 00:00 | FEXOFENADINE HCL | [facility] | + + + + | 2023-06-24 00:00 | FEXOFENADINE HCL | [facility] | + + + + | 2023-07-03 00:00 | FEXOFENADINE HCL | [facility] | + + + + | 2023-07-13 00:00 | FEXOFENADINE HCL | [facility] | + + + + Problems + + + + | date | description | facility | + + + + | 2014-12-14 00:00 | Upper respiratory | [facility] | | | infection | | + + + + | 2014-12-14 00:00 | Sinusitis | [facility] | + + + + | 2015-03-22 00:00 | Acute bronchitis | [facility] | + + + + | 2016-01-13 00:00 | Right elbow pain | [facility] | + + + + | 2016-06-04 00:00 | Spasm of thoracic back | [facility] | | | muscle | | + + + + | 2016-06-04 00:00 | Back strain | [facility] | + + + + | 2016-09-17 00:00 | Laceration | [facility] | + + + + | 2017-01-01 00:00 | Contusion of right foot | [facility] | + + + + | 2017-08-14 00:00 | Sprain of hip | [facility] | + + + + | 2018-08-05 00:00 | Postoperative pain | [facility] | + + + + | 2018-10-27 00:00 | Pharyngitis | [facility] | + + + + | 2019-07-09 00:00 | Viral upper respiratory | [facility] | | | tract infection with cough | | + + + + | 2019-07-31 00:00 | Inhalation of noxious | [facility] | | | fumes | | + + + + | 2019-09-18 00:00 | Syncope | [facility] | + + + + | 2020-06-07 00:00 | Pain of right hip | [facility] | + + + + | 2020-08-31 00:00 | Acute postoperative pain | [facility] | | | of right hip | | + + + + | 2020-09-27 00:00 | Pneumonia due to severe | [facility] | | | acute respiratory syndrome | | | | coronavirus 2 (SARS-CoV-2) | | + + + + | 2020-11-10 00:00 | Patient left without being | [facility] | | | seen | | + + + + | 2021-10-03 00:00 | Hyperemesis gravidarum | [facility] | | | with metabolic disturbance | | + + + + | 2021-11-09 00:00 | Threatened | [facility] | + + + + | 2021-12-04 00:00 | Infection due to severe | [facility] | | | acute respiratory syndrome | | | | coronavirus 2 (SARS-CoV-2) | | + + + + | 2022-01-31 00:00 | Epilepsy affecting | [facility] | | | in second | | | | trimester | | + + + + | 2022-01-31 00:00 | Strain of elbow | [facility] | + + + + | 2022-03-21 [...] influenza | [facility] | | | virus, type A, human [...] + + | 2022-11-02 02:30 | OTHER COMMISSARY PRODUCTION SUPERVISOR (CURRENT) | [facility] | | | DRUG [...] strain | [facility] | + + + + | 2023-01-21 [...] + + | 2023-01-21 20:14 | OTHER USP (CURRENT) | [facility] | | | DRUG [...] activity | [facility] | + + + + | 2023-05-08 17:23 | DEPRESSION, UNSPECIFIED | [facility] | + + + + | 2023-05-08 17:23 | EPILEPSY, UNSP, NOT | [facility] | | | INTRACTABLE, WITHOUT STATUS | | | | EP | | + + + + | 2023-05-08 17:23 | UNSPECIFIED CONVULSIONS | [facility] | + + + + | 2023-05-08 17:23 | OTHER COMMISSARY PRODUCTION SUPERVISOR (CURRENT) | [facility] | | | DRUG [...] | 2023-05-18 00:00 | Seizure disorder | [facility] | + + + + | 2023-05-18 16:32 | EPILEPSY, UNSP, NOT | [facility] | | | INTRACTABLE, WITHOUT STATUS | | | | EP | | + + + + | 2023-05-18 16:32 | TRANSIENT ALTERATION OF | [facility] | | | AWARENESS | | + + + + | 2023-05-18 16:32 | OTHER COMMISSARY PRODUCTION SUPERVISOR (CURRENT) | [facility] | | | DRUG [...] + + | 2023-05-20 17:59 | OTHER USP (CURRENT) | [facility] | | | DRUG [...] 00:00 | Contusion of left hand | [facility] | + + + + | 2023-06-19 [...] + + | 2023-06-19 17:37 | OTHER USP (CURRENT) | [facility] | | | DRUG [...] + | 2023-06-24 00:00 | Convulsions | [facility] | + + + + | 2023-06-24 09:54 | EPILEPSY, UNSP, NOT | [facility] | | | INTRACTABLE, WITHOUT STATUS | | | | EP | | + + + + | 2023-06-24 09:54 | UNSPECIFIED CONVULSIONS | [facility] | + + + + | 2023-06-24 09:54 | OTHER USP (CURRENT) | [facility] | | | DRUG [...] + + | 2023-07-03 15:46 | OTHER USP (CURRENT) | [facility] | | | DRUG [...] DEV | [facility] | | | INTO SPINAL CANAL, PERC | | | | APPROACH | | + + + + | 2022-04-23 00:00 | REPAIR PERINEUM SKIN, | [facility] | | | EXTERNAL APPROACH | | + + + + | 2022-04-23 00:00 | DRAINAGE OF AMNIOTIC FL, | [facility] | | | THERAP FROM POC, VIA | | | | OPENING | | + + + + | 2022-04-23 00:00 | DELIVERY OF PRODUCTS OF | [facility] | | | CONCEPTION, EXTERNAL | | | | APPROACH | | + + + + | 2022-04-23 00:00 | INTRODUCTION OF HORMONE | [facility] | | | INTO FEM REPROD, VIA | | | | OPENING | | + + + + | 2022-04-23 00:00 | INTRODUCTION OF ANESTHETIC | [facility] | | | INTO SPINAL CANAL, PERC | | | | APPROACH | | + + + + | 2022-03-03 00:00 | MONITORING OF POC, CARDIAC | [facility] | | | ELECTR ACTIVITY, ESTIMATOR PROJECT MANAGER | | | | APPROACH | | + + + + | 2022-03-29 00:00 | MONITORING OF POC, CARDIAC | [facility] | | | ELECTR ACTIVITY, ESTIMATOR PROJECT MANAGER | | | | APPROACH | | + + + + | 2022-03-21 00:00 | MONITORING OF POC, CARDIAC | [facility] | | | RATE, ESTIMATOR PROJECT MANAGER APPROACH | | + + + + | 2022-04-07 00:00 | MONITORING OF POC, CARDIAC | [facility] | | | RATE, ESTIMATOR PROJECT MANAGER APPROACH | | + + + + [...] (missing) | | (unavailable | 03:20 | Nathna | | | | | [...] (missing) | | (unavailable | 03:48:08 | Nathna | | | | | [...] (missing) | | (unavailable | 17:35:07 | Ntahan | | | | | [...]
--- OUTSIDE RECORDS SUMMARY | 2023-07-21 14:35 | XMS ---
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 Care History Medical/Surgical 10/06/[address] [facility] - [facility] CONTACTED PCP OFFICE- DR BRAVO SPOKE WITH [employer]- PATIENT WAS OFFERED CAR CARE VISIT ON [...] UP VISIT. E.D. VISIT COUNT (12 MO.) [address] [facility] TOTAL 11 NOTE: Visits indicate total known visits. ED/UCC VISIT TRACKING (12 MO.) 07/21/2023 14:[address] [facility] [place] TYPE: Emergency COMPLAINT: - SEIZURE 07/13/2023 14:[address] [facility] [place] TYPE: Emergency COMPLAINT: - SEIZURE 07/03/2023 15:46 [facility] [place] TYPE: Emergency COMPLAINT: - UNRESPONSIVE DIAGNOSES: - Allergy status to narcotic agent - Allergy status to penicillin - Allergy status to sulfonamides - Allergy to other foods - Epilepsy, unspecified, not intractable, without status epilepticus - Other fdc (current) drug therapy - Other nonmedicinal substance allergy status - Unspecified convulsions 06/24/2023 09:54 [facility] [place] TYPE: Emergency COMPLAINT: - SEIZURE DIAGNOSES: - Allergy status to narcotic agent - Allergy status to penicillin - Allergy status to sulfonamides - Allergy to other foods - Epilepsy, unspecified, not intractable, without status epilepticus - Other fdc (current) drug therapy - Other nonmedicinal substance [...] not intractable, without status epilepticus - Other fdc (current) drug therapy - Pain in left hand - Striking against or struck by other objects, initial encounter 05/20/2023 17:59 [facility] [place] COMPLAINT: - SEIZURE DIAGNOSES: - Allergy status to narcotic agent - Allergy status to penicillin - Allergy status to sulfonamides - Allergy to other foods - Epilepsy, unspecified, not intractable, without status epilepticus - Other rat exterminator (current) drug therapy - Unspecified convulsions 05/18/2023 16:32 [facility] [place]: Emergency COMPLAINT: - SEIZURE DIAGNOSES: - Allergy status to narcotic agent - Allergy status to other drugs, medicaments and biological substances - Allergy status to penicillin - Allergy status to sulfonamides - Epilepsy, unspecified, not intractable, without status epilepticus - Other fdc (current) drug therapy - Transient alteration of awareness 05/08/2023 17:23 [facility] [place]: Emergency COMPLAINT: - UNRESPONSIVE DIAGNOSES: - Allergy status to narcotic agent - Allergy status to penicillin - Allergy status to sulfonamides - Allergy to other foods - Depression, unspecified - Epilepsy, unspecified, not intractable, without status epilepticus - Other fdc (current) drug therapy - Unspecified convulsions 01/21/2023 [...] other specified factors, initial encounter - Other rat exterminator (current) drug therapy - Pain in right [...] virus with other respiratory manifestations - Other fdc (current) drug therapy - Pain in left hip 10/09/2022 17:51 [facility] [place] TYPE: Emergency COMPLAINT: - SEIZURE DIAGNOSES: - Procedure and treatment not carried out due to patient leaving prior to being seen by health care provider - Unspecified convulsions INPATIENT VISIT TRACKING (12 MO.) No inpatient visits to display in this time frame [id number]
[2023-07-21 18:30] VITALS: BP 125/72
[2023-07-23] MEDS ORDERED: ONDANSETRON ODT8 MG PO (15:27)
== END 2023-07-21 18:30 | disposition home or self-care (01) ==
LOC: ED 14:32
DX: G40.909 Epilepsy, unspecified, not intractable, without status epilepticus (principal); Z88.5 Allergy status to narcotic agent; Z88.0 Allergy status to penicillin; Z88.2 Allergy status to sulfonamides; Z91.018 Allergy to other foods; Z79.899 Other long term (current) drug therapy
CPT/HCPCS: 80053; 80177; 85025; 99283

== ENCOUNTER 2023-08-24 23:50 | Emergency (ER) | payer OTHER ==
[~2023-08-24] VITALS: Ht 152.4 cm; Wt 102.4 kg
[~2023-08-24 23:50] MED LIST changes: +ONDANSETRON ODT8 MG PO
--- OUTSIDE RECORDS SUMMARY | 2023-08-24 23:53 | XMS ---
PreManage Notification: GERI LAUREN [employer] Analyst Events 1 event(s) in the past 18 months Most recent security events: Elopement at [facility] 07/13/2023 14:52 - Patient eloped before treatment completed. - Patient with suicidal and/or homicidal ideations eloped. - Patient eloped with IV in place. Details: Patient LWBS CRITERIA MET - 6 ED Visits in 6 Months CARE PROVIDERS [facility] 12/07/2021-Current PHONE: [phone] NATALYA FLETCHER Otolaryngology 08/14/2018-Current PHONE: [phone] Abdelrahman has no Care Guidelines for this patient. Care History Medical/Surgical 10/06/2020 [facility] - [facility] CONTACTED PCP OFFICE- DR BRAVO SPOKE WITH SUPERVISOR ELECTRIC MOTOR TESTING- PATIENT WAS OFFERED CAR CARE VISIT ON [...] PATIENT TODAY FOR A FOLLOW UP VISIT. Chanda VISIT COUNT (12 MO.) 13 [facility] [place] TOTAL 13 NOTE: Visits indicate total known visits. ED/UCC VISIT TRACKING (12 MO.) 08/24/2023 23:50 [facility] [place] TYPE: Emergency COMPLAINT: - FALL 07/23/2023 13:24 [facility] [place] TYPE: Emergency COMPLAINT: - DIZZINESS DIAGNOSES: - Allergy status to narcotic agent - Allergy status to other drugs, medicaments and biological substances - Allergy status to penicillin - Allergy status to sulfonamides - Allergy to other foods - Diarrhea, unspecified - Noninfective gastroenteritis and colitis, unspecified - Other half-way (current) drug therapy 07/21/2023 14:32 [facility] [place] TYPE: Emergency COMPLAINT: - SEIZURE DIAGNOSES: - Allergy status to narcotic agent - Allergy status to penicillin - Allergy status to sulfonamides - Allergy to other foods - Epilepsy, unspecified, not intractable, without status epilepticus - Other continuous churn buttermaker (current) drug therapy - Unspecified convulsions 07/13/2023 14:52 [facility] [place] TYPE: Emergency COMPLAINT: - SEIZURE 07/03/2023 15:46 [facility] [place] TYPE: Emergency COMPLAINT: - UNRESPONSIVE DIAGNOSES: - Allergy status to narcotic agent - Allergy status to penicillin - Allergy status to sulfonamides - Allergy to other foods - Epilepsy, unspecified, not intractable, without status epilepticus - Other continuous churn buttermaker (current) drug therapy - Other nonmedicinal substance allergy status - Unspecified convulsions 06/24/2023 09:54 [facility] [place] TYPE: Emergency COMPLAINT: - SEIZURE DIAGNOSES: - Allergy status to narcotic agent - Allergy status to penicillin - Allergy status to sulfonamides - Allergy to other foods - Epilepsy, unspecified, not intractable, without status epilepticus - Other continuous churn buttermaker (current) drug therapy - Other nonmedicinal substance [...] not intractable, without status epilepticus - Other continuous churn buttermaker (current) drug therapy - Pain in left hand - Striking against or struck by other objects, initial encounter [facility] [place] [facility] COMPLAINT: - SEIZURE DIAGNOSES: - Allergy status to narcotic agent - Allergy status to penicillin - Allergy status to sulfonamides - Allergy to other foods - Epilepsy, unspecified, not intractable, without status epilepticus - Other half-way (current) drug therapy - Unspecified convulsions 05/18/2023 16:32 [facility] [place] TYPE: Emergency COMPLAINT: - SEIZURE DIAGNOSES: - Allergy status to narcotic agent - Allergy status to other drugs, medicaments and biological substances - Allergy status to penicillin - Allergy status to sulfonamides - Epilepsy, unspecified, not intractable, without status epilepticus - Other continuous churn buttermaker (current) drug therapy - Transient alteration of awareness 05/08/2023 17:23 [facility] TYPE: Emergency COMPLAINT: - UNRESPONSIVE DIAGNOSES: - Allergy status to narcotic agent - Allergy status to penicillin - Allergy status to sulfonamides - Allergy to other foods - Depression, unspecified - Epilepsy, unspecified, not intractable, without status epilepticus - Other half-way (current) drug therapy - Unspecified convulsions 01/21/2023 [...] other specified factors, initial encounter - Other half-way (current) drug therapy - Pain in right [...] virus with other respiratory manifestations - Other half-way (current) drug therapy - Pain in left hip 10/09/2022 17:51 [facility] [place] TYPE: Emergency COMPLAINT: - SEIZURE DIAGNOSES: - Procedure and treatment not carried out due to patient leaving prior to being seen by health care provider - Unspecified convulsions INPATIENT VISIT TRACKING (12 MO.) No inpatient visits to display in this time frame [email or web address]
[2023-08-25 00:18] LABS: BASOPHILS 1.2 % (0-2); EOSINOPHILS 4.8 % (0-6); HEMATOCRIT 38.1 % (35.0-50.0); HEMOGLOBIN 12.2 g/dL (12.0-18.0); LYMPHOCYTES 18.7 % (24-44); MCH 25.6 (27-36); MCV 79.8 fl (81-99); MONOCYTES 6.5 % (0-12); NEUTROPHILS 68.8 % (39-80); PLATELET COUNT 378 K/uL (140-440); RBC 4.77 M/ul (4.3-5.7); RDW 15.3 (10.5-15.0)
[2023-08-25 00:28] LABS: ALBUMIN 3.7 g/dL (3.4-5.0); ALBUMIN/GLOBULIN RATIO 0.88 (1.1-2.4); ANION GAP 15.6 (7-21); BILIRUBIN, TOTAL 0.2 ng/dL (0.2-1.0); BUN/CREATININE RATIO 19.31 (6.0-28.6); CALCIUM 9.7 mg/dL (8.5-10.1); CREATININE, SERUM 0.88 mg/dL (0.55-1.02); POTASSIUM 3.6 mmol/L (3.5-5.1); PROTEIN, TOTAL 7.9 g/dL (6.4-8.2)
[2023-08-25] MEDS ORDERED: BUSPIRONE HCL30 MG (01:10)
[2023-08-25] MEDS ORDERED: TRAMADOL HCL50 MG PO (02:14)
[2023-08-25 03:01] VITALS: BP 121/81
== END 2023-08-25 02:50 | disposition home or self-care (01) ==
LOC: ED 23:50
PROVIDERS: Family Medicine
DX: R56.9 Unspecified convulsions (principal); S43.401A Unspecified sprain of right shoulder joint, initial encounter; S16.1XXA Strain of muscle, fascia and tendon at neck level, initial encounter; S76.011A Strain of muscle, fascia and tendon of right hip, initial encounter; W19.XXXA Unspecified fall, initial encounter; Y92.009 Unspecified place in unspecified non-institutional (private) residence as the place of occurrence of the external cause; Z88.5 Allergy status to narcotic agent; Z88.2 Allergy status to sulfonamides; Z88.8 Allergy status to other drugs, medicaments and biological substances; Z79.51 Long term (current) use of inhaled steroids; Z79.899 Other long term (current) drug therapy
CPT/HCPCS: 36415; 72125; 73030; 73502; 80053; 83735; 84703; 85025; 96374; 99284-25; A9270; J2060

== ENCOUNTER 2023-11-22 06:29 | Day surgery (SDC) | payer OTHER ==
[~2023-11-22] VITALS: Ht 154.9 cm; Wt 107.5 kg
[~2023-11-22 06:29] MED LIST changes: +BUSPIRONE HCL30 MG
[2023-11-22 06:43] VITALS: BP 135/71
[2023-11-22] MEDS ORDERED: MINIPRESS2 MG PO (06:46)
[2023-11-22] MEDS ORDERED: OMEPRAZOLE20 MG PO (06:47)
[2023-11-22] MEDS ORDERED: LAMICTAL25 MG PO (06:48)
--- NOTE | 2023-11-22 07:12 | NUR ---
ROUNDS. PT AND EXHIBIT LOW ANXIETY AND STATE NO CONCERNS; CONSENTED TO PRAYER. PROVIDED HOSPITALITY; PROVIDED PRAYER.
--- NOTE | 2023-11-22 07:48 | NUR ---
11/22/23 0748 Sheets,Alejandra 0741 PT ARRIVED TO PACU ON 3L VIA NC, PT SITTING IN HIGH FOWLERS AND SNORING OFF AND ON. 0744 PT WOKE AND IS REORIENTED TO PACU. PT DENIES NAUSEA AND EASILY FALLS BACK TO SLEEP.
[2023-11-22 08:19] VITALS: BP 123/69
--- NOTE | 2023-11-22 08:27 | OR ---
[facility] [address], [place] [address] Signed DATE OF OPERATION: 11/22/2023 SURGEON: Claude Akbar MD PREOPERATIVE DIAGNOSES: 1. Gastroesophageal reflux disease. 2. Mild anemia. 3. Possible irritable bowel syndrome. POSTOPERATIVE DIAGNOSES: 1. Mild diffuse gastritis. 2. GE junction at 33 cm. 3. Tiny hiatal hernia. PROCEDURE: EGD with CLOtest and biopsies of the antrum. ESTIMATED BLOOD LOSS: None. INDICATIONS: Jacki is a 33-year-old obese female, asked to see me for upper endoscopy. She is having a lot of trouble with acid reflux. On her laboratory work, she was found to have some very mild anemia. She is now using Pepcid, Tums and omeprazole. She is also on iron tablets. She is obese with a very full round face. She also has a history of seizures and depression. There is some concern she may be dealing with irritable bowel syndrome as well. She had been asked to see me by her primary care provider for upper endoscopy. In the office, I gave her a brochure on upper endoscopy. She told me several family members have been through endoscopy. Consequently, she is somewhat familiar with the whole process. She understands there is risk including, but not limited to gas bloating, crampy abdominal pain, bleeding, perforation requiring surgery, and missed diagnosis. We also reviewed the need for IV conscious sedation. She told me narcotic seemed to make her sick with nausea and vomiting. We therefore gave her Zofran and Compazine before the procedure. She had expressed understanding and wished to proceed. DESCRIPTION OF PROCEDURE: Jacki was taken into our endoscopy suite and placed in the supine semi-recumbent position. She was given 4 mg of Zofran IV and 10 mg of Compazine IV before we started. The posterior oropharynx was anesthetized with lidocaine spray. A bite block was Electronically Signed By: CLAUDE AKBAR MD 11/22/23 0827 PATIENT NAME: JACKI LAUREN OPERATIVE REPORT DATE OF : 89 REPORT #: [id number] PHYSICIAN: CLAUDE AKBAR MD PCP: BERONICA BRAVO MD REPORT IS CONFIDENTIAL AND NOT TO BE RELEASED WITHOUT AUTHORIZATION [facility] [address], [place] [address] Signed utilized for the case. She was then given 3 mg of Versed and 100 mcg of fentanyl to cover the case. The adult gastroscope was introduced and advanced under direct visualization of the camera. The duodenum and pyloric channel were unremarkable. Her stomach showed very mild if any erythematous changes. We went ahead and took a biopsy of the antrum for CLOtest as well as pathologic review. There were no ulcerations. The incisura, body and fundus of the stomach were unremarkable. Upon retroflexion of the scope, she may have just a very tiny hiatal hernia. The scope was withdrawn up through the area of GE junction, which was compliant without stricture. There were no gastric or esophageal varices. Her Z-line is about 33 cm from the incisors. Very minimal disruption to her Z-line. There was no Childers's mucosa. No distal esophagitis. The middle and upper esophagus were unremarkable. Her vocal cords and arytenoid seemed to be unremarkable. After this, the gas was suctioned out and the gastroscope removed. Jacki tolerated the procedure quite well. RECOMMENDATIONS: I will see Jacki back in my office in 7 to 14 days to review her results. Claude Akbar MD ALB/MODL /[id number] cc: MD Claude Lew MD Copies: BERONICA BRAVO DMD, ANDREW L MD ~ Electronically Signed By: CLAUDE AKBAR MD 11/22/23 0827 PATIENT NAME: JACKI LAUREN [facility] OPERATIVE REPORT DATE OF : 89 REPORT #: [id number] PHYSICIAN: CLAUDE AKBAR MD PCP: BERONICA BRAVO MD REPORT IS CONFIDENTIAL AND NOT TO BE RELEASED WITHOUT AUTHORIZATION
--- NOTE | 2023-11-25 16:57 | PATH ---
[facility] [address], [place] [address] Signed SPECIMEN(S): A ANTRUM BIOPSY SPECIMEN SOURCE: A. ANTRUM BIOPSY CLINICAL HISTORY: EGD. Reflux and anemia, mild gastritis. FINAL PATHOLOGIC DIAGNOSIS: Antrum biopsy: - Benign gastric-type mucosa with focal slight chronic inflammation. - Helicobacter pylori immunostain is negative for organisms. JVR:clv MICROSCOPIC EXAMINATION: Histologic sections of all submitted blocks are examined by light microscopy. These findings, together with the gross examination, support the pathologic diagnosis. A Helicobacter pylori immunostain is performed with appropriate positive and negative controls on block A1 and is negative for organisms. JVR:clv GROSS DESCRIPTION: The specimen, labeled and designated "Jesse SmallsJessica willingham, 1." and designated on the requisition "antrum/pylorus biopsy," is received in formalin and consists of one witt soft tissue fragment that is 0.7 cm in greatest dimension. The specimen is entirely submitted in (A1). FB (under the direct supervision of a pathologist) The Gross Description was prepared using a voice recognition system. The report was reviewed for accuracy; however, sound-alike word errors, addition and/or deletions may occur. If there is any question about this report, please contact Client Services. ADDITIONAL NOTES: Immunohistochemical and/or in situ hybridization studies if performed in this case included appropriate positive controls that reacted as expected. This test was developed and its performance characteristics determined by [facility]. It has not been cleared or approved by the U.S. Food and Drug Administration. The FDA has determined that such clearance or approval is not necessary. This test is used for clinical purposes. It should not be regarded PATIENT NAME: GERI LAUREN PATHOLOGY DATE OF : 89 REPORT #: [id number] PHYSICIAN: BAHMAN PATHOLOGY PCP: BERONICA BRAVO MD REPORT IS CONFIDENTIAL AND NOT TO BE RELEASED WITHOUT AUTHORIZATION [facility] [address], [place] [address] Signed as investigational or for research. [facility] is certified under the Clinical Laboratory Improvement Amendments of 1988 (CLIA) as qualified to perform high complexity clinical laboratory testing. PERFORMING LABORATORY: Technical component was performed by [facility], [address] [place] [address] (CLIA# [id number]). Professional interpretation was performed by [facility], [address] [place] [phone] (CLIA#: [id number]). Diagnostician: West Barnhart MD Pathologist Electronically Signed 11/25/2023 Copies: ~ PATIENT NAME: GERI LAUREN PATHOLOGY DATE OF : [birth year] REPORT #: [id number] PHYSICIAN: BAHMAN VILLAGRAN PCP: BERONICA BRAVO MD REPORT IS CONFIDENTIAL AND NOT TO BE RELEASED WITHOUT AUTHORIZATION
== END 2023-11-22 08:26 | disposition home or self-care (01) ==
LOC: DS 06:29
PROVIDERS: ATTEND Colon & Rectal Surgery
PROC: 0DB68ZX Excision of Stomach, Via Natural or Artificial Opening Endoscopic, Diagnostic (ICD-10-PCS; principal; 2023-11-22 07:30)
DX: K29.50 Unspecified chronic gastritis without bleeding (principal); D64.9 Anemia, unspecified; K21.9 Gastro-esophageal reflux disease without esophagitis; K44.9 Diaphragmatic hernia without obstruction or gangrene
CPT/HCPCS: 36415; 84703; 87077; G0500; J0780; J2250; J2405; J3010; J7121

== ENCOUNTER 2024-08-27 22:21 | Emergency (ER) | payer OTHER ==
[~2024-08-27] VITALS: Ht 152.4 cm; Wt 102.4 kg
[~2024-08-27 22:21] MED LIST changes: +CELECOXIB200 MG PO; +LAMICTAL25 MG PO; +MINIPRESS2 MG PO; +OMEPRAZOLE20 MG PO
[2024-08-28] MEDS ORDERED: KETOROLAC TROMETHAMINE 30 MG/ML VIAL IV ONE (00:15)
[2024-08-28 00:25] LABS: BASOPHILS 0.6 % (0-2); EOSINOPHILS 4.7 % (0-6); HEMATOCRIT 37.9 % (35.0-50.0); HEMOGLOBIN 12.6 g/dL (12.0-18.0); LYMPHOCYTES 21.8 % (24-44); MCH 26.2 (27-36); MCHC 33.2 g/dl (30-36); MONOCYTES 6.3 % (0-12); NEUTROPHILS 66.6 % (39-80); PLATELET COUNT 368 K/uL (140-440); RDW 15.4 (10.5-15.0)
[2024-08-28 00:43] LABS: ALBUMIN 3.6 g/dL (3.4-5.0); ALBUMIN/GLOBULIN RATIO 0.97 (1.1-2.4); ANION GAP 11.8 (7-21); BILIRUBIN, TOTAL 0.2 ng/dL (0.2-1.0); BUN/CREATININE RATIO 11.39 (6.0-28.6); CALCIUM 9.4 mg/dL (8.5-10.1); CREATININE, SERUM 0.79 mg/dL (0.55-1.02); POTASSIUM 3.8 mmol/L (3.5-5.1); PROTEIN, TOTAL 7.3 g/dL (6.4-8.2)
[2024-08-28 03:33] LABS: BILIRUBIN, URINE POSITIVE (negative); BLOOD/HGB, URINE NEGATIVE (Negative); KETONE, URINE TRACE (Negative); LEUK ESTERASE, URINE NEGATIVE (negative); NITRITE, URINE NEGATIVE (negative)
[2024-08-28 03:46] VITALS: BP 116/78
== END 2024-08-28 03:49 | disposition home or self-care (01) ==
LOC: ED 22:21
PROVIDERS: Internal Medicine
DX: R10.2 Pelvic and perineal pain (principal); N93.9 Abnormal uterine and vaginal bleeding, unspecified; E66.01 Morbid (severe) obesity due to excess calories; Z68.41 Body mass index [BMI] 40.0-44.9, adult; Z88.8 Allergy status to other drugs, medicaments and biological substances; Z88.2 Allergy status to sulfonamides; Z91.02 Food additives allergy status; Z88.5 Allergy status to narcotic agent; Z88.0 Allergy status to penicillin; Z79.899 Other long term (current) drug therapy; Z97.5 Presence of (intrauterine) contraceptive device
CPT/HCPCS: 36415; 76830; 76856; 80053; 81003; 84703; 85025; 96374; 99284-25; J1885

== ENCOUNTER 2025-02-14 09:15 | Day surgery (SDC) | payer OTHER ==
[2025-02-11 13:02] VITALS: BP 118/77
[~2025-02-14] VITALS: Ht 152.4 cm; Wt 100.0 kg
[~2025-02-14 09:15] MED LIST changes: +CEFAZOLIN SODIUM 2 GM/20 ML SYR IV SCH; +HYDROXYCHLOROQ100 MG PO; +IBLOOD GLUCOSE TEST STRIP 1 EA TEST VI PRN; +LACTATED RINGER'S 1,000 ML IV SCH; +LIDOCAINE HCL 1% 5 ML SDV INJ ONE
[2025-02-14 09:38] VITALS: BP 112/70
[2025-02-14] MEDS ORDERED: propofoL 200 MG/20 ML VIAL ONE ×2 (10:25→12:02)
[2025-02-14] MEDS ORDERED: ondansetron HCL 4 MG/2 ML VIAL ONE (10:25)
[2025-02-14] MEDS ORDERED: DEXAMETHASONE SOD PHOS 4 MG/ML VIAL ONE (10:25)
[2025-02-14] MEDS ORDERED: KETOROLAC TROMETHAMINE 30 MG/ML VIAL ONE (10:25)
[2025-02-14] MEDS ORDERED: LIDOCAINE HCL 2% 5 ML SDV ONE (10:25)
[2025-02-14] MEDS ORDERED: LIDOCAINE HCL 0.5% 50 ML SDV ONE (11:27)
[2025-02-14] MEDS ORDERED: MIDAZOLAM HCL 2 MG/2 ML VIAL ONE (11:27)
[2025-02-14] MEDS ORDERED: ondansetron HCL 4 MG/2 ML VIAL IV PRN (11:30)
[2025-02-14] MEDS ORDERED: fentaNYL citrate 50 MCG/ML SDV IV PRN (11:30)
[2025-02-14] MEDS ORDERED: IBLOOD GLUCOSE TEST STRIP 1 EA TEST VI PRN (11:30)
[2025-02-14] MEDS ORDERED: NALOXONE HCL 0.4 MG SYR IV PRN ×2 (11:30→12:30)
[2025-02-14] MEDS ORDERED: BUPIVACAINE HCL 0.25% 30 ML SDV ONE (11:50)
[2025-02-14] MEDS ORDERED: LACTATED RINGER'S 1,000 ML IV SCH (12:30)
[2025-02-14] MEDS ORDERED: ACETAMINOPHEN 500 MG TAB PO PRN (12:30)
[2025-02-14] MEDS ORDERED: OXYCODONE/APAP 7.5/325 TAB PO PRN (12:30)
[2025-02-14] MEDS ORDERED: IBUPROFEN 600 MG TAB PO PRN (12:30)
[2025-02-14] MEDS ORDERED: OXYCODON-ACETA1 EAC2 PO (12:31)
[2025-02-14] MEDS ORDERED: IBUPROFEN600 MG PO (12:31)
[2025-02-14] MEDS ORDERED: ACETAMINOPHEN500 MG PO (12:31)
--- NOTE | 2025-02-14 12:41 | NUR ---
02/14/25 1241 Joanie Guevara 1224-PT ARRIVES TO PACU VIA STRETCHER. PT RESTING SEMI FOWLERS, A+OX4, DENIES PAIN OR NAUSEA, VSS ON RA. RT WRIST ELEVATED ON PILLOW AND ICE PACK APPLIED. 1240- AT BEDSIDE TO DISCUSS PROCEEDURE RESULTS AND PLAN OF CARE W/ PT, ALL QUESTIONS ANSWERED
[2025-02-14 12:48] VITALS: BP 133/77
--- NOTE | 2025-02-22 13:29 | OR ---
[facility] [address], [place] [address] Signed DATE OF OPERATION: 02/14/2025 SURGEON: Prosper Rivas MD PREOPERATIVE DIAGNOSIS: Bilateral carpal tunnel syndrome, right greater than left. POSTOPERATIVE DIAGNOSIS: Bilateral carpal tunnel syndrome, right greater than left. PROCEDURE: Right carpal tunnel release. ANESTHESIA: IV sedation with Adam block (Erma Jones CRNA and local 3 mL of 0.25% Marcaine without epinephrine). 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 She has no muscle atrophy. Tinel and Phalen signs are positive, however. As the right side is worse than the left, she elects to undergo right carpal tunnel release at this time. The risk of bleeding, infection, nerve injury, and most importantly failure to improve her symptoms given some other ambiguous clinical signs was reviewed with her, she understands and wished to proceed. FINDINGS: The median nerve was easily identified and mildly hyperemic. The transverse carpal ligament was divided to the palmar fat and proximally to the proximal wrist crease under direct visualization without problem. DESCRIPTION OF PROCEDURE: The patient was brought to the operating room and underwent a Adam block anesthetic on the right side. Good exsanguination of the hand and forearm was noted. The right hand and forearm were prepared with a chlorhexidine solution and draped sterilely. A blue towel was rolled and placed beneath the wrist with the metal wrist restraint providing good exposure to the palmar surface on the right. A small incision was made with a 15 blade ulnar to the palmar crease. Dissection was carried through the palmar fat with retraction, identifying and incising longitudinally the palmaris longus, ultimately Electronically Signed By: PROSPER RIVAS MD 02/22/25 1329 PATIENT NAME: GERI LAUREN OPERATIVE REPORT DATE OF : [birth year] REPORT #: [id number] PHYSICIAN: PROSPER RIVAS MD PCP: BERONICA BRAVO MD REPORT IS CONFIDENTIAL AND NOT TO BE RELEASED WITHOUT AUTHORIZATION [facility] [address], [place] [address] Signed encountering the transverse carpal ligament. This was divided with sharp dissection enough to allow the tip of the hemostat to be inserted beneath the ligament. It was then divided distalward onto the palmar fat. Readjustment of the retractors was undertaken. The hemostat placed proximally and the more proximal transverse carpal ligament divided under direct visualization. Using tenotomy scissors and maintaining good visual contact of the transverse carpal ligament, it was divided more proximally into the proximal wrist crease. Inspection of the nerve shows no sign of neoplasm, only mild hyperemia. Irrigation was undertaken. A small amount of 0.25% Marcaine was injected locally. The skin was then closed with interrupted 2-0 nylon sutures. Xeroform dressing was applied as was rolled piece of gauze and a Flexicon wrap and a cock-up wrist splint and ultimately an Aaron wrap. Pressure was applied to the palmar surface and the tourniquet was deflated. Pressure was applied to the operative site until rubor returned and receded from the hand. She was transferred to recovery room in good condition with the operative site elevated over her chest. There was no significant bleeding and no complication. MD ADORE Horvath/MODL /[id number] cc: Beronica Bravo MD Copies: BERONICA BRAVO DMD ~ Electronically Signed By: PROSPER RIVAS MD 02/22/25 1329 PATIENT NAME: GERI LAUREN OPERATIVE REPORT DATE OF : [birth year] REPORT #: [id number] PHYSICIAN: PROSPER RIVAS MD PCP: BERONICA BRAVO MD REPORT IS CONFIDENTIAL AND NOT TO BE RELEASED WITHOUT AUTHORIZATION
== END 2025-02-14 13:00 | disposition home or self-care (01) ==
LOC: DS 09:15 → OPS 09:15 → DS 11:45 → OPS 11:45
PROVIDERS: ATTEND Surgery
PROC: 01N50ZZ Release Median Nerve, Open Approach (ICD-10-PCS; principal; 2025-02-14 11:45)
DX: G56.03 Carpal tunnel syndrome, bilateral upper limbs (principal); M79.7 Fibromyalgia; E03.9 Hypothyroidism, unspecified; E66.9 Obesity, unspecified; Z64.1 Problems related to multiparity; Z79.899 Other long term (current) drug therapy
CPT/HCPCS: 01810; J0690; J1100; J1885; J2003; J2250; J2405; J2704; J7121